=== PATIENT | female | born 1960 ===

== ENCOUNTER 2020-05-18 08:48 | Day surgery (SDC) | payer MEDICAID, SELFPAY ==
--- NOTE | 2020-05-17 09:14 | P.CONAN_ITS ---
Documented by User: Ailyn Penny 05/17/20 09:17 HPI - Anesthesia Eval Consult details Narrative: 60yo F for Upper Endoscopy and Colonoscopy FOR[facility]LY [facility] Past Medical History Medical History GERD (gastroesophageal reflux disease) HTN (hypertension) Surgical History Surgical History H/O colonoscopy History of esophagogastroduodenoscopy (EGD) Hx of reduction mammoplasty Hx of tubal ligation Social History Social History Advance Directives: No Advance Directives Information Provided: No Meds Allergies Allergy/AdvReac Type Severity Reaction Status Date / Time lisinopril [LISINOPRIL] AdvReac Mild COUGH, dry Verified 05/11/20 13:52 cough Home Medications Medication Instructions Recorded Confirmed Type allopurinol 100 mg PO DAILY 05/11/20 05/11/20 History atenolol 25 mg PO DAILY 05/11/20 05/11/20 History cholecalciferol (vitamin D3) 25 mcg PO DAILY 05/11/20 05/11/20 History [Vitamin D3] furosemide 20 mg PO DAILY 05/11/20 05/11/20 History melatonin [Melatin] 3 mg PO BEDTIME 05/11/20 05/11/20 History omeprazole 20 mg PO BID 05/11/20 05/11/20 History ranitidine HCl 150 mg PO BID 05/11/20 05/11/20 History simethicone 180 mg PO TID 05/11/20 05/11/20 History zolpidem 5 mg PO BEDTIME 05/11/20 05/11/20 History Exam Exam Date and Time: May 17, 2020 0914 Assessment and Plan Assessment Anesthesia Assessment: Chart Reviewed Documented by User: Ofelia Villalpando 05/18/20 09:15 [facility] Past Medical History Medical History GERD (gastroesophageal reflux disease) HTN (hypertension) Surgical History Surgical History H/O colonoscopy History of esophagogastroduodenoscopy (EGD) Hx of reduction mammoplasty Hx of tubal ligation Social History Social History Advance Directives: No Advance Directives Information Provided: No Meds Allergies Allergy/AdvReac Type Severity Reaction Status Date / Time lisinopril [LISINOPRIL] AdvReac Mild COUGH, dry Verified 05/11/20 13:52 cough Home Medications Medication Instructions Recorded Confirmed Type allopurinol 100 mg PO DAILY 05/11/20 05/11/20 History atenolol 25 mg PO DAILY 05/11/20 05/11/20 History cholecalciferol (vitamin D3) 25 mcg PO DAILY 05/11/20 05/11/20 History [Vitamin D3] furosemide 20 mg PO DAILY 05/11/20 05/11/20 History melatonin [Melatin] 3 mg PO BEDTIME 05/11/20 05/11/20 History omeprazole 20 mg PO BID 05/11/20 05/11/20 History ranitidine HCl 150 mg PO BID 05/11/20 05/11/20 History simethicone 180 mg PO TID 05/11/20 05/11/20 History zolpidem 5 mg PO BEDTIME 05/11/20 05/11/20 History Exam Airway Mallampati Class: I TM Dist: >3cm Neck ROM: Full Heart: RRR Lungs: CTA
--- NOTE | 2020-05-18 09:16 | HO.ANESPROP2 ---
[facility] Past Medical History Medical History GERD (gastroesophageal reflux disease) HTN (hypertension) Surgical History Surgical History H/O colonoscopy History of esophagogastroduodenoscopy (EGD) Hx of reduction mammoplasty Hx of tubal ligation Social History Social History Advance Directives: No Advance Directives Information Provided: No Meds Allergies Allergy/AdvReac Type Severity Reaction Status Date / Time lisinopril [LISINOPRIL] AdvReac Mild COUGH, dry Verified 05/11/20 13:52 cough Home Medications Medication Instructions Recorded Confirmed Type allopurinol 100 mg PO DAILY 05/11/20 05/11/20 History atenolol 25 mg PO DAILY 05/11/20 05/11/20 History cholecalciferol (vitamin D3) 25 mcg PO DAILY 05/11/20 05/11/20 History [Vitamin D3] furosemide 20 mg PO DAILY 05/11/20 05/11/20 History melatonin [Melatin] 3 mg PO BEDTIME 05/11/20 05/11/20 History omeprazole 20 mg PO BID 05/11/20 05/11/20 History ranitidine HCl 150 mg PO BID 05/11/20 05/11/20 History simethicone 180 mg PO TID 05/11/20 05/11/20 History zolpidem 5 mg PO BEDTIME 05/11/20 05/11/20 History Exam Exam Date and Time: May 18, 2020 0916 Assessment and Plan Assessment Anesthesia Assessment: Anesthesia Plan Discussed and Chart Reviewed Final Anesthetic Review NPO: Yes ASA Class: II Final Preanesthetic Review: No Changes in Pt Med Stat, Meds/Allgs Chart Reviewed, Consent Obtained/Reviewed and Anes Risks/Benef Reviewed Patient Risk: Low Procedure Risk: Low Anesthetic Plan Anesthetic Plan: MAC: Disposition: Standard PACU
[2020-05-18 09:24] VITALS: BMI 36.0
[2020-05-18 09:29] VITALS: BP 131/70; PULSE 57; RESP 16; TEMP 36.1; O2SAT 97
--- NOTE | 2020-05-18 09:32 | MHC.SHP ---
Pre-Procedural Eval Section B Chief Complaint: EPIGASTRIC PAIN Details of Present Illness: colon screen as well Relevant Family History (Specify if Yes): No Relevant Social History: None Present Medications: see Short Stay Collaborative assessment Medical History: Significant History (htn,acid reflux) History of Previous Operations: Relevant previous surgery/procedure and date(s) (tubal ligation, b reast reduction) Allergies: Allergies Allergy/AdvReac Type Severity Reaction Status Date / Time lisinopril [LISINOPRIL] AdvReac Mild COUGH, dry Verified 05/11/20 13:52 cough Review of Systems Sugical H&P ROS: Negative: Constitution, Cardiovascular, Respiratory, Neurological, Psychiatric, Hem-Onc, Allergic/Immunologic, Gastrointestinal, Genitourinary, Musculoskeletal, Integumentary, Endocrine and Eyes/Ears/Nose/Throat Exam Surgical H&P Exam: Normal: HEENT, Normal: Heart, Normal: Lungs, Normal: Extremities, Normal: Abdomen, Normal: Skin and Normal: Neurological Plan Diagnosis/Plan: Unchanged Patient has been examined and remains a candidate for the planned procedure--EGD and colonoscopy for colon screen
[2020-05-18] MEDS: Lactated Ringers 1,000 ML 100 ML IVCONT (09:38)
--- NOTE | 2020-05-18 09:41 | PC.NURSE ---
lungs clear throughotu
--- NOTE | 2020-05-18 11:31 | P.OP_ITS ---
Operative Note Operative Note Date of Service: 05/18/20 Narrative: Operative Information Procedure Description: EGD, Colonoscopy FLEXIBLE TRANSORAL UPPER GASTROINTESTINAL ENDOSCOPY AND COLONOSCOPY PROCEDURE NOTE UPPER ENDOSCOPY Consent: Indications for the procedure and potential complications of bleeding, perforation, reaction to medications and missed diagnosis were discussed with the patient and informed consent was obtained. Instrument: Olympus GIF H 190 J mid size upper endoscope Monitoring: Vital signs and clinical assessment, continuous EKG monitoring, Pulse oximetry, Carbon Dioxide monitoring and blood pressure monitoring were done throughout the procedure. Procedure: The patient was placed in the left lateral decubitis position and pre-procedure medications were administered and a bite block was placed. The endoscope was inserted into the mouth and advanced under direct vision to the third part of duodenum. A careful inspection was made as the upper endoscope was withdrawn including a retroflexed examination of the proximal stomach; Findings and interventions are described below. Findings: Larynx:normal Esophagus: GE junction at 37 cm, diaphragm hiatus at 37 cm, LA grade A moderate esophagitis noted at GEJ, bx taken from here as well as random esophagus. Empirical balloon dilation done at GEJ and UES 20 Fr at GEJ and 18 Fr at UES, no tears seen Stomach:Patchy erythema. Biopsies were obtained. Grade 2 flap valve on retroflexed examination of the cardia. Duodenum: Normal bulb and descending duodenum, Intervention: Biopsies as noted above, balloon dilation COLONOSCOPY Instrument: Olympus variable stiffness pediatric scope 190L Colonoscopy Monitoring: Vital signs and clinical assessment, continuous EKG monitoring, Pulse oximetry, Carbon Dioxide monitoring and blood pressure monitoring were done throughout the procedure. Colon withdrawal time was 10 minutes. Procedure: The patient was placed in the left lateral decubitis position and pre-procedure medications were administered. After a digital rectal examination of the ano-rectum, the video colonoscope was inserted into the rectum and advanced through the colon to the cecum/TI. The colonoscope was slowly withdrawn in a retrograde panoramic fashion and the colon mucosa was carefully examined including a retroflexed view of the rectum. Findings and interventions are described below. Procedure Difficulty:hard Findings: Redundant colon, numerous wide mouthed tics thru out the colon, worse on right side Terminal Ileum-normal Cecum:normal Ascending Colon: normal, 4-5 mm sessile polyp biopsy excised, also mucosa on right colon looked granular with mosaic pattern, bx taken Transverse Colon -normal Descending Colon:normal, 4-5 mm sessile polyp removed with biopsy forceps Sigmoid Colon: normal Rectum: Retroflexion with small internal hemorrhoids, grade I Anorectum - normal Colon preparation: [place] Bowel Preparation Scale Right colon; 2 Transverse colon: 2 Left colon; 1 (0 = Unprepared colon segment with mucosa not seen due to solid stool that cannot be cleared. 1 = Portion of mucosa of the colon segment seen, but other areas of the colon segment not well seen due to staining, residual stool and/or opaque liquid. 2 = Minor amount of residual staining, small fragments of stool and/or opaque liquid, but mucosa of colon segment seen well. 3 = Entire mucosa of colon segment seen well with no residual staining, small fragments of stool or opaque liquid) Impression and Post Procedure Diagnosis: Endoscopy Findings: gastritis esophagitis Colonoscopy Findings: diverticulosis internal hemorrhoids polyps Plan: Await Pathology results Repeat Colonoscopy in 5 years due to left sided prep or earlier if clinically indicated High fiber diet leaflet avoid straining at stool, epsom salts and sitz bath, anusol supps or cream May need to increase or change omeprazole, will discuss with patient Above findings were reviewed with the patient and relevant handouts were provided if indicated.
--- NOTE | 2020-05-18 11:31 | PM.OP ---
Brief Operative Note Date of Service: 05/18/20 Pre-op diagnosis: choking, epigastric discomfort, colon screen Post-op diagnosis: same Procedure: see op note Surgeon: Angie Castro MD Anesthesia: MAC Estimated blood loss (mL): 0 Condition: stable Disposition: PACU
[2020-05-18 11:35] VITALS: BP 102/57; PULSE 68; RESP 16; TEMP 36.7; O2SAT 96
[2020-05-18 11:50] VITALS: BP 128/60; PULSE 56; RESP 19; TEMP 36.7; O2SAT 98
== END 2020-05-18 12:23 | disposition home or self-care (01) ==
PROVIDERS: PCP Family Medicine; Visit Provider Internal Medicine Gastroenterology
PROC: (CPT 45380; principal; 2020-05-18 10:30)
DX: Z12.11 Encounter for screening for malignant neoplasm of colon (principal); D12.4 Benign neoplasm of descending colon; K63.5 Polyp of colon; K57.30 Diverticulosis of large intestine without perforation or abscess without bleeding; K64.0 First degree hemorrhoids; R13.10 Dysphagia, unspecified; K29.70 Gastritis, unspecified, without bleeding; K21.00 Gastro-esophageal reflux disease with esophagitis, without bleeding; Z79.899 Other long term (current) drug therapy; Q43.8 Other specified congenital malformations of intestine
CPT/HCPCS: 45380; 43239; 43249; 88305; 88342; C1726

== ENCOUNTER → 2020-05-25 14:04 | Outpatient (BNVA) | payer MEDICAID, SELFPAY | PROVIDERS: PCP Family Medicine; Referring Provider Family Medicine; Visit Provider Nurse Practitioner | DX: Z76.89 Persons encountering health services in other specified circumstances (principal) ==

== ENCOUNTER → 2020-10-13 14:16 | Outpatient (BNVA) | payer MEDICAID, SELFPAY | PROVIDERS: PCP Family Medicine; Visit Provider Nurse Practitioner ==

== ENCOUNTER 2020-12-08 11:12 | Outpatient (REF) | payer MEDICAID, SELFPAY ==
--- NOTE | ~2020-12-08 | XR_ITS ---
EXAMINATION: XR CHEST CLINICAL INFORMATION: Cough. On suspected foreign body in larynx. COMPARISON: None TECHNIQUE: 2 views of the chest were obtained. FINDINGS: No significant abnormality is noted involving the heart, lungs, mediastinum, bony thorax or soft tissues. XR/XR chest 2V IMPRESSION: Unremarkable chest examination.
== END 2020-12-08 11:13 | disposition home or self-care (01) ==
LOC: HO.XRAY 11:12
PROVIDERS: PCP Family Medicine; Visit Provider Family Medicine
DX: R05 Cough (principal); T17.308A Unspecified foreign body in larynx causing other injury, initial encounter
CPT/HCPCS: 71046

== ENCOUNTER 2021-02-26 08:29 | Outpatient (REF) | payer MEDICAID, SELFPAY ==
--- NOTE | ~2021-02-26 | MM_ITS ---
EXAMINATION: MM SCREENING DIGITAL BREAST TOMOSYNTHESIS, BILATERAL CLINICAL INFORMATION: Screening. Asymptomatic. Bilateral reduction mammoplasty, 2007. The lifetime risk of breast cancer based on the Tyrer-Cuzick Model is 6%. COMPARISON: Mammography: 02/07/2020, 02/06/2018, 01/29/2017 TECHNIQUE: Digital breast tomosynthesis is performed in both the craniocaudal and mediolateral oblique views along with computer-aided detection (CAD). Synthesized 2D images are generated from the tomosynthesis. FINDINGS: There are scattered areas of fibroglandular density (ACR BI-RADS breast composition Category b). Parenchymal pattern is similar to prior studies. No interval mass or developing density. No abnormal calcifications. There is minor scarring consistent with the history prior reduction mammoplasty. Small oil cyst again noted periareolar upper outer left breast. The axilla are unremarkable. No significant changes. MM/MM tomosynthesis screening BI IMPRESSION: No mammographic evidence of malignancy. ASSESSMENT: BI-RADS 2: Benign RECOMMENDATION: Routine annual mammography screening. This patient's information was entered into a reminder system with a target due date for their next mammogram.
== END 2021-02-26 08:30 | disposition home or self-care (01) ==
LOC: HO.MAMMO 08:29
PROVIDERS: Visit Provider Family Medicine
DX: Z12.31 Encounter for screening mammogram for malignant neoplasm of breast (principal)
CPT/HCPCS: 77063; 77067

== ENCOUNTER → 2021-04-14 16:22 | Outpatient (BNVA) | payer MEDICAID, SELFPAY | PROVIDERS: PCP Family Medicine; Visit Provider Nurse Practitioner ==

== ENCOUNTER 2021-04-20 12:00 | Outpatient (REF) | payer MEDICAID, SELFPAY ==
[2021-04-20 12:17] LABS: MANUAL DIFF FLAG NO
[2021-04-20 12:33] LABS: Basophils Percent Auto 0.4 % (0-2); Eosinophils Absolute Auto 0.1 X10*3/uL (0.0-0.4); Eosinophils Percent Auto 1.7 % (0-4); Hematocrit 41.2 % (37.0-47.0); Hemoglobin 13.5 g/dl (12.0-16.0); Imm Gran Abs Auto 0.02 X10*3/uL (0.00-0.03); Imm Gran Pct Auto 0.2 % (0.0-0.4); Lymphocytes Percent Auto 23.9 % (20-40); Mean Corpuscular HGB Conc 32.8 g/dl (31.0-35.0); Mean Corpuscular Volume 85.3 fL (80.0-98.0); Mean Platelet Volume 10.1 fL (9.4-12.3); Monocytes Absolute Auto 0.6 X10*3/uL (0.1-1.2); Monocytes Percent Auto 7.1 % (2-11); Neutrophils Absolute Auto 5.53 x10*3/uL (2.0-8.3); Neutrophils Percent Auto 66.7 % (45-73); Platelet Count 293 X10*3/uL (160-400); Red Blood Count 4.83 X10*6/uL (4.20-5.50); Red Cell Distribution Width 12.4 % (11.0-16.0); White Blood Count 8.3 X10*3/uL (4.8-10.8)
[2021-04-20 12:43] LABS: Estimated Average Glucose 114 mg/dL; Hemoglobin A1c % 5.6 %
[2021-04-20 12:56] LABS: Alanine Aminotransferase 14 U/L (0-31); Albumin Level 4.2 g/dL (3.5-5.0); Alkaline Phosphatase 67 U/L (39-117); Amylase 76 U/L (28-100); Anion Gap 11 (12-20); Aspartate Amino Transferase 13 U/L (5-31); Bilirubin Total 0.8 mg/dL (0.0-1.0); Blood Urea Nitrogen 23 mg/dL (9-16); Calcium 9.1 mg/dL (8.4-10.2); Carbon Dioxide 28 mmol/L (22-29); Chloride 108 mmol/L (96-108); Estimated Glomerular Filt Rate > 60; Glucose Random 100 mg/dL (60-115); Lipase 49 U/L (8-78); Potassium 4.5 mmol/L (3.3-5.1); Sodium 142 mmol/L (135-145); Total Protein 6.8 g/dL (6.5-8.0)
[2021-04-20 13:22] LABS: TSH reflex Free T4 1.58 uIU/mL (0.32-4.0)
== END 2021-04-20 12:01 | disposition home or self-care (01) ==
LOC: HO.LAB 12:00
PROVIDERS: PCP Family Medicine; Visit Provider Nurse Practitioner
DX: K21.9 Gastro-esophageal reflux disease without esophagitis (principal); R14.0 Abdominal distension (gaseous); R10.13 Epigastric pain; D12.6 Benign neoplasm of colon, unspecified; R63.4 Abnormal weight loss; R10.9 Unspecified abdominal pain
CPT/HCPCS: 36415; 80053; 82150; 83036; 83690; 84443; 85025

== ENCOUNTER 2021-05-05 08:12 | Outpatient (REF) | payer MEDICAID, SELFPAY ==
--- NOTE | ~2021-05-05 | CT_ITS ---
EXAMINATION: CT ABDOMEN AND PELVIS WITH CONTRAST CLINICAL INFORMATION: Abnormal weight loss COMPARISON: None TECHNIQUE: Multidetector volumetric images were obtained from the superior aspect of the liver through the pubic symphysis following administration 85 mL of Omnipaque 350 intravenous contrast. Sagittal and coronal reformatted images were obtained on the technologist's workstation. Oral contrast: Yes This CT examination was performed using dose optimization techniques as appropriate, variously including the following: *Automated exposure control *Adjustment of mA and/or kV according to patient size (this includes techniques or standardized protocols for targeted exams where dose is matched to indication/reason for exam; i.e. extremities or head) *Use of iterative reconstruction technique DLP: 676 mGy-cm FINDINGS: LUNG BASES: The visualized lung bases are unremarkable. LIVER, GALLBLADDER, AND BILIARY TREE: The liver is normal in size, shape, and attenuation. No focal hepatic lesion or biliary ductal dilatation is present. The gallbladder is unremarkable with no evidence of radiopaque gallstones, gallbladder wall thickening, or obvious pericholecystic inflammatory changes. PANCREAS: Unremarkable. SPLEEN: Unremarkable. ADRENAL GLANDS: Unremarkable. KIDNEYS AND URETERS: The kidneys are normal in size, shape, and attenuation. No hydronephrosis, hydroureter, or calculi seen. There is a small 5 mm low-attenuation lesion in the right kidney. This is difficult to characterize due to small size but probably represents a cyst. No imaging follow-up needed. BLADDER: Unremarkable. GASTROINTESTINAL TRACT: There is diverticulosis of the colon. The small and large bowel are otherwise unremarkable. The appendix is unremarkable. May be a small esophageal hernia. The stomach is otherwise unremarkable. ABDOMINAL WALL: No significant hernia is appreciated. LYMPH NODES: Normal. VASCULAR: Unremarkable. PELVIC VISCERA: Unremarkable. OSSEOUS STRUCTURES: There are degenerative changes of the spine. There is mild 5 mm anterior subluxation of L4 with respect L5 probably related to arthritis. CT/CT abdomen pelvis w con IMPRESSION: Diverticulosis of the colon. Question small esophageal hernia. Small probable right renal cyst.
[2021-05-05] MEDS: iohexoL 350 MG/ML 100 ML INFUS..BTL IV (11:49)
[2021-05-05] MEDS: Barium Sulfate Oral (Mocha) 450 ML ORAL.SUSP 900 ML PO (11:50)
== END 2021-05-05 08:13 | disposition home or self-care (01) ==
LOC: HO.CT 08:12
PROVIDERS: PCP Family Medicine; Visit Provider Nurse Practitioner
DX: R10.9 Unspecified abdominal pain (principal); R63.4 Abnormal weight loss
CPT/HCPCS: 74177; Q9967

== ENCOUNTER 2021-05-13 10:38 | Emergency (ER) | payer MEDICAID, SELFPAY ==
--- NOTE | ~2021-05-13 | XR_ITS ---
EXAMINATION: XR RIBS, RIGHT CLINICAL INFORMATION: Right-sided chest wall pain. COMPARISON: None TECHNIQUE: 3 views of the right ribs were obtained. Chest one view FINDINGS: Lungs are clear. No consolidation, pneumothorax, or pleural effusion. The cardiomediastinal silhouette and pulmonary vasculature are normal. There is moderate dorsal spine spondylosis.. Ribs are intact. No fractures are identified. XR/XR ribs RT min 3V w CXR1V IMPRESSION: Unremarkable chest and right rib examination.
--- NOTE | ~2021-05-13 | US_ITS ---
EXAMINATION: US VENOUS ULTRASOUND WITH DOPPLER LOWER EXTREMITY, RIGHT CLINICAL INFORMATION: Right leg swelling and pain. Assess for occult DVT. COMPARISON: Bilateral leg venous ultrasound with Doppler 01/07/2019 TECHNIQUE: Ultrasound of the deep veins is performed from the hip to the calf with compression sonography and color and pulse Doppler assessment. Spectral analysis with color-flow imaging is performed. FINDINGS: There is normal venous compression and respiratory variation and augmented flow. The visualized common femoral vein, superficial femoral vein, profunda femoral vein, popliteal vein, and the trifurcation region shows no evidence of deep venous thrombosis. No popliteal fossa cyst. US/US venous duplex LE RT IMPRESSION: No DVT demonstrated in the right lower extremity.
--- NOTE | ~2021-05-13 | CT_ITS ---
EXAMINATION: CT ANGIOGRAM OF THE CHEST WITH AND WITHOUT CONTRAST (CT PULMONARY ANGIOGRAM FOR PE) CLINICAL INFORMATION: Reason for Exam right sided chest wall pain, +d-dimer COMPARISON: Chest radiograph with right ribs 05/13/2021 TECHNIQUE: Prior to contrast administration, noncontrast localization images were obtained. Subsequently, multidetector volumetric imaging was performed from the thoracic inlet to below the diaphragms following the administration of 65 mL Omnipaque 350 intravenous contrast. Sagittal, coronal, and MIP oblique sagittal reformatted images were obtained on the CT workstation, uploaded to PACS, and reviewed. This CT examination was performed using dose optimization techniques as appropriate, variously including the following: *Automated exposure control *Adjustment of mA and/or kV according to patient size (this includes techniques or standardized protocols for targeted exams where dose is matched to indication/reason for exam; i.e. extremities or head) *Use of iterative reconstruction technique Total exam dose-length product 336 mGy-cm FINDINGS: QUALITY OF STUDY/CONTRAST BOLUS: Satisfactory. PULMONARY ARTERIES: No central or segmental pulmonary emboli. THORACIC AORTA: No aneurysm or dissection. LUNG: No airspace consolidation or groundglass opacity. No mass or significant nodule. There is a incidental calcified right along most subpleural posterior lateral left upper lobe, series 8/173 under 4 mm. No additional follow-up required as per Fleischner guidelines. PLEURA: No pleural effusion or pneumothorax. MEDIASTINUM: Normal heart size. No pericardial effusion. No hilar or mediastinal lymphadenopathy. No evidence of septal bowing or right heart strain. CHEST WALL/AXILLA: No axillary or internal mammary lymphadenopathy. OSSEOUS STRUCTURES: No acute or suspicious osseous abnormality. UPPER ABDOMEN: Unremarkable. No reflux of contrast into the hepatic veins to suggest elevated right heart pressures. CT/CT angio chest PE protocol IMPRESSION: 1. No pulmonary embolism. No thoracic aortic dissection. 2. No pneumothorax, infiltrate, or pleural reaction. VTE: negative
[2021-05-13 10:56] VITALS: BP 115/73; PULSE 64; RESP 18; TEMP 36.9; O2SAT 97; BMI 32.9
--- NOTE | 2021-05-13 11:52 | ECG_ITS ---
Test Reason : CHEST PAIN Blood Pressure : / mmHG Vent. Rate : 054 BPM Atrial Rate : 054 BPM P-R Int : 156 ms QRS Dur : 090 ms QT Int : 428 ms P-R-T Axes : 037 -10 023 degrees QTc Int : 405 ms Sinus bradycardia Minimal voltage criteria for LVH, may be normal variant ( R in aVL ) Borderline ECG When compared with ECG of 13-OCT-2019 14:21, No significant change was found Referred By: Court Reddy Electronically Signed By:ALONDRA DICKENS MD
--- NOTE | 2021-05-13 11:53 | ED.GENADULT ---
HPI - General Adult General Chief complaint: General Medical Stated complaint: upper rt abd pain Time Seen by Provider: 05/13/21 11:44 Source: patient Mode of arrival: ambulatory Limitations: no limitations History of Present Illness HPI narrative: 61-year-old female with history of hypertension GERD here with complaints of right-sided chest wall pain for the last 4 days which is worsened with deep breathing, coughing, movement. She denies any associated cough, shortness of breath, leg swelling, fevers, vomiting, urinary symptoms. she does report some pain and discomfort with some lumps to her right thigh which she has had for several weeks. She is pending an outpatient ultrasound to rule out blood clot. no recent travel or sick contacts Related Data Home Medications Medication Instructions Recorded Confirmed allopurinol 100 mg tablet 100 mg PO DAILY 05/11/20 05/11/20 atenolol 25 mg tablet 25 mg PO DAILY 05/11/20 05/11/20 cholecalciferol (vitamin D3) 25 25 mcg PO DAILY 05/11/20 05/11/20 mcg (1,000 unit) capsule (Vitamin D3) furosemide 20 mg tablet 20 mg PO DAILY 05/11/20 05/11/20 melatonin 3 mg tablet (Melatin) 3 mg PO BEDTIME 05/11/20 05/11/20 simethicone 180 mg capsule 180 mg PO TID 05/11/20 05/11/20 zolpidem 5 mg tablet 5 mg PO BEDTIME 05/11/20 05/11/20 ibuprofen 800 mg tablet 800 mg PO DAILY 04/14/21 meclizine 25 mg tablet 25 mg PO DAILY PRN 04/14/21 Previous Rx's Medication Instructions Recorded omeprazole 40 mg capsule,delayed 40 mg PO QAM #30 cap 03/29/21 release cyclobenzaprine 10 mg tablet 10 mg PO TID PRN #10 tab 05/13/21 naproxen 500 mg tablet 500 mg PO BID PRN #15 tab 05/13/21 Allergies Allergy/AdvReac Type Severity Reaction Status Date / Time lisinopril [LISINOPRIL] AdvReac Mild COUGH, dry Verified 05/13/21 10:56 cough Review of Systems Review of Systems: Yes all other systems are reviewed and are negative Constitutional: Constitutional: Reports no additional constitutional complaints, Denies body ache(s), Denies chills, Denies fever(s), Denies headache(s) and Denies weakness Eyes: Eyes: Reports no additional eye complaints and Denies change in vision ENT: Reports system reviewed and no additional complaints, except as documented, Denies dizziness, Denies headache(s), Denies nasal congestion, Denies nasal discharge and Denies neck pain Cardiovascular: Cardiovascular: Reports no additional cardiovascular complaints, Reports chest pain, Reports leg edema and Denies dyspnea Respiratory: Respiratory: Reports no additional respiratory complaints, Denies cough and Denies dyspnea Gastrointestinal: Gastrointestinal: Reports no additional gastrointestinal complaints, Denies abdominal pain, Denies diarrhea, Denies nausea and Denies vomiting Genitourinary: Genitourinary: Reports no additional female genitourinary complaints and Denies urinary incontinence Musculoskeletal: Musculoskeletal: Reports no additional musculoskeletal complaints, Denies back pain, Denies arthralgias, Denies joint swelling, Denies neck pain, Denies numbness and Denies tingling Integumentary/Breasts: Skin/Breast: Reports system reviewed and no additional complaints, except as docu and Denies rash Neurologic: Reports system reviewed and no additional complaints, except as documented, Denies Abnormal speech present, Denies dizziness, Denies headache(s), Denies numbness, Denies tingling and Denies weakness PMFSH Past Medical History Attestation statement: The following information was validated with the patient. Source: old records reviewed Medical History GERD (gastroesophageal reflux disease) HTN (hypertension) Surgical History H/O colonoscopy History of esophagogastroduodenoscopy (EGD) Hx of reduction mammoplasty Hx of tubal ligation Family History Family History Father Heart failure Diabetes Mother Heart failure Diabetes AD (Alzheimer's disease) Brother Pancreatic cancer Social History Social History Alcohol intake: current Alcohol intake frequency: does not drink Advance Directives: No Patient : No Physical Exam Vital Signs: Vital Signs: Last Vital Signs Temp 98.4 F 05/13/21 10:56 Pulse 64 05/13/21 10:56 Resp 18 05/13/21 10:56 BP 115/73 05/13/21 10:56 Pulse Ox 97 05/13/21 10:56 Body Mass Index 32.9 Const: General: cooperative, healthy appearing, comfortable and no acute distress Orientation/consciousness: patient oriented x3 Limitations: no limitations HENMT: Head: Yes normal to inspection Ears: hearing grossly normal bilaterally General nose exam: Normal external nose present Face and sinus: Yes normal facial exam Mouth: Normal oral and palatal mucosa present Throat: Yes posterior oropharynx normal Eyes: General: appearance normal, both eyes and all related structures Pupils: Equal, round and reactive pupils present Neck: Neck: Yes normal visual inspection Chest: Other: to the right lateral ribs there is some tenderness with no obvious crepitus or deformity or ecchymosis. Chest palpation & inspection: normal inspection of the chest Resp: Effort & Inspection: normal respiratory effort Auscultation: clear to auscultation bilaterally Cardio: Rate: regular rate Rhythm: regular rhythm Peripheral pulses: Peripheral pulses 2+ throughout GI: Inspection: Yes normal to inspection Palpation (GI): Soft to palpation and nontender Auscultation: normal bowel sounds Back/Spine/Pelvis: Thoracic/Lumbar Spine: thoracic and lumbar spine normal to inspection Skin: General skin exam: no rashes or lesions noted Neuro: General: patient oriented x3, no focal motor deficits and normal sensation to monofilament Cranial nerves: Yes Equal, round and reactive pupils present Cognition (Neuro): normal cognition Speech: No Abnormal speech present Gait exam (Neuro): Normal gait present Motor exam (neuro): 5/5 motor strength present throughout Extrem: Other: To the right inner thigh there is to palpable firm, tender lumps No appreciable swelling, redness or warmth. General: Yes normal to inspection, Yes no pedal edema and Yes no calf tenderness Course Course Course Narrative: pleuritic right-sided chest wall pain for several days with lumps to RLE x several weeks. Will check labs, EKG, CXR, venous US RLE 1520- X-ray was negative. Ultrasound showed no DVT. Labs and EKG are normal. The patient did have a mildly elevated D-dimer and so CTA of the chest was done to rule out PE. This was negative. Likely chest wall strain. Reviewed findings with the patient. Recommended follow-up with primary care doctor for continued symptoms. Reviewed worrisome signs and symptoms of when to return to the emergency department. Comfortable discharge home. Medical Decision Making MDM Narrative Medical decision making narrative: PE, DVT, chest wall strain, ACS Less likely ACS with atypical chest pain with a negative troponin and EKG Medical Records Medical records reviewed: Yes I reviewed the patient's medical records. Lab Data Lab results reviewed: Yes I reviewed the patient's lab results. Result diagrams: 05/13/21 12:39 05/13/21 12:39 Labs: Lab Results 05/13/21 05/13/21 05/13/21 Range/Units 12:39 12:39 12:39 WBC 8.6 (4.8-10.8) X10*3/uL RBC 4.99 (4.20-5.50) X10*6/uL Hgb 13.7 (12.0-16.0) g/dl Hct 42.8 (37.0-47.0) % MCV 85.8 (80.0-98.0) fL MCH 27.5 (27.0-33.0) pg MCHC 32.0 (31.0-35.0) g/dl RDW 12.4 (11.0-16.0) % Plt Count 341 (160-400) X10*3/uL MPV 10.0 (9.4-12.3) fL Immature Gran % (Auto) 0.6 H (0.0-0.4) % Neut % (Auto) 62.6 (45-73) % Lymph % (Auto) 26.9 (20-40) % [place] % (Auto) 6.8 (2-11) % Eos % (Auto) 2.7 (0-4) % Baso % (Auto) 0.4 (0-2) % Lymph # (Auto) 2.3 (1.2-4.9) X10*3/uL [place] # (Auto) 0.6 (0.1-1.2) X10*3/uL Eos # (Auto) 0.2 (0.0-0.4) X10*3/uL Baso # (Auto) 0.0 (0.0-0.2) X10*3/uL Abs Immat Gran (auto) 0.05 H (0.00-0.03) X10*3/uL Absolute Neuts (auto) 5.4 (2.0-8.3) x10*3/uL Absolute Nucleated RBC 0.000 (0.0-0.012) X10*3/uL Nucleated RBC % (auto) 0.0 (0.0-0.2) /100WBC PT 10.8 (9.9-13.0) SEC INR 1.0 (0.9-1.1) D-Dimer High Sensitivty NG/ML Sodium 141 (135-145) mmol/L Potassium 4.6 (3.3-5.1) mmol/L Chloride 108 (96-108) mmol/L Carbon Dioxide 26 (22-29) mmol/L Anion Gap 12 (12-20) BUN 24 H (9-16) mg/dL Creatinine 0.80 (0.5-1.4) mg/dL Estim Creat Clear Calc 74.9 Estimated GFR > 60 Random Glucose 95 (60-115) mg/dL Calcium 9.3 (8.4-10.2) mg/dL Total Bilirubin 0.5 (0.0-1.0) mg/dL Direct Bilirubin 0.2 (0.0-0.5) mg/dL AST 12 (5-31) U/L ALT 15 (0-31) U/L Alkaline Phosphatase 76 (39-117) U/L Troponin I High Sens (<3.5-17.0) ng/L Total Protein 7.0 (6.5-8.0) g/dL Albumin 4.3 (3.5-5.0) g/dL 05/13/21 05/13/21 Range/Units 12:39 12:40 WBC (4.8-10.8) X10*3/uL RBC (4.20-5.50) X10*6/uL Hgb (12.0-16.0) g/dl Hct (37.0-47.0) % MCV (80.0-98.0) fL MCH (27.0-33.0) pg MCHC (31.0-35.0) g/dl RDW (11.0-16.0) % Plt Count (160-400) X10*3/uL MPV (9.4-12.3) fL Immature Gran % (Auto) (0.0-0.4) % Neut % (Auto) (45-73) % Lymph % (Auto) (20-40) % [place] % (Auto) (2-11) % Eos % (Auto) (0-4) % Baso % (Auto) (0-2) % Lymph # (Auto) (1.2-4.9) X10*3/uL [place] # (Auto) (0.1-1.2) X10*3/uL Eos # (Auto) (0.0-0.4) X10*3/uL Baso # (Auto) (0.0-0.2) X10*3/uL Abs Immat Gran (auto) (0.00-0.03) X10*3/uL Absolute Neuts (auto) (2.0-8.3) x10*3/uL Absolute Nucleated RBC (0.0-0.012) X10*3/uL Nucleated RBC % (auto) (0.0-0.2) /100WBC PT (9.9-13.0) SEC INR (0.9-1.1) D-Dimer High Sensitivty 369 NG/ML Sodium (135-145) mmol/L Potassium (3.3-5.1) mmol/L Chloride (96-108) mmol/L Carbon Dioxide (22-29) mmol/L Anion Gap (12-20) BUN (9-16) mg/dL Creatinine (0.5-1.4) mg/dL Estim Creat Clear Calc Estimated GFR Random Glucose (60-115) mg/dL Calcium (8.4-10.2) mg/dL Total Bilirubin (0.0-1.0) mg/dL Direct Bilirubin (0.0-0.5) mg/dL AST (5-31) U/L ALT (0-31) U/L Alkaline Phosphatase (39-117) U/L Troponin I High Sens < 3.5 (<3.5-17.0) ng/L Total Protein (6.5-8.0) g/dL Albumin (3.5-5.0) g/dL Imaging Data Venous US: Attestation: I personally reviewed and interpreted this imaging study as follows: Radiologist's impression: EXAMINATION:? US VENOUS ULTRASOUND WITH DOPPLER LOWER EXTREMITY, RIGHT CLINICAL INFORMATION:? Right leg swelling and pain. Assess for occult DVT. COMPARISON:? Bilateral leg venous ultrasound with Doppler 01/07/2019 TECHNIQUE: Ultrasound of the deep veins is performed from the hip to the calf with compression sonography and color and pulse Doppler assessment. Spectral analysis with color-flow imaging is performed. FINDINGS: There is normal venous compression and respiratory variation and augmented flow. The visualized common femoral vein, superficial femoral vein, profunda femoral vein, popliteal vein, and the trifurcation region shows no evidence of deep venous thrombosis. ? No popliteal fossa cyst. US/US venous duplex LE RT IMPRESSION: No DVT demonstrated in the right lower extremity. ribs right/chest x-ray: Attestation: I personally reviewed and interpreted this imaging study as follows: Radiologist's impression: EXAMINATION: XR RIBS, RIGHT CLINICAL INFORMATION: Right-sided chest wall pain. COMPARISON: None TECHNIQUE: 3 views of the right ribs were obtained. Chest one view FINDINGS: Lungs are clear. No consolidation, pneumothorax, or pleural effusion. The cardiomediastinal silhouette and pulmonary vasculature are normal. There is moderate dorsal spine spondylosis.. Ribs are intact. No fractures are identified. XR/XR ribs RT min 3V w CXR1V IMPRESSION: Unremarkable chest and right rib examination. ? CT scan - chest: Attestation: I personally reviewed and interpreted this imaging study as follows: Radiologist's impression: FINDINGS: QUALITY OF STUDY/CONTRAST BOLUS: Satisfactory. PULMONARY ARTERIES: No central or segmental pulmonary emboli.? THORACIC AORTA: No aneurysm or dissection. LUNG: No airspace consolidation or groundglass opacity. No mass or significant nodule. There is a incidental calcified right along most subpleural posterior lateral left upper lobe, series 8/173 under 4 mm. No additional follow-up required as per Fleischner guidelines. PLEURA: No pleural effusion or pneumothorax. MEDIASTINUM: Normal heart size.? No pericardial effusion.? No hilar or mediastinal lymphadenopathy.? No evidence of septal bowing or right heart strain. CHEST WALL/AXILLA: No axillary or internal mammary lymphadenopathy. OSSEOUS STRUCTURES: No acute or suspicious osseous abnormality.? UPPER ABDOMEN: Unremarkable.? No reflux of contrast into the hepatic veins to suggest elevated right heart pressures. CT/CT angio chest PE protocol IMPRESSION: ? 1. No pulmonary embolism. No thoracic aortic dissection. 2. No pneumothorax, infiltrate, or pleural reaction. ? VTE: negative ECG Data Attestation: I personally reviewed and interpreted this ECG as follows: Interpretation: sinus bradycardia with a rate of 54, normal MD, normal QRS, normal QT Discharge Plan Discharge Clinical Impression: Chest wall muscle strain Patient Disposition: Home, Self-Care Instructions: Chest Wall Pain (ED) Additional Instructions: heat or ice gentle stretching Prescriptions: New naproxen 500 mg tablet 500 mg PO BID PRN (Reason: pain) Qty: 15 RF: 0 cyclobenzaprine 10 mg tablet 10 mg PO TID PRN (Reason: muscle spasm) Qty: 10 RF: 0 No Action omeprazole 40 mg capsule,delayed release(DR/EC) 40 mg PO QAM Qty: 30 RF: 1 simethicone 180 mg Capsule 180 mg PO TID RF: 0 atenolol 25 mg Tablet 25 mg PO DAILY RF: 0 melatonin [Melatin] 3 mg Tablet 3 mg PO BEDTIME RF: 0 allopurinol 100 mg Tablet 100 mg PO DAILY RF: 0 zolpidem 5 mg Tablet 5 mg PO BEDTIME RF: 0 furosemide 20 mg Tablet 20 mg PO DAILY RF: 0 cholecalciferol (vitamin D3) [Vitamin D3] 25 mcg (1,000 unit) Capsule 25 mcg PO DAILY RF: 0 meclizine 25 mg tablet 25 mg PO DAILY PRN (Reason: vertigo) RF: 0 ibuprofen 800 mg tablet 800 mg PO DAILY RF: 0 Referrals: Ebony Blanchard MD [Primary Care Provider] - 2 days Interventions: ED Discharge Assessment Last Done: 05/13/21 15:20 Discharge Date/Time: 05/13/21 15:20
[2021-05-13 12:47] LABS: MANUAL DIFF FLAG NO
[2021-05-13 12:52] LABS: Basophils Percent Auto 0.4 % (0-2); Eosinophils Absolute Auto 0.2 X10*3/uL (0.0-0.4); Eosinophils Percent Auto 2.7 % (0-4); Hematocrit 42.8 % (37.0-47.0); Hemoglobin 13.7 g/dl (12.0-16.0); Imm Gran Abs Auto 0.05 X10*3/uL (0.00-0.03); Imm Gran Pct Auto 0.6 % (0.0-0.4); Lymphocytes Absolute Auto 2.3 X10*3/uL (1.2-4.9); Lymphocytes Percent Auto 26.9 % (20-40); Mean Corpuscular Hemoglobin 27.5 pg (27.0-33.0); Mean Corpuscular Volume 85.8 fL (80.0-98.0); Monocytes Absolute Auto 0.6 X10*3/uL (0.1-1.2); Monocytes Percent Auto 6.8 % (2-11); Neutrophils Absolute Auto 5.4 x10*3/uL (2.0-8.3); Neutrophils Percent Auto 62.6 % (45-73); Platelet Count 341 X10*3/uL (160-400); Red Blood Count 4.99 X10*6/uL (4.20-5.50); Red Cell Distribution Width 12.4 % (11.0-16.0); White Blood Count 8.6 X10*3/uL (4.8-10.8)
[2021-05-13 12:57] LABS: Prothrombin Time 10.8 SEC (9.9-13.0)
[2021-05-13 13:00] LABS: D Dimer High Sensitivity 369 NG/ML
[2021-05-13 13:05] LABS: Alanine Aminotransferase 15 U/L (0-31); Albumin Level 4.3 g/dL (3.5-5.0); Alkaline Phosphatase 76 U/L (39-117); Anion Gap 12 (12-20); Aspartate Amino Transferase 12 U/L (5-31); Bilirubin Direct 0.2 mg/dL (0.0-0.5); Bilirubin Total 0.5 mg/dL (0.0-1.0); Blood Urea Nitrogen 24 mg/dL (9-16); Calcium 9.3 mg/dL (8.4-10.2); Carbon Dioxide 26 mmol/L (22-29); Chloride 108 mmol/L (96-108); Creatinine Clr Calc Pharmacy 74.9; Estimated Glomerular Filt Rate > 60; Glucose Random 95 mg/dL (60-115); Potassium 4.6 mmol/L (3.3-5.1); Sodium 141 mmol/L (135-145)
[2021-05-13 13:09] LABS: Troponin-I High Sensitivity < 3.5 ng/L (<3.5-17.0)
[2021-05-13] MEDS: iohexoL 350 MG/ML 100 ML INFUS..BTL IV (14:33)
== END 2021-05-13 15:20 | disposition home or self-care (01) ==
PROVIDERS: Nurse Practitioner Family; Emergency Provider Emergency Medicine; PCP Family Medicine
DX: S29.011A Strain of muscle and tendon of front wall of thorax, initial encounter (principal); X58.XXXA Exposure to other specified factors, initial encounter; R10.11 Right upper quadrant pain; R60.0 Localized edema; M79.651 Pain in right thigh; I10 Essential (primary) hypertension; Y93.9 Activity, unspecified; Y92.9 Unspecified place or not applicable; Y99.9 Unspecified external cause status
CPT/HCPCS: 36415; 71101; 71275; 80048; 80076; 84484; 85025; 85379; 85610; 93005; 93971; 99284; Q9967

== ENCOUNTER 2021-06-03 08:26 | Outpatient (REF) | payer MEDICAID, SELFPAY ==
--- NOTE | ~2021-06-03 | FL_ITS ---
EXAMINATION: FL BARIUM SWALLOW CLINICAL INFORMATION: Gastroesophageal reflux disease without esophagitis. COMPARISON: None TECHNIQUE: Barium swallow examination is performed using fluoroscopic evaluation in addition to multiple fluoroscopic spot views. The patient is imaged both upright and prone and using both thick and thin sulfate along with effervescent granules. Fluoroscopy time: 1.8 minutes DAP: 15.446 Gy-cm2 Images: 48 FINDINGS: Following oral administration of thick barium and barium-coated turkey in upright view, there is normal propagation of bolus from the oral cavity through the pharynx, esophagus into stomach without any evidence of obstruction, narrowing or stricture. There is no extrinsic compression. On oral administration of barium tablet, there is spontaneous passage of the tablet from the oral cavity, esophagus into stomach. On placing patient prone lying and oral administration of thin barium, there is good distention of the esophagus without intraluminal filling defect or narrowing. No laryngeal penetration or aspiration seen in upright or lying positions. There is a small sliding hiatal hernia with mild gastroesophageal reflux. Incidental finding of mild narrowing of right C4-C5 neural foramina FL/FL barium swallow IMPRESSION: Widely patent esophagus without any obstruction, narrowing or stricture. No evidence of laryngeal penetration or aspiration. Small sliding hiatal hernia with mild gastroesophageal reflux. FLUOROSCOPY TIME: 1.8 minutes. DOSE AREA PRODUCT: 15.46 Gy-cm2 IMAGES: 48
== END 2021-06-03 08:27 | disposition home or self-care (01) ==
LOC: HO.XRAY 08:26
PROVIDERS: PCP Family Medicine; Visit Provider Nurse Practitioner
DX: R10.13 Epigastric pain (principal); K21.9 Gastro-esophageal reflux disease without esophagitis; D12.6 Benign neoplasm of colon, unspecified; R14.0 Abdominal distension (gaseous); R63.4 Abnormal weight loss
CPT/HCPCS: 74220

== ENCOUNTER 2021-06-06 10:12 | Outpatient (REF) | payer MEDICAID, SELFPAY ==
--- NOTE | ~2021-06-06 | US_ITS ---
EXAMINATION: US LOWER EXTREMITY VENOUS (REFLUX EXAM), BILATERAL CLINICAL INDICATION: There is a 61-year-old female with venous insufficiency and varicose veins. COMPARISON: Comparison is made to previous study dated 01/07/2019 which demonstrated focal segmental reflux in the right gastrocnemius vein below the knee. Varicose veins off the great saphenous veins in both legs were present. TECHNIQUE: Color flow triplex imaging and compression Doppler was performed to evaluate both the deep and the superficial systems bilaterally. To evaluate the superficial system, the examination was performed in the upright position. Color-flow Doppler ultrasound and compression ultrasound were utilized. In addition, maneuvers were utilized to demonstrate reflux. FINDINGS: 1. DEEP VENOUS ULTRASOUND OF THE RIGHT LOWER EXTREMITY: Common Femoral Vein: Compressible, normal respiratory variation and augmented flow. Femoral vein: Compressible, normal color flow and augmentation. Popliteal Vein: Compressible, normal augmentation. Deep Reflux: There is no evidence of reflux in the deep system in either the common femoral vein or the popliteal vein. There is no evidence of a Rosario's cyst. 2. SUPERFICIAL ULTRASOUND WITH DOPPLER OF RIGHT LOWER EXTREMITY: GREAT SAPHENOUS VEIN: Saphenofemoral Junction: 0.7 cm Mid Thigh: 0.4 cm Above Knee: 0.5 cm Below Knee: 0.3 cm. There is isolated reflux of 2300 ms at this level. Mid Calf: 0.3 cm Ankle: 0.4 cm GSV REFLUX: There is no evidence of reflux at the junction. There is isolated reflux below the knee. DUPLICATED GREAT SAPHENOUS VEIN: There is a lateral duplicated 0.3 cm great saphenous vein without reflux. SMALL SAPHENOUS VEIN: Proximal: 0.4 cm Distal: 0.3 cm SSV REFLUX: No evidence of reflux. VEIN OF GIACOMINI: None Imaged. PERFORATORS: There are 0.3 cm mid thigh perforators without reflux. VARICOSITIES: None Imaged 3. DEEP VENOUS ULTRASOUND OF THE LEFT LOWER EXTREMITY: Common Femoral Vein: Compressible, normal respiratory variation and augmented flow. Femoral Vein: Compressible, normal color flow and augmentation. Popliteal Vein: Compressible, normal augmentation. Deep Reflux: There is no evidence of reflux in the deep system in either the common femoral vein or the popliteal vein. There is no evidence of a Rosario's cyst. 4. SUPERFICIAL ULTRASOUND WITH DOPPLER OF LEFT LOWER EXTREMITY: GREAT SAPHENOUS VEIN: Saphenofemoral Junction: 0.5 cm Mid Thigh: 0.6 cm Above Knee: 0.4 cm Below Knee: 0.3 cm Mid Calf: 0.3 cm Ankle: 0.3 cm GSV REFLUX: No evidence of reflux. DUPLICATED GREAT SAPHENOUS VEIN: There is a 0.3 cm duplicated lateral great saphenous vein without reflux. SMALL SAPHENOUS VEIN: Proximal: 0.2 cm Distal: 0.3 cm SSV REFLUX: No evidence of reflux. VEIN OF GIACOMINI: None Imaged. PERFORATORS: There is a 0.2 cm printing gray cloth tender off the small saphenous vein without reflux VARICOSITIES: There are 0.2 cm mid thigh and mid calf, respect way, varicose veins with reflux greater than 500 ms. US/US venous duplex LE BI IMPRESSION: 1. There are bilateral patent great saphenous veins and small saphenous veins without evidence of junctional reflux. 2. Varicose veins are seen in the mid thigh and mid calf which measures 0.2 cm or less.
== END 2021-06-06 10:13 | disposition home or self-care (01) ==
LOC: HO.US 10:12
PROVIDERS: PCP Family Medicine; Visit Provider Family Medicine
DX: I83.813 Varicose veins of bilateral lower extremities with pain (principal); M79.651 Pain in right thigh; M79.652 Pain in left thigh
CPT/HCPCS: 93970

== ENCOUNTER → 2021-06-09 08:46 | Outpatient (BNVA) | payer MEDICAID, SELFPAY | PROVIDERS: PCP Family Medicine; Referring Provider Family Medicine; Visit Provider Nurse Practitioner | DX: K21.9 Gastro-esophageal reflux disease without esophagitis (principal); R14.0 Abdominal distension (gaseous); R10.13 Epigastric pain; R11.0 Nausea | CPT/HCPCS: 99212 ==

== ENCOUNTER 2021-06-19 10:23 | Emergency (ER) | payer MEDICAID, SELFPAY | END 2021-06-19 16:38 | disposition left against medical advice (07) | PROVIDERS: Emergency Provider Emergency Medicine; PCP Family Medicine | DX: R07.89 Other chest pain (principal); R05.9 Cough, unspecified ==

== ENCOUNTER → 2021-08-19 13:50 | Outpatient (BNVA) | payer MEDICAID, SELFPAY | PROVIDERS: PCP Family Medicine; Referring Provider Family Medicine; Visit Provider Nurse Practitioner | DX: K21.9 Gastro-esophageal reflux disease without esophagitis (principal); K57.30 Diverticulosis of large intestine without perforation or abscess without bleeding; R11.0 Nausea; R14.0 Abdominal distension (gaseous); R10.13 Epigastric pain; Z88.8 Allergy status to other drugs, medicaments and biological substances | CPT/HCPCS: 99212 ==

== ENCOUNTER 2022-02-02 07:50 | Day surgery (SDC) | payer MEDICAID, SELFPAY ==
--- NOTE | 2022-02-01 13:39 | HO.ANESPROP2 ---
Documented by User: Ailyn Penny NP 02/01/22 13:40 HPI - Anesthesia Eval Consult details Narrative: 61yo F for Upper Endoscopy PMFSH Active Problems Active Problems: All Active Problems (Updated 08/19/21 @ 14:28 by SOTO Gonsales) Constipation (Acute) Nausea (Acute) Abdominal pain (Acute) Abnormal weight loss (Acute) GERD (gastroesophageal reflux disease) (Acute) Abdominal bloating (Acute) Epigastric pain (Acute) Tubular adenoma of colon (Acute) Past Medical History Medical History GERD (gastroesophageal reflux disease) HTN (hypertension) Family History Family History Father Heart failure Diabetes Mother Heart failure Diabetes AD (Alzheimer's disease) Brother Pancreatic cancer Surgical History Surgical History H/O colonoscopy History of esophagogastroduodenoscopy (EGD) Hx of reduction mammoplasty Hx of tubal ligation Social History Social History Alcohol intake: current Alcohol intake frequency: does not drink Advance Directives: No Advance Directives Information Provided: Yes Meds Allergies Allergy/AdvReac Type Severity Reaction Status Date / Time lisinopril [LISINOPRIL] AdvReac Mild COUGH, dry Verified 08/19/21 14:04 cough Home Medications Medication Instructions Recorded Confirmed Last Taken Type atenolol 25 mg tablet 25 mg PO DAILY 05/11/20 05/11/20 02/02/22 06:00 History cholecalciferol (vitamin D3) 25 25 mcg PO DAILY 05/11/20 05/11/20 Unknown History mcg (1,000 unit) capsule (Vitamin D3) furosemide 20 mg tablet 20 mg PO DAILY 05/11/20 05/11/20 Unknown History melatonin 3 mg tablet (Melatin) 3 mg PO BEDTIME 05/11/20 05/11/20 Unknown History simethicone 180 mg capsule 180 mg PO TID 05/11/20 05/11/20 Unknown History zolpidem 5 mg tablet 5 mg PO BEDTIME 05/11/20 05/11/20 Unknown History ibuprofen 800 mg tablet 800 mg PO DAILY 04/14/21 Unknown History meclizine 25 mg tablet 25 mg PO DAILY PRN vertigo 04/14/21 Unknown History Exam Exam Date and Time: February 01, 2022 1339 Assessment and Plan Assessment Anesthesia Assessment: Chart Reviewed Documented by User: Ofelia Huddleston MD 02/02/22 09:03 PMF Past Medical History Medical History GERD (gastroesophageal reflux disease) HTN (hypertension) Functional capacity: independent ambulation Patient : No Family History Family History Father Heart failure Diabetes Mother Heart failure Diabetes AD (Alzheimer's disease) Brother Pancreatic cancer Family history of problems with anesthesia: No Surgical History Surgical History H/O colonoscopy History of esophagogastroduodenoscopy (EGD) Hx of reduction mammoplasty Hx of tubal ligation History of Problems with Anesthesia: No Social History Social History Alcohol intake: current Alcohol intake frequency: does not drink Advance Directives: No Advance Directives Information Provided: Yes Meds Allergies Allergy/AdvReac Type Severity Reaction Status Date / Time lisinopril [LISINOPRIL] AdvReac Mild COUGH, dry Verified 08/19/21 14:04 cough Home Medications Medication Instructions Recorded Confirmed Last Taken Type atenolol 25 mg tablet 25 mg PO DAILY 05/11/20 05/11/20 02/02/22 06:00 History cholecalciferol (vitamin D3) 25 25 mcg PO DAILY 05/11/20 05/11/20 Unknown History mcg (1,000 unit) capsule (Vitamin D3) furosemide 20 mg tablet 20 mg PO DAILY 05/11/20 05/11/20 Unknown History melatonin 3 mg tablet (Melatin) 3 mg PO BEDTIME 05/11/20 05/11/20 Unknown History simethicone 180 mg capsule 180 mg PO TID 05/11/20 05/11/20 Unknown History zolpidem 5 mg tablet 5 mg PO BEDTIME 05/11/20 05/11/20 Unknown History ibuprofen 800 mg tablet 800 mg PO DAILY 04/14/21 Unknown History meclizine 25 mg tablet 25 mg PO DAILY PRN vertigo 04/14/21 Unknown History Exam Airway Mallampati Class: II TM Dist: >3cm Neck ROM: Full Heart: RRR Lungs: CTA Assessment and Plan Final Anesthetic Review Family History of Problems with Anesthesia: No History of Problems with Anesthesia: No ASA Class: II Final Preanesthetic Review: No Changes in Pt Med Stat, Meds/Allgs Chart Reviewed, Consent Obtained/Reviewed and Anes Risks/Benef Reviewed Patient Risk: Low Procedure Risk: Low Anesthetic Plan Anesthetic Plan: MAC: Disposition: Standard PACU
[2022-02-02] MEDS: Lactated Ringers 1,000 ML 100 ML IVCONT (08:29)
[2022-02-02 08:30] VITALS: BP 142/70; PULSE 56; RESP 18; TEMP 36.1; O2SAT 98
--- NOTE | 2022-02-02 09:24 | MHC.SHP ---
Pre-Procedural Eval Section A Date of Service: 02/02/22 Section B Chief Complaint: epi pain Details of Present Illness: nausea Relevant Family History (Specify if Yes): No Relevant Social History: None Present Medications: see Short Stay Collaborative assessment Medical History: Significant History (GERD (gastroesophageal reflux disease) HTN (hypertension)) History of Previous Operations: Relevant previous surgery/procedure and date(s) (H/O colonoscopy History of esophagogastroduodenoscopy (EGD) Hx of reduction mammoplasty Hx of tubal ligation) Allergies: Allergies Allergy/AdvReac Type Severity Reaction Status Date / Time lisinopril [LISINOPRIL] AdvReac Mild COUGH, dry Verified 08/19/21 14:04 cough Review of Systems Sugical H&P ROS: Negative: Constitution, Cardiovascular, Respiratory, Neurological, Psychiatric, Hem-Onc, Allergic/Immunologic, Gastrointestinal, Genitourinary, Musculoskeletal, Integumentary, Endocrine and Eyes/Ears/Nose/Throat Exam Surgical H&P Exam: Normal: HEENT, Normal: Heart, Normal: Lungs, Normal: Extremities, Normal: Abdomen, Normal: Skin and Normal: Neurological Plan Diagnosis/Plan: Unchanged I have reviewed the history and physical and performed a pertinent physical examination on my patient. No changes have occurred unless specified.
--- NOTE | 2022-02-02 09:27 | W.PM.OPN ---
Operative Note Operative Note Date of Service: 02/02/22 Narrative: Procedure Description: EGD Indication: nausea Anesthesia: MAC FLEXIBLE TRANSORAL UPPER GASTROINTESTINAL ENDOSCOPY UPPER ENDOSCOPY Consent: Indications for the procedure and potential complications of bleeding, perforation, reaction to medications and missed diagnosis were discussed with the patient and informed consent was obtained. Instrument: Olympus GIF H 190 J mid size upper endoscope Monitoring: Vital signs and clinical assessment, continuous EKG monitoring, Pulse oximetry, Carbon Dioxide monitoring and blood pressure monitoring were done throughout the procedure. Procedure: The patient was placed in the left lateral decubitis position and pre-procedure medications were administered and a bite block was placed. The endoscope was inserted into the mouth and advanced under direct vision to the third part of duodenum. A careful inspection was made as the upper endoscope was withdrawn including a retroflexed examination of the proximal stomach; Findings and interventions are described below. Findings: Larynx:normal Esophagus: GE junction at 34 cm, diaphragm hiatus at 36 cm, consistent with 2 cm sliding hiatal hernia. Mild esophagitis with bogginess and erythema at GEJ and cardia, bx taken. Non obstructive schatzki ring noted. Stomach: Normal mucosa with gastric movement noted. Biopsies were obtained. Grade 2 flap valve on retroflexed examination of the cardia.The pyloric outlet was stretched with balloon to 18 mm with resistance felt, no tears seen. Duodenum: Normal bulb and descending duodenum, bx taken Intervention: Biopsies as noted above, balloon dilation of pylorus Impression/Findings: schatzki ring esophagitis hiatal hernia PLAN: can consider increasing PPi to BId and see if helps sx GERd precautions consider GES if ongoing symptoms.
[2022-02-02 09:57] VITALS: BP 86/48; PULSE 70; RESP 16; TEMP 36.4; O2SAT 95
[2022-02-02 10:12] VITALS: BP 112/71; PULSE 56; RESP 16; TEMP 36.1; O2SAT 96
[2022-02-02 10:27] VITALS: BP 114/66; PULSE 54; RESP 16; TEMP 36.1; O2SAT 96
--- NOTE | 2022-02-02 13:22 | HO.POSTANES ---
Post Anesthesia Evaluation Post Anesthesia Evaluation Vital Signs: Vital Signs Temp Pulse Resp BP Pulse Ox O2 Del Method 02/02/22 10:27 97 F 54 16 114/66 96 Room Air 02/02/22 10:12 97 F 56 16 112/71 96 Room Air 02/02/22 09:57 97.5 F 70 16 86/48 L 95 Room Air 02/02/22 08:30 97.0 F 56 18 142/70 H 98 Room Air Anesthesia: Monitored Mental Status: Awake Pain Control: Satisfactory Nausea/Vomiting: None Hydration: Adequate Anesthesia-Related Issues: No Anes. Related Issues
== END 2022-02-02 11:05 ==
LOC: HO.SSS 07:51
PROVIDERS: PCP Family Medicine; Visit Provider Internal Medicine Gastroenterology
PROC: 0DJ08ZZ Inspection of Upper Intestinal Tract, Via Natural or Artificial Opening Endoscopic (ICD-10-PCS; CPT 43235; principal; 2022-02-02 09:20)
DX: K21.9 Gastro-esophageal reflux disease without esophagitis (principal); K22.2 Esophageal obstruction; K20.80 Other esophagitis without bleeding; K44.9 Diaphragmatic hernia without obstruction or gangrene; I10 Essential (primary) hypertension; Z79.899 Other long term (current) drug therapy
CPT/HCPCS: 43245; 43239; 88305; 88342; C1726

== ENCOUNTER → 2022-02-16 08:54 | Outpatient (BNVA) | payer MEDICAID, SELFPAY | PROVIDERS: PCP Family Medicine; Visit Provider Nurse Practitioner | DX: R11.0 Nausea (principal); K30 Functional dyspepsia; R10.13 Epigastric pain; K21.9 Gastro-esophageal reflux disease without esophagitis; K59.00 Constipation, unspecified | CPT/HCPCS: 99212 ==

== ENCOUNTER 2022-03-07 11:53 | Outpatient (REF) | payer MEDICAID, SELFPAY ==
--- NOTE | ~2022-03-07 | MM_ITS ---
EXAMINATION: MM SCREENING DIGITAL BREAST TOMOSYNTHESIS, BILATERAL CLINICAL INFORMATION: Screening. Asymptomatic. Bilateral reduction mammoplasty, 2006. Due for yearly. The lifetime risk of breast cancer based on the Tyrer-Cuzick Model is 6%. COMPARISON: Mammography: 02/26/2021, 02/07/2020, 02/06/2018 TECHNIQUE: Digital breast tomosynthesis is performed in both the craniocaudal and mediolateral oblique views along with computer-aided detection (CAD). Synthesized 2D images are generated from the tomosynthesis. FINDINGS: There are scattered areas of fibroglandular density (ACR BI-RADS breast composition Category b). There is minor scarring consistent with the prior reduction mammoplasty. Parenchymal pattern is similar to prior studies. There is no interval mass or architectural abnormality or abnormal calcifications. Intramammary node posterior upper outer left breast and minor nodular asymmetry anterior outer right breast are stable. The axilla and skin contours are unremarkable. No significant changes from prior studies. MM/MM tomosynthesis screening BI IMPRESSION: No mammographic evidence of malignancy. ASSESSMENT: BI-RADS 2: Benign RECOMMENDATION: Routine annual mammography screening. This patient's information was entered into a reminder system with a target due date for their next mammogram.
== END 2022-03-07 11:54 | disposition home or self-care (01) ==
LOC: HO.MAMMO 11:53
PROVIDERS: Visit Provider Family Medicine
DX: Z12.31 Encounter for screening mammogram for malignant neoplasm of breast (principal)
CPT/HCPCS: 77063; 77067

== ENCOUNTER → 2022-05-18 09:55 | Outpatient (BNVA) | payer MEDICAID, SELFPAY | PROVIDERS: PCP Family Medicine; Referring Provider Family Medicine; Visit Provider Nurse Practitioner | DX: R10.13 Epigastric pain (principal); K29.71 Gastritis, unspecified, with bleeding; K21.9 Gastro-esophageal reflux disease without esophagitis; K30 Functional dyspepsia; R14.0 Abdominal distension (gaseous); D12.6 Benign neoplasm of colon, unspecified | CPT/HCPCS: 99212 ==

== ENCOUNTER → 2022-06-08 11:38 | Outpatient (BNVA) | payer MEDICAID, SELFPAY | PROVIDERS: PCP Family Medicine; Visit Provider Nurse Practitioner | DX: K21.9 Gastro-esophageal reflux disease without esophagitis (principal); K29.71 Gastritis, unspecified, with bleeding; K30 Functional dyspepsia; R14.0 Abdominal distension (gaseous); R11.0 Nausea; D12.6 Benign neoplasm of colon, unspecified; I10 Essential (primary) hypertension | CPT/HCPCS: 99212 ==

== ENCOUNTER 2022-07-07 12:24 | Emergency (ER) | payer MEDICARE, MEDICAID, SELFPAY ==
--- NOTE | ~2022-07-07 | XR_ITS ---
EXAMINATION: XR KNEE, RIGHT CLINICAL INFORMATION: Pain, swelling COMPARISON: None TECHNIQUE: Four views of the right knee. FINDINGS: No fracture or dislocation. No joint effusion. Normal mineralization and alignment. XR/XR knee RT 4V IMPRESSION: No acute osseous abnormality of the right knee.
--- NOTE | ~2022-07-07 | US_ITS ---
EXAMINATION: US VENOUS ULTRASOUND WITH DOPPLER LOWER EXTREMITY, RIGHT CLINICAL INFORMATION: Swelling to be COMPARISON: None TECHNIQUE: Ultrasound of the deep veins is performed from the hip to the calf with compression sonography and color and pulse Doppler assessment. Spectral analysis with color-flow imaging is performed. FINDINGS: There is normal venous compression and respiratory variation and augmented flow. The visualized common femoral vein, superficial femoral vein, profunda femoral vein, popliteal vein, and the trifurcation region shows no evidence of deep venous thrombosis. There is fluid in the popliteal fossa which could represent a small popliteal fossa cyst or joint effusion. If the patient's symptoms persist, followup ultrasound in 5 days 7 days might be of value to exclude proximal propagation from a non-visualized calf vein. US/US venous duplex LE RT IMPRESSION: No DVT demonstrated in the right lower extremity.
[2022-07-07 13:09] VITALS: BP 138/74; PULSE 57; RESP 18; TEMP 36.6; O2SAT 98; BMI 34.2
--- NOTE | 2022-07-07 13:09 | ED.LOWEXIN ---
HPI - Extremity Injury (Lower) General Chief Complaint: Extremity Injury, Lower <Soraya Melgar CNP - Last Filed: 07/07/22 13:10> Stated Complaint: r knee pain <Soraya Melgar CNP - Last Filed: 07/07/22 13:10> Time Seen by Provider: 07/07/22 13:25 <Soraya Melgar CNP - Last Filed: 07/07/22 13:10> Source: patient and building services engineer <Court Ko NP - Last Filed: 07/07/22 15:33> Mode of arrival: ambulatory <Court Ko NP - Last Filed: 07/07/22 15:33> Limitations: language barrier <Court Ko NP - Last Filed: 07/07/22 15:33> History of Present Illness HPI Narrative: 62-year-old female with history of GERD who presents with complaints of right knee pain and swelling for the last 7 days. Patient denies any injury or trauma. No redness, warmth, fevers, chills. No numbness, tingling of the extremity. <Court Ko NP - Last Filed: 07/07/22 15:33> Related Data Home Medications: Home Medications Medication Instructions Recorded Confirmed atenolol 25 mg tablet 25 mg PO DAILY 05/11/20 05/11/20 cholecalciferol (vitamin D3) 25 25 mcg PO DAILY 05/11/20 05/11/20 mcg (1,000 unit) capsule (Vitamin D3) furosemide 20 mg tablet 20 mg PO DAILY 05/11/20 05/11/20 melatonin 3 mg tablet (Melatin) 3 mg PO BEDTIME 05/11/20 05/11/20 simethicone 180 mg capsule 180 mg PO TID 05/11/20 05/11/20 zolpidem 5 mg tablet 5 mg PO BEDTIME 05/11/20 05/11/20 ibuprofen 800 mg tablet 800 mg PO DAILY 04/14/21 meclizine 25 mg tablet 25 mg PO DAILY PRN vertigo 04/14/21 cyclobenzaprine 10 mg tablet 10 mg PO TID PRN muscle spasm 02/16/22 fluticasone propionate 50 2 spray intranasal DAILY 02/16/22 mcg/actuation nasal spray,suspension lidocaine 5 % topical patch 1 patch topical DAILY 02/16/22 (Lidoderm) Previous Rx's Medication Instructions Recorded psyllium husk 0.4 gram capsule 0.4 g PO BEDTIME #30 caps 08/19/21 (Fiber (psyllium husk)) famotidine 40 mg tablet 40 mg PO BEDTIME #30 tabs 03/13/22 pantoprazole 40 mg tablet,delayed 40 mg PO BID 30 days #60 tabs 06/15/22 release (Protonix) <Soraya Melgar CNP - Last Filed: 07/07/22 13:10> Allergies/Adverse Reactions: Allergies Allergy/AdvReac Type Severity Reaction Status Date / Time metoclopramide AdvReac Severe Hypertensio Verified 07/07/22 13:12 n lisinopril [LISINOPRIL] AdvReac Mild COUGH, dry Verified 07/07/22 13:12 cough <Soraya Melgar CNP - Last Filed: 07/07/22 13:10> Review of Systems Review of Systems: Yes all other systems are reviewed and are negative <Court Ko NP - Last Filed: 07/07/22 15:33> Constitutional: Constitutional: Reports no additional constitutional complaints, Denies body ache(s), Denies chills, Denies fever(s), Denies headache(s) and Denies weakness <Court Ko NP - Last Filed: 07/07/22 15:33> Eyes: Eyes: Reports no additional eye complaints and Denies change in vision <Court Ko NP - Last Filed: 07/07/22 15:33> ENT: Reports system reviewed and no additional complaints, except as documented, Denies dizziness, Denies headache(s), Denies nasal congestion, Denies nasal discharge and Denies neck pain <Court Ko NP - Last Filed: 07/07/22 15:33> Cardiovascular: Cardiovascular: Reports no additional cardiovascular complaints, Denies chest pain, Denies leg edema and Denies dyspnea <Court Ko NP - Last Filed: 07/07/22 15:33> Respiratory: Respiratory: Reports no additional respiratory complaints, Denies cough and Denies dyspnea <Court Ko NP - Last Filed: 07/07/22 15:33> Gastrointestinal: Gastrointestinal: Reports no additional gastrointestinal complaints, Denies abdominal pain, Denies diarrhea, Denies nausea and Denies vomiting <Court Ko NP - Last Filed: 07/07/22 15:33> Genitourinary: Genitourinary: Reports no additional female genitourinary complaints and Denies urinary incontinence <Court Ko NP - Last Filed: 07/07/22 15:33> Musculoskeletal: Musculoskeletal: Reports no additional musculoskeletal complaints, Denies back pain, Reports arthralgias, Reports joint swelling, Denies neck pain, Denies numbness and Denies tingling <Court Ko NP - Last Filed: 07/07/22 15:33> Integumentary/Breasts: Skin/Breast: Reports system reviewed and no additional complaints, except as docu and Denies rash <Court Ko NP - Last Filed: 07/07/22 15:33> Neurologic: Reports system reviewed and no additional complaints, except as documented, Denies Abnormal speech present, Denies dizziness, Denies headache(s), Denies numbness, Denies tingling and Denies weakness <Court Ko NP - Last Filed: 07/07/22 15:33> [facility] Past Medical History Attestation statement: The following information was validated with the patient. <Court Ko NP - Last Filed: 07/07/22 15:33> Source: old records reviewed and nursing notes reviewed <Court Ko NP - Last Filed: 07/07/22 15:33> Medical History: Medical History GERD (gastroesophageal reflux disease) HTN (hypertension) <Soraya Melgar CNP - Last Filed: 07/07/22 13:10> Surgical History: Surgical History H/O colonoscopy History of esophagogastroduodenoscopy (EGD) Hx of reduction mammoplasty Hx of tubal ligation <Soraya Melgar CNP - Last Filed: 07/07/22 13:10> Family History Family History: Family History Father Heart failure Diabetes Mother Heart failure Diabetes AD (Alzheimer's disease) Brother Pancreatic cancer <Soraya Melgar CNP - Last Filed: 07/07/22 13:10> Social History Social History: Social History Alcohol intake: current Alcohol intake frequency: does not drink Advance Directives: No <Soraya Melgar CNP - Last Filed: 07/07/22 13:10> Physical Exam Vital Signs: Vital Signs: Last Vital Signs Temp 98.3 F 07/07/22 14:03 Pulse 56 07/07/22 14:03 Resp 16 07/07/22 14:03 BP 130/66 07/07/22 14:03 Pulse Ox 97 07/07/22 14:03 O2 Del Method 07/07/22 14:03 BMI result Body Mass Index 34.2 <Soraya Melgar CNP - Last Filed: 07/07/22 13:10> Vital Signs: Last Vital Signs Temp 98.3 F 07/07/22 14:03 Pulse 56 07/07/22 14:03 Resp 16 07/07/22 14:03 BP 130/66 07/07/22 14:03 Pulse Ox 97 07/07/22 14:03 O2 Del Method 07/07/22 14:03 BMI result Body Mass Index 34.2 <Court Ko NP - Last Filed: 07/07/22 15:33> Vital Signs: Last Vital Signs Temp 98.3 F 07/07/22 14:03 Pulse 56 07/07/22 14:03 Resp 16 07/07/22 14:03 BP 130/66 07/07/22 14:03 Pulse Ox 97 07/07/22 14:03 O2 Del Method 07/07/22 14:03 BMI result Body Mass Index 34.2 <Donny Sears MD - Last Filed: 07/07/22 16:25> Const: General: cooperative, healthy appearing, comfortable and no acute distress <Court Ko SALES CORRESPONDENCE CLERK - Last Filed: 07/07/22 15:33> Orientation/consciousness: patient oriented x3 <Court Ko SALES CORRESPONDENCE CLERK - Last Filed: 07/07/22 15:33> Limitations: no limitations <Court Ko SALES CORRESPONDENCE CLERK - Last Filed: 07/07/22 15:33> HEENT: Head: Yes normal to inspection <Court Ko SALES CORRESPONDENCE CLERK - Last Filed: 07/07/22 15:33> Ears: hearing grossly normal bilaterally <Court Ko SALES CORRESPONDENCE CLERK - Last Filed: 07/07/22 15:33> General nose exam: Normal external nose present <Court Ko SALES CORRESPONDENCE CLERK - Last Filed: 07/07/22 15:33> Face and sinus: Yes normal facial exam <Court Ko SALES CORRESPONDENCE CLERK - Last Filed: 07/07/22 15:33> Mouth: Normal oral and palatal mucosa present <Court Ko SALES CORRESPONDENCE CLERK - Last Filed: 07/07/22 15:33> Throat: Yes posterior oropharynx normal <Court Ko SALES CORRESPONDENCE CLERK - Last Filed: 07/07/22 15:33> Eyes: General: appearance normal, both eyes and all related structures <Court Ko SALES CORRESPONDENCE CLERK - Last Filed: 07/07/22 15:33> Pupils: Equal, round and reactive pupils present <Court Ko SALES CORRESPONDENCE CLERK - Last Filed: 07/07/22 15:33> Neck: Neck: Yes normal visual inspection <Court Ko SALES CORRESPONDENCE CLERK - Last Filed: 07/07/22 15:33> Chest: Chest palpation & inspection: normal inspection of the chest <Court Ko SALES CORRESPONDENCE CLERK - Last Filed: 07/07/22 15:33> Resp: Effort & Inspection: normal respiratory effort <Court Ko SALES CORRESPONDENCE CLERK - Last Filed: 07/07/22 15:33> Auscultation: clear to auscultation bilaterally <Court Ko SALES CORRESPONDENCE CLERK - Last Filed: 07/07/22 15:33> Cardio: Rate: regular rate <Court Ko SALES CORRESPONDENCE CLERK - Last Filed: 07/07/22 15:33> Rhythm: regular rhythm <Court Ko SALES CORRESPONDENCE CLERK - Last Filed: 07/07/22 15:33> Peripheral pulses: Peripheral pulses 2+ throughout <Court Ko SALES CORRESPONDENCE CLERK - Last Filed: 07/07/22 15:33> GI: Inspection: Yes normal to inspection <Court Ko SALES CORRESPONDENCE CLERK - Last Filed: 07/07/22 15:33> Palpation (GI): Soft to palpation and nontender <Court Ko, SALES CORRESPONDENCE CLERK - Last Filed: 07/07/22 15:33> Auscultation: normal bowel sounds <oCurt Ko SALES CORRESPONDENCE CLERK - Last Filed: 07/07/22 15:33> Back/Spine/Pelvis: Thoracic/Lumbar Spine: thoracic and lumbar spine normal to inspection <Court Ko SALES CORRESPONDENCE CLERK - Last Filed: 07/07/22 15:33> Skin: General skin exam: no rashes or lesions noted <Court Ko SALES CORRESPONDENCE CLERK - Last Filed: 07/07/22 15:33> Neuro: General: patient oriented x3, no focal motor deficits and normal sensation to monofilament <Court Ko SALES CORRESPONDENCE CLERK - Last Filed: 07/07/22 15:33> Cranial nerves: Yes Equal, round and reactive pupils present <Court Ko SALES CORRESPONDENCE CLERK - Last Filed: 07/07/22 15:33> Cognition (Neuro): normal cognition <Court Parisicatarinamelany SALES CORRESPONDENCE CLERK - Last Filed: 07/07/22 15:33> Speech: No Abnormal speech present <Court Ko SALES CORRESPONDENCE CLERK - Last Filed: 07/07/22 15:33> Gait exam (Neuro): Normal gait present <Court Lebronmelany SALES CORRESPONDENCE CLERK - Last Filed: 07/07/22 15:33> Motor exam (neuro): 5/5 motor strength present throughout <Court Ko, SALES CORRESPONDENCE CLERK - Last Filed: 07/07/22 15:33> Extrem: Other: Patient was swelling, tenderness to the anterior and posterior knee. No warmth or redness. Patient is able to flex and extend the knee with no difficulty. No ligamental laxity. Palpable DP and PT pulses distally. Sensation normal. <Court Ko NP - Last Filed: 07/07/22 15:33> Course Course Course Narrative: This is an RME: Additional HPI, ROS, PE not included below will be deferred to primary provider. Patient is a 62-year-old female who presents emergency department for evaluation of right knee pain. Onset of symptoms 1 week ago, atraumatic. Sometimes has pain to this knee however, now she has swelling which is not typical. Pain made worse with movement and weight-bearing. Denies any numbness or tingling to the extremity. Denies calf pain, swelling, redness. Plan: XR right knee <Soraya Melgar CNP - Last Filed: 07/07/22 13:10> Reevaluation(s) Reevaluation #1: 1530-x-ray shows no bony abnormality. Ultrasound negative for DVT. There is a small amount of fluid seen within the joint. Likely underlying arthritis. Recommend rice, NSAID or Tylenol for pain as tolerated. Patient can follow-up outpatient with orthopedics for any persistent symptoms. Reviewed worrisome signs symptoms of when to return to the emergency room. Comfortable plan for discharge home. <Court Ko NP - Last Filed: 07/07/22 15:33> Medical Decision Making Medical Decision Making MDM Narrative: 62-year-old female here with atraumatic right knee pain and swelling for the last 7 days Patient with swelling, tenderness over the anterior posterior right knee with no redness, warmth. There is swelling. Patient reports she initially had some tightness in her right calf area but this has now resolved. Will check x-rays, venous ultrasound <Court Ko NP - Last Filed: 07/07/22 15:33> Differential Diagnosis Differential Diagnoses: The differential diagnosis associated with the presentation includes <Court Ko NP - Last Filed: 07/07/22 15:33> DVT, straight drain, sprain, arthritis <Court Ko NP - Last Filed: 07/07/22 15:33> Independent Interpretation I performed an independent interpretation of an: Plain X-Ray (I independently reviewed the x-rays right knee which shows no acute fracture) and Ultrasound <Court Ko NP - Last Filed: 07/07/22 15:33> Interpretation: Independently reviewed the ultrasound which shows no DVT <Court Ko NP - Last Filed: 07/07/22 15:33> Radiology Impression Discussion of test interpretation with radiology: I have reviewed the radiologist's reading. <Court Ko NP - Last Filed: 07/07/22 15:33> Radiologist Impression: [address] [address] XRay Report Signed Patient: Olivia Yu MR#: [id number] : 1960 Acct:[id number] Age/Sex: 62 / F ADM Date: 07/07/22 Loc: HO.ED Attending Dr: Ordering Physician: Soraya Melgar CNP Date of Service: 07/07/22 Procedure(s): XR knee RT 4V Accession Number(s): [id number] cc: Soraya Melgar LOAN FUNDER~ EXAMINATION: XR KNEE, RIGHT? CLINICAL INFORMATION: Pain, swelling? COMPARISON: None? TECHNIQUE: Four views of the right knee. FINDINGS: No fracture or dislocation. No joint effusion. Normal mineralization and alignment.? XR/XR knee RT 4V IMPRESSION: No acute osseous abnormality of the right knee. [address] [address] Ultrasound Report Signed Patient: Olivia Yu MR#: [id number] : 1960 Acct:[id number] Age/Sex: 62 / F ADM Date: 07/07/22 Loc: HO.ED Attending Dr: Ordering Physician: Court Reddy NP Date of Service: 07/07/22 Procedure(s): US venous duplex LE RT Accession Number(s): [id number] cc: Court Reddy NP~ EXAMINATION:? US VENOUS ULTRASOUND WITH DOPPLER LOWER EXTREMITY, RIGHT CLINICAL INFORMATION:? Swelling to be COMPARISON:? None TECHNIQUE: Ultrasound of the deep veins is performed from the hip to the calf with compression sonography and color and pulse Doppler assessment. Spectral analysis with color-flow imaging is performed. FINDINGS: There is normal venous compression and respiratory variation and augmented flow. The visualized common femoral vein, superficial femoral vein, profunda femoral vein, popliteal vein, and the trifurcation region shows no evidence of deep venous thrombosis. ? There is fluid in the popliteal fossa which could represent a small popliteal fossa cyst or joint effusion. If the patient's symptoms persist, followup ultrasound in 5 days 7 days might be of value to exclude proximal propagation from a non-visualized calf vein. US/US venous duplex LE RT IMPRESSION: No DVT demonstrated in the right lower extremity. ? <Court Ko NP - Last Filed: 07/07/22 15:33> Attestation Attending Attestation: I personally reviewed PA/resident/nurse practitioner note. I reviewed a all results and treatment plan. I agree with the assessment and plan. I agree with disposition <Donny Sears MD - Last Filed: 07/07/22 16:25> Discharge Plan Discharge Clinical Impression: Arthritis of knee <Soraya Melgar CNP - Last Filed: 07/07/22 13:10> Patient Disposition: Home, Self-Care <Soraya Melgar CNP - Last Filed: 07/07/22 13:10> Instructions: Osteoarthritis (ED) <Soraya Melgar CNP - Last Filed: 07/07/22 13:10> Additional Instructions: X-ray shows no fracture. Ultrasound shows small amount of fluid within the joint. You likely have some arthritis in the knee Use the Cali wrap for comfort Apply ice, gentle stretching, rest Take [id number] ibuprofen or Tylenol as needed if able for pain Follow-up with orthopedics for persistent symptoms <Soraya Melgar CNP - Last Filed: 07/07/22 13:10> Prescriptions: No Action famotidine 40 mg tablet 40 mg PO BEDTIME Qty: 30 0RF pantoprazole [Protonix] 40 mg tablet,delayed release (DR/EC) 40 mg PO BID 30 Days Qty: 60 6RF simethicone 180 mg Capsule 180 mg PO TID atenolol 25 mg Tablet 25 mg PO DAILY melatonin [Melatin] 3 mg Tablet 3 mg PO BEDTIME zolpidem 5 mg Tablet 5 mg PO BEDTIME furosemide 20 mg Tablet 20 mg PO DAILY cholecalciferol (vitamin D3) [Vitamin D3] 25 mcg (1,000 unit) Capsule 25 mcg PO DAILY meclizine 25 mg tablet 25 mg PO DAILY PRN (Reason: vertigo) ibuprofen 800 mg tablet 800 mg PO DAILY psyllium husk [Fiber (psyllium husk)] 0.4 gram capsule 0.4 g PO BEDTIME Qty: 30 3RF cyclobenzaprine 10 mg tablet 10 mg PO TID PRN (Reason: muscle spasm) lidocaine [Lidoderm] 5 % adhesive patch,medicated 1 patch topical DAILY fluticasone propionate 50 mcg/actuation spray,suspension 2 spray intranasal DAILY <Soraya Melgar CNP - Last Filed: 07/07/22 13:10> Referrals: [facility] [Provider Group] - 1 week Ebony Blanchard MD [Primary Care Provider] - <Soraya Melgar CNP - Last Filed: 07/07/22 13:10> Interventions: ED Discharge Assessment Last Done: 07/07/22 15:23 <Soraya Melgar CNP - Last Filed: 07/07/22 13:10> Discharge Date/Time: 07/07/22 15:28 <Soraya Melgar CNP - Last Filed: 07/07/22 13:10>
[2022-07-07 14:03] VITALS: BP 130/66; PULSE 56; RESP 16; TEMP 36.8; O2SAT 97
== END 2022-07-07 15:28 | disposition home or self-care (01) ==
PROVIDERS: Emergency Provider Emergency Medicine; PCP Family Medicine
DX: M17.11 Unilateral primary osteoarthritis, right knee (principal); M79.89 Other specified soft tissue disorders; K21.9 Gastro-esophageal reflux disease without esophagitis; I10 Essential (primary) hypertension
CPT/HCPCS: 73564; 93971; 99283; 99284

== ENCOUNTER → 2022-07-31 09:07 | Outpatient (BNVA) | payer OTHER, SELFPAY | PROVIDERS: PCP Family Medicine; Visit Provider Orthopaedic Surgery | DX: M17.11 Unilateral primary osteoarthritis, right knee (principal); M25.461 Effusion, right knee | CPT/HCPCS: 20610; 99202; J1100 ==

== ENCOUNTER 2022-11-30 10:00 | Outpatient (RCR) | payer OTHER, SELFPAY ==
--- NOTE | 2022-11-06 14:17 | MHC.PT.EP ---
[facility] [place] Office [place] Office [place] Office [address] [phone] F: [phone] F: [phone] F: [phone] F: [phone] Physical Therapy Plan of Care Date of Evaluation: Date of Surgery: NA Diagnosis: Effusion, right knee Assessment: Pt is a pleasant 62yo F who presents to PT with R knee pain since ~June. Pt presents to PT with current impairments in pain, decreased R knee ROM, decreased LE strength, decreased muscle length and impaired gait. She is limited functionally by bending, prolonged standing, prolonged walking, and stair navigation. She is an excellent candidate for skilled PT in order to address current impairments to facilitate return to PLOF. She is recommended to be seen 2x/week for 4 weeks and will be reassessed at that time. Frequency and Duration: The patient will be seen 2x/week for 4 weeks Short Term Goals: Pt will be I with HEP to promote self management of symptoms Pt will improve R knee flexion by at least 10 degrees Social Media Project Manager Goals: Pt will tolerate standing and walking > 20 min with minimal to no discomfort Pt will navigate 1 flight of stairs with reciprocal gait pattern with pain < 2/10 Pt will demonstrate improvements in function as evidenced by statistically significant improvement in LEFI outcome measure Treatment Plan: Modalities to reduce pain, spasms and effusion. Manual therapy to restore motion and function. Therapeutic exercise to improve strength and flexibility. Neuromuscular re-education for posture and balance. Therapeutic activities to return to functional activities of daily living. Electronically signed by: Ann Marie Casper, PT, DPT Please sign and return to therapist. Thank you for your referral.
--- NOTE | 2023-01-09 14:14 | MHC.PT.DC ---
[facility] [place] Office [place] Office [place] Office [address] [place] Teresa [place] [phone] F: [phone] F: [phone] F: [phone] F: [phone] Physical Therapy Discharge Report Diagnosis: Effusion, right knee Date of Surgery: NA Date of Evaluation: 11/06/22 Date of Discharge: 01/09/23 Treatments to Date: 4 Cancellations to Date: 2 No Shows to Date: 1 Discharge Status: Discharge Summary: Pt was seen for PT from 11/06/22-11/30/22. Her last attended appointment was 11/30/22. She had a no-show appointment for her last scheduled appointment. Pt is being D/C from skilled PT as she has not attended or called to reschedule in > 30 days. Pt current level of function unknown at this time. Electronically signed by: Ann Marie Casper, PT, DPT Please sign and return to therapist. Thank you for your referral.
== END 2023-01-09 14:13 | disposition home or self-care (01) ==
LOC: HO.PT 10:00
PROVIDERS: PCP Family Medicine; Visit Provider Orthopaedic Surgery
DX: M25.461 Effusion, right knee (principal)
CPT/HCPCS: 97110; 97161

== ENCOUNTER → 2022-12-07 10:00 | Outpatient (BNVA) | payer OTHER, SELFPAY | PROVIDERS: PCP Family Medicine; Visit Provider Nurse Practitioner | DX: K21.9 Gastro-esophageal reflux disease without esophagitis (principal); R10.13 Epigastric pain; R14.0 Abdominal distension (gaseous) | CPT/HCPCS: 99212 ==

== ENCOUNTER 2023-02-22 09:19 | Outpatient (REF) | payer OTHER, SELFPAY ==
[2023-02-22 11:39] LABS: Cholesterol 169 mg/dL (<200); HDL Cholesterol 50 mg/dL (>40); LDL Cholesterol Calculated 89 mg/dL (<100); Triglycerides 153 mg/dL (<150)
[2023-02-22 11:53] LABS: Alanine Aminotransferase 18 U/L (0-31); Albumin Level 4.2 g/dL (3.5-5.0); Alkaline Phosphatase 63 U/L (39-117); Anion Gap 11 (12-20); Aspartate Amino Transferase 17 U/L (5-31); Bilirubin Total 0.5 mg/dL (0.0-1.0); Blood Urea Nitrogen 15 mg/dL (9-16); Calcium 9.5 mg/dL (8.4-10.2); Carbon Dioxide 28 mmol/L (22-29); Chloride 110 mmol/L (96-108); Estimated Glomerular Filt Rate > 60; Glucose Random 110 mg/dL (60-115); Potassium 4.8 mmol/L (3.3-5.1); Sodium 144 mmol/L (135-145)
[2023-02-22 11:57] LABS: Reflex LDLD? No
[2023-02-22 12:00] LABS: Estimated Average Glucose 111 mg/dL; Hemoglobin A1c % 5.5 % (<6.0)
[2023-02-22 12:01] LABS: Vitamin D 25-OH Total 49.8 ng/mL (>30)
== END 2023-02-22 09:20 | disposition home or self-care (01) ==
LOC: HO.HHCL 09:19
PROVIDERS: Visit Provider Family Medicine
DX: I10 Essential (primary) hypertension (principal); E55.9 Vitamin D deficiency, unspecified; Z13.1 Encounter for screening for diabetes mellitus
CPT/HCPCS: 36415; 80053; 80061; 82306; 83036

== ENCOUNTER 2023-03-13 11:47 | Outpatient (REF) | payer OTHER, SELFPAY | END 2023-03-13 11:48 | disposition home or self-care (01) | LOC: HO.MAMMO 11:47 | PROVIDERS: PCP Family Medicine; Visit Provider Family Medicine | DX: Z13.89 Encounter for screening for other disorder (principal) ==

== ENCOUNTER 2023-03-16 12:44 | Outpatient (REF) | payer OTHER, SELFPAY ==
--- NOTE | ~2023-03-16 | US_ITS ---
EXAMINATION: US PELVIS CLINICAL INFORMATION: Left pelvic pain. History of hysterectomy. COMPARISON: CT pelvis 05/05/2021. Pelvic ultrasound 09/04/2018. TECHNIQUE: Ultrasound of the pelvis is performed using both transabdominal and transvaginal transducers along with Doppler. Transvaginal imaging is performed due to inadequate visualization transabdominally. FINDINGS: Hysterectomy. No pelvic mass. Nonvisualization of the ovaries. There is no pelvic free fluid. US/US pelvic and transvaginal IMPRESSION: Hysterectomy. Nonvisualization of the ovaries. No visible pelvic mass.
== END 2023-03-16 12:45 | disposition home or self-care (01) ==
LOC: HO.US 12:44
PROVIDERS: PCP Family Medicine; Visit Provider Family Medicine
DX: R10.32 Left lower quadrant pain (principal)
CPT/HCPCS: 76830; 76856

== ENCOUNTER 2023-04-02 13:59 | Outpatient (REF) | payer OTHER, SELFPAY | END 2023-04-02 14:00 | disposition home or self-care (01) | LOC: HO.MAMMO 13:59 | PROVIDERS: PCP Family Medicine; Visit Provider Family Medicine | DX: Z13.89 Encounter for screening for other disorder (principal) ==

== ENCOUNTER 2023-04-04 13:43 | Outpatient (REF) | payer OTHER, SELFPAY ==
--- NOTE | ~2023-04-04 | MM_ITS ---
EXAMINATION: MM DIAGNOSTIC DIGITAL BREAST TOMOSYNTHESIS, BILATERAL US BREAST LIMITED, LEFT MAMMOGRAPHY: CLINICAL INFORMATION: 63-year-old female complaining of left breast pain lower outer quadrant, lower inner quadrant. COMPARISON: Mammography: 03/07/2022, 02/26/2021, 02/06/2018. TECHNIQUE: Digital breast tomosynthesis is performed in both the craniocaudal and mediolateral oblique views along with computer-aided detection (CAD). Synthesized 2D images are generated from the tomosynthesis. FINDINGS: There are scattered areas of fibroglandular density (ACR BI-RADS breast composition Category b). There are no suspicious masses, suspicious grouped calcifications, or areas of architectural distortion in either breast. The parenchymal pattern is stable from prior exams. There are no skin changes. No axillary abnormalities. ULTRASOUND: CLINICAL INFORMATION: Left breast pain lower outer and lower inner quadrants. COMPARISON: None TECHNIQUE: Targeted sonographic evaluation was performed using a high frequency linear transducer. Left breast was evaluated from the 3:00 to the 10:00 axis. Selected archived documentation. FINDINGS: LEFT BREAST: There is a mixture of fatty and fibroglandular tissue. No suspicious mass is seen. There is no pathologic acoustic shadowing. No ultrasonographic abnormality in the regions of breast pain left breast. MM/MM tomosynthesis diagnostic BI IMPRESSION: There are no findings suspicious for malignancy in either breast. No ultrasonographic or mammographic abnormality is seen in the lower inner and lower outer left breast. Recommend clinical management. OVERALL ASSESSMENT: Mammography: BI-RADS 1 - Negative Ultrasound: BI-RADS 1 - Negative RECOMMENDATION: 1. Patient should be managed based on the clinical impression. 2. Otherwise, routine annual screening mammography. Results were provided to the patient at time of visit by the technologist. This patient's information was entered into a reminder system with a target due date for their next mammogram.
== END 2023-04-04 13:44 | disposition home or self-care (01) ==
LOC: HO.MAMMO 13:43
PROVIDERS: PCP Family Medicine; Visit Provider Family Medicine
DX: N64.4 Mastodynia (principal)
CPT/HCPCS: 76642; 77062; 77066

== ENCOUNTER → 2023-04-04 14:00 | Outpatient (BNV) | payer OTHER, SELFPAY | PROVIDERS: PCP Family Medicine; Visit Provider Radiology Diagnostic Radiology | DX: R92.323 Mammographic fibroglandular density, bilateral breasts (principal); R92.312 Mammographic fatty tissue density, left breast | CPT/HCPCS: 76642; 77062; 77066 ==

== ENCOUNTER 2023-08-16 09:01 | Outpatient (AMB) | payer OTHER, SELFPAY ==
--- NOTE | 2023-08-16 09:14 | A.OFFVIS_ITS ---
Intake Vital Signs 08/16/23 09:18 Height 5 ft 2 in Weight 193 lb 1.999 oz BMI 35.3 BP 135/62 Blood Pressure Location Lt brachial Position Sitting Pulse 58 Intake Visit Reasons: 6 mnth follow up Intake Note: Patient presents to in office visit in 6 months follow up of GERD. CC: Patient reports she has been doing well. She states she using baking soda for when she has GERD. She also states that she has experienced cramps on her abdomen sometimes and would like to follow up on that. She states she will have a sx for rectocele at [facility] on 08/29/23 and would like something for constipation. Denies other GI symptoms. Associate Director Financial Aid Required: No Accompanied by: Self / Same As Patient Allergies metoclopramide Adverse Reaction (Severe, Verified 08/16/23 09:30) Hypertension lisinopril [LISINOPRIL] Adverse Reaction (Mild, Verified 08/16/23 09:30) COUGH, dry cough HPI 6 mnth follow up HPI Details Assessment & Plan (1) GERD (gastroesophageal reflux diseas e): Code(s): K21.9 - Gastro-esophageal reflux disease without esophagitis Plan: She found that the pantoprazole gave her joint pain so she stopped it. she is now managing her GERD with baking soda in water and OTC [place] gummies. She feels this is working well. She uses only 1/2 tsp in water 1-2 times a day. Her nausea is very occasional now once in a blue huber. She is having bloating and she has CIC as her baseline, but she manages it with OTC teas and diet. I suggest OTC Gas X to see if this helps. Her joint pain resolved after stopping the pantoprazole. ROV 6 mos. (2) Epigastric pain: Comment: Resolved after switching her to pantoprazole 40 mg twice a day Code(s): R10.13 - Epigastric pain (3) Abdominal bloating: Code(s): R14.0 - Abdominal distension (gaseous) Medications: New simethicone aft er meals 180 mg PO QID 30 days 120 caps 3RF TODAY'S VISIT She will be having surgery for rectocele repair soon! She continues to struggle with CIC and uses Miralax, but this will likely help. She is using baking soda for her GERD and 1/2 tsp in 2 oz of water helps her enough and she is using it about twice a week. She also has cut out all spicy foods, which she really loved in he past. She has had some sharp cramping mostly on the LLQ but also bilaterally, and a hx of TICS, but nothing sustained. I explain that if the sx are ongoing or severe she should call the office and I will treat with abx. She DOES use the simethicone prn with good results. Again, she had multiple adverse effects from acid reducing medications. ROV 6 mos and if she needs additional help s/p her surgery for CIC. Shew will be due for colonoscopy next year, and we should likely do an EGD to evaluate her hx of hemorrhagic gastritis. [facility] Medical History GERD (gastroesophageal reflux disease) HTN (hypertension) Surgical History Hx of reduction mammoplasty Hx of tubal ligation History of esophagogastroduodenoscopy (EGD) H/O colonoscopy Family History Father Heart failure Diabetes Mother Heart failure Diabetes AD (Alzheimer's disease) Brother Pancreatic cancer Social History Alcohol intake: current Alcohol intake frequency: does not drink Review of Systems Const Denies fatigue, Denies fever(s), Denies night sweats, Denies poor appetite and Denies weight loss ENT Reports Normal hearing present, Denies dental pain, Denies dysphagia, Denies hearing loss, Denies mouth pain, Denies odynophagia, Denies throat swelling, Denies tongue swelling and Reports other (Dentition adequate) Card Reports no additional complaints Resp Reports no additional complaints GI Details: Denies abdominal pain, Denies melena, Denies bloating, Denies hematochezia, Reports constipation, Denies GI cramping, Denies dysphagia, Denies excessive flatus, Denies early satiety, Reports heartburn, Denies diarrhea, Denies nausea, Denies odynophagia, Denies vomiting and Denies hematemesis Skin/Breast Denies pruritus, Denies lesions, Denies rash and Denies jaundice Neuro Reports Normal hearing present and Denies Abnormal speech present Endo Denies fatigue Aller/Immun Denies throat swelling and Denies tongue swelling Physical Exam Vital Signs: Last Vital Signs Pulse 58 08/16/23 09:18 BP 135/62 08/16/23 09:18 BMI result Body Mass Index 35.3 Const General: cooperative, no acute distress, well developed and well groomed Nutritional Appearance: well nourished and obese Orientation/consciousness: oriented to person, oriented to place and oriented to time Limitations: No language barrier HEENT Head: Yes normocephalic and Yes atraumatic Eyes General: appearance normal, both eyes and all related structures Pupils: Equal, round and reactive pupils present Neck Neck: Yes normal visual inspection and Yes no lymphadenopathy Thyroid: Thyroid normal Resp Effort & Inspection: normal respiratory effort and able to speak in complete sentences Auscultation: clear to auscultation bilaterally Cardio Rate: regular rate Rhythm: regular rhythm Heart sounds: Normal, physiologic split S2 sound present Peripheral pulses: radial pulses present and posterior tibial pulses present GI Inspection: No distended, No Abdominal panniculus present and Yes obesity Palpation (GI): Soft to palpation, nontender, no guarding, not rigid and No hepatosplenomegaly present Percussion: Yes normal to percussion Auscultation: normal bowel sounds Rectal Exam - Female: deferred Skin General skin exam: no rashes or lesions noted, turgor normal, skin not dry, no jaundice, No spider nevi and no striae Rashes: no rashes Nails: normal Neuro General: oriented to person, oriented to place and oriented to time Cranial nerves: Yes Equal, round and reactive pupils present and Yes Normal hearing present Speech: No Abnormal speech present Extrem General: Yes normal to inspection, No clubbing, No cyanosis and No edema Psych Appearance: grossly normal and well kempt Mental Status: mental status grossly normal Speech and movement: Normal speech and movement present Affect: normal affect Attitude: cooperative Thought process: Normal thought process present and not confabulating Thought content: Normal thought content present Insight: Fair insight present (Psych) Judgement: Fair judgement present (Psych) Assessment & Plan Assessment & Plan (1) GERD (gastroesophageal reflux disease): Code(s): K21.9 - Gastro-esophageal reflux disease without esophagitis (2) Epigastric pain: Comment: Resolved after switching her to pantoprazole 40 mg twice a day Code(s): R10.13 - Epigastric pain (3) Delayed gastric emptying: Code(s): K30 - Functional dyspepsia (4) Hemorrhagic gastritis: Code(s): K29.71 - Gastritis, unspecified, with bleeding Plan She will be having surgery for rectocele repair soon! She continues to struggle with CIC and uses Miralax, but this will likely help. She is using baking soda for her GERD and 1/2 tsp in 2 oz of water helps her enough and she is using it about twice a week. She also has cut out all spicy foods, which she really loved in he past. She has had some sharp cramping mostly on the LLQ but also bilaterally, and a hx of TICS, but nothing sustained. I explain that if the sx are ongoing or severe she should call the office and I will treat with abx. She DOES use the simethicone prn with good results. Again, she had multiple adverse effects from acid reducing medications. ROV 6 mos and if she needs additional help s/p her surgery for CIC. Shew will be due for colonoscopy next year, and we should likely do an EGD to evaluate her hx of hemorrhagic gastritis Medications: Refilled simethicone after meals 180 mg PO QID 30 days 120 caps 6RF psyllium husk (Fiber (psyllium husk)) 0.4 grams PO BEDTIME 30 caps 6RF K59.00 - Constipation, unspecified Discontinued pantoprazole (Protonix) Discontinued Reason: Patient no longer taking 40 mg PO BID 30 days 60 tabs 6RF K21.9 - Gastro-esophageal reflux disease without esophagitis Coding Level of Care Code Est Pt Level 3 (64360) Diagnoses GERD (gastroesophageal reflux disease) K21.9 Epigastric pain R10.13 Delayed gastric emptying K30 Hemorrhagic gastritis K29.71
[2023-08-16 09:18] VITALS: BP 135/62; PULSE 58; BMI 35.3
== END 2023-08-16 09:48 | disposition home or self-care (01) ==
PROVIDERS: PCP Family Medicine; Visit Provider Nurse Practitioner
DX: K21.9 Gastro-esophageal reflux disease without esophagitis (principal); K30 Functional dyspepsia; K29.71 Gastritis, unspecified, with bleeding
CPT/HCPCS: 99213

== ENCOUNTER → 2023-08-16 09:01 | Outpatient (BNVA) | payer OTHER, MEDICAID, SELFPAY | PROVIDERS: PCP Family Medicine; Visit Provider Nurse Practitioner | DX: K21.9 Gastro-esophageal reflux disease without esophagitis (principal); K30 Functional dyspepsia; K29.71 Gastritis, unspecified, with bleeding; R10.13 Epigastric pain | CPT/HCPCS: 99212 ==

== ENCOUNTER 2023-10-09 15:24 | Outpatient (REF) | payer OTHER, SELFPAY ==
--- NOTE | ~2023-10-09 | MR_ITS ---
EXAMINATION: MR SHOULDER WITHOUT CONTRAST, LEFT CLINICAL INFORMATION: Left shoulder pain with impingement. History of a rotator cuff tendon tear. COMPARISON: Left shoulder radiographs dated 12/15/2014. TECHNIQUE: MRI of the shoulder without contrast was performed on a high-field scanner. FINDINGS: ROTATOR CUFF: Moderate supraspinatus and mild infraspinatus tendinosis. Bursal surface partial tearing of the posterior infraspinatus tendon extending into the junctional fibers and measuring approximately 2.3 x 1.8 cm (AP x ML). Small foci of low T1/T2 signal within the distal infraspinatus tendon measuring up to 0.4 cm and consistent with calcific tendinitis. Mild subscapularis tendinosis. No full-thickness rotator cuff tendon tear. No muscle atrophy or fatty infiltration. BICEPS: Intact. CORACOACROMIAL ARCH: The undersurface of the acromion is curved with moderate subacromial spurring. Moderate acromioclavicular osteoarthritis. Fluid within the subacromial subdeltoid bursa with mild adjacent edema, consistent with moderate subacromial subdeltoid bursitis. LABRUM/CAPSULE: No labral tear. Intact inferior joint capsule. GLENOHUMERAL JOINT/MARROW: Intact articular cartilage. No acute osseous injury. Mild degenerative cystic change at the greater tuberosity. MR/MR shoulder LT wo con IMPRESSION: 1. Moderate supraspinatus and mild infraspinatus tendinosis. Bursal surface partial tearing of the posterior infraspinatus tendon extending into the junctional fibers measuring 2.3 x 1.8 cm (AP x ML). Distal infraspinatus calcific tendinitis measuring up to 0.4 cm. Mild subscapularis tendinosis. 2. Moderate acromioclavicular osteoarthritis with moderate subacromial spurring. 3. Moderate subacromial subdeltoid bursitis.
== END 2023-10-09 15:25 | disposition home or self-care (01) ==
LOC: HO.MRI 15:24
PROVIDERS: PCP Family Medicine; Visit Provider Family Medicine
DX: M25.512 Pain in left shoulder (principal); G89.29 Other chronic pain
CPT/HCPCS: 73221

== ENCOUNTER 2023-11-14 08:37 | Outpatient (REF) | payer OTHER, SELFPAY ==
[2023-11-14 12:11] LABS: Anion Gap 12 (12-20); Blood Urea Nitrogen 20 mg/dL (9-16); Calcium 9.9 mg/dL (8.4-10.2); Carbon Dioxide 30 mmol/L (22-29); Chloride 107 mmol/L (96-108); Estimated Glomerular Filt Rate > 60; Glucose Random 110 mg/dL (60-115); Potassium 4.4 mmol/L (3.3-5.1); Sodium 145 mmol/L (135-145)
== END 2023-11-14 08:38 | disposition home or self-care (01) ==
LOC: HO.HHCL 08:37
PROVIDERS: Visit Provider Family Medicine
DX: M25.512 Pain in left shoulder (principal); G89.29 Other chronic pain
CPT/HCPCS: 36415; 80048

== ENCOUNTER 2024-02-14 08:49 | Outpatient (AMB) | payer OTHER, SELFPAY ==
[2024-02-14 09:01] VITALS: BP 126/69; PULSE 62; BMI 36.4
--- NOTE | 2024-02-14 09:01 | A.OFFVIS_ITS ---
Vital Signs 02/14/24 09:01 Height 5 ft 2 in Weight 198 lb 13.711 oz BMI 36.4 BP 126/69 Blood Pressure Location Lt brachial Position Sitting Pulse 62 Intake Visit Reasons: 6 mnth follow up Intake Note: Patient in office today in 6 months follow up of GERD. CC: Patient c/o epigastric pain and chest pain with radiation to RUQ abdomen for a few days. She states that she would like to get Omeprazole again. She also reports constipation and states that she drinks teas to help her have BMs. Solvent Station Attendant Required: No Accompanied by: Self / Same As Patient Allergies metoclopramide Adverse Reaction (Severe, Verified 02/14/24 09:10) Hypertension lisinopril [LISINOPRIL] Adverse Reaction (Mild, Verified 02/14/24 09:10) COUGH, dry cough HPI HPI 6 mnth follow up: Details: Assessment & Plan (1) GERD (gastroesophageal reflux disease): Code(s): K21.9 - Gastro-esophageal reflux disease without esophagitis (2) Epigastric pain: Comment: Resolved after switching her to pantoprazole 40 mg twice a day Code(s): R10.13 - Epigastric pain (3) Delayed gastric emptying: Code(s): K30 - Functional dyspepsia (4) Hemorrhagic gastritis: Code(s): K29.71 - Gastritis, unspecified, with bleeding Plan She will be having surgery for rectocele repair soon! She continues to struggle with CIC and uses Miralax, but this will likely help. She is using baking soda for her GERD and 1/2 tsp in 2 oz of water helps her enough and she is using it about twice a week. She also has cut out all spicy foods, which she really loved in he past. She has had some sharp cramping mostly on the LLQ but also bilaterally, and a hx of TICS, but nothing sustained. I explain that if the sx are ongoing or severe she should call the office and I will treat with abx. She DOES use the simethicone prn with good results. Again, she had multiple adverse effects from acid reducing medications. ROV 6 mos and if she needs additional help s/p her surgery for CIC. Shew will be due for colonoscopy next year, and we should likely do an EGD to evaluate her hx of hemorrhagic gastritis Medications: Refilled simethicone after meals 180 mg PO QID 30 days 120 caps 6RF psyllium husk (Fiber (psyllium husk)) 0.4 grams PO BEDTIME 30 caps 6RF K59.00 - Constipation, unspecified Discontinued pantoprazole (Protonix) Discontinued Reason: Patient no longer taking 40 mg PO BID 30 days 60 tabs 6RF K21.9 - Gastro-esophageal reflux disease without esophagitis TODAY'S VISIT She had successful rectocele surgery. she manages her CIC with fiber and prunes and her natural tea. She uses baking powder before her meals for her GERD and this is successful during the day but she does have overnight issues with GERD. She would like to go back on a low dose of omeprazole 20 mg and this is fine. We do discuss Pepcid or famotidine as another option but she has had a lot of reactions to various medications so she would like to read up on it 1st. Either choice is fine with me. She asks about eating nuts and seeds because someone told her that people who have diverticulosis should avoid them. This prompts Education about the difference between diverticulosis and diverticulitis and that she does not need to avoid nuts and seeds unless she develops an active infection. I had considered a repeat EGD and I am uncertain why we decided against this so we will discuss it again at her next visit. It is likely I was putting this off until she is due for repeat colonoscopy next year. ROV 6 mos. PFSH Medical History GERD (gastroesophageal reflux disease) HTN (hypertension) Surgical History Hx of reduction mammoplasty Hx of tubal ligation History of esophagogastroduodenoscopy (EGD) H/O colonoscopy Family History Father Heart failure Diabetes Mother Heart failure Diabetes AD (Alzheimer's disease) Brother Pancreatic cancer Social History Alcohol intake: current Alcohol intake frequency: does not drink Patient Tobacco Use Status: Never used Tobacco Review of Systems Const Denies fatigue, Denies fever(s), Denies night sweats, Denies poor appetite and Denies weight loss ENT Reports Normal hearing present, Denies dental pain, Denies dysphagia, Denies hearing loss, Denies mouth pain, Denies odynophagia, Denies throat swelling, Denies tongue swelling and Reports other (Dentition adequate) Card Reports no additional complaints Resp Reports no additional complaints GI Details: Denies abdominal pain, Denies melena, Denies bloating, Denies hematochezia, Reports constipation, Denies GI cramping, Denies dysphagia, Denies excessive flatus, Denies early satiety, Reports heartburn, Denies diarrhea, Denies nausea, Denies odynophagia, Denies vomiting and Denies hematemesis Skin/Breast Denies pruritus, Denies lesions, Denies rash and Denies jaundice Neuro Reports Normal hearing present and Denies Abnormal speech present Endo Denies fatigue Aller/Immun Denies throat swelling and Denies tongue swelling Physical Exam Vital Signs: Last Vital Signs Pulse 62 02/14/24 09:01 BP 126/69 02/14/24 09:01 BMI result Body Mass Index 36.4 Const General: cooperative, no acute distress, well developed and well groomed Nutritional Appearance: well nourished and obese Orientation/consciousness: oriented to person, oriented to place and oriented to time Limitations: No language barrier HEENT Head: Yes normocephalic and Yes atraumatic Eyes General: appearance normal, both eyes and all related structures Pupils: Equal, round and reactive pupils present Neck Neck: Yes normal visual inspection and Yes no lymphadenopathy Thyroid: Thyroid normal Resp Effort & Inspection: normal respiratory effort and able to speak in complete sentences Auscultation: clear to auscultation bilaterally Cardio Rate: regular rate Rhythm: regular rhythm Heart sounds: Normal, physiologic split S2 sound present Peripheral pulses: radial pulses present and posterior tibial pulses present GI Inspection: No distended, No Abdominal panniculus present and Yes obesity Palpation (GI): Soft to palpation, nontender, no guarding, not rigid and No hepatosplenomegaly present Percussion: Yes normal to percussion Auscultation: normal bowel sounds Rectal Exam - Female: deferred Skin General skin exam: no rashes or lesions noted, turgor normal, skin not dry, no jaundice, No spider nevi and no striae Rashes: no rashes Nails: normal Neuro General: oriented to person, oriented to place and oriented to time Cranial nerves: Yes Equal, round and reactive pupils present and Yes Normal hearing present Speech: No Abnormal speech present Extrem General: Yes normal to inspection, No clubbing, No cyanosis and No edema Psych Appearance: grossly normal and well kempt Mental Status: mental status grossly normal Speech and movement: Normal speech and movement present Affect: normal affect Attitude: cooperative Thought process: Normal thought process present and not confabulating Thought content: Normal thought content present Insight: Fair insight present (Psych) Judgement: Fair judgement present (Psych) Assessment & Plan Assessment & Plan (1) GERD (gastroesophageal reflux disease): Code(s): K21.9 - Gastro-esophageal reflux disease without esophagitis Category: Medical (2) Constipation: Code(s): K59.00 - Constipation, unspecified Category: Medical Plan She had successful rectocele surgery. she manages her CIC with fiber and prunes and her natural tea. She uses baking powder before her meals for her GERD and this is successful during the day but she does have overnight issues with GERD. She would like to go back on a low dose of omeprazole 20 mg and this is fine. We do discuss Pepcid or famotidine as another option but she has had a lot of reactions to various medications so she would like to read up on it 1st. Either choice is fine with me. She asks about eating nuts and seeds because someone told her that people who have diverticulosis should avoid them. This prompts Education about the difference between diverticulosis and diverticulitis and that she does not need to avoid nuts and seeds unless she develops an active infection. I had considered a repeat EGD and I am uncertain why we decided against this so we will discuss it again at her next visit. It is likely I was putting this off until she is due for repeat colonoscopy next year. ROV 6 mos. Medications: New omeprazole 20 mg PO DAILY 30 caps 6RF 30 days K21.9 - Gastro-esophageal reflux disease without esophagitis Changed From psyllium husk 0.4 grams PO BEDTIME 30 caps 6RF K59.00 - Constipation, unsp ecified To psyllium husk (Fiber (psyllium husk)) 0.4 grams PO BEDTIME 30 caps 6RF K59.00 - Constipation, unspecified Refilled simethicone after meals 180 mg PO QID 120 caps 6RF 30 days Coding Level of Care Code Est Pt Level 3 (78660) Diagnoses GERD (gastroesophageal reflux disease) K21.9 Constipation K59.00
== END 2024-02-14 09:37 | disposition home or self-care (01) ==
PROVIDERS: PCP Family Medicine; Visit Provider Nurse Practitioner
DX: K21.9 Gastro-esophageal reflux disease without esophagitis (principal); K59.00 Constipation, unspecified
CPT/HCPCS: 99213

== ENCOUNTER → 2024-02-14 08:49 | Outpatient (BNVA) | payer OTHER, SELFPAY | PROVIDERS: PCP Family Medicine; Visit Provider Nurse Practitioner | DX: K21.9 Gastro-esophageal reflux disease without esophagitis (principal); K30 Functional dyspepsia; K29.71 Gastritis, unspecified, with bleeding; K59.00 Constipation, unspecified | CPT/HCPCS: 99212 ==

== ENCOUNTER 2024-03-14 10:04 | Outpatient (REF) | payer OTHER, SELFPAY ==
--- NOTE | ~2024-03-14 | MM_ITS ---
EXAMINATION: MM SCREENING DIGITAL BREAST TOMOSYNTHESIS, BILATERAL CLINICAL INFORMATION: Screening. Asymptomatic. COMPARISON: Mammography: Comparison is made with available priors TECHNIQUE: Digital breast mammography with tomosynthesis is performed in both the craniocaudal and mediolateral oblique views along with computer-aided detection (CAD). FINDINGS: There are scattered areas of fibroglandular density (ACR BI-RADS breast composition Category b). There are no significant masses, abnormal calcifications, or other abnormalities. MM/MM tomosynthesis screening BI IMPRESSION: No mammographic evidence of malignancy. ASSESSMENT: BI-RADS BI-RADS 1 - Negative RECOMMENDATION: Routine annual mammography screening. 1 year F/U This examination should not preclude the clinical evaluation of a suspicious palpable abnormality. This patient's information was entered into a reminder system with a target due date for their next mammogram. Electronically signed by: Lori Snider DO 03/26/2024 09:24 AM EDT
== END 2024-03-14 10:05 | disposition home or self-care (01) ==
LOC: HO.MAMMO 10:04
PROVIDERS: PCP Family Medicine; Visit Provider Family Medicine
DX: Z12.31 Encounter for screening mammogram for malignant neoplasm of breast (principal)
CPT/HCPCS: 77063; 77067

== ENCOUNTER → 2024-03-14 10:30 | Outpatient (BNV) | payer OTHER, SELFPAY | PROVIDERS: PCP Family Medicine; Visit Provider Internal Medicine | DX: Z12.31 Encounter for screening mammogram for malignant neoplasm of breast (principal) | CPT/HCPCS: 77063; 77067 ==

== ENCOUNTER 2024-07-28 08:19 | Outpatient (REF) | payer OTHER, SELFPAY ==
--- OUTSIDE RECORDS SUMMARY | 2024-07-28 08:32 | XMS_ITS | Encounter Summary ---
Author Organization [employer] Address [address] [place] [address] Care Team Providers Care Quantometer Operator Name Role Phone Ebony Blanchard MD Primary Care Provider [phone] El Gilman PharmD Unavailable [phone] Reason for Visit * Reason Onset Date Comments reschedule moravian 04/16/2023 Encounter Details Date Type Department Care Team (Late st Contact Info) Description 04/16/2023 Telephone [facility] ADULT DENTAL [address], [place] [phone] Clint Pérez, BARRY [address], [place] [phone] reschedule moravian Social History Tobacco Use Types Packs/Day Years Used Date Smoking Tobacco: Former Cigarettes Q uit: 10/24/1989 Passive Smoke Exposure: Never Smokeless Tobacco: Never Alcohol Use Standard Drinks/Week Comments Never 0 (1 standard drink = 0.6 oz pur e alcohol) Depression Answer Date Recorded Patient Health Questionnaire-9 Score 0 07/31/2022 Housing Stability Answer Date Recorded What is your housing situation today? I have evangelist caba 04/02/[address] you li ve. Do you have problems with any of the following? None of the above 04/02/2023 Food Insecurity Answer Date Recorded Within the past 12 months, y ou worried that your food would run out before you got money to buy more: Never True 04/02/2023 Within the past 12 months,th e food you bought just didn't last and you didn't have enough money to get more: Never True Transportation Answer Date Recorded In the past 12 months, has l ack of transportation kept you from medical appts, meetings, work or from getting things needed for daily living? No 04/02/2023 Utilities Answer Date Recorded In the past 12 months, has t he electric, gas, oil or water company threatened to shut off services in your home? No 04/02/2023 Depression Answer Date Recorded Patient Health Questionnaire-2 Score 0 07/31/2022 Comments Unknown Sex and Gender Information Value Date Recorded Sex Assigned at Female 04/17/2022 10:20 AM EDT Legal Sex Female 10:20 AM EDT Gender Identity Female 04/17/2022 10:20 AM EDT Sexual Orientation Straight 07/23/2024 8: 51 AM EST documented as of this encounter Miscellaneous Notes * Telephone Encounter - Mary Zimmer - 04/16/2023 11:36 AM EDT Patient would like to reschedule moravian appt with Dr Pérez for a mid to late morning preferrablya 10am. DR documented in this encounter Plan of Treatment Upcoming Encounters Date Type Department Care Team (Late st Contact Info) Description 07/30/2024 10:15 AM EST Office Visit [facility] MEDICINE [address] [place] [address] Ebony Blanchard MD [address] [place] [address] 09/12/2024 10:00 AM EDT Office Visit [facility] ADULT DENTAL [address] [place] [address] Chapis Rooney [address] [place] [address] documented as of this encounter Goals Goal Patient Goal Type Associated Problems Recent Progress Patient-Stated? Author Blood Pressure < 150/90 Blood Pressure 134/70(2023 9:45 AM EST) No El Gilman, PharmD Note: Per JNC-8 Age 62 with no history of DM or CKD documented as of this encounter Visit Diagnoses Not on filedocumented in this encounter Additional Health Concerns Assessment Noted Time PHQ-9 Depression Total Score: 0 07/31/19 23 10:25 AM EST documented as of this encounter Care Teams Quantometer Operator Relationship Specialty Start Date End Date Ebony Blanchard MD [address] [place] [address] PCP - General Family Medicine 06/18/18 El Gilman, [place] [address] [place] [address] Pharmacist Internal Medicine 08/21/22 04/27/24 documented as of this encounter
--- OUTSIDE RECORDS SUMMARY | 2024-07-28 08:32 | XMS_ITS | Clinical Summary ---
Author Organization [facility] ity Address [address] [place] [address] Care Team Providers Care Perianesthesia Nurse Name Role Phone Unavailable Primary Care Provider Unavailabl e Social History Tobacco Use Types Packs/Day Years Used Date Smoking Tobacco: Never Assessed Comments Unknown Sex and Gender Information Value Date Recorded Sex Assigned at Not on file Legal Sex Female 10:26 AM EST Gender Identity Not on file Sexual Orientation Not on file Plan of Treatment Health Maintenance Due Date Last Done Comments Breast Cancer Screening 1962 DTaP,Tdap,and Td Vaccines (1 - Tdap) 1969 Cervical Cancer Screening: P ap Smear 1983 Pneumococcal Vaccine: 50+ Ye ars (1 of 1 - PCV) 2012 Zoster Vaccines (1 of 2) 2012 COVID-19 Vaccine (1 - 2023-2 5 season) 2024 Influenza Vaccine (#1) 2024 RSV Immunization Patients 60 + Years Old (1 - 1-dose 75+ series) 2037 HIB Vaccines Aged Out No longer eligi ble based on patient's age to complete this topic HPV Vaccines Aged Out No longer eligi ble based on patient's age to complete this topic Hepatitis A Vaccines Aged Out No long er eligible based on patient's age to complete this topic Hepatitis B Vaccines Aged Out No long er eligible based on patient's age to complete this topic IPV Vaccines Aged Out No longer eligi ble based on patient's age to complete this topic MMR Vaccines Aged Out No longer eligi ble based on patient's age to complete this topic Meningococcal ACWY Vaccine Aged Out N o longer eligible based on patient's age to complete this topic Meningococcal B Vacine Aged Out No lo nger eligible based on patient's age to complete this topic Pneumococcal Vaccine: Pediat rics (0 to 5 Years) and At-Risk Patients (6 to 64 Years) Aged Out No longer eligible b ased on patient's age to complete this topic RSV Immunization Patients Un robe 20 months Aged Out No longer eligible b ased on patient's age to complete this topic Varicella Vaccines Aged Out No longer eligible based on patient's age to complete this topic
--- OUTSIDE RECORDS SUMMARY | 2024-07-28 08:32 | XMS_ITS | Encounter Summary ---
Author Organization [employer] Address [address] [place] [address] Care Team Providers Care Elevator Builder Name Role Phone Ebony Blanchard MD Primary Care Provider [phone] El Gilman PharmD Unavailable [phone] Encounter Details Date Type Department Care Team (Late st Contact Info) Description 07/16/2023 Abstract [facility] ADULT DENTAL [address] [place], [place] [phone] Clint Pérez, DMD [address] [place], [place] [phone] Social History Tobacco Use Types Packs/Day Years [...] AM EST documented as of this encounter Plan of Treatment Upcoming Encounters Date Type Department Care Team (Late st Contact Info) Description 07/30/2024 10:15 AM EST Office Visit [facility] MEDICINE [address] [place] [address] Ebony Blanchard MD [address] [place] [address] 09/12/2024 10:00 AM EDT Office Visit [facility] ADULT DENTAL [address] [place] [address] Chapis Rooney [address] [place] [address] documented as of this encounter Goals Goal Patient Goal Type Associated Problems Recent Progress Patient-Stated? Author Blood Pressure < 150/90 Blood Pressure 134/70(2023 9:45 AM EST) No El Gilman, PharmKathy Note: Per JNC-8 Age 62 with no history of DM or CKD documented as of this encounter Visit Diagnoses Not on filedocumented in this encounter Additional Health Concerns Assessment Noted Time PHQ-9 Depression Total Score: 0 07/31/19 23 10:25 AM EST documented as of this encounter Care Teams Elevator Builder Relationship Specialty Start Date End Date Ebony Blanchard MD [address] [place] [address] [phone] PCP - General Family Medicine 06/18/18 El Gilman, PharmD [address] [place] [address] Pharmacist Internal Medicine 08/21/22 04/27/24 documented as of this encounter
--- OUTSIDE RECORDS SUMMARY | 2024-07-28 08:32 | XMS_ITS | Encounter Summary ---
Author Organization [employer] Address [address] 7t [place] [address] Care Team Providers Care Telescope Maintenance Name Role Phone Ebony Blanchard MD Primary Care Provider [phone] El Gilman PharmD Unavailable [phone] Reason for Visit * Reason Comments Med Refill Encounter Details Date Type Department Care Team (Late st Contact Info) Description 03/25/2023 Refill [facility] MEDICINE [address] [place], [place] [phone] Ebony Blanchard MD [address] [place], [place] [phone] Social History Tobacco Use Types Packs/Day Years [...] housing situation today? I have evangelist caba 03/25/[address] you li ve. Do you have problems with any of the following? None of the above 03/25/2023 Food Insecurity Answer Date Recorded Within the past 12 months, y ou worried that your food would run out before you got money to buy more: Never True 03/25/2023 Within the past 12 months,th e food you bought just didn't last and you didn't have enough money to get more: Never True 01/2023 Transportation Answer Date Recorded In the past 12 months, has l ack of transportation kept you from medical appts, meetings, work or from getting things needed for daily living? No 03/25/2023 Utilities Answer Date Recorded In the past 12 months, has t he electric, gas, oil or water company threatened to shut off services in your home? No 03/25/2023 Depression Answer Date Recorded Patient Health Questionnaire-2 [...] Description 07/30/2024 10:15 AM EST Office Visit [facility] MEDICINE [address] [place] [address] Ebony Blanchard MD [address] [place] [address] 09/12/2024 10:00 AM EDT Office Visit [facility] ADULT DENTAL [address] [place] [address] NevinHugoChapis [address] [place] [address] documented as of this encounter Goals Goal Patient Goal Type Associated Problems Recent Progress Patient-Stated? Author Blood Pressure < 150/90 Blood Pressure 134/70(2023 9:45 AM EST) El Murcia, PharmD Note: Per JNC-8 Age 62 with no history of DM or CKD documented as of this encounter Visit Diagnoses Not on filedocumented in this encounter Additional Health Concerns Assessment Noted Time PHQ-9 Depression Total Score: 0 07/31/19 23 10:25 AM EST documented as of this encounter Care Teams Telescope Maintenance Relationship Specialty Start Date End Date Ebony Blanchard MD [address] [place] [address] PCP - General Family Medicine 06/18/18 El Gilman, PharmD [address] [place] [address] Pharmacist Internal Medicine 08/21/22 04/27/24 documented as of this encounter
--- OUTSIDE RECORDS SUMMARY | 2024-07-28 08:32 | XMS_ITS | Encounter Summary ---
Author Organization [employer] Address [address] [place] [address] Care Team Providers Care Wood Carving Machine Operator Name Role Phone Ebony Blanchard MD Primary Care Provider [phone] El Gilman PharmD Unavailable [phone] Encounter Details Date Type Department Care Team (Late st Contact Info) Description 03/30/2023 Abstract [facility] ADULT DENTAL [address] [place], [place] [phone] Julian Bazan DDS [address] [place], [place] [phone] Social History Tobacco Use Types Packs/Day Years [...] Description 07/30/2024 10:15 AM EST Office Visit [facility] MEDICINE [address] [place] [address] Ebony Blanchard MD [address] [place] [address] 09/12/2024 10:00 AM EDT Office Visit [facility] ADULT DENTAL [address] [place] [address] Chapis Rooney [address] [place] [address] documented as of this encounter Goals Goal [...] documented as of this encounter Care Teams Wood Carving Machine Operator Relationship Specialty Start Date End Date Ebony Blanchard MD [address] [place] [address] PCP - General Family Medicine 06/18/18 El Gilman, PharmD [address] [place] [address] Pharmacist Internal Medicine 08/21/22 04/27/24 documented as of this encounter
--- OUTSIDE RECORDS SUMMARY | 2024-07-28 08:32 | XMS_ITS | Encounter Summary ---
Author Organization [employer] Address [address]t [place] [address] Care Team Providers Care Resaw Machine Operator Name Role Phone Ebony Blanchard MD Primary Care Provider [phone] El Gilman PharmD Unavailable [phone] Reason for Visit * Reason Comments Med Refill Encounter Details Date Type Department Care Team (Late st Contact Info) Description 03/25/2023 Refill [facility] MEDICINE [address] [place], [place] [phone] Ebony Blanchard MD [address] [place], [place] [phone] Social History Tobacco Use Types Packs/Day Years [...] Description 07/30/2024 10:15 AM EST Office Visit [facility] MEDICINE [address] [place] [address] Ebony Blanchard MD [address] [place] [address] 09/12/2024 10:00 AM EDT Office Visit [facility] ADULT DENTAL [address] [place] [address] NevinHugoChapis [address] [place] [address] documented as of this encounter Goals Goal [...] documented as of this encounter Care Teams Resaw Machine Operator Relationship Specialty Start Date End Date Ebony Blanchard MD [address] [place] [address] PCP - General Family Medicine 06/18/18 El Gilman, PharmD [address] [place] [address] Pharmacist Internal Medicine 08/21/22 04/27/24 documented as of this encounter
--- OUTSIDE RECORDS SUMMARY | 2024-07-28 08:32 | XMS_ITS | Encounter Summary ---
Author Organization [employer] Address [address] [place] [address] Care Team Providers Care Police Justice Name Role Phone Ebony Blanchard MD Primary Care Provider [phone] El Gilman PharmD Unavailable [phone] Encounter Details Date Type Department Care Team (Latest Contact Info) Description 01/06/2022 Abstract [facility] CONVERSIONS Dental, Provider, DDS Social History Tobacco Use Types Packs/Day Years [...] Upcoming Encounters Date Type Department Care Team ( st Contact Info) Description 07/30/2024 10:15 AM EST Office Visit [facility] MEDICINE [address] [place] [address] Ebony Blanchard MD [address] [place] [address] 09/12/2024 10:00 AM EDT Office Visit [facility] ADULT DENTAL [address] [place] [address] Chapis Rooney [address] [place] [address] documented as of this encounter Visit Diagnoses Not on filedocumented in this encounter Care Teams Police Justice Relationship Specialty Start Date End Date Ebony Blanchard MD [address] [place] [address] PCP - General Family Medicine 06/18/18 El Gilman, RajeshD [address] [place] [address] Pharmacist Internal Medicine 08/21/22 04/27/24 documented as of this encounter
--- OUTSIDE RECORDS SUMMARY | 2024-07-28 08:32 | XMS_ITS | Encounter Summary ---
Author Organization [employer] Address [address] 7t [place] [address] Care Team Providers Care Receivables Specialist Name Role Phone Ebony Blanchard MD Primary Care Provider [phone] El Gilman PharmD Unavailable [phone] Encounter Details Date Type Department Care Team ([facility] st Contact Info) Description 06/07/2023 Abstract [facility] ADULT DENTAL [address] [place], [place] [phone] KandruJesusl, DMD [address] [place], [place] [phone] Social History Tobacco Use Types Packs/Day Years [...] Description 07/30/2024 10:15 AM EST Office Visit [facility] MEDICINE [address] [place] [address] Ebony Blanchard MD [address] [place] [address] 09/12/2024 10:00 AM EDT Office Visit [facility] ADULT DENTAL [address] [place] [address] Chapis Rooney [address] [place] [address] documented as of this encounter Goals Goal [...] documented as of this encounter Care Teams Receivables Specialist Relationship Specialty Start Date End Date Ebony Blanchard MD [address] [place] [address] PCP - General Family Medicine 06/18/18 El Gilman, PharmD [address] [place] [address] Pharmacist Internal Medicine 08/21/22 04/27/24 documented as of this encounter
--- OUTSIDE RECORDS SUMMARY | 2024-07-28 08:32 | XMS_ITS | Encounter Summary ---
Author Organization [employer] Address [address] 7[address] [place] [address] Care Team Providers Care Polystyrene Molding Machine Tender Name Role Phone Ebony Blanchard MD Primary Care Provider [phone] El Gilman PharmD Unavailable [phone] Encounter Details Date Type Department Care Team ([facility] st Contact Info) Description 06/07/2023 Abstract [facility] ADULT DENTAL [address] [place], [place] [phone] Clint Pérez, DMD [address] [place], [place] [phone] Social History Tobacco Use Types Packs/Day Years [...] 10:15 AM EST Office Visit [facility] MEDICINE [address] [place] [address] Ebony Blanchard MD [address] [place] [address] 09/12/2024 10:00 AM EDT Office Visit [facility] ADULT DENTAL [address] [place] [address] Chapis Rooney [address] [place] [address] documented as of this encounter Goals Goal [...] documented as of this encounter Care Teams Polystyrene Molding Machine Tender Relationship Specialty Start Date End Date Ebony Blanchard MD [address] [place] [address] [phone] PCP - General Family Medicine 06/18/18 El Gilman, PharmD [address] [place] [address] Pharmacist Internal Medicine 08/21/22 04/27/24 documented as of this encounter
--- OUTSIDE RECORDS SUMMARY | 2024-07-28 08:32 | XMS_ITS | Encounter Summary ---
Author Organization [employer] Address [address] 7t [place] [address] Care Team Providers Care General Merchandise Salesperson Name Role Phone Ebony Blanchard MD Primary Care Provider [phone] El Gilman PharmD Unavailable [phone] Reason for Visit * Reason Onset Date Comments Prior Authorization 03/30/2023 Encounter Details Date Type Department Care Team ([facility] st Contact Info) Description 03/30/2023 Telephone [facility] ADULT DENTAL [address] [place], [place] [phone] Harvey Curry, DMD [address] [place], [place] [phone] Prior Authorization Social History Tobacco Use Types Packs/Day Years [...] * Telephone Encounter - Mary Zimmer - 03/30/2023 1:46 PM EDT Patient called in stating that she received referral for RCT with Dr. Curry. I did explain that wehave not received it on our end, or at least its not scanned yet and we need our copy not hers. I also explained provider has a waiting list as he only comes in 1 time per week I did let cheo know that I would relay information to you to make you aware. documented in this encounter Plan of Treatment Upcoming Encounters Date Type Department Care Team (Late st Contact Info) Description 07/30/2024 10:15 AM EST Office Visit [facility] MEDICINE [address] [place] [address] Ebony Blanchard MD [address] [place] [address] 09/12/2024 10:00 AM EDT Office Visit [facility] ADULT DENTAL [address] [place], [place] [phone] Chapis Rooney [address] [place] [address] documented as of this encounter Goals Goal Patient Goal Type Associated Problems Recent Progress Patient-Stated? Author Blood Pressure < 150/90 Blood Pressure 134/70(2023 9:45 AM EST) No El Gilman, Roscoe Note: Per JNC-8 Age 62 with no history of DM or CKD documented as of this encounter Visit Diagnoses Not on filedocumented in this encounter Additional Health Concerns Assessment Noted Time PHQ-9 Depression Total Score: 0 07/31/19 23 10:25 AM EST documented as of this encounter Care Teams General Merchandise Salesperson Relationship Specialty Start Date End Date Ebony Blanchard MD [address] [place] [address] PCP - General Family Medicine 06/18/18 El Gilman, PharmD [address] [place] [address] Pharmacist Internal Medicine 08/21/22 04/27/24 documented as of this encounter
--- OUTSIDE RECORDS SUMMARY | 2024-07-28 08:33 | XMS_ITS | Encounter Summary ---
Author Organization [employer] Address [address] 7[address] [place] [address] Care Team Providers Care Shell Molding Roller Blast Operator Name Role Phone Ebony Blanchard MD Primary Care Provider [phone] Reason for Visit * Reason Onset Date Comments chart prep 07/24/2024 Encounter Details Date Type Department Care Team ([facility] st Contact Info) Description 07/24/2024 Telephone [facility] MEDICINE [address] [place], [place] [phone] Reyna Wagner MA chart prep Social History Tobacco Use Types Packs/Day Years Used Date Smoking Tobacco: Former Cigarettes Q uit: 10/24/1989 Passive Smoke Exposure: Never Smokeless Tobacco: Never Alcohol Use Standard Drinks/Week Comments Never 0 (1 standard drink = 0.6 oz pur e alcohol) Alcohol Answer Date Recorded Frequency of Alcohol Consumption Not on file 04/08/2024 Average Number of Drinks Not on file 024 Frequency of Binge Drinking Not on file 03/19 Score 0 04/08/2024 Depression Answer Date Recorded Patient Health Questionnaire-9 Score 0 08/23/2023 Patient Health Questionnaire-9 Score 0 08/23/2023 Last PHQ-9: Questionnaire Data Not on file 0 08/23/2023 Housing Stability Answer Date Recorded What is your housing situation today? I have evangelist caba 11/19/[address] you li ve. Do you have problems with any of the following? None of the above 11/19/2023 Food Insecurity Answer Date Recorded Within the past 12 months, y ou worried that your food would run out before you got money to buy more: Never True 11/19/2023 Within the past 12 months,th e food you bought just didn't last and you didn't have enough money to get more: Never True 08/2023 Transportation Answer Date Recorded In the past 12 months, has l ack of transportation kept you from medical appts, meetings, work or from getting things needed for daily living? No 11/19/2023 Utilities Answer Date Recorded In the past 12 months, has t he electric, gas, oil or water company threatened to shut off services in your home? No 11/19/2023 Depression Answer Date Recorded Patient Health Questionnaire-2 Score 0 08/23/2023 Comments Unknown Sex and Gender Information Value Date Recorded Sex Assigned at Female 04/17/2022 10:20 AM EDT Legal Sex Female 10:20 AM EDT Gender Identity Female 04/17/2022 10:20 AM EDT Sexual Orientation Straight 07/23/2024 8: 51 AM EST documented as of this encounter Miscellaneous Notes * Telephone Encounter - Reyna Wagner MA - 07/24/2024 2:59 PM EST .Chart Prep Labs: not done 04/08/24 Images: not applicable Vaccines due: Covid Due Referrals: Completed Gastro appointment 08/14/24 Elie appointment 03/17/25 Screenings: Not Applicable Overdue care gaps: Oral Health and radu-7 documented in this encounter Plan of Treatment Upcoming Encounters Date Type Department Care Team (Late st Contact Info) Description 07/30/2024 10:15 AM EST Office Visit [facility] MEDICINE [address] [place] [address] Ebony Blanchard MD [address] [place] [address] 09/12/2024 10:00 AM EDT Office Visit [facility] ADULT DENTAL [address] [place] [address] Chapis Rooney [address] [place] [address] documented as of this encounter Goals Goal Patient Goal Type Associated Problems Recent Progress Patient-Stated? Author Blood Pressure < 150/90 Blood Pressure 134/70(2023 9:45 AM EST) No El Gilman, RajeshD Note: Per JNC-8 Age 62 with no history of DM or CKD documented as of this encounter Visit Diagnoses Not on filedocumented in this encounter Additional Health Concerns Assessment Noted Time PHQ-9 Depression Total Score: 0 08/23/19 24 10:50 AM EST documented as of this encounter Care Teams Shell Molding Roller Blast Operator Relationship Specialty Start Date End Date Ebony Blanchard MD [address] [place] [address] PCP - General Family Medicine 06/18/18 documented as of this encounter
--- OUTSIDE RECORDS SUMMARY | 2024-07-28 08:33 | XMS_ITS | Encounter Summary ---
Author Organization [employer] Address [address] [place] [address] Care Team Providers Care Fish Tender Name Role Phone Ebony Blanchard MD Primary Care Provider [phone] El Gilman PharmD Unavailable [phone] Reason for Visit * Reason Comments Med Refill Encounter Details Date Type Department Care Team (Late st Contact Info) Description 12/20/2023 [facility]ill [facility] [address] [place], [place] [phone] Ebony Blanchard MD [address] [place], [place] [phone] Essential hypertension Social History Tobacco Use Types Packs/Day Years [...] 07/30/2024 10:15 AM EST [facility] [address] [place] [address] Ebony Blanchard MD [address] [place] [address] 09/12/2024 10:00 AM EDT [facility] [address] [place] [address] NevinChapis vela [address] [place] [address] documented as of this encounter Goals Goal Patient Goal Type Associated Problems Recent Progress Patient-Stated? Author Blood Pressure < 150/90 Blood Pressure 134/70(2023 9:45 AM EST) El Murcia, PharmD Note: Per JNC-8 Age 62 with no history of DM or CKD documented as of this encounter Visit Diagnoses Diagnosis Essential hypertension Unspecified essential hypertension documented in this encounter Additional Health Concerns Assessment Noted Time PHQ-9 Depression Total Score: 0 08/23/19 24 10:50 AM EST documented as of this encounter Care Teams Fish Tender Relationship Specialty Start Date End Date Ebony Blanchard MD [address] [place] [address] PCP - General Family Medicine 06/18/18 El Gilman, RajsehD [address] [place] [address] Pharmacist Internal Medicine 08/21/22 04/27/24 documented as of this encounter
--- OUTSIDE RECORDS SUMMARY | 2024-07-28 08:33 | XMS_ITS | Encounter Summary ---
Author Organization [employer] Address [address] [facility] 7t [place] [address] Care Team Providers Care Dermatologist And Dermatopathologist Name Role Phone Ebony Blanchard MD Primary Care Provider [phone] El Gilman PharmD Unavailable [phone] Reason for Visit * Reason Onset Date Comments Med Refill 02/11/2024 Encounter Details Date Type Department Care Team (Late st Contact Info) Description 02/11/2024 Refill [facility] MEDICINE [address] [place], [place] [phone] Olivia Babccok MD [address] [place], [place] [phone] Essential hypertension Social History Tobacco Use Types [...] Description 07/30/2024 10:15 AM EST Office Visit [facility] MEDICINE [address] [place] [address] Ebony Blanchard MD [address] [place] [address] 09/12/2024 10:00 AM EDT Office Visit [facility] ADULT DENTAL [address] [place], [place] [phone] Chapis Rooney [address] [place] [address] documented as of this encounter Goals Goal [...] documented as of this encounter Care Teams Dermatologist And Dermatopathologist Relationship Specialty Start Date End Date Ebony Blanchard MD [address] [place] [address] PCP - General Family Medicine 06/18/18 El Gilman, RajeshD [address] [place] [address] Pharmacist Internal Medicine 08/21/22 04/27/24 documented as of this encounter
--- OUTSIDE RECORDS SUMMARY | 2024-07-28 08:33 | XMS_ITS | Encounter Summary ---
Author Organization [employer] Address [address] [facility] 7t [place] [address] Care Team Providers Care Substation Operator Helper Name Role Phone Ebony Blanchard MD Primary Care Provider [phone] El Gilman PharmD Unavailable [phone] Reason for Referral * Imaging (Routine) - Closed Specialty Diagnoses / Procedures Referred By Contac t Referred To Contact Radiology Diagnoses Status post bilateral breast reduction Breast pain, left Procedures BI US Breast Complete Bilateral Ebony Blanchard MD [address] [place] [address] Phone: tel: fax: [address] Phone: tel: fax: Referral ID Status Reason Start Date Expiration Date Visits Re quested Visits Authorized [id number] Closed 03/14/2023 03/13/2024 1 1 Encounter Details Date Type Department Care Team (Late st Contact Info) Description 03/14/2023 Orders Only [facility] [address] [place], [place] [phone] Ebony Blanchard MD [address] [place], [place] [phone] Status post bilateral breast reduction (Primary Dx); Breast pain, left Social History Tobacco Use Types Packs/Day Years Used Date Smoking Tobacco: Former Cigarettes Q uit: 10/24/1989 Passive Smoke Exposure: Never Smokeless Tobacco: Never Alcohol Use Standard Drinks/Week Comments Never 0 (1 standard drink = 0.6 oz pur e alcohol) Depression Answer Date Recorded Patient Health Questionnaire-9 Score 0 07/31/2022 Depression Answer Date Recorded Patient Health Questionnaire-2 [...] Description 07/30/2024 10:15 AM EST Office Visit [facility] [address] [place] [address] Ebony Blanchard MD [address] [place] [address] 09/12/2024 10:00 AM EDT Office Visit [facility] ADULT DENTAL [address] [place] [address] Nevin, Chapis [address] [place] [address] Scheduled Orders Name Type Priority Associated Diagnoses Orde r Schedule BI US Breast Complete Bilateral Imaging Routine Status post bilateral breast reduction Breast pain, left Expected: 03/14/2023, Expires: 05/14/2024 documented as of this encounter Goals Goal Patient Goal Type Associated Problems Recent Progress Patient-Stated? Author Blood Pressure < 150/90 Blood Pressure 134/70(2023 9:45 AM EST) No El Gilman, Roscoe Note: Per JNC-8 Age 62 with no history of DM or CKD documented as of this encounter Procedures Procedure Name Priority Date/Time Associated Diagnosis Comments BI US BREAST LIMITED LEFT Routine 04/04/2023 2:30 PM EDT documented in this encounter Results * BI US Breast Limited Left (04/04/2023 2:30 PM EDT) Anatomical Region Laterality Modality Breast Left Ultrasound 04/04/2023 2:30 PM EDT Narrative 04/04/2023 3:04 PM EDT ? [facility] ? [address] ?[place] [address] ? Ultrasound Report ? Signed ? Patient: Olivia Yu ?MR#: [id number] ?? [id number] ? : 1960 ?Acct:[id number] ? Age/Sex: 63 / F ?ADM Date: 04/04/23 ? Loc: HO.MAMMO ? Attending Dr: Ebony Blanchard MD ? Ordering Physician: Ebony Blanchard MD ?? Date of Service: 04/04/23 ?? Procedure(s): US breast LT limited mamm only ?? Accession Number(s): [id number] ? cc: Ebony Blanchard MD ? EXAMINATION: ?? MM DIAGNOSTIC DIGITAL BREAST TOMOSYNTHESIS, BILATERAL ?? US BREAST LIMITED, LEFT ? MAMMOGRAPHY: ?? CLINICAL INFORMATION: ? 63-year-old female complaining of left breast pain lower outer ?? quadrant, lower inner quadrant. ? COMPARISON: ?? Mammography: 03/07/2022, 02/26/2021, 02/06/2018. ? TECHNIQUE: ?? Digital breast tomosynthesis is performed in both the craniocaudal and ?? mediolateral oblique views along with computer-aided detection (CAD). ?? Synthesized 2D images are generated from the tomosynthesis. ? FINDINGS: ?? There are scattered areas of fibroglandular density (ACR BI-RADS breast ?? composition Category b). ? There are no suspicious masses, suspicious grouped calcifications, or ?? areas of architectural distortion in either breast. The parenchymal ?? pattern is stable from prior exams. There are no skin changes. No ?? axillary abnormalities. ? ULTRASOUND: ?? CLINICAL INFORMATION: ?? Left breast pain lower outer and lower inner quadrants. ? COMPARISON: ?? None ? TECHNIQUE: ?? Targeted sonographic evaluation was performed using a high frequency ?? linear transducer. Left breast was evaluated from the 3:00 to the 10:00 ?? axis. Selected archived documentation. ? FINDINGS: ? LEFT BREAST: There is a mixture of fatty and fibroglandular tissue. ??No ?? suspicious mass is seen. ??There is no pathologic acoustic shadowing. No ?? ultrasonographic abnormality in the regions of breast pain left breast. ? US/US breast LT limited mamm only ?? IMPRESSION: ?? There are no findings suspicious for malignancy in either breast. ? No ultrasonographic or mammographic abnormality is seen in the lower ?? inner and lower outer left breast. Recommend clinical management. ? OVERALL ASSESSMENT: ?? Mammography: BI-RADS 1 - Negative ?? Ultrasound: BI-RADS 1 - Negative ? RECOMMENDATION: ?? 1. Patient should be managed based on the clinical impression. ? 2. Otherwise, routine annual screening mammography. ? Results were provided to the patient at time of visit by the ?? technologist. ? This patient's information was entered into a reminder system with a ?? target due date for their next mammogram. ? Dictated By: ?Burke Link MD ? Signed By: ?<Electronically signed by Burke Link MD in OV> ?04/04/23 1500 ? DD/ 1430 ? TD/TT: ? Coremaking Machine Operator: ? Procedure Note Luis Enrique, Image - 04/04/2023 [facility] [address] [place] [address] Ultrasound Report Signed Patient: Olivia Yu [facility]#: [id number] : 1960cct:[id number] Age/Sex: 63 / FADM Date: 04/04/23 Loc: J[facility] Attending Dr: Ebony Blanchard MD Ordering Physician: Ebony Blanchard MD Date of Service: 04/04/23 Procedure(s): US breast LT limited mamm only Accession Number(s): [id number] cc: Ebony Blanchard MD EXAMINATION: MM DIAGNOSTIC DIGITAL BREAST TOMOSYNTHESIS, BILATERAL US BREAST LIMITED, LEFT MAMMOGRAPHY: CLINICAL INFORMATION: 63-year-old female complaining of left breast pain lower outer quadrant, lower inner quadrant. COMPARISON: Mammography: 03/07/2022, 02/26/2021, 02/06/2018. TECHNIQUE: Digital breast tomosynthesis is performed in both the craniocaudal and mediolateral oblique views along with computer-aided detection (CAD). Synthesized 2D images are generated from the tomosynthesis. FINDINGS: There are scattered areas of fibroglandular density (ACR BI-RADS breast composition Category b). There are no suspicious masses, suspicious grouped calcifications, or areas of architectural distortion in either breast. The parenchymal pattern is stable from prior exams. There are no skin changes. No axillary abnormalities. ULTRASOUND: CLINICAL INFORMATION: Left breast pain lower outer and lower inner quadrants. COMPARISON: None TECHNIQUE: Targeted sonographic evaluation was performed using a high frequency linear transducer. Left breast was evaluated from the 3:00 to the 10:00 axis. Selected archived documentation. FINDINGS: LEFT BREAST: There is a mixture of fatty and fibroglandular tissue. No suspicious mass is seen. There is no pathologic acoustic shadowing. No ultrasonographic abnormality in the regions of breast pain left breast. US/US breast LT limited mamm only IMPRESSION: There are no findings suspicious for malignancy in either breast. No ultrasonographic or mammographic abnormality is seen in the lower inner and lower outer left breast. Recommend clinical management. OVERALL ASSESSMENT: Mammography: BI-RADS 1 - Negative Ultrasound: BI-RADS 1 - Negative RECOMMENDATION: 1. Patient should be managed based on the clinical impression. 2. Otherwise, routine annual screening mammography. Results were provided to the patient at time of visit by the technologist. This patient's information was entered into a reminder system with a target due date for their next mammogram. Dictated By: Burke Link MD Signed By: <Electronically signed by Burke Link MD in OV> 04/04/23 1500 DD/ 1430 TD/TT: Coremaking Machine Operator: us Ebony Blanchard MD IMG US PROCEDURES Final Result documented in this encounter Visit Diagnoses Diagnosis Status post bilateral breast reduction- Primary Other postprocedural status Breast pain, left documented in this encounter Additional Health Concerns Assessment Noted Time PHQ-9 Depression Total Score: 0 07/31/19 23 10:25 AM EST documented as of this encounter Care Teams Substation Operator Helper Relationship Specialty Start Date End Date Ebony Blanchard MD [address] [place] [address] PCP - General Family Medicine 06/18/18 El Gilman, RajeshD [address] [place] [address] Pharmacist Internal Medicine 08/21/22 04/27/24 documented as of this encounter
--- OUTSIDE RECORDS SUMMARY | 2024-07-28 08:33 | XMS_ITS | Encounter Summary ---
Author Organization [employer] Address [address] [facility] 7t [place] [address] Care Team Providers Care Coating And Embossing Unit Operator Name Role Phone Ebony Blanchard MD Primary Care Provider [phone] El Gilman PharmD Unavailable [phone] Reason for Visit * Reason Comments Med Refill Encounter Details Date Type Department Care Team (Late st Contact Info) Description 09/21/2023 Refill [facility] [address] [place], [place] [phone] Olivia Babcock MD [address] [place], [place] [phone] Essential hypertension Social History Tobacco Use Types [...] Description 07/30/2024 10:15 AM EST Office Visit [facility]INE [address] [place] [address] Ebony Blanchard MD [address] [place] [address] 09/12/2024 10:00 AM EDT Office Visit [facility] ADULT DENTAL [address] [place] [address] Chapis Rooney [address] [place] [address] documented as of this encounter Goals Goal [...] documented as of this encounter Care Teams Coating And Embossing Unit Operator Relationship Specialty Start Date End Date Ebony Blanchard MD [address] [place] [address] PCP - General Family Medicine 06/18/18 El Gilman, RajeshD [address] [place] [address] Pharmacist Internal Medicine 08/21/22 04/27/24 documented as of this encounter
--- OUTSIDE RECORDS SUMMARY | 2024-07-28 08:33 | XMS_ITS | Encounter Summary ---
Author Organization [employer] Address [address] [facility] 7t [place] [address] Care Team Providers Care Neonatal Intensive Care Unit Nurse Name Role Phone Ebony Blanchard MD Primary Care Provider El Gilman PharmD Unavailable [phone] Reason for Visit * Reason Comments Med Refill Encounter Details Date Type Department Care Team ([facility] st Contact Info) Description 03/19/[address] [facility] [address] [place], [place] [phone] Olivia Babcock MD [address] [place], [place] [phone] Essential hypertension Social History Tobacco Use Types [...] Description 07/30/2024 10:15 AM EST Office Visit [facility] [address] [place] [address] Ebony Blanchard MD [address] [place] [address] 09/12/2024 10:00 AM EDT Office Visit [facility] ADULT DENTAL [address] [place] [address] Chapis Rooney [address] [place] [address] documented as of this encounter Goals Goal [...] documented as of this encounter Care Teams Neonatal Intensive Care Unit Nurse Relationship Specialty Start Date End Date Ebony Blanchard MD [address] [place] [address] PCP - General Family Medicine 06/18/18 El Gilman, RajeshD [address] [place] [address] Pharmacist Internal Medicine 08/21/22 04/27/24 documented as of this encounter
--- OUTSIDE RECORDS SUMMARY | 2024-07-28 08:33 | XMS_ITS | Encounter Summary ---
Author Organization [employer] Address [address] [facility] [address] 7t [place] [address] Care Team Providers Care Dopeman Name Role Phone Ebony Blanchard MD Primary Care Provider [phone] Reason for Visit * Reason Comments Med Refill Encounter Details Date Type Department Care Team ([facility] st Contact Info) Description 04/30/2024 Refill [facility] [address] [place], [place] [phone] Ebony Blanchard MD [address] [place], [place] [phone] Psychophysiological insomnia Social History Tobacco Use Types Packs/Day Years [...] the past 12 months, has t he [employer] gas, oil or water company threatened to [...] 10:15 AM EST Office Visit [facility] [address] [place] [address] Ebony Blanchard MD [address] [place] [address] 09/12/2024 10:00 AM EDT Office Visit [facility] ADULT DENTAL [address] [place] [address] Chapis Rooney [address] [place] [address] documented as of this encounter Goals Goal Patient Goal Type Associated Problems Recent Progress Patient-Stated? Author Blood Pressure < 150/90 Blood Pressure 134/70(2023 9:45 AM EST) El Murcia, PharmD Note: Per JNC-8 Age 62 with no history of DM or CKD documented as of this encounter Visit Diagnoses Diagnosis Psychophysiological insomnia Persistent disorder of initiating or maintaining sleep documented in this encounter Additional Health Concerns Assessment Noted Time PHQ-9 Depression Total Score: 0 08/23/19 24 10:50 AM EST documented as of this encounter Care Teams Dopeman Relationship Specialty Start Date End Date Ebony Blanchard MD [address] [place] [address] PCP - General Family Medicine 06/18/18 documented as of this encounter
--- OUTSIDE RECORDS SUMMARY | 2024-07-28 08:33 | XMS_ITS | Encounter Summary ---
Author Organization [employer] Address [address] [facility] [address] 7t [place] [address] Care Team Providers Care [employer] Name Role Phone Ebony Blanchard MD Primary Care Provider [phone] Encounter Details Date Type Department Care Team (Latest Contact Info) Description 07/23/2024 Travel Social History Tobacco Use Types Packs/Day Years [...] 10:15 AM EST Office Visit [facility] [address] [place] [address] Ebony Blanchard MD [address] [place] [address] 09/12/2024 10:00 AM EDT Office Visit [facility] ADULT DENTAL [address] [place] [address] Hugo Rooneyaris [address] [place] [address] documented as of this encounter Goals Goal Patient Goal Type Associated Problems Recent Progress Patient-Stated? Author Blood Pressure < 150/90 Blood Pressure 134/70(2023 9:45 AM EST) El Murcia, RajeshD Note: Per JNC-8 Age 62 with no history of DM or CKD documented as of this encounter Visit Diagnoses Not on filedocumented in this encounter Additional Health Concerns Assessment Noted Time PHQ-9 Depression Total Score: 0 08/23/19 24 10:50 AM EST documented as of this encounter Care Teams [employer] Relationship Specialty Start Date End Date Ebony Blanchard MD [address] [place] [address] PCP - General Family Medicine 06/18/18 documented as of this encounter
--- OUTSIDE RECORDS SUMMARY | 2024-07-28 08:33 | XMS_ITS | Encounter Summary ---
Author Organization [employer] Address [address] [facility] [address] 7t [place] [address] Care Team Providers Care Robotic Technician Name Role Phone Ebony Blanchard MD Primary Care Provider [phone] El Gilman PharmD Unavailable [phone] Encounter Details Date Type Department Care Team (Latest Contact Info) Description 09/08/2020 Abstract [facility] CONVERSIONS Dental, Provider, DDS Social History Tobacco [...] Description 07/30/2024 10:15 AM EST Office Visit [facility] MEDICINE [address] [place] [address] Ebony Blanchard MD [address] [place] [address] 09/12/2024 10:00 AM EDT Office Visit [facility] ADULT DENTAL 230 [place] [address] Chapis Rooney [address] [place] [address] documented as of this encounter Visit Diagnoses Not on filedocumented in this encounter Care Teams Robotic Technician Relationship Specialty Start Date End Date Ebony Blanchard MD [address] [place] [address] PCP - General Family Medicine 06/18/18 El Gilman, RajeshD [address] [place] [address] Pharmacist Internal Medicine 08/21/22 04/27/24 documented as of this encounter
--- OUTSIDE RECORDS SUMMARY | 2024-07-28 08:33 | XMS_ITS | Encounter Summary ---
Author Organization [employer] Address [address] [facility] 7t [place] [address] Care Team Providers Care Delivery Crew Worker Name Role Phone Ebony Blanchard MD Primary Care Provider [phone] Reason for Referral * Consultation (Routine) - Authorized Specialty Diagnoses / Procedures Referred By Contac t Referred To Contact Pharmacy Diagnoses Hypertension, unspecified type Ebony Blanchard MD [address] [place] [address] Phone: tel: fax: Referral ID Status Reason Start Date Expiration Date Visits Requested Visits Authorized [id number] Authorized Consult and Treat 04/29/2024 04/29/2025 6 6 Encounter Details Date Type Department Care Team ([facility] st Contact Info) Description 04/29/2024 Orders Only [facility] MEDICINE [address] [place] [phone] Ebony Blanchard MD [address] [place], [place] [phone] Hypertension, unspecified type (Primary Dx) Social History Tobacco Use Types Packs/Day Years [...] 07/30/2024 10:15 AM EST Office Visit [facility] MED[facility]INE [address] [place] [address] Ebony Blanchard MD [address] [place] [address] 09/12/2024 10:00 AM EDT Office Visit [facility] ADULT DENTAL [address] [place] [address] Chapis Rooney [address] [place] [address] Scheduled Referrals Name Type Priority Associated Diagnoses Orde r Schedule Referral to Pharmacy CDTM Outpatient Referral Routine Hypertension, unspecified type Ordered: 04/29/2024 documented as of this encounter Goals Goal Patient Goal Type Associated Problems Recent Progress Patient-Stated? Author Blood Pressure < 150/90 Blood Pressure 134/70(2023 9:45 AM EST) El Murcia, RajeshD Note: Per JNC-8 Age 62 with no history of DM or CKD documented as of this encounter Visit Diagnoses Diagnosis Hypertension, unspecified type- Primary documented in this encounter Additional Health Concerns Assessment Noted Time PHQ-9 Depression Total Score: 0 08/23/19 24 10:50 AM EST documented as of this encounter Care Teams Delivery Crew Worker Relationship Specialty Start Date End Date Ebony Blanchard MD [address] [place] [address] PCP - General Family Medicine 06/18/18 documented as of this encounter
--- OUTSIDE RECORDS SUMMARY | 2024-07-28 08:33 | XMS_ITS | Encounter Summary ---
Author Organization [employer] Address 75 [facility] 7t [place] [address] Care Team Providers Care Clinical Account Liaison Name Role Phone Ebony Blanchard MD Primary Care Provider [phone] El Gilman PharmD Unavailable [phone] Reason for Referral * Consultation (Routine) - Closed Specialty Diagnoses / Procedures Referred By Contac t Referred To Contact Orthopaedic Surgery Diagnoses Chronic left shoulder pain Incomplete tear of left rotator cuff, unspecified whether traumatic Shoulder arthritis Ebony Blanchard MD [address] [place] [address] Phone: tel: fax: [facility] [address] [place] [address] [place] [address] Phone: tel: fax: Referral ID Status Reason Start Date Expiration Date V isits Requested Visits Authorized [id number] Closed Specialty Services Required 10/12/2023 10/11/2024 1 1 Encounter Details Date Type Department Care Team (Late st Contact Info) Description 10/12/2023 Orders Only [facility] MED[facility]INE [address] [place], [place] [phone] Ebony Blanchard MD [address] [place], [place] [phone] Chronic left shoulder pain (Primary Dx); Incomplete tear of left rotator cuff, unspecified whether traumatic; Shoulder arthritis Social History Tobacco Use Types Packs/Day Years [...] 10:15 AM EST Office Visit [facility] MED[facility] [address] [place] [address] Ebony Blanchard MD [address] [place] [address] 09/12/2024 10:00 AM EDT Office Visit [facility] ADULT DENTAL [address] [place] [address] Chapis Rooney [address] [place] [address] Scheduled Referrals Name Type Priority Associated Diagnoses Orde r Schedule Referral to Orthopaedic Surgery Outpatient Referral Routine Chronic left shoulder pain Incomplete tear of left rotator cuff, unspecified whether traumatic Shoulder arthritis Expected: 10/12/2023 (Approximate), Expires: 10/11/2024 documented as of this encounter Goals Goal Patient Goal Type Associated Problems Recent Progress Patient-Stated? Author Blood Pressure < 150/90 Blood Pressure 134/70(2023 9:45 AM EST) No El Gilman PharmD Note: Per JNC-8 Age 62 with no history of DM or CKD documented as of this encounter Visit Diagnoses Diagnosis Chronic left shoulder pain- Primary Pain in joint, shoulder region Incomplete tear of left rotator cuff, unspecified whether traumatic Shoulder arthritis Unspecified arthropathy, shoulder region documented in this encounter Additional Health Concerns Assessment Noted Time PHQ-9 Depression Total Score: 0 08/23/19 24 10:50 AM EST documented as of this encounter Care Teams Clinical Account Liaison Relationship Specialty Start Date End Date Ebony Blanchard MD [address] [place] [address] PCP - General Family Medicine 06/18/18 El Gilman, Roscoe [address] [place] [address] Pharmacist Internal Medicine 08/21/22 04/27/24 documented as of this encounter
--- OUTSIDE RECORDS SUMMARY | 2024-07-28 08:33 | XMS_ITS | Clinical Summary ---
Author Organization [employer] Address [address] [place] [address] Care Team Providers Care Auto Air Conditioning Apprentice Name Role Phone Ebony Blanchard MD Primary Care Provider [phone] Allergies Active Allergy Reactions Criticality Noted Date Comments Lisinopril Cough 07/12/2010 Losartan Cough 12/23/2019 Medications Artificial Tears 0.2-0.2-1 % solution USE 1 DROP BOTH EYES TWICE DAILY 08/18/19 23 Active acetaminophen (Acetaminophen Extra Strength) 500 MG tablet TAKE 2 TABLETS BY MOUTH EVERY 8 HOURS NEEDED 90 tablet 1 12/09/19 23 Active furosemide (Lasix) 40 MG tablet TAKE 1 TABLET BY MOUTH EVERY DAY 01/04/20 23 Active triamcinolone (Kenalog) 0.1 % cream Apply topically if needed in the morning and at bedtime (pain and swelling). 30 g 2 09/18/19 24 Active meclizine (Antivert) 25 MG tabletIndication s:Vertigo TAKE 1 TABLET BY MOUTH EVERY DAY NEEDED FOR VERTIGO 30 tablet 1 10/15/19 24 Active Diclofenac Sodium 1 % gel APPLY TOPICALLY TO THE AFFECTED AREA EVERY DAY NEEDED FOR PAIN 100 g 11 11/19/19 24 Active cetirizine (ZyrTEC) 10 MG tablet Take 1 tablet (10 mg) by mouth Once per day. 90 tablet 3 11/19/19 24 025 Active Tyrvaya 0.03 MG/ACT solution INSTILL 1 SPRAY IN EACH NOSTRIL TWICE A DAY , APPROXIMATELY 12 HOURS APART. 11/07/19 24 Active cholecalciferol (Vitamin D3) 25 MCG (1000 UT) tablet TAKE 1 TABLET BY MOUTH IN THE MORNING 90 tablet 3 03/03/20 24 Active omeprazole (PriLOSEC) [address] capsule Take 20 mg by mouth Once per day. 02/14/20 24 Active triamcinolone (Nasacort) 55 MCG/ACT nasal inhaler Administer 2 sprays into each nostril Once per day. 16.5 g 11 04/08/20 24 025 Active Simethicone Ultra Strength 180 MG capsule Take 180 mg by mouth 4 times daily. 03/06/20 24 Active atenolol (Tenormin) 25 MG tabletIndication s:Essential hypertension TAKE 1 TABLET BY MOUTH IN THE MORNING 90 tablet 1 04/30/20 24 Active ibuprofen 800 MG tabletIndication s:Pain TAKE 1 TABLET(800 MG) BY MOUTH WITH BREAKFAST 30 tablet 1 05/26/20 24 Active zolpidem (Ambien) 5 MG tabletIndication s:Psychophysiolo gical insomnia TAKE 1 TABLET BY MOUTH EVERY NIGHT AT BEDTIME NEEDED FOR SLEEP 30 tablet 06/27/19 25 Active Active Problems Problem Noted Date Diagnosed Date Upper respiratory infection, viral 12/12/2023 Assessment & Plan (12/12/2023 5:58 PM EDT): Pt here w viral respiratory symptoms . Pt has benign physical ENT/lung exam Here Flu ,COVID 19 and strep test are neg -cepacol - Tylenol ,NSAIDS has at home -hydration -alarm signs and symptoms discussed w pt Functional dyspepsia 11/19/2023 Assessment & Plan (11/19/2023 11:31 AM EDT): - following with [facility], last seen in Jul 2023 Delayed gastric emptying 11/19/2023 Allergic rhinitis 11/19/2023 Assessment & Plan (04/08/2024 11:55 AM EDT): -Patient is wondering of Penicillin allergy but it is less likely. -Continue Cetrizine -Switch flonase to nasacort -Patient was referred to sales specialist in November 2023. Will check referral status. Assessment & Plan (11/19/2023 11:37 AM EDT): Patient is wondering of Penicillin allergy but it is less likely. We will refer for specialist employee labor relations for allergy testing and further treatment. Will start Cetrizine Rectocele 08/25/2023 Assessment & Plan (08/25/2023 6:59 AM EST): - upcoming surgery next week Constipation 08/25/2023 Assessment & Plan (11/19/2023 11:30 AM EDT): - following with [facility], last seen in Jul 2023 - continue adequate fiber intake Assessment & Plan (08/25/2023 7:08 AM EST): - following with [facility], last seen in Jul 2023 - continue adequate fiber intake Chronic left shoulder pain 08/24/2023 Assessment & Plan (08/24/2023 4:12 PM EST): Recurrent - pt had a great response to steroid injection in the past. However, she refuses to get injection at this time. -Will order labs to check kidney function and will subsequently order an MRI to be done after she recovers from surgery Missing teeth, acquired 08/07/2023 Migraine 04/16/2023 04/16/2023 History of repair of right rotator cuff 03/17/20 23 Assessment & Plan (08/25/2023 7:09 AM EST): - 2019 Assessment & Plan (03/17/2023 5:53 AM EDT): - 2019 Status post hysterectomy 03/17/2023 Assessment & Plan (03/17/2023 5:53 AM EDT): - 2021 H/O bilateral breast reduction surgery Assessment & Plan (02/27/2023 10:47 AM EDT): - in 2006 Dental calculus 11/01/2022 Idiopathic resorption of root of tooth Localized gingival recession 11/01/2022 Dental abscess 11/01/2022 Venous insufficiency 10/24/2022 Assessment & Plan (03/13/2023 9:22 PM EDT): - Following with [facility] cardiology, last seen on 02/02/23. - 10/05/22 Venous study, results showed: right GSV and SSV incompetent, left GSV incompetent, left SSV competent - Elevated legs, DASH diet - Follow-up with Vascular Specialist Assessment & Plan (10/27/2022 10:32 AM EDT): - Following with [facility] on 09/28/22. - 10/05/22 Venous study, results showed: right GSV and SSV incompetent, left GSV incompetent, left SSV competent - Elevated legs, DASH diet - Follow-up with Vascular Specialist Vitamin D deficiency 10/24/2022 Assessment & Plan (04/08/2024 1:29 PM EDT): -Last Vitamin D level was normal - Rx Vitamin D Supplementation Assessment & Plan (02/27/2023 11:01 AM EDT): -Last Vitamin D level was normal - Rx Vitamin D Supplementation Assessment & Plan (10/24/2022 9:36 AM EDT): - Will check vitamin D levels with lab - Rx Vitamin D Supplementation Bradycardia 10/24/2022 Assessment & Plan (11/19/2023 11:29 AM EDT): Mild Minimally-Symptomatic - Advised to check pulse with BP regularly - Agreed to continue Atenolol at prescribed dose for now; if patients HR becomes < 50 or <55 with symptom,, consider lowering Atenolol dose or discontinuing Atenolol. - will closely monitor Assessment & Plan (02/27/2023 10:57 AM EDT): Mild Minimally-Symptomatic - Advised to check pulse with BP regularly - Agreed to continue Atenolol at prescribed dose for now; if patients HR becomes < 50 or <55 with symptom,, consider lowering Atenolol dose or discontinuing Atenolol. - will closely monitor Assessment & Plan (10/27/2022 10:32 AM EDT): Mild Minimally-Symptomatic - Advised to check pulse with BP regularly - Agreed to continue Atenolol at prescribed dose for now; if patients HR becomes < 50 or <55 with symptom,, consider lowering Atenolol dose or discontinuing Atenolol. - will closely monitor Right knee pain 07/31/2022 Assessment & Plan (10/24/2022 9:31 AM EDT): Seen by [facility] for R knee pain on 07/31/22 - Dx: PF OA vs. Chondromalacia. - Received steroid injection on 08/01/22. - Referred to PT. - Compress, elevation and heat - will Rx topical NSAID cream and Knee brace, per patient request Anxiety and depression 07/31/2022 Assessment & Plan (07/31/2022 12:36 PM EST): -Previously tried sertraline and hydroxyzine, but she self-discontinued -Seen by [facility] clinician in Apr 2019, Dx adjustment d/o -restarted sertraline 25 mg in April 2021 but pt discontinued due to feeling better -continue counseling -pt still taking zofredem for insomnia but she does not take everyday, discussed effect on her memory and pt understands its side effects -Pt has Hx BZD use from another provider; pt was discouraged its use Stenosing tenosynovitis 10/03/2017 Primary osteoarthritis involving multiple joints 09/05/2016 Assessment & Plan (02/27/2023 11:00 AM EDT): Continue judicious use of Tylenol and Ibuprofen, as needed Gout 07/04/2016 Hyperuricemia 07/04/2016 Bunion of left foot 01/04/2016 Benign paroxysmal positional vertigo, bilateral 07/15/2015 Spondylolisthesis 05/29/2013 Impaired fasting glucose 03/20/2012 Assessment & Plan (08/25/2023 7:09 AM EST): -09/16/18 A1C 6.0% FBG 108 -04/20/21 A1C 5.6% -04/07/22 A1c 5.6% -02/22/23 A1c 5.5% -Cont working on lifestyle modifications -Continue annual screening due to risk factor Assessment & Plan (02/27/2023 10:59 AM EDT): -09/16/18 A1C 6.0% FBG 108 -04/20/21 A1C 5.6% -04/07/22 A1c 5.6% -02/22/23 A1c 5.5% -Cont working on lifestyle modifications -Continue annual screening due to risk factor Assessment & Plan (07/31/2022 11:14 AM EST): -09/16/18 A1C 6.0% FBG 108 -04/20/21 A1C 5.6% -04/07/22 A1c 5.6% -Cont working on lifestyle modifications -Continue annual screening due to risk factor GERD (gastroesophageal reflux disease) 2 Assessment & Plan (04/08/2024 11:53 AM EDT): -followed by [facility], last seen on 08/16/23 - s/p EGD 02/02/22, nml - previously prescribed pantoprazole, pt is no longer taking. Instead, pt is using baking soda - Pt was Rx Reglan but discontinued d/t side-effects Assessment & Plan (11/19/2023 11:32 AM EDT): -followed by [facility], last seen on 08/16/23 - s/p EGD 02/02/22, nml - previously prescribed pantoprazole, pt is no longer taking. Instead, pt is using baking soda - Pt was Rx Reglan but discontinued d/t side-effects Assessment & Plan (08/25/2023 7:07 AM EST): -followed by [facility], last seen on 08/16/23 - s/p EGD 02/02/22, nml - previously prescribed pantoprazole, pt is no longer taking. Instead, pt is using baking soda - Pt was Rx Reglan but discontinued d/t side-effects Assessment & Plan (02/27/2023 10:59 AM EDT): -followed by [facility], last seen in May 2022 -s/p EGD 02/02/22, nml - previously prescribed pantoprazole, pt is no longer taking. Instead, pt is using baking soda -Pt was Rx Reglan but discontinued d/t side-effects Assessment & Plan (10/27/2022 10:33 AM EDT): -followed by [facility], last seen in May 2022 -s/p EGD 02/02/22, nml - continue pantoprazole as prescribed -Pt was Rx Reglan but discontinued d/t side-effects Assessment & Plan (08/05/2022 6:36 PM EST): -followed by [facility], last seen in May 2022 -s/p EGD 02/02/22, nml -Pt was Rx Reglan but discontinued d/t side-effects Insomnia 01/04/2012 Mixed stress and urge urinary incontinence 01/03 Assessment & Plan (11/19/2023 11:37 AM EDT): Followed by UroGYN for mixed urinary incontinence. Last seen on 10/12/23, patient was safely discharged. -s/p; 11/03/21 Vaginal hysterectomy, b/l salpingectomy, robotic sacral colpopexy, midurethral sling, cystoscopy by Dr. Mackenzie for ureterovaginal prolapse, cystocele, rectocele. -12/14/21 Stress urinary incontinence after surgery. -s/p Midurethral Sling 01/03/22 -pt was recommend to try Kegel exercises -prescribing incontinence supplies - s/p 08/29/23 Colporrhaphy , pt notes symptoms have improved. Assessment & Plan (08/25/2023 7:09 AM EST): Followed by UroGYN for mixed urinary incontinence. Last seen in August 2023 -s/p; 11/03/21 Vaginal hysterectomy, b/l salpingectomy, robotic sacral colpopexy, midurethral sling, cystoscopy by Dr. Mackenzie for ureterovaginal prolapse, cystocele, rectocele. -12/14/21 Stress urinary incontinence after surgery. -s/p Midurethral Sling 01/03/22 -UroGYN seen on 01/11/22 -pt was recommend to try Kegel exercises -prescribing incontinence supplies Assessment & Plan (02/27/2023 11:00 AM EDT): Followed by UroGYN for mixed urinary incontinence. -Pt is still not satisfied of the outcome; Recommended to follow-up with Urogynecology -s/p; 11/03/21 Vaginal hysterectomy, b/l salpingectomy, robotic sacral colpopexy, midurethral sling, cystoscopy by Dr. Mackenzie for ureterovaginal prolapse, cystocele, rectocele. -12/14/21 Stress urinary incontinence after surgery. -s/p Midurethral Sling 01/03/22 -UroGYN seen on 01/11/22 -pt was recommend to try Kegel exercises -Rx pads for urinary incontinence -Rx wipes for urinary incontinence Assessment & Plan (10/27/2022 10:33 AM EDT): Followed by [facility] for mixed urinary incontinence. -s/p; 11/03/21 Vaginal hysterectomy, b/l salpingectomy, robotic sacral colpopexy, midurethral sling, cystoscopy by Dr. Mackenzie for ureterovaginal prolapse, cystocele, rectocele. -12/14/21 Stress urinary incontinence after surgery. -s/p Midurethral Sling 01/03/22 -UroGYN seen on 01/11/22 -pt was recommend to try Kegel exercises -Rx pads for urinary incontinence -Rx wipes for urinary incontinence Assessment & Plan (08/05/2022 6:43 PM EST): Followed by [facility] for mixed urinary incontinence. -s/p; 11/03/21 Vaginal hysterectomy, b/l salpingectomy, robotic sacral colpopexy, midurethral sling, cystoscopy by Dr. Mackenzie for ureterovaginal prolapse, cystocele, rectocele. -12/14/21 Stress urinary incontinence after surgery. -s/p Midurethral Sling 01/03/22 -UroGYN seen on 01/11/22 -pt was recommend to try Kegel exercises -Rx pads for urinary incontinence -Rx wipes for urinary incontinence Severe obesity (BMI 35.0-39.9) with comorbidity 01/03/2010 Hypertension 10/29/2006 Assessment & Plan (04/08/2024 10:25 AM EDT): Goal BP < 150/90 per JNC-8, and < 130/80 per ACC/AHA guideline. -BP elevated today. -Comanaged with local company refrigerated truck driver and PharmD. -Encouraged to work on life style modifications. -Continue current medications -Current medications: furosemide 40 mg daily; atenolol 25 mg daily Treatment Hx: HCTZ was discontinued due to hyperuricemia / gout. Losartan was self-discontinued due to cough -Advised to check BP at home everyday. If persistently elevated, advised to call us back. Follow-up in 4mo or sooner if any problem arises Assessment & Plan (12/12/2023 5:59 PM EDT): Reports home BP is normal at home <140/90 -advised pt to be compliant w BP meds and check home BP and to bring readings to PCP at next apt Assessment & Plan (11/19/2023 11:30 AM EDT): Goal BP < 150/90 per JNC-8, and < 130/80 per ACC/AHA guideline. -Elevated today. Patient attributes it to anxiety. -Comanaged with local company refrigerated truck driver and PharmD. -Encouraged to work on life style modifications. -Continue current medications -Current medications: furosemide 40 mg daily; atenolol 25 mg daily Treatment Hx: HCTZ was discontinued due to hyperuricemia / gout. Losartan was self-discontinued due to cough -Advised to check BP at home everyday. If persistently elevated, advised to call us back. Follow-up in 4mo or sooner if any problem arises Assessment & Plan (08/25/2023 7:11 AM EST): Goal BP < 150/90 per JNC-8, and < 130/80 per ACC/AHA guideline. -Elevated today. Patient attributes it to anxiety. -Comanaged with local company refrigerated truck driver and PharmD. -Encouraged to work on life style modifications. -Continue current medications -Current medications: furosemide 40 mg daily; atenolol 25 mg daily Treatment Hx: HCTZ was discontinued due to hyperuricemia / gout. Llosartan was self-discontinued due to cough -Advised to check BP at home everyday. If persistently elevated, advised to call us back. Follow-up in 4-6mo or sooner if any problem arises Assessment & Plan (03/14/2023 12:28 PM EDT): Goal BP < 150/90 per JNC-8, and < 130/80 per ACC/AHA guideline. Suboptimal range today; pt received steroid injection recently -Comanaged with local company refrigerated truck driver and PharmD. -Encouraged to work on life style modifications. -Continue current medications -Current medications: furosemide 40 mg daily; atenolol 25 mg daily Treatment Hx: HCTZ was discontinued due to hyperuricemia / gout. Llosartan was self-discontinued due to cough -Advised to check BP at home everyday. If persistently elevated, advised to call us back. Follow-up in 4-6mo or sooner if any problem arises Assessment & Plan (03/13/2023 9:23 PM EDT): Goal BP < 150/90 per JNC-8, and < 130/80 per ACC/AHA guideline. Suboptimal range today; pt received steroid injection recently -Comanaged with local company refrigerated truck driver and PharmD. -Encouraged to work on life style modifications. -Continue current medications -Current medications: furosemide 40 mg daily; atenolol 25 mg daily Treatment Hx: HCTZ was discontinued due to hyperuricemia / gout. Llosartan was self-discontinued due to cough -Advised to check BP at home everyday. If persistently elevated, advised to call us back. Follow-up in 4-6mo or sooner if any problem arises Assessment & Plan (10/24/2022 8:56 AM EDT): Goal BP < 150/90 per JNC-8, and < 130/80 per ACC/AHA guideline. Suboptimal range today; pt received steroid injection recently -Encouraged to work on life style modifications. -Continue current medications -Current medications: furosemide 20 mg daily; atenolol 25 mg daily Treatment Hx: HCTZ was discontinued due to hyperuricemia / gout. Llosartan was self-discontinued due to cough -Advised to check BP at home everyday. If persistently elevated, advised to call us back. -Will refer to [facility] Program w/ Pharmacist Follow-up in 3-4mos Assessment & Plan (08/05/2022 6:35 PM EST): Goal BP < 150/90 per JNC-8, and < 130/80 per ACC/AHA guideline. Suboptimal range today; pt received steroid injection recently -Encouraged to work on life style modifications. -Continue current medications -Current medications: furosemide 20 mg daily; atenolol 25 mg daily Treatment Hx: HCTZ was discontinued due to hyperuricemia / gout. Llosartan was self-discontinued due to cough -Advised to check BP at home everyday. If persistently elevated, advised to call us back. -Will refer to [facility] Program w/ Pharmacist Follow-up in 3-4mos Resolved Problems Problem Noted Date Diagnosed Date Resolved Date Helicobacter pylori gastroin testinal tract infection 01/04/2016 10/27/2022 Encounters Date Type Department Care Team Description 07/24/2024 Telephone [facility] [address] [place] [address] [id number] Reyna Wagner MA chart prep 07/23/2024 Travel 06/27/2024 Refill [facility] [address] [place] [address] [id number] Ebony Blanchard MD Psychophysiological insomnia 06/20/2024 Telephone [facility] [address] [place] [address] [id number] Ebony Blanchard MD Durable Medical Equipment (Recertification) 05/25/2024 Refill [facility] [address] [place] [address] [id number] Ebony Blanchard MD Pain 05/08/2024 9:30 AM EST Office Visit [facility] [address] [place] [address] [phone] Clint Pérez DMD 05/08/2024 Telephone [facility] [address] [place] [address] [phone] Ebony Blanchard MD 04/30/2024 Refill [facility] [address] [facility] [address] Olivia Babcock MD Essential hypertension 04/30/2024 Refill [facility] [address] [place] [address] Ebony Blanchard MD Psychophysiological insomnia 04/29/2024 Orders Only [facility] [address] [place] [address] Ebony Blanchard MD Hypertension, unspecified type (Primary Dx) from Last 3 Months Immunizations Name Administration Dates Next Due Hep B, Unspecified 07/21/2008,02/28/2008, 008 Influenza Injectable Quadriv alant Preservative Free IIV4 MDCK 04/25/2023 Influenza injectable quadriv alent IIV4 with preservative 04/01/2015 Influenza injectable quadriv alent preservative free 03/10/2022,05/02/2021,03/31/2019,2017,05/25/2017,06/05/2016,03/18/2014 Influenza, Split (incl. lorraine fied surface antigen) 03/14/2013,03/20/2012 Influenza, seasonal, injecta ble, preservative free 04/08/2024,05/16/2017 Pfizer Covid-19 Vaccine 12+ khurram-sucrose (Garcia Cap) 07/18/2021 TD (adult), 2 Lf tetanus tox oid, preservative free, adsorbed 06/24/2009 Tdap 01/01/2017,01/27/2008 Zoster, Recombinant 09/12/2023,07/18/2023 Social History Tobacco Use Types Packs/Day Years Used Date Smoking Tobacco: Former Cigarettes Q uit: 10/24/1989 Passive Smoke Exposure: Never Smokeless Tobacco: Never Tobacco Cessation:Counseling Given: Not Answered Alcohol Use Standard Drinks/Week Comments Never 0 [...] Orientation Straight 07/23/2024 8: 51 AM EST Last Filed Vital Signs Vital Sign Reading Time Taken Comments Blood Pressure 134/70 05/08/2024 9:45 AM EST Pulse 56 04/17/2024 11:19 AM EDT Temperature 36 ??C (96.8 ??F) 04/08/2024 10:18 AM EDT Respiratory Rate 16 04/08/2024 10:18 AM EDT Oxygen Saturation 98% 12/12/2023 10:53 AM EDT Inhaled Oxygen Concentration - - Weight 91.7 kg (202 lb 3.2 oz) 04/08/2024 10:18 AM EDT Height 157.5 cm (5' 2 ) 11/19/2023 10:54 AM EDT Body Mass Index 36.98 11/19/2023 10:54 AM EDT Plan of Treatment Upcoming Encounters Date Type Department Care Team (Late st Contact Info) Description 07/30/2024 10:15 AM EST Office Visit [facility] [address] [place] [phone] Ebony Blanchard MD [address] [place] [address] 09/12/2024 10:00 AM EDT Office Visit [facility] [address] [place] [address] Nevin, Chapis [address] [place] [address] Health Maintenance Due Date Last Done Comments CT Colonography 1962 FIT DNA/Cologuard 1962 FIT 1962 FOBT 1962 Sigmoidoscopy 1962 Pneumococcal Vaccine: 50+ Years (1 of 1 - PCV) 2012 COVID-19 Vaccine ( season) 2024 07/18/2021, 11/12/2020, 10/22/2020 Pap Smear 05/02/2024 05/02/2021 Depression Screening 08/22/2024 08/23/2023, 08/23/19 24 Dental Prophylaxis 09/11/2024 03/13/2024, 0 08/07/2023, 11/01/2022, Additional history exists Dental Oral Exam 10/16/2024 04/17/2024, , 11/01/2022, Additional history exists SDOH Screening 11/18/2024 11/19/2023 Alcohol/Substance Use Screening 04/08/2025 04/08/2024 Dental X-Ray: Bitewings 04/18/2025 04/17/20 24, 08/07/2023, 11/01/2022, Additional history exists Tobacco Screening 05/08/2025 05/08/2024 Colonoscopy 06/06/2025 06/06/2020, 05/19/2020 Colorectal Cancer Screening 06/06/2025 Dental X-Ray: Full Mouth 11/02/2025 023, 01/15/2019, 05/23/2012 Mammogram 03/14/2026 03/14/2024, 03/18, 04/04/2023, Additional history exists Cervical Cancer Screening 05/02/2026 HPV/Cotest 05/02/2026 05/02/2021, 04/12/2016 DTaP/Tdap/Td Vaccines (4 - Td or Tdap) 01/01/2027 01/01/2017, 06/24/2009, 01/27/2008 Lipid Panel 02/23/2028 02/22/2023, 03/19, 07/13/2021, Additional history exists RSV Patients and Patients Aged 60 years or older (1 - 1-dose 75+ series) 2037 Hepatitis B Vaccines Completed 07/21/2008, 02/28/2008, 01/28/2008 Zoster Vaccines Completed 09/12/2023, 07/18/2023 Influenza Vaccine Completed 04/08/2024, , 03/10/2022, Additional history exists HIB Vaccines Aged Out No longer eligi ble based on patient's age to complete this topic HIV Screening Discontinued HPV Vaccines Aged Out No longer eligi ble based on patient's age to complete this topic Hepatitis A Vaccines Aged Out No long er eligible based on patient's age to complete this topic Hepatitis C Screening Discontinued IPV Vaccines Aged Out No longer eligi ble based on patient's age to complete this topic Meningococcal Vaccine Aged Out No eliona henrietta eligible based on patient's age to complete this topic RSV under 20 months Aged Out No longe r eligible based on patient's age to complete this topic Rotavirus Vaccines Aged Out No longer eligible based on patient's age to complete this topic Goals Goal Patient Goal Type Associated Problems Recent Progress Patient-Stated? Author Blood Pressure < 150/90 Blood Pressure 134/70(2023 9:45 AM EST) [place], PharmD Note: Per JNC-8 Age 62 with no history of DM or CKD Procedures Procedure Name Priority Date/Time Associated Diagnosis Comments DENTURE ADJUSTMENT Routine 05/08/2024 9: 30 AM EST ADJUNCTIVE GENERAL SERVICES - PROFESSIONAL VISITS - CASE PRESENTATION, SUBSEQUENT TO DETAILED AND EXTENSIVE TREATMENT PLANNING Routine 05/08/2024 9:30 AM EST 5 BB(V) RESTORATIVE - RESIN-BASED COMPOSITE RESTORATIONS - DIRECT - RESIN-BASED COMPOSITE - ONE SURFACE, POSTERIOR Routine 05/08/2024 9:30 AM EST BITEWINGS - 4 RADIOGRAPHIC IMAGES Routine 04/17/2024 9:00 AM EDT PERIODIC ORAL EVALUATION - ESTABLISHED PATIENT Routine 04/17/2024 9:00 AM EDT BI MAMMOGRAM SCREENING TOMOSYNTHESIS BILATERAL Routine 03/14/2024 10:10 AM EDT PROPHYLAXIS - ADULT Routine 03/13/2024 8 :00 AM EDT Dental calculus LIPID PANEL WITH REFLEX TO DIRECT LDL Routine 02/22/2023 9:24 AM EDT Essential hypertension DIAGNOSTIC - DIAGNOSTIC IMAGING - INTRAORAL - COMPREHENSIVE SERIES OF RADIOGRAPHIC IMAGES Routine 11/01/2022 9:00 AM EDT Idiopathic resorption of root of tooth Dental calculus Localized gingival recession Dental abscess THINPREP IMAGING PAP AND HPV MRNA E6/E7 WITH REFLEX TO HPV 16,18/45 Routine 05/02/2021 4:14 PM EST HM COLONOSCOPY Routine 06/06/2020 3:36 PM EST from Last 3 Months or Most Recently Relevant to Health Maintenance Results * BI Mammogram Screening Tomosynthesis Bilateral (03/14/2024 10:10 AM EDT) Anatomical Region Laterality Modality Breast Bilateral Mammography 03/14/2024 10:1 0 AM EDT Narrative 03/26/2024 9:27 AM EDT ? [facility] [place] ? [address] ?[place] [address] ? Mammography Report ? Signed ? Patient: Maral Gee,Herminia ?MR#: [id number] ?? [id number] ? : 1960 ?Acct:[id number] ? Age/Sex: 63 / F ?ADM Date: 09/27/24 ? Loc: HO.MAMMO ? Attending Dr: Ebony Blanchard MD ? Ordering Physician: Ebony Blanchard MD ?Results: 1Negative ? Date of Service: 03/14/24 ?Follow Up: 1 Year From Orig ?? inal Mammogram ? Procedure(s): MM tomosynthesis screening BI ?? Accession Number(s): [id number] ? cc: Ebony Blanchard MD ? EXAMINATION: ?? MM SCREENING DIGITAL BREAST TOMOSYNTHESIS, BILATERAL ? CLINICAL INFORMATION: ? Screening. Asymptomatic. ? COMPARISON: ?? Mammography: Comparison is made with available priors ? TECHNIQUE: ?? Digital breast mammography with tomosynthesis is performed in both the ?? craniocaudal and mediolateral oblique views along with computer-aided ?? detection (CAD). ? FINDINGS: ?? There are scattered areas of fibroglandular density (ACR BI-RADS breast ?? composition Category b). ? There are no significant masses, abnormal calcifications, or other ?? abnormalities. ? MM/MM tomosynthesis screening BI ?? IMPRESSION: ?? No mammographic evidence of malignancy. ? ASSESSMENT: ? BI-RADS BI-RADS 1 - Negative ? RECOMMENDATION: ?? Routine annual mammography screening. ? 1 year F/U ? This examination should not preclude the clinical evaluation of a ?? suspicious palpable abnormality. ? This patient's information was entered into a reminder system with a ?? target due date for their next mammogram. ? Electronically signed by: ??Lori Snider DO ??03/26/2024 09:24 AM EDT ?? RP ? Dictated By: ?Lori Snider DO ? Signed By: ?<Electronically signed by Lori Snider, DO in OV> ? 03/26/24923 ? DD/ 1010 ? TD/TT: 03/14/24 1030 ? Corridor Redevelopment Manager: ? Procedure Note Donotuseinterpreter, Image - 03/26/2024 [place] [facility] [address] [place] [address] Mammography Report Signed Patient: Olivia Yu MMR#: [id number] : 1960cct:[id number] Age/Sex: 63 / FADM Date: 03/14/24 Loc: JEREMY Attending Dr: Ebony Blanchard MD Ordering Physician: Ebony Blanchard MDResults: 1Negative Date of Service: 03/14/24Follow Up: 1 Year From Orig inal Mammogram Procedure(s): MM tomosynthesis screening BI Accession Number(s): [id number] cc: Ebony Blanchard MD EXAMINATION: MM SCREENING DIGITAL BREAST TOMOSYNTHESIS, BILATERAL CLINICAL INFORMATION: Screening. Asymptomatic. COMPARISON: Mammography: Comparison is made with available priors TECHNIQUE: Digital breast mammography with tomosynthesis is performed in both the craniocaudal and mediolateral oblique views along with computer-aided detection (CAD). FINDINGS: There are scattered areas of fibroglandular density (ACR BI-RADS breast composition Category b). There are no significant masses, abnormal calcifications, or other abnormalities. MM/MM tomosynthesis screening BI IMPRESSION: No mammographic evidence of malignancy. ASSESSMENT: BI-RADS BI-RADS 1 - Negative RECOMMENDATION: Routine annual mammography screening. 1 year F/U This examination should not preclude the clinical evaluation of a suspicious palpable abnormality. This patient's information was entered into a reminder system with a target due date for their next mammogram. Electronically signed by: Lori Snider DO 03/26/2024 09:24 AM EDT Dictated By: Lori Snider DO Signed By: <Electronically signed by Lori Snider DO in OV> 03/26/24 0924 DD/ 1010 TD/TT: 03/14/24 1030 Corridor Redevelopment Manager: Ebony Blanchard MD IMG BI PROCEDURES Final Result * (ABNORMAL) Lipid Panel with Reflex to Direct LDL (02/22/2023 9:24 AM EDT) Triglycerides 153(H) <150 mg/dL [facility] Comment:Desirable Triglyceri de: less than 150 mg/dLBorderline High Triglyceride 150-199 mg/dLHigh Triglyceride: 200-499 mg/dLVery High Triglyceride: greater than or equal to 5OO mg/dL Cholesterol 169 <200 mg/dL [facility] Comment:Desirable Cholestero l: less than 200 mg/dLBorderline High Cholesterol: 200-239 mg/dLHigh Cholesterol: greater than 239 mg/dL LDL Cholesterol Calculated 89 <100 mg/dL [facility] Comment:Desirable LDL: less than 100 mg/dLNear Optimal/Above Optimal LDL: 110- 129 mg/dLBorderline High LDL: 130-159 mg/dLHigh LDL: 160-189 mg/dLVery High LDL: greater than or equal to 190 mg/dL HDL Cholesterol 50 >40 mg/dL [facility] Comment:Desirable HDL: great er than 40 mg/dL Note: This HDL assay may give artificially low results in patients with liver disease. Blood 02/22/2023 9:24 AM EDT 02/22/2023 11:11 AM EDT Ebony Blanchard MD LAB BLOOD ORDERABLES Final Resul t [facility] [address] [place] [address] [phone] * THINPREP TIS PAP AND HPV mRNA E6/E7 REFLEX HPV 16,18/45 (05/02/2021 4:14 PM EST) Clinical Information: None given [facility] COMMENT SEE COMMENT [facility] Comment: EXPLANATORY NOTE: ? The Pap is a screening test for cervical cancer. It is ?? not a diagnostic test and is subject to false negative ?? and false positive results. It is most reliable when a ?? satisfactory sample, regularly obtained, is submitted ?? with relevant clinical findings and history, and when ?? the Pap result is evaluated along with historic and ?? current clinical information. ?? COMMENT: This Pap test has been evaluated with computer assisted technology. [email or web address] Calender Let Off Operator: SEE COMMENT [facility] Comment: BK,CT(ASCP) CT screening location: [address] HPV nRNA E6/E7 Not Detected Not Detected [email or web address] Comment: Methodology: Student Services Director-Mediated Amplification This assay detects E6/E7 viral messenger RNA (mRNA) from 14 high-risk HPV types (16,18,31,33,35,39,45,51,52,56,58,59,66,68). ? The analytical performance characteristics of this assay have been determined by [employer]. The modifications have not been cleared or approved by the FDA. This assay has been validated pursuant to the CLIA regulations and is used for clinical purposes. ?? For additional information, please refer to http://education.CohesiveFT/faq/SFF391r6 (This link if provided for information/ educational purposes only.) Interpretation/Res ult: SEE COMMENT [email or web address] Comment: Negative for intraepithelial lesion or malignancy. Atrophic pattern; predominantly parabasal cells LMP: NONE GIVEN [facility] Prev. BX: NONE GIVEN [facility] Prev. PAP: NONE GIVEN [facility] SOURCE: None given [facility] Statement Of Adequacy: SATISFACTORY FOR EVALUATION [email or web address] 05/02/2021 4:14 PM EST us Ebony Blanchard MD LAB PATHOLOGY ORDERABLES Final R esult [email or web address] [address] * Colonoscopy (06/06/2020 3:36 PM EST) Colonoscopy Normal Normal Comment:colonoscopy in 5 yrs due to left side prep us Historical Provider HEALTH MAINTENANCE Final Result from Last 3 Months or Most Recently Relevant to Health Maintenance Insurance [facility] Care Teams Auto Air Conditioning Apprentice Relationship Specialty Start Date End Date Ebony Blanchard MD [address] [place] [address] PCP - General Family Medicine 06/18/18
--- OUTSIDE RECORDS SUMMARY | 2024-07-28 08:33 | XMS_ITS | Encounter Summary ---
Author Organization [employer] Address [address] [place] [address] Care Team Providers Care Brake Operator Helper Name Role Phone Ebony Blanchard MD Primary Care Provider [phone] El Gilman PharmD Unavailable [phone] Encounter Details Date Type Department Care Team (Latest Contact Info) Description 10/09/2018 Abstract [facility] CONVERSIONS Dental, Provider, DDS Social History [...] 07/30/2024 10:15 AM EST Office Visit [facility] MEDICINE [address] [place] [address] Ebony Blanchard MD [address] [place] [address] 09/12/2024 10:00 AM EDT Office Visit [facility] ADULT DENTAL [address] [place] [address] Chapis Rooney [address] [place] [address] documented as of this encounter Visit Diagnoses Not on filedocumented in this encounter Care Teams Brake Operator Helper Relationship Specialty Start Date End Date Ebony Blanchard MD [address] [place] [address] PCP - General Family Medicine 06/18/18 El Gilman, RajeshD [address] [place] [address] Pharmacist Internal Medicine 08/21/22 04/27/24 documented as of this encounter
[2024-07-28 11:26] LABS: Anion Gap 9 (12-20)
[2024-07-28 11:27] LABS: Alanine Aminotransferase 17 U/L (0-31); Aspartate Amino Transferase 20 U/L (5-31); Bilirubin Total 0.5 mg/dL (0.0-1.0); Blood Urea Nitrogen 10 mg/dL (9-16); Calcium 8.8 mg/dL (8.4-10.2); Carbon Dioxide 28 mmol/L (22-29); Chloride 112 mmol/L (96-108); Cholesterol 160 mg/dL (<200); Estimated Average Glucose 117 mg/dL; Estimated Glomerular Filt Rate > 60; Glucose Random 112 mg/dL (60-115); HDL Cholesterol 53 mg/dL (>40); Hemoglobin A1C 136.0329 umol/L; Hemoglobin A1c % 5.7 % (<6.0); LDL Cholesterol Calculated 82 mg/dL (<100); Potassium 4.8 mmol/L (3.3-5.1); Sodium 144 mmol/L (135-145); Total Hemoglobin (HGBA1C) 3473.7864 umol/L; Total Protein 7.1 g/dL (6.5-8.0); Triglycerides 125 mg/dL (<150)
[2024-07-28 11:46] LABS: Reflex LDLD? No
[2024-07-28 11:51] LABS: Alkaline Phosphatase 72 U/L (39-117); TSH reflex Free T4 2.22 uIU/mL (0.32-4.0); Vitamin D 25-OH Total 51.1 ng/mL (>30)
== END 2024-07-28 08:20 | disposition home or self-care (01) ==
LOC: HO.HHCL 08:19
PROVIDERS: Visit Provider Family Medicine
DX: E79.0 Hyperuricemia without signs of inflammatory arthritis and tophaceous disease (principal); M10.9 Gout, unspecified; I10 Essential (primary) hypertension; Z13.1 Encounter for screening for diabetes mellitus; E55.9 Vitamin D deficiency, unspecified
CPT/HCPCS: 36415; 80053; 80061; 82306; 83036; 84443; 84550

== ENCOUNTER 2024-08-07 18:20 | Outpatient (REF) | payer OTHER, SELFPAY | END 2024-08-07 18:21 | disposition home or self-care (01) | LOC: HO.HHCLNP 18:20 | PROVIDERS: Visit Provider Internal Medicine | DX: R30.0 Dysuria (principal) | CPT/HCPCS: 87086 ==

== ENCOUNTER 2024-08-18 10:32 | Outpatient (AMB) | payer OTHER, SELFPAY ==
--- NOTE | 2024-08-18 10:37 | MHC.OFFVIS ---
Vital Signs 08/18/24 10:38 Height 5 ft 2 in Weight 194 lb 0.108 oz BMI 35.5 BP 138/74 Blood Pressure Location Lt brachial Position Sitting Pulse 52 Intake Visit Reasons: Nausea/diverticulosis Intake Note: Olivia presents in the office as a follow up for nausea and diverticulosis. CC: She states that she is having lots of pressure and has lots of belching. She has pressure in the esophagus. She always has constipation but she takes medication for it. Not every day but she notices cramping in her intestines. Assistant City Attorney Required: No Allergies metoclopramide Adverse Reaction (Severe, Verified 08/18/24 11:11) Hypertension lisinopril [LISINOPRIL] Adverse Reaction (Mild, Verified 08/18/24 11:11) COUGH, dry cough HPI HPI Nausea/diverticulosis : Details: 64 yr old f here for f/u She had issues with nausea EGD: 2021 Impression/Findings: schatzki ring esophagitis hiatal hernia she has been taking omeprazole 20 mg daily--stopped for a while but back on now she has lower abdomen cramps she has burping she has constipation, goes daily no trouble swallowing she has bloating she has tried yoghurt, not that helpful EXAM: GENERAL: The patient is well developed and nontoxic. VITAL SIGNS:see workflow HEENT: Nonicteric sclerae, PERRLA, EOMI. Oropharynx clear. Moist mucous membranes. Conjunctivae appear well perfused. No thyroid mass. CHEST: Chest wall is nontender. HEART: Regular rate and rhythm without murmurs. LUNGS: Clear to auscultation bilaterally. ABDOMEN: Soft, positive bowel sounds, nontender, no organomegaly.no flank tenderness SKIN: No rash, no excessive bruising, petechiae, or purpura. NEUROLOGIC: Cranial nerves II-XII intact without motor/sensory deficit. Psych: normal affect A/P: 1/ abn bowel habit, LLQ cramps, possibly from diverticulsois, 2/ hx of esophagitis PLAN: 1/ EGD and colo for further assessment marie prior hx of polyps 2/ advised on trail of probiotics 3/ miralax daily 4/ she wants to hold on PPI increase PFSH Medical History GERD (gastroesophageal reflux disease) HTN (hypertension) Surgical History Hx of reduction mammoplasty Hx of tubal ligation History of esophagogastroduodenoscopy (EGD) H/O colonoscopy Family History Father Heart failure Diabetes Mother Heart failure Diabetes AD (Alzheimer's disease) Brother Pancreatic cancer Social History Alcohol intake: current Alcohol intake frequency: does not drink Patient Tobacco Use Status: Never used Tobacco Physical Exam Vital Signs: Last Vital Signs Pulse 52 08/18/24 10:38 BP 138/74 08/18/24 10:38 BMI result Body Mass Index 35.5 Assessment & Plan Assessment & Plan (1) Abdominal pain: Code(s): R10.9 - Unspecified abdominal pain Category: Medical Plan: as above Medications: New polyethylene glycol 3350 (Miralax) 17 grams PO DAILY 850 grams 2RF Coding Level of Care Code Est Pt Level 4 (70943) Diagnoses Abdominal pain R10.9
[2024-08-18 10:38] VITALS: BP 138/74; PULSE 52; BMI 35.5
--- OUTSIDE RECORDS SUMMARY | 2024-08-18 12:17 | XMS_ITS | Encounter Summary ---
Author Organization [employer] Address [address] [place] [address] Care Team Providers Care Academic Physician Name Role Phone Ebony Blanchard MD Primary Care Provider [phone] El Gilman PharmD Unavailable [phone] Encounter Details Date Type Department Care Team ([facility] st Contact Info) Description 06/07/2023 Abstract [facility] [address] [place], [place] [phone] KandruJesusl, DMD [address] [place], [place] [phone] Social History Tobacco Use Types Packs/Day Years [...] Care Team (Late st Contact Info) Description 09/12/2024 10:00 AM EDT Office Visit [facility] ADULT D[facility] [address] [place], [place] [phone] Nevin Chapis [address] [place], [place] [phone] documented as of this encounter Goals Goal Patient Goal Type Associated Problems Recent Progress Patient-Stated? Author Blood Pressure < 150/90 Blood Pressure 152/82(2024 10:06 AM EST) No El Gilman, Roscoe Note: Per JNC-8 Age 62 with no history of DM or CKD documented as of this encounter Visit Diagnoses Not on filedocumented in this encounter Additional Health Concerns Assessment Noted Time PHQ-9 Depression Total Score: 0 07/31/19 23 10:25 AM EST documented as of this encounter Care Teams Academic Physician Relationship Specialty Start Date End Date Ebony Blanchard MD [address] [place] [address] PCP - General Family Medicine 06/18/18 El Gilman, PharmD [address] [place] [id number] Pharmacist Internal Medicine 08/21/22 04/27/24 documented as of this encounter
--- OUTSIDE RECORDS SUMMARY | 2024-08-18 12:17 | XMS_ITS | Encounter Summary ---
Author Organization [employer] Address [address] [facility] [address] [place] [address] Care Team Providers Care Mud Grinder Name Role Phone Ebony Blanchard MD Primary Care Provider [phone] El Gilman PharmD Unavailable [phone] Reason for Visit * Reason Onset Date Comments Med Refill 02/11/2024 Encounter Details Date Type Department Care Team (Late st Contact Info) Description 02/11/2024 Refill [facility] MEDICINE [address] [place], [place] [phone] Olivia Babcock MD [address] [place], [place] [phone] Essential hypertension Social History Tobacco Use Types [...] 09/12/2024 10:00 AM EDT Office Visit [facility] ADULT DENTAL [address] [place] [address] Nevin, Chapis [address] [place] [address] documented as of this encounter Goals Goal Patient Goal Type Associated Problems Recent Progress Patient-Stated? Author Blood Pressure < 150/90 Blood Pressure 152/82(2024 10:06 AM EST) No El Gilman PharmD Note: Per JNC-8 Age 62 with no history of DM or CKD documented as of this encounter Visit Diagnoses Diagnosis Essential hypertension Unspecified essential hypertension documented in this encounter Additional Health Concerns Assessment Noted Time PHQ-9 Depression Total Score: 0 08/23/19 24 10:50 AM EST documented as of this encounter Care Teams Mud Grinder Relationship Specialty Start Date End Date Ebony Blanchard MD [address] [place] [id number] PCP - General Family Medicine 06/18/18 El Gilman, Roscoe [address] [place] [phone] Pharmacist Internal Medicine 08/21/22 04/27/24 documented as of this encounter
--- OUTSIDE RECORDS SUMMARY | 2024-08-18 12:17 | XMS_ITS | Encounter Summary ---
Author Organization [employer] Address [address] [place] [address] Care Team Providers Care Director Of Patient Safety Name Role Phone Ebony Blanchard MD Primary Care Provider [phone] Reason for Visit * Reason Onset Date Comments chart prep 07/24/2024 Encounter Details Date Type Department Care Team ([facility] st Contact Info) Description 07/24/2024 Telephone [facility] MEDICINE [address] [place], [place] [phone] Reyna Wagner MA chart prep Social History [...] Description 09/12/2024 10:00 AM EDT Office Visit [facility] ADULT DENTAL [address] [place] [address] Nevin, Chapis [address] [place] [address] documented as of this encounter Goals Goal Patient Goal Type Associated Problems Recent Progress Patient-Stated? Author Blood Pressure < 150/90 Blood Pressure 152/82(2024 10:06 AM EST) [place], RajeshD Note: Per JNC-8 Age 62 with no history of DM or CKD documented as of this encounter Visit Diagnoses Not on filedocumented in this encounter Additional Health Concerns Assessment Noted Time PHQ-9 Depression Total Score: 0 08/23/19 24 10:50 AM EST documented as of this encounter Care Teams Director Of Patient Safety Relationship Specialty Start Date End Date Ebony Blanchard MD [address] [place] [address] PCP - General Family Medicine 06/18/18 documented as of this encounter
--- OUTSIDE RECORDS SUMMARY | 2024-08-18 12:17 | XMS_ITS | Encounter Summary ---
Author Organization [employer] Address [address] [place] [address] Care Team Providers Care [employer] Developer Name Role Phone Ebony Blanchard MD Primary Care Provider [phone] Encounter Details Date Type Department Care Team ([facility] st Contact Info) Description 07/30/2024 10:15 AM EST Office Visit [facility] [address], [place] [phone] Ebony Blanchard MD [address] [place], [place] [phone] Hypertension, unspecified type (Primary Dx); Bradycardia; Mixed stress and urge urinary incontinence; Impaired fasting glucose; Hyperuricemia; Gastroesophageal reflux disease, unspecified whether esophagitis present; Functional dyspepsia; Bilateral carpal tunnel syndrome; Dietary counseling; Exercise counseling; Class 2 severe obesity due to excess calories with serious comorbidity and body mass index (BMI) of 36.0 to 36.9 in adult ([facility]) Social History Tobacco Use Types Packs/Day Years [...] Date Recorded Patient Health Questionnaire-9 Score 0 07/30/2024 Patient Health Questionnaire-9 Score 0 07/30/2024 Last PHQ-9: Questionnaire Data Not on file 0 07/30/2024 Housing Stability Answer Date Recorded What is [...] Date Recorded Patient Health Questionnaire-2 Score 0 07/30/2024 Comments Unknown Sex and Gender Information Value Date Recorded Sex Assigned at Female 04/17/2022 10:20 AM EDT Legal Sex Female 10:20 AM EDT Gender Identity Female 04/17/2022 10:20 AM EDT Sexual Orientation Straight 07/23/2024 8: 51 AM EST documented as of this encounter Last Filed Vital Signs Vital Sign Reading Time Taken Comments Blood Pressure 162/90 07/30/2024 3:03 PM EST Pulse 59 07/30/2024 10:28 AM EST Temperature 36 ??C (96.8 ??F) 07/30/2024 10:28 AM EST Respiratory Rate 16 07/30/2024 10:28 AM EST Oxygen Saturation 98% 07/30/2024 10:28 AM EST Inhaled Oxygen Concentration - - Weight 89.6 kg (197 lb 9.6 oz) 07/30/2024 10:28 AM EST Height - - Body Mass Index 36.14 11/19/2023 10:54 AM EDT documented in this encounter Progress Notes * Ebony Blanchard MD - 07/30/2024 10:15 AM EST Subjective Olivia Gee is a 64 y.o. female who has hypertension, GERD, and pain in multiple joints, and patient presents for follow up of chronic conditions. Background: Our last encounter was 04/08/2024. BP was elevated, but home BP had been normal per patient. Interval history: Seeing [facility] dentist. Seen by orthopedist on 06/09/24 for bilateral carpal tunnel syndrome. Patient received steroid injection. Today: Pt received an injection in May for her carpal tunnel syndrome. She also notes she has been experiencing back pain for 2 months but doesn???t want any injections for it. Pt went to [place] skilled [place] where they confirmed she is allergic to cats, dogs, pollen, and grass weed, which means she can not open her window to let cold air in her home anymore. When she gets too hot, she gets a rash on her back from the heat, and even gets in the winter time. Pt needs air conditioningin her home and requested a referral for one. Pt notes she take omeprazole every other day and does eat red meat, sea food, and doesn???t drink Ethol. Pt had left abdomen and back pain and believed it was a kidney stone, but after having it checked they confirmed it was a benign cyst with no kidney stone. Pt's glucose is 112 because she ate a lot of sweets at a birthday libertarian. Review of Systems Constitutional: Negative for activity change, appetite change and fever. Respiratory: Negative for shortness of breath. Cardiovascular: Negative for chest pain. Objective Vitals: 07/30/24 1028 BP: (!) 151/74 Pulse: 59 Resp: 16 Temp: 96.8 ??F (36 ??C) TempSrc: Temporal SpO2: 98% Weight: 197 lb 9.6 oz (89.6 kg) Physical Exam Constitutional: General: She is not in acute distress. Appearance: Normal appearance. She is not ill-appearing. HENT: Head: Normocephalic and atraumatic. Mouth/Throat: Mouth: Mucous membranes are moist. Eyes: Extraocular Movements: Extraocular movements intact. Pupils: Pupils are equal, round, and reactive to light. Cardiovascular: Rate and Rhythm: Normal rate and regular rhythm. Heart sounds: No murmur heard. Pulmonary: Effort: Pulmonary effort is normal. No respiratory distress. Breath sounds: Normal breath sounds. No wheezing or rhonchi. Skin: General: Skin is warm. Neurological: Mental Status: She is alert. Mental status is at baseline. Psychiatric: Mood and Affect: Mood normal. Results: Lab Results Component Value Date NA 144 07/28/2024 K 4.8 07/28/2024 CL 112 (H) 07/28/2024 CO2 28 07/28/2024 BUN 10 07/28/2024 CREATININE 0.78 07/28/2024 CRCLCALCPH 74.9 05/13/2021 EGFR >60 07/28/2024 GLUCOSE 112 07/28/2024 TOTALBILIRUB 0.5 07/28/2024 AST 20 07/28/2024 ALT 17 07/28/2024 TOTPROTEIN 7.1 07/28/2024 ALB 4.0 07/28/2024 ALP 72 07/28/2024 Lab Results Component Value Date TRIG 125 07/28/2024 CHOL 160 07/28/2024 LDLCHOLCAL 82 07/28/2024 HDL 53 07/28/2024 Lab Results Component Value Date HGBA1C 5.7 07/28/2024 The 10-year ASCVD risk score (Maranda LORA, et al., 2019) is: 6.6% Values used to calculate the score: Age: 64 years Sex: Female Is Non- : No Diabetic: No Tobacco smoker: No Systolic Blood Pressure: 151 mmHg Is BP treated: Yes HDL Cholesterol: 53 mg/dL Total Cholesterol: 160 mg/dL Lab Results Component Value Date URICACID 6.0 (H) 07/28/2024 Screening and Health Care Maintenance: PHQ-2/9 Score: Patient Health Questionnaire-9 Score: 0 (07/30/2024 10:27 AM) Patient Health Questionnaire-2 Score: 0 (07/30/2024 10:27 AM) Thoughts that you would be better off or hurting yourself in some way: Not at all (07/30/2024 10:27 AM) JOLENE-7 Score: JOLENE-7 Total Score: 0 (07/30/2024 10:27 AM) Health Maintenance Due Topic Date Due Pneumococcal Vaccine: 50+ Years (1 of 1 - PCV) Never done COVID-19 Vaccine ( - 2023- season) 2024 Colorectal Cancer Screening 06/06/2025 Assessment/Plan Problem List Items Addressed This Visit Hypertension - Primary Goal BP < 150/90 per JNC-8, and < 130/80 per ACC/AHA guideline. -BP elevated today. -Comanaged with nurse ob and PharmD. -Encouraged to work on life style modifications. -Continue current medications -Current medications: furosemide 40 mg daily; atenolol 25 mg daily Treatment Hx: HCTZ was discontinued due to hyperuricemia / gout. Losartan was self-discontinued dueto cough -Advised to check BP at home everyday. If persistently elevated, advised to call us back. Follow-up in 4mo or sooner if any problem arises GERD (gastroesophageal reflux disease) -followed by [facility], last seen on 08/16/23 - s/p EGD 02/02/22, nml - previously prescribed pantoprazole, pt is no longer taking. Instead, pt is using baking soda - Pt was Rx Reglan but discontinued d/t side-effects Hyperuricemia - patient has not had gout attack - urate-lowering medication is not indicated at this time Impaired fasting glucose -09/16/18 A1C 6.0% FBG 108 -04/20/21 A1C 5.6% -04/07/22 A1c 5.6% -02/22/23 A1c 5.5% - 07/30/24 A1c 5.7% -Cont working on lifestyle modifications -Continue annual screening due to risk factor Mixed stress and urge urinary incontinence Followed by UroGYN for mixed urinary incontinence. Last seen on 10/12/23, patient was safely discharged. -s/p; 11/03/21 Vaginal hysterectomy, b/l salpingectomy, robotic sacral colpopexy, midurethral sling,cystoscopy by Dr. Mackenzie for ureterovaginal prolapse, cystocele, rectocele. -12/14/21 Stress urinary incontinence after surgery. -s/p Midurethral Sling 01/03/22 -pt was recommend to try Kegel exercises -prescribing incontinence supplies - s/p 08/29/23 Colporrhaphy , pt notes symptoms have improved. Bradycardia Mild Minimally-Symptomatic - Advised to check pulse with BP regularly - Agreed to continue Atenolol at prescribed dose for now; if patients HR becomes < 50 or <55 with symptom,, consider lowering Atenolol dose or discontinuing Atenolol. - will closely monitor Functional dyspepsia - following with [facility], last seen in Jul 2023 Carpal tunnel syndrome - following with [facility] provider - received steroid injection on 06/09/24 Allergies Allergen Reactions Lisinopril Cough Losartan Cough Current Outpatient Medications Medication Instructions acetaminophen (Acetaminophen Extra Strength) 500 MG tablet TAKE 2 TABLETS BY MOUTH EVERY 8 HOURS ASNEEDED Artificial Tears 0.2-0.2-1 % solution USE 1 DROP BOTH EYES TWICE DAILY atenolol (Tenormin) 25 MG tablet TAKE 1 TABLET BY MOUTH IN THE MORNING cetirizine (ZYRTEC) 10 mg, Oral, Daily cholecalciferol (Vitamin D3) 25 MCG (1000 UT) tablet Oral, Every morning Diclofenac Sodium 1 % gel APPLY TOPICALLY TO THE AFFECTED AREA EVERY DAY NEEDED FOR PAIN furosemide (Lasix) 40 MG tablet TAKE 1 TABLET BY MOUTH EVERY DAY ibuprofen 800 MG tablet TAKE 1 TABLET(800 MG) BY MOUTH WITH BREAKFAST meclizine (Antivert) 25 MG tablet TAKE 1 TABLET BY MOUTH EVERY DAY NEEDED FOR VERTIGO omeprazole (PRILOSEC) 20 mg, Daily Simethicone Ultra Strength 180 mg, 4 times daily triamcinolone (Kenalog) 0.1 % cream Topical, 2 times daily PRN triamcinolone (Nasacort) 55 MCG/ACT nasal inhaler 2 sprays, Each Nostril, Daily Tyrvaya 0.03 MG/ACT solution INSTILL 1 SPRAY IN EACH NOSTRIL TWICE A DAY , APPROXIMATELY 12 HOURS APART. zolpidem (Ambien) 5 MG tablet TAKE 1 TABLET BY MOUTH EVERY NIGHT AT BEDTIME NEEDED FOR SLEEP Follow-up: 4 months or sooner if any problem arises. Scribe Attestation: IAurea, am serving as a scribe to document services personally performed by Ebony Blanchard MD, based on the patient's response to questions by provider and provides statements to me. documented in this encounter Miscellaneous Notes * Assessment & Plan Note - Aurea Hinds MA - 07/30/2024 2:55 PM ESTAssociated Problem(s): Impaired fasting glucose -09/16/18 A1C 6.0% FBG 108 -04/20/21 A1C 5.6% -04/07/22 A1c 5.6% -02/22/23 A1c 5.5% - 07/30/24 A1c 5.7% -Cont working on lifestyle modifications -Continue annual screening due to risk factor * Assessment & Plan Note - Aurea Hinds MA - 07/30/2024 2:55 PM ESTAssociated Problem(s): Mixed stress and urge urinary incontinence Followed by UroGYN for mixed urinary incontinence. Last seen on 10/12/23, patient was safely discharged. -s/p; 11/03/21 Vaginal hysterectomy, b/l salpingectomy, robotic sacral colpopexy, midurethral sling,cystoscopy by Dr. Mackenzie for ureterovaginal prolapse, cystocele, rectocele. -12/14/21 Stress urinary incontinence after surgery. -s/p Midurethral Sling 01/03/22 -pt was recommend to try Kegel exercises -prescribing incontinence supplies - s/p 08/29/23 Colporrhaphy , pt notes symptoms have improved. * Assessment & Plan Note - Aurea Hinds MA - 07/30/2024 2:54 PM ESTAssociated Problem(s): Functional dyspepsia - following with [facility], last seen in Jul 2023 * Assessment & Plan Note - Aurea Hinds MA - 07/30/2024 2:54 PM ESTAssociated Problem(s): GERD (gastroesophageal reflux disease) -followed by [facility], last seen on 08/16/23 - s/p EGD 02/02/22, nml - previously prescribed pantoprazole, pt is no longer taking. Instead, pt is using baking soda - Pt was Rx Reglan but discontinued d/t side-effects * Assessment & Plan Note - Aurea Hinds MA - 07/30/2024 2:54 PM ESTAssociated Problem(s): Bradycardia Mild Minimally-Symptomatic - Advised to check pulse with BP regularly - Agreed to continue Atenolol at prescribed dose for now; if patients HR becomes < 50 or <55 with symptom,, consider lowering Atenolol dose or discontinuing Atenolol. - will closely monitor * Assessment & Plan Note - Aurea Hinds MA - 07/30/2024 2:54 PM ESTAssociated Problem(s): Hypertension Goal BP < 150/90 per JNC-8, and < 130/80 per ACC/AHA guideline. -BP elevated today. -Comanaged with nurse ob and PharmD. -Encouraged to work on life style modifications. -Continue current medications -Current medications: furosemide 40 mg daily; atenolol 25 mg daily Treatment Hx: HCTZ was discontinued due to hyperuricemia / gout. Losartan was self-discontinued dueto cough -Advised to check BP at home everyday. If persistently elevated, advised to call us back. Follow-up in 4mo or sooner if any problem arises * Assessment & Plan Note - Ebony Blanchard MD - 07/30/2024 1:35 PM ESTAssociated Problem(s): Hyperuricemia - patient has not had gout attack - urate-lowering medication is not indicated at this time * Assessment & Plan Note - bEony Blanchard MD - 07/30/2024 1:33 PM ESTAssociated Problem(s): Carpal tunnel syndrome - following with [facility] provider - received steroid injection on 06/09/24 documented in this encounter Plan of Treatment Upcoming Encounters Date Type Department Care Team (Late st Contact Info) Description 09/12/2024 10:00 AM EDT Office Visit [facility] D[facility] [address] [place] [address] Hugo Rooneyaris [address] [place] [address] documented as of this encounter Goals Goal Patient Goal Type Associated Problems Recent Progress Patient-Stated? Author Blood Pressure < 150/90 Blood Pressure 152/82(2024 10:06 AM EST) [place], PharmD Note: Per JNC-8 Age 62 with no history of DM or CKD documented as of this encounter Visit Diagnoses Diagnosis Hypertension, unspecified type- Primary Bradycardia Other specified cardiac dysrhythmias Mixed stress and urge urinary incontinence Mixed incontinence urge and stress (male)(female) Impaired fasting glucose Hyperuricemia Other abnormal blood chemistry Gastroesophageal reflux disease, unspecified whether esophagitis present Functional dyspepsia Dyspepsia and other specified disorders of function of stomach Bilateral carpal tunnel syndrome Carpal tunnel syndrome Dietary counseling Dietary surveillance and counseling Exercise counseling Class 2 severe obesity due to excess calories with serious comorbidity and body mass index (BMI) of 36.0 to 36.9 in adult ([facility]) documented in this encounter Additional Health Concerns Assessment Noted Time PHQ-9 Depression Total Score: 0 07/30/19 25 10:27 AM EST documented as of this encounter Care Teams [employer] Developer Relationship Specialty Start Date End Date Ebony Blanchard MD [address] [place] [address] PCP - General Family Medicine 06/18/18 documented as of this encounter
--- OUTSIDE RECORDS SUMMARY | 2024-08-18 12:17 | XMS_ITS | Encounter Summary ---
Author Organization [employer] Address [address] [place] [address] Care Team Providers Care Orthotic/Prosthetic Clinician Name Role Phone Ebony Blanchard MD Primary Care Provider [phone] Reason for Referral * Consultation (Routine) - Authorized Specialty Diagnoses / Procedures Referred By Contac t Referred To Contact Pharmacy Diagnoses Hypertension, unspecified type Ebony Blanchard MD [address] [place] [address] Phone: tel: fax: Referral ID Status Reason Start Date Expiration Date Visits Requested Visits Authorized [id number] Authorized Consult and Treat 04/29/2024 04/29/2025 6 6 Encounter Details Date Type Department Care Team ([facility] st Contact Info) Description 04/29/2024 Orders Only [facility] MED[facility]INE [address] [place] [phone] Ebony Blanchard MD [address] [place], [place] [phone] Hypertension, unspecified type (Primary Dx) Social History [...] Description 09/12/2024 10:00 AM EDT Office Visit [facility] ADULT DENTAL [address] [place] [address] Chapis Rooney [address] [place] [address] Scheduled Referrals Name Type Priority Associated Diagnoses [...] documented as of this encounter Care Teams Orthotic/Prosthetic Clinician Relationship Specialty Start Date End Date Ebony Blanchard MD [address] [place] [address] PCP - General Family Medicine 06/18/18 documented as of this encounter
--- OUTSIDE RECORDS SUMMARY | 2024-08-18 12:17 | XMS_ITS | Encounter Summary ---
Author Organization [employer] Address [address] [place] [address] Care Team Providers Care Net Mender Name Role Phone Ebony Blanchard MD Primary Care Provider [phone] El Gilman PharmD Unavailable [phone] Reason for Visit * Reason Comments Med Refill Encounter Details Date Type Department Care Team (Late st Contact Info) Description 03/25/2023 Refill [facility] [address] [place], [place] [phone] Ebony Blanchard MD [address] [place], [place] [phone] Social History Tobacco Use Types Packs/Day Years [...] Description 09/12/2024 10:00 AM EDT Office Visit [facility] ADULT D[facility] [address] [place], [place] [phone] Chapis Rooney [address] [place] [address] documented as of this encounter Goals Goal [...] documented as of this encounter Care Teams Net Mender Relationship Specialty Start Date End Date Ebony Blanchard MD [address] [place] [address] PCP - General Family Medicine 06/18/18 El Gilman, RajeshD [address] [place] [phone] Pharmacist Internal Medicine 08/21/22 04/27/24 documented as of this encounter
--- OUTSIDE RECORDS SUMMARY | 2024-08-18 12:17 | XMS_ITS | Encounter Summary ---
Author Organization [employer] Address [address] [place] [address] Care Team Providers Care Director Of Communications Name Role Phone Ebony Blanchard MD Primary Care Provider [phone] El Gilman PharmD Unavailable Reason for Visit * Reason Comments Med Refill Encounter Details Date Type Department Care Team (Late st Contact Info) Description 03/25/2023 Refill [facility] MED[facility]INE [address] [place], [place] [phone] Ebony Blanchard MD [address] [place], [place] [phone] Social History Tobacco Use Types Packs/Day Years [...] Description 09/12/2024 10:00 AM EDT Office Visit [facility] ADULT D[facility] [address] [place], [place] [phone] Chapis Rooney [address] [place] [address] documented as of this encounter Goals Goal [...] of this encounter Care Teams Director Of Communications Relationship Specialty Start Date End Date Ebony Blanchard MD [address] [place] [address] PCP - General Family Medicine 06/18/18 El Gilman, RajeshD [address] [place] [phone] Pharmacist Internal Medicine 08/21/22 04/27/24 documented as of this encounter
--- OUTSIDE RECORDS SUMMARY | 2024-08-18 12:17 | XMS_ITS | Encounter Summary ---
Author Organization [employer] Address [address] [place] [address] Care Team Providers Care [employer] Name Role Phone Ebony Blanchard MD Primary Care Provider [phone] Encounter Details Date Type Department Care Team ([facility] Contact Info) Description 08/07/2024 10:20 AM EST Office Visit [facility] [address] [place] [address] [phone] Breanna Craven MD [address] [place], [place] [phone] Acute cystitis without hematuria (Primary Dx); Hyperuricemia; Dysuria Social History Tobacco Use Types Packs/Day Years [...] Sign Reading Time Taken Comments Blood Pressure 152/82 08/07/2024 10:06 AM EST Pulse 84 08/07/2024 10:06 AM EST Temperature 36.8 ??C (98.3 ??F) 08/07/2024 10:[address] Respiratory Rate 18 08/07/2024 10:06 AM EST Oxygen Saturation - - Inhaled Oxygen Concentration - - Weight 89.2 kg (196 lb 9.6 oz) 08/07/2024 10:06 AM EST Height 157.5 cm (5' 2 ) 08/07/2024 10:06 AM EST Body Mass Index 35.96 08/07/2024 10:06 AM EST documented in this encounter Progress Notes * Breanna Craven MD - 08/07/2024 10:20 AM EST SUBJECTIVE: Olivia Gee is a 64 y.o. year old female who presents for Walk In Center/UTI sxs . Denies recent illness, injury, or hospitalization. Acute Concerns: Patient complaining of dysuria, suprapubic pain radiated to her back and increased urinary frequency x 3 days. She has had similar symptoms on and off for the past 2 or 3 years, she has urinary incontinence and reports occasional burning sensation on the vulvar area, she does not have any vaginal discharge, fever or any other symptoms. She is concerned about high uric acid levels and she keeps a low purine diet. She is concerned thatit may be related to Lasix as it was related to HCTZ previously. Social History Social History Narrative Not on file Patient Active Problem List Diagnosis Benign paroxysmal positional vertigo, bilateral Bunion of left foot Hypertension GERD (gastroesophageal reflux disease) Gout Hyperuricemia Impaired fasting glucose Insomnia Severe obesity (BMI 35.0-39.9) with comorbidity (CMS/FORMERLY [facility]) Primary osteoarthritis involving multiple joints Spondylolisthesis Stenosing tenosynovitis Mixed stress and urge urinary incontinence Right knee pain Anxiety and depression Venous insufficiency Vitamin D deficiency Bradycardia Dental calculus Idiopathic resorption of root of tooth Localized gingival recession Dental abscess H/O bilateral breast reduction surgery History of repair of right rotator cuff Status post hysterectomy Migraine Missing teeth, acquired Chronic left shoulder pain Rectocele Constipation Functional dyspepsia Delayed gastric emptying Allergic rhinitis Upper respiratory infection, viral Carpal tunnel syndrome Acute cystitis without hematuria No family history on file. Review of Systems Constitutional: Negative for chills, fatigue and fever. HENT: Negative for congestion, ear pain, nosebleeds, rhinorrhea, sinus pressure, sore throat and trouble swallowing. Eyes: Negative for pain and discharge. Respiratory: Negative for cough, chest tightness and shortness of breath. Cardiovascular: Negative for chest pain, palpitations and leg swelling. Gastrointestinal: Negative for abdominal pain, blood in stool, constipation, diarrhea and nausea. Endocrine: Negative for polydipsia and polyuria. Genitourinary: Positive for dysuria, frequency, pelvic pain and urgency. Negative for genital soresand vaginal discharge. Musculoskeletal: Negative for back pain and neck pain. Skin: Negative for rash. Allergic/Immunologic: Negative for environmental allergies. Neurological: Negative for dizziness, seizures, weakness, light-headedness and headaches. Hematological: Negative for adenopathy. Psychiatric/Behavioral: Negative for agitation, behavioral problems, self-injury and suicidal ideas. OBJECTIVE: Vitals: 08/07/24 1006 BP: (!) 152/82 Pulse: 84 Resp: 18 Temp: 98.3 ??F (36.8 ??C) Physical Exam HENT: Right Ear: Tympanic membrane and ear canal normal. Left Ear: Tympanic membrane and ear canal normal. Mouth/Throat: Mouth: Mucous membranes are moist. Pharynx: No oropharyngeal exudate or posterior oropharyngeal erythema. Eyes: Pupils: Pupils are equal, round, and reactive to light. Cardiovascular: Rate and Rhythm: Regular rhythm. Pulses: Normal pulses. Heart sounds: Normal heart sounds. No murmur heard. Pulmonary: Breath sounds: Normal breath sounds. Abdominal: General: Bowel sounds are normal. Palpations: Abdomen is soft. Tenderness: There is abdominal tenderness in the suprapubic area. There is no right CVA tenderness,left CVA tenderness, guarding or rebound. Musculoskeletal: General: Normal range of motion. Cervical back: Neck supple. Skin: General: Skin is warm. Neurological: General: No focal deficit present. Mental Status: She is alert and oriented to person, place, and time. Psychiatric: Mood and Affect: Mood normal. Behavior: Behavior normal. Office Visit on 08/07/2024 Component Date Value Ref Range Status Color, UA 08/07/2024 Light Yellow Final Clarity, UA 08/07/2024 Cloudy Final Glucose, UA 08/07/2024 Negative Final Bilirubin, UA 08/07/2024 Negative Final Ketones, UA 08/07/2024 Negative Final Spec Grav, UA 08/07/2024 1.005 Final Blood, UA 08/07/2024 Negative Negative, None Detected Final pH, UA 08/07/2024 6.0 Final Protein, UA 08/07/2024 Negative Final Urobilinogen, UA 08/07/2024 0.2 Final Leukocytes, UA 08/07/2024 Few 15 (A) Negative, Rare, Trace Final Small Nitrite, UA 08/07/2024 Negative Negative, None Detected Final Problem List Items Addressed This Visit Acute cystitis without hematuria - Primary Advised regarding increase water intake, cranberry juice and Tylenol as needed pain Bactrim DS x 5 days, follow-up urine culture Use zinc oxide ointment on vulvar area to protect from urine leaks, continue Kegel's exercises Follow-up with PCP Hyperuricemia She has not had gout exacerbations, she will discuss with PCP regarding changing diuretic to urate sparing diuretic Other Visit Diagnoses Dysuria Relevant Orders POCT Urinalysis (Completed) Culture, Urine, Routine Follow Up: Current Outpatient Medications on File Prior to Visit Medication Sig Dispense Refill acetaminophen (Acetaminophen Extra Strength) 500 MG tablet TAKE 2 TABLETS BY MOUTH EVERY 8 HOURS ASNEEDED 90 tablet 1 allopurinol (Zyloprim) 100 MG tablet Take 1 tablet (100 mg) by mouth Once per day. 90 tablet 3 Artificial Tears 0.2-0.2-1 % solution USE 1 DROP BOTH EYES TWICE DAILY atenolol (Tenormin) 25 MG tablet TAKE 1 TABLET BY MOUTH IN THE MORNING 90 tablet 1 cetirizine (ZyrTEC) 10 MG tablet Take 1 tablet (10 mg) by mouth Once per day. 90 tablet 3 cholecalciferol (Vitamin D3) 25 MCG (1000 UT) tablet TAKE 1 TABLET BY MOUTH IN THE MORNING 90 tablet 3 Diclofenac Sodium 1 % gel APPLY TOPICALLY TO THE AFFECTED AREA EVERY DAY NEEDED FOR PAIN 100 g 11 furosemide (Lasix) 40 MG tablet TAKE 1 TABLET BY MOUTH EVERY DAY ibuprofen 800 MG tablet TAKE 1 TABLET(800 MG) BY MOUTH WITH BREAKFAST 30 tablet 1 meclizine (Antivert) 25 MG tablet TAKE 1 TABLET BY MOUTH EVERY DAY NEEDED FOR VERTIGO 30 tablet 1 omeprazole (PriLOSEC) [address] capsule Take 20 mg by mouth Once per day. triamcinolone (Kenalog) 0.1 % cream Apply topically if needed in the morning and at bedtime (pain and swelling). 30 g 2 triamcinolone (Nasacort) 55 MCG/ACT nasal inhaler Administer 2 sprays into each nostril Once per day. 16.5 g 11 Tyrvaya 0.03 MG/ACT solution INSTILL 1 SPRAY IN EACH NOSTRIL TWICE A DAY , APPROXIMATELY 12 HOURS APART. zolpidem (Ambien) 5 MG tablet TAKE 1 TABLET BY MOUTH EVERY NIGHT AT BEDTIME NEEDED FOR SLEEP 30 tablet 0 [DISCONTINUED] ibuprofen 800 MG tablet TAKE 1 TABLET(800 MG) BY MOUTH WITH BREAKFAST 30 tablet 1 [DISCONTINUED] meclizine (Antivert) 25 MG tablet TAKE 1 TABLET BY MOUTH EVERY DAY NEEDED FOR VERTIGO 30 tablet 1 [DISCONTINUED] Simethicone Ultra Strength 180 MG capsule Take 180 mg by mouth 4 times daily. No current facility-administered medications on file prior to visit. documented in this encounter Miscellaneous Notes * Assessment & Plan Note - Breanna Craven MD - 08/07/2024 10:27 AM EST Associated Problem(s): Acute cystitis without hematuria Advised regarding increase water intake, cranberry juice and Tylenol as needed pain Bactrim DS x 5 days, follow-up urine culture Use zinc oxide ointment on vulvar area to protect from urine leaks, continue Kegel's exercises Follow-up with PCP * Assessment & Plan Note - Breanna Craven MD - 08/07/2024 10:27 AM EST Associated Problem(s): Hyperuricemia She has not had gout exacerbations, she will discuss with PCP regarding changing diuretic to urate sparing diuretic documented in this encounter Plan of Treatment Upcoming Encounters Date Type Department Care Team (Late st Contact Info) Description 09/12/2024 10:00 AM EDT Office Visit [facility] [address] [place], [place] [phone] Nevin, Chapis [address] [place] [address] documented as of this encounter Goals Goal Patient Goal Type Associated Problems Recent Progress Patient-Stated? Author Blood Pressure < 150/90 Blood Pressure 152/82(2024 10:06 AM EST) [place], [place] Note: Per JNC-8 Age 62 with no history of DM or CKD documented as of this encounter Procedures Procedure Name Priority Date/Time Associated Diagnosis Comments POCT URINALYSIS DIPSTICK Routine 08/07/2024 10:13 AM EST Dysuria CULTURE, URINE, ROUTINE Routine 08/07/2024 12:00 AM EST Dysuria documented in this encounter Results * (ABNORMAL) POCT Urinalysis (08/07/2024 10:13 AM EST) Color, UA Light Yellow Clarity, UA Cloudy Glucose, UA Negative Bilirubin, UA Negative Ketones, UA Negative Spec Grav, UA 1.005 Blood, UA Negative Negative, None Detected pH, UA 6.0 Protein, UA Negative Urobilinogen, UA 0.2 Leukocytes, UA Few 15(A) Negative, Rare, Trace Comment:Small Nitrite, UA Negative Negative, None Detected Urine 08/07/2024 10:1 3 AM EST us Breanna Craven MD POINT OF CARE TEST ENTER /EDIT ORDERABLES Final Result * Culture, Urine, Routine (08/07/2024 12:00 AM EST) Urine Urine specimen obtained by clean catch procedure / Unknown 08/07/2024 08/07/2024 Comment:UACC Narrative [facility] - 08/09/2024 12:50 PM EST Urine Culture Report Result Urine Culture 50,000 to 100,000 cfu/ml Urine Culture Mixed bacterial tomasz characteristic of Urine Culture urogenital contamination. Specimen Source: Urine clean catch us Breanna Craven MD LAB MICROBIOLOGY - GENER AL ORDERABLES Final Result [facility] [address] [place] [phone] documented in this encounter Visit Diagnoses Diagnosis Acute cystitis without hematuria- Primary Hyperuricemia Other abnormal blood chemistry Dysuria documented in this encounter Additional Health Concerns Assessment Noted Time PHQ-9 Depression Total Score: 0 07/30/19 25 10:27 AM EST documented as of this encounter Care Teams Director [employer] Relationship Specialty Start Date End Date Ebony Blanchard MD [address] [place] [phone] PCP - General Family Medicine 06/18/18 documented as of this encounter
--- OUTSIDE RECORDS SUMMARY | 2024-08-18 12:17 | XMS_ITS | Encounter Summary ---
Author Organization [employer] Address [address] [place] [address] Care Team Providers Care Handle And Vent Machine Operator Name Role Phone Ebony Blanchard MD Primary Care Provider [phone] Encounter Details Date Type Department Care Team (Latest Contact Info) Description 07/30/2024 Travel Social History Tobacco Use Types Packs/Day [...] Description 09/12/2024 10:00 AM EDT Office Visit [facility] [address] [place] [address] Nevin, Chapis [address] [place] [address] documented as of this encounter Goals Goal [...] documented as of this encounter Care Teams Handle And Vent Machine Operator Relationship Specialty Start Date End Date Ebony Blanchard MD [address] [place] [address] PCP - General Family Medicine 06/18/18 documented as of this encounter
--- OUTSIDE RECORDS SUMMARY | 2024-08-18 12:17 | XMS_ITS | Clinical Summary ---
Author Organization [employer] Address [address] [place] [address] Care Team Providers Care Manager Completions Name Role Phone Ebony Blanchard MD Primary Care Provider [phone] Allergies Active Allergy Reactions Criticality Noted Date Comments Lisinopril Cough 07/12/2010 Losartan Cough 12/23/2019 Medications Artificial Tears 0.2-0.2-1 % solution USE 1 DROP BOTH EYES TWICE DAILY 023 Active acetaminophen (Acetaminophen Extra Strength) 500 MG tablet TAKE 2 TABLETS BY MOUTH EVERY 8 HOURS NEEDED 90 tablet 1 023 Active furosemide (Lasix) 40 MG tablet TAKE 1 TABLET BY MOUTH EVERY DAY 023 Active triamcinolone (Kenalog) 0.1 % cream Apply topically if needed in the morning and at bedtime (pain and swelling). 30 g 2 024 Active Diclofenac Sodium 1 % gel APPLY TOPICALLY TO THE AFFECTED AREA EVERY DAY NEEDED FOR PAIN 100 g 11 024 Active cetirizine (ZyrTEC) 10 MG tablet Take 1 tablet (10 mg) by mouth Once per day. 90 tablet 3 024 2024 Active Tyrvaya 0.03 MG/ACT solution INSTILL 1 SPRAY IN EACH NOSTRIL TWICE A DAY , APPROXIMATELY 12 HOURS APART. 024 Active cholecalciferol (Vitamin D3) 25 MCG (1000 UT) tablet TAKE 1 TABLET BY MOUTH IN THE MORNING 90 tablet 3 024 Active omeprazole (PriLOSEC) [address] capsule Take 20 mg by mouth Once per day. Active triamcinolone (Nasacort) 55 MCG/ACT nasal inhaler Administer 2 sprays into each nostril Once per day. 16.5 g 11 024 2024 Active atenolol (Tenormin) 25 MG tabletIndicatio ns:Essential hypertension TAKE 1 TABLET BY MOUTH IN THE MORNING 90 tablet 1 Active zolpidem (Ambien) 5 MG tabletIndicatio ns:Psychophysio logical insomnia TAKE 1 TABLET BY MOUTH EVERY NIGHT AT BEDTIME NEEDED FOR SLEEP 30 tablet Active meclizine (Antivert) 25 MG tabletIndicatio ns:Vertigo TAKE 1 TABLET BY MOUTH EVERY DAY NEEDED FOR VERTIGO 30 tablet 1 Active ibuprofen 800 MG tabletIndicatio ns:Pain TAKE 1 TABLET(800 MG) BY MOUTH WITH BREAKFAST 30 tablet 1 Active allopurinol (Zyloprim) 100 MG tablet Take 1 tablet (100 mg) by mouth Once per day. 90 tablet 3 025 2025 Active liver oil-zinc oxide (Desitin) 40 % ointment Apply topically if needed for irritation. 56 g Active meclizine (Antivert) 25 MG tabletIndicatio ns:Vertigo TAKE 1 TABLET BY MOUTH EVERY DAY NEEDED FOR VERTIGO 30 tablet 1 024 2024 Discontinued Simethicone Ultra Strength 180 MG capsule Take 180 mg by mouth 4 times daily. 024 2024 Discontinued(M ed list cleanup (will not trigger notification to Pharmacy)) ibuprofen 800 MG tabletIndicatio ns:Pain TAKE 1 TABLET(800 MG) BY MOUTH WITH BREAKFAST 30 tablet 1 024 2024 Discontinued sulfamethoxazol e-trimethoprim (Bactrim DS) 800-160 MG tablet Take 1 tablet by mouth 2 times daily for 5 days. 10 tablet 025 2024 Active Problems Problem Noted Date Diagnosed Date Acute cystitis without hematuria 08/07/2024 Assessment & Plan (08/07/2024 10:27 AM EST): Advised regarding increase water intake, cranberry juice and Tylenol as needed pain Bactrim DS x 5 days, follow-up urine culture Use zinc oxide ointment on vulvar area to protect from urine leaks, continue Kegel's exercises Follow-up with PCP Carpal tunnel syndrome 07/30/2024 Assessment & Plan (07/30/2024 1:33 PM EST): - following with [facility] provider - received steroid injection on 06/09/24 Upper respiratory infection, viral 12/12/2023 Assessment & Plan (12/12/2023 5:58 PM EDT): Pt here w viral respiratory symptoms . Pt has benign physical ENT/lung exam Here Flu ,COVID 19 and strep test are neg -cepacol - Tylenol ,NSAIDS has at home -hydration -alarm signs and symptoms discussed w pt Functional dyspepsia 11/19/2023 Assessment & Plan (07/30/2024 2:54 PM EST): - following with [facility], last seen in Jul 2023 Assessment & Plan (11/19/2023 11:31 AM EDT): - following with [facility], last seen in Jul 2023 Delayed gastric emptying 11/19/2023 Allergic rhinitis 11/19/2023 Assessment & Plan (04/08/2024 11:55 AM EDT): -Patient is wondering of Penicillin allergy but it is less likely. -Continue Cetrizine -Switch flonase to nasacort -Patient was referred to prevention specialist in November 2023. Will check referral status. Assessment & Plan (11/19/2023 11:37 AM EDT): Patient is wondering of Penicillin allergy but it is less likely. We will refer for front end specialist for allergy testing and further treatment. Will start Cetrizine Rectocele 08/25/2023 Assessment & Plan (08/25/2023 6:59 AM EST): - upcoming surgery next week Constipation 08/25/2023 Assessment & Plan (11/19/2023 11:30 AM EDT): - following with [facility], last seen in Jul 2023 - continue adequate fiber intake Assessment & Plan (08/25/2023 7:08 AM EST): - following with [facility], last seen in Jul 2023 - [...] of repair of right rotator cuff 03/17/20 Assessment & Plan (08/25/2023 7:09 AM EST): [...] (03/13/2023 9:22 PM EDT): - [facility], last seen on 02/02/23. - 10/05/22 Venous study, results showed: right GSV and SSV incompetent, left GSV incompetent, left SSV competent - Elevated legs, DASH diet - Follow-up with Vascular Specialist Assessment & Plan (10/27/2022 10:32 AM EDT): - Following with [facility] cardiology on 09/28/22. - 10/05/22 Venous study, [...] D Supplementation Bradycardia 10/24/2022 Assessment & Plan (07/30/2024 2:54 PM EST): Mild Minimally-Symptomatic - Advised to check pulse with BP regularly - Agreed to continue Atenolol at prescribed dose for now; if patients HR becomes < 50 or <55 with symptom,, consider lowering Atenolol dose or discontinuing Atenolol. 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 - Received steroid injection on 08/01/22. - Referred to PT. - Compress, elevation and heat - will Rx topical NSAID cream and Knee brace, per patient request Anxiety and depression 07/31/2022 Assessment & Plan (07/31/2022 12:36 PM EST): -Previously tried sertraline and hydroxyzine, but she self-discontinued -Seen by [facility] clinician in Apr 2019, Dx adjustment d/o [...] Ibuprofen, as needed Gout 07/04/2016 Hyperuricemia 07/04/2016 Assessment & Plan (08/07/2024 10:27 AM EST): She has not had gout exacerbations, she will discuss with PCP regarding changing diuretic to urate sparing diuretic Assessment & Plan (07/30/2024 1:35 PM EST): - patient has not had gout attack - urate-lowering medication is not indicated at this time Bunion of left foot 01/04/2016 Benign paroxysmal positional vertigo, bilateral 07/15/2015 Spondylolisthesis 05/29/2013 Impaired fasting glucose 03/20/2012 Assessment & Plan (07/30/2024 2:55 PM EST): -09/16/18 A1C 6.0% FBG 108 -04/20/21 A1C 5.6% -04/07/22 A1c 5.6% -02/22/23 A1c 5.5% - 07/30/24 A1c 5.7% -Cont working on lifestyle modifications -Continue annual screening due to risk factor Assessment & Plan (08/25/2023 7:09 AM EST): [...] (gastroesophageal reflux disease) 2 Assessment & Plan (07/30/2024 2:54 PM EST): -followed by [facility], last seen on 08/16/23 - s/p EGD 02/02/22, nml - previously prescribed pantoprazole, pt is no longer taking. Instead, pt is using baking soda - Pt was Rx Reglan but discontinued d/t side-effects Assessment & Plan (04/08/2024 11:53 AM EDT): -followed by [facility], last seen on 08/16/23 - s/p EGD 02/02/22, nml - previously prescribed pantoprazole, pt is no longer taking. Instead, pt is using baking soda - Pt was Rx Reglan but discontinued d/t side-effects Assessment & Plan (11/19/2023 11:32 AM EDT): -followed by [facility], last seen on 08/16/23 - s/p EGD 02/02/22, nml - previously prescribed pantoprazole, pt is no longer taking. Instead, pt is using baking soda - Pt was Rx Reglan but discontinued d/t side-effects Assessment & Plan (08/25/2023 7:07 AM EST): -followed by [facility], last seen on 08/16/23 - s/p EGD 02/02/22, nml - previously prescribed pantoprazole, pt is no longer taking. Instead, pt is using baking soda - Pt was Rx Reglan but discontinued d/t side-effects Assessment & Plan (02/27/2023 10:59 AM EDT): -followed by [facility], last seen in May 2022 -s/p EGD 02/02/22, nml - previously prescribed pantoprazole, pt is no longer taking. Instead, pt is using baking soda -Pt was Rx Reglan but discontinued d/t side-effects Assessment & Plan (10/27/2022 10:33 AM EDT): -followed by [facility], last seen in May 2022 -s/p EGD 02/02/22, nml - continue pantoprazole as prescribed -Pt was Rx Reglan but discontinued d/t side-effects Assessment & Plan (08/05/2022 6:36 PM EST): -followed by [facility], last seen in May 2022 -s/p EGD 02/02/22, nml -Pt was Rx Reglan but discontinued d/t side-effects Insomnia 01/04/2012 Mixed stress and urge urinary incontinence 01/03 Assessment & Plan (07/30/2024 2:55 PM EST): Followed by [facility] for mixed urinary [...] notes symptoms have improved. Assessment & Plan (11/19/2023 11:37 AM EDT): [...] Plan (08/05/2022 6:43 PM EST): Followed by [facility] for mixed urinary incontinence. -s/p; 11/03/21 Vaginal [...] comorbidity 01/03/2010 Hypertension 10/29/2006 Assessment & Plan (07/30/2024 2:54 PM EST): Goal BP < 150/90 per JNC-8, and < 130/80 per ACC/AHA guideline. -BP elevated today. -Comanaged with tile molder hand and PharmD. -Encouraged to work on life [...] if any problem arises Assessment & Plan (04/08/2024 10:25 AM EDT): Goal BP < 150/90 per JNC-8, and < 130/80 per ACC/AHA guideline. -BP elevated today. -Comanaged with tile molder hand and PharmD. -Encouraged to work on life [...] Patient attributes it to anxiety. -Comanaged with tile molder hand and PharmD. -Encouraged to work on life [...] Patient attributes it to anxiety. -Comanaged with tile molder hand and PharmD. -Encouraged to work on life [...] pt received steroid injection recently -Comanaged with tile molder hand and PharmD. -Encouraged to work on life [...] pt received steroid injection recently -Comanaged with tile molder hand and PharmD. -Encouraged to work on life [...] Encounters Date Type Department Care Team Description 08/07/2024 10:20 AM EST Office Visit [facility] [address] [place] [phone] Breanna Craven MD Acute cystitis without hematuria (Primary Dx); Hyperuricemia; Dysuria 08/06/2024 Telephone [facility] [address] [place] [address] Ebony Blanchard MD 08/06/2024 Telephone [facility] [place] [address] Ebony Blanchard MD Nurse Triage 08/06/2024 Refill [facility] [place] [address] Ebony Blanchard MD Vertigo; Pain 07/30/2024 10:15 AM EST Office Visit [facility] [address] Ebony Blanchard MD Hypertension, unspecified type (Primary Dx); Bradycardia; Mixed stress and urge urinary incontinence; Impaired fasting glucose; Hyperuricemia; Gastroesophageal reflux disease, unspecified whether esophagitis present; Functional dyspepsia; Bilateral carpal tunnel syndrome; Dietary counseling; Exercise counseling; Class 2 severe obesity due to excess calories with serious comorbidity and body mass index (BMI) of 36.0 to 36.9 in adult ([facility]) 07/30/2024 Travel 07/24/[address] [address] Reyna Wagner MA chart prep 07/23/2024 Travel 06/27/2024 Refill [facility] [address] [place] [phone] Ebony Blanchard MD Psychophysiological insomnia 06/20/[address] [address] Ebony Blanchard MD Durable Medical Equipment (Recertification) 05/25/2024 Refill [facility] [address] [place] [address] [phone] Ebony Blanchard MD Pain from Last 3 Months Immunizations Name Administration [...] 18 08/07/2024 10:06 AM EST Oxygen Saturation 98% 07/30/2024 10:28 AM EST Inhaled Oxygen Concentration - - Weight 89.2 kg (196 lb 9.6 oz) 08/07/2024 10:06 AM EST Height 157.5 cm (5' 2 ) 08/07/2024 10:06 AM EST Body Mass Index 35.96 08/07/2024 10:06 AM EST Plan of Treatment Upcoming Encounters Date Type Department Care Team (Late st Contact Info) Description 09/12/2024 10:00 AM EDT Office Visit [facility] [address] [place] [address] Nevin, [place] [address] [place] [address] Health Maintenance Due Date Last Done Comments CT Colonography 1960 FIT DNA/Cologuard 1960 FIT 1960 FOBT 1960 Sigmoidoscopy 1960 Pneumococcal Vaccine: 50+ Years (1 of 1 - PCV) 2012 COVID-19 Vaccine ( season) 2024 07/18/2021, 11/12/2020, 10/22/2020 Pap Smear 05/02/2024 05/02/2021 Dental Prophylaxis 09/11/2024 03/13/2024, 0 08/07/2023, 11/01/2022, Additional history exists Dental Oral Exam 10/16/2024 04/17/2024, , 11/01/2022, Additional history exists SDOH Screening 11/18/2024 11/19/2023 Alcohol/Substance Use Screening 04/08/2025 04/08/2024 Dental X-Ray: Bitewings 04/18/2025 04/17/20 24, 08/07/2023, 11/01/2022, Additional history exists Colonoscopy 06/06/2025 06/06/2020, 05/19/2020 Colorectal Cancer Screening 06/06/2025 Diabetes: Hemoglobin A1C 07/28/2025 025, 02/22/2023, 04/07/2022, Additional history exists Depression Screening 07/30/2025 07/30/2024, 07/30/19 Tobacco Screening 08/03/2025 08/03/2024 Dental X-Ray: Full Mouth 11/02/2025 023, 01/15/2019, 05/23/2012 Mammogram 03/14/2026 03/14/2024, 03/18, 04/04/2023, Additional history exists Cervical Cancer Screening 05/02/2026 HPV/Cotest 05/02/2026 05/02/2021, 04/12/2016 DTaP/Tdap/Td Vaccines (4 - Td or Tdap) 01/01/2027 01/01/2017, 06/24/2009, 01/27/2008 Lipid Panel 07/28/2029 07/28/2024, 09/0 12/2022, 04/07/2022, Additional history exists RSV Patients and Patients [...] this topic Meningococcal Vaccine Aged Out No eloina henrietta eligible based on patient's age to [...] ROUTINE Routine 08/07/2024 12:00 AM EST Dysuria URIC ACID Routine 07/28/2024 8:21 AM EST Hyperuricemia Gout, unspecified cause, unspecified chronicity, unspecified site VITAMIN D,25-OH,TOTAL,IA Routine 07/28/2024 8:21 AM EST Vitamin D deficiency LIPID PANEL WITH REFLEX TO DIRECT LDL Routine 07/28/2024 8:21 AM EST Hypertension, unspecified type COMPREHENSIVE METABOLIC PANEL Routine 07/28/2024 8:21 AM EST Hypertension, unspecified type HEMOGLOBIN A1C Routine 07/28/2024 8:21 AM EST Screening for diabetes mellitus TSH W/REFLEX TO FT4 Routine 07/28/2024 8 :21 AM EST Hypertension, unspecified type BITEWINGS - 4 RADIOGRAPHIC IMAGES Routine 04/17/2024 9:00 AM EDT PERIODIC ORAL EVALUATION - ESTABLISHED PATIENT Routine 04/17/2024 9:00 AM EDT BI MAMMOGRAM SCREENING TOMOSYNTHESIS BILATERAL Routine 03/14/2024 10:10 AM EDT PROPHYLAXIS - ADULT Routine 03/13/2024 8 :00 AM EDT Dental calculus INTRAORAL - COMPLETE SERIES OF RADIOGRAPHIC IMAGES Routine 11/01/2022 9:00 AM EDT Idiopathic resorption of root of tooth Dental calculus Localized gingival recession Dental abscess THINPREP IMAGING PAP AND HPV MRNA E6/E7 WITH REFLEX TO HPV 16,18/45 Routine 05/02/2021 4:14 PM EST HM COLONOSCOPY Routine 06/06/2020 3:36 PM EST from Last 3 Months or Most Recently Relevant to Health Maintenance Results * (ABNORMAL) POCT Urinalysis (08/07/2024 10:13 [...] Detected Urine 08/07/2024 10:1 3 AM EST Breanna Craven MD POINT OF CARE TEST ENTER /EDIT ORDERABLES Final Result * Culture, Urine, Routine (08/07/2024 12:00 AM EST) Urine Urine specimen obtained by clean catch procedure / Unknown 08/07/2024 08/07/2024 Comment:UACC Narrative [facility] - 08/09/2024 12:50 PM EST Urine Culture Report Result Urine Culture 50,000 to 100,000 cfu/ml Urine Culture Mixed bacterial tomasz characteristic of Urine Culture urogenital contamination. Specimen Source: Urine clean catch Breanna Craven MD LAB MICROBIOLOGY - GENER AL ORDERABLES Final Result [facility] [address] [place] [phone] * Vitamin D, 25-Hydroxy, Total, Immunoassay (07/28/2024 8:21 AM EST) Vitamin D 25-OH Total 51.1 >30 ng/mL [facility] Comment:Health Based Referen ce Values*< 20 ng/mL Gopxestug31-02 ng/mL Insufficient> 30 ng/mL Sufficient*Samuel NGUYEN. N Engl J Med. 2007;357:266-280Care must be taken in interpreting Vitamin D results fromdifferent laboratories and methodologies. Published datademonstrated that results from patients undergoinghemodialysis may show a negative bias when tested withvarious automated 25-OH vitamin D assays when compared toLC-MS/MS.When testing samples from patients whose predominant form ofVitamin D is Vitamin D2, such as patients receiving VitaminD2 supplementation, results that are subtherapeutic shouldbe confirmed with another method such as LC-MS/MS. Blood Venous blood specimen / Unknown 07/28/2024 8:21 AM EST 07/28/2024 11:01 AM EST us Ebony Blanchard MD LAB BLOOD ORDERABLES Final Resul t Performing Organization Address City/[facility]/ZIP Co de Phone Number [facility] [address] [place] [phone] * TSH with Reflex to Free T4 (07/28/2024 8:21 AM EST) TSH reflex Free T4 2.22 0.32 - 4.0 uIU/mL [facility] Blood 07/28/2024 8:21 AM EST 07/28/2024 11:01 AM EST us Ebony Blanchard MD LAB BLOOD ORDERABLES Final Resul t Performing Organization Address City/[facility]/ZIP Co de Phone Number [facility] [address] [place] [phone] * Lipid Panel with Reflex to Direct LDL (07/28/2024 8:21 AM EST) Triglycerides 125 <150 mg/dL [facility] Comment:Desirable Triglyceri de: less than 150 mg/dLBorderline High Triglyceride 150-199 mg/dLHigh Triglyceride: 200-499 mg/dLVery High Triglyceride: greater than or equal to 5OO mg/dL Cholesterol 160 <200 mg/dL [facility] Comment:Desirable Cholestero l: less than 200 mg/dLBorderline High Cholesterol: 200-239 mg/dLHigh Cholesterol: greater than 239 mg/dL LDL Cholesterol Calculated 82 <100 mg/dL [facility] Comment:Desirable LDL: less than 100 mg/dLNear Optimal/Above Optimal LDL: 110- 129 mg/dLBorderline High LDL: 130-159 mg/dLHigh LDL: 160-189 mg/dLVery High LDL: greater than or equal to 190 mg/dL HDL Cholesterol 53 >40 mg/dL [facility] Comment:Desirable HDL: great er than 40 mg/dL Note: This HDL assay may give artificially low results in patients with liver disease. Blood 07/28/2024 8:21 AM EST 07/28/2024 11:01 AM EST us Ebony Blanchard MD LAB BLOOD ORDERABLES Final Resul t Performing Organization Address City/[facility]/ZIP Co de Phone Number [facility] [address] [place] [phone] * (ABNORMAL) Uric acid (07/28/2024 8:21 AM EST) Uric Acid 6.0(H) 2.4 - 5.7 mg/dL [facility] Blood Venous blood specimen / Unknown 07/28/2024 8:21 AM EST 07/28/2024 11:01 AM EST Ebony Blanchard MD LAB BLOOD ORDERABLES Final Resul t [facility] [address] [place] [phone] * Hemoglobin A1c (07/28/2024 8:21 AM EST) Hemoglobin A1c 5.7 <6.0 % [facility] Comment:Hemoglobin A1C Refer ence Range Adults: 4.8 - 6.0 % Non diabetic: < 6.0 % Goal: < 7.0 %Additional Action Suggested: > 8.0 %Note: Hemoglobin A1c results are invalid for patients with abnormal amounts of HbF. Blood transfusions may impact the HbA1c concentration in the patient sample. Estimated Average Glucose 117 mg/dL [facility] Comment:eAG = Estimated ave rage glucose which is %A1C expressed asaverage glucose, using the formula of the I4X-UipeaolGbxlkic Glucose study (ADAG), Diabetes Care, Vol.31,#8,Jan. 2007 Blood Venous blood specimen / Unknown 07/28/2024 8:21 AM EST 07/28/2024 11:01 AM EST us Ebony Blanchard MD LAB BLOOD ORDERABLES Final Resul t [facility] [address] [place] [phone] * (ABNORMAL) Comprehensive Metabolic Panel (07/28/2024 8:21 AM EST) Sodium 144 135 - 145 mmol/L [facility] Potassium 4.8 3.3 - 5.1 mmol/L [facility] Chloride 112(H) 96 - 108 mmol/L [facility] Carbon Dioxide 28 22 - 29 mmol/L [facility] Anion Gap 9(L) 12 - 20 [facility] Urea Nitrogen (BUN) 10 9 - 16 mg/dL [facility] Creatinine, Serum 0.78 0.5 - 1.4 mg/dL [facility] Estimated Glomerular Filt Rate >60 [facility] Comment:Chronic Kidney Disea se: Estimated GFR < 60 mL/min/[id number] Kidney Disease: Estimated GFR < 15 mL/min/1.73m2 Glucose 112 60 - 115 mg/dL [facility] Calcium 8.8 8.4 - 10.2 mg/dL [facility] Bilirubin, Total 0.5 0.0 - 1.0 mg/dL [facility] Aspartate Amino Transferase 20 5 - 31 U/L [facility] Alanine Aminotransferase 17 0 - 31 U/L [facility] Total Protein 7.1 6.5 - 8.0 g/dL [facility] Albumin Level 4.0 3.5 - 5.0 g/dL [facility] Alkaline Phosphatase 72 39 - 117 U/L [facility] Blood Venous blood specimen / Unknown 07/28/2024 8:21 AM EST 07/28/2024 11:01 AM EST us Ebony Blanchard MD LAB BLOOD ORDERABLES Final Resul t [facility] [address] [facility] [place] [phone] [phone] * BI Mammogram Screening Tomosynthesis Bilateral (03/14/2024 10:10 AM EDT) Anatomical Region Laterality Modality Breast Bilateral Mammography 03/14/2024 10:1 0 AM EDT Narrative 03/26/2024 9:27 AM EDT ? [facility] ? [address] ?[place] [address] ? Mammography Report ? Signed ? Patient: Maral Gee,Hermiina ?MR#: [id number] ?? [id number] ? : 1960 ?Acct:[id number] ? Age/Sex: 63 / F ?ADM Date: 09/27/24 ? Loc: HO.MAMMO ? Attending Dr: Ebony Blnachard MD ? Ordering Physician: Ebony Blanchard MD ?Results: 1Negative ? Date of Service: 03/14/24 ?Follow Up: 1 Year From Orig ?? inal Mammogram ? Procedure(s): MM tomosynthesis screening BI ?? Accession Number(s): [id number] ? cc: Ebony Blanchard MD ? EXAMINATION: [...] by Lori Snider, DO in OV> ? 03/26/24 0924 ? DD/ 1010 ? TD/TT: 03/14/24 1030 ? Stonemason: ? Procedure Note Luis Enrique, [place] - 03/26/2024 [facility] [facility] [address] [place], [place] [address] Mammography Report Signed Patient: Olivia Yu MMR#: [id number] : 2Acct:[id number] Age/Sex: 63 / FADM Date: 03/14/24 Loc: HO.MAMMO Attending Dr: Ebony Blanchard MD Ordering Physician: Ebony Blanchard MDResults: 1Negative Date of Service: 03/14/24Follow Up: 1 Year From Orig ina Mammogram Procedure(s): MM tomosynthesis screening BI Accession Number(s): [id number] cc: Ebony Blanchard MD EXAMINATION: MM SCREENING [...] signed by Lori Snider DO in OV> 03/26/24923 DD/ 1010 TD/TT: 03/14/24 1030 Stonemason: us Ebony Blanchard MD IMG BI PROCEDURES Final Result * THINPREP TIS PAP AND HPV mRNA [...] has been evaluated with computer assisted technology. [facility] Security And Privacy Consultant: SEE COMMENT [facility] Comment: BK,CT(ASCP) CT screening location: [address] HPV nRNA E6/E7 Not Detected Not Detected [facility] Comment: Methodology: Dog Behaviorist-Mediated Amplification This assay detects E6/E7 viral messenger RNA (mRNA) from 14 high-risk HPV types (16,18,31,33,35,39,45,51,52,56,58,59,66,68). ? The analytical performance characteristics of this assay have been determined by [employer]. The modifications have not been cleared or approved by the FDA. This assay has been validated pursuant to the CLIA regulations and is used for clinical purposes. ?? For additional information, please refer to http://education.[employer]/faq/FVF784d8 (This link if provided for information/ educational purposes only.) Interpretation/Res ult: SEE COMMENT [facility] Comment: Negative for intraepithelial lesion or malignancy. Atrophic pattern; predominantly parabasal cells LMP: NONE [facility]IVEN [facility] Prev. BX: NONE [facility]IVEN [facility] Prev. PAP: NONE [facility]IVEN [facility] SOURCE: None given [facility] Statement Of Adequacy: SATISFACTORY FOR EVALUATION [facility] 05/02/2021 4:14 PM EST us Ebony Blanchard MD LAB PATHOLOGY ORDERABLES Final R esult [facility] [address] [place] [address], * Hm Colonoscopy (06/06/2020 3:36 PM EST) Colonoscopy Normal Normal Comment:colonoscopy in 5 yrs due to left side prep Historical Provider MD HEALTH MAINTENANCE Final Result from Last 3 Months or Most Recently Relevant to Health Maintenance Insurance [facility] - [facility] [place] [id number] Care Teams Manager Completions Relationship Specialty Start Date End Date Ebony Blanchard MD [address] [place] [address] PCP - General Family Medicine 06/18/18
--- OUTSIDE RECORDS SUMMARY | 2024-08-18 12:17 | XMS_ITS | Encounter Summary ---
Author Organization [employer] Address [address] [facility] [address] 7t [place] [address] Care Team Providers Care Stretcher Leveler Operator Helper Name Role Phone Ebony Blanchard MD Primary Care Provider [phone] Reason for Visit * Reason Comments Med Refill Encounter Details Date Type Department Care Team ([facility] st Contact Info) Description 04/30/[address] [facility] [address] [place], [place] [phone] Ebony Blanchard MD [address] [place], [place] [phone] Psychophysiological insomnia Social History Tobacco Use Types [...] Description 09/12/2024 10:00 AM EDT Office Visit [facility] ADULT DENTAL [address] [place] [address] Nevin Chapis [address] [place] [address] documented as of this encounter Goals Goal [...] documented as of this encounter Care Teams Stretcher Leveler Operator Helper Relationship Specialty Start Date End Date Ebony Blanchard MD [address] [place] [address] PCP - General Family Medicine 06/18/18 documented as of this encounter
--- OUTSIDE RECORDS SUMMARY | 2024-08-18 12:17 | XMS_ITS | Encounter Summary ---
Author Organization [employer] Address 75 [facility] 7t [place] [address] Care Team Providers Care Meat Stocker Name Role Phone Ebony Blanchard MD Primary Care Provider [phone] El Gilman PharmD Unavailable [phone] Encounter Details Date Type Department Care Team (Latest Contact Info) Description 10/09/[address] [facility] CONVERSIONS Dental, Provider, DDS Social History Tobacco [...] Care Team ( st Contact Info) Description 09/12/2024 10:00 AM EDT Office Visit [facility] ADULT DENTAL [address] [place] [address] Nevin, Chapis [address] [place] [address] documented as of this encounter Visit Diagnoses Not on filedocumented in this encounter Care Teams Meat Stocker Relationship Specialty Start Date End Date Ebony Blanchard MD [address] [place] [address] PCP - General Family Medicine 06/18/18 El Gilman, PharmD [address] [place] [address] Pharmacist Internal Medicine 08/21/22 04/27/24 documented as of this encounter
--- OUTSIDE RECORDS SUMMARY | 2024-08-18 12:17 | XMS_ITS | Encounter Summary ---
Author Organization [employer] Address [address] [facility] [address] 7t [place] [address] Care Team Providers Care Director Of Knowledge Management Name Role Phone Ebony Blanchard MD Primary Care Provider [phone] El Gilman PharmD Unavailable [phone] Encounter Details Date Type Department Care Team (Late st Contact Info) Description 07/16/2023 Abstract [facility] ADULT DENTAL [address] [place], [place] [phone] Clint Pérez, DMD [address] [place], [place] [phone] Social History Tobacco Use Types Packs/Day Years [...] Description 09/12/2024 10:00 AM EDT Office Visit [facility] ADULT DENTAL [address] [place], [place] [phone] NevinHugoChapis [address] [place], [place] [phone] documented as of this encounter Goals Goal [...] of this encounter Care Teams Director Of Knowledge Management Relationship Specialty Start Date End Date Ebony Blanchard MD [address] [place] [address] PCP - General Family Medicine 06/18/18 El Gilman, RajeshD [address] [place] [address] Pharmacist Internal Medicine 08/21/22 04/27/24 documented as of this encounter
--- OUTSIDE RECORDS SUMMARY | 2024-08-18 12:17 | XMS_ITS | Encounter Summary ---
Author Organization [employer] Address [address] [facility] [address] 7t [place] [address] Care Team Providers Care Universal Grinder Operator Name Role Phone Ebony Blanchard MD Primary Care Provider [phone] Reason for Visit * Reason Comments Med Refill Encounter Details Date Type Department Care Team ([facility] st Contact Info) Description 08/06/2024 Refill [facility] MEDICINE [address] [place], [place] [phone] Ebony Blanchard MD [address] [place], [place] [phone] Vertigo; Pain Social History Tobacco Use Types Packs/Day Years [...] Visit [facility] ADULT DENTAL [address] [place] [address] Nevin, Chapis [address] [place] [address] documented as of this encounter Goals Goal Patient Goal Type Associated Problems Recent Progress Patient-Stated? Author Blood Pressure < 150/90 Blood Pressure 152/82(2024 10:06 AM EST) El [place], RajeshD Note: Per JNC-8 Age 62 with no history of DM or CKD documented as of this encounter Visit Diagnoses Diagnosis Vertigo Dizziness and giddiness Pain Generalized pain documented in this encounter Additional Health Concerns Assessment Noted Time PHQ-9 Depression Total Score: 0 07/30/19 25 10:27 AM EST documented as of this encounter Care Teams Universal Grinder Operator Relationship Specialty Start Date End Date Ebony Blanchard MD [address] [place] [address] PCP - General Family Medicine 06/18/18 documented as of this encounter
--- OUTSIDE RECORDS SUMMARY | 2024-08-18 12:17 | XMS_ITS | Encounter Summary ---
Author Organization [employer] Address [address] 7t [place] [address] Care Team Providers Care Application Architect Manager Name Role Phone Ebony Blanchard MD Primary Care Provider [phone] Reason for Visit * Reason Onset Date Comments Nurse Triage 08/06/2024 Encounter Details Date Type Department Care Team ([facility] st Contact Info) Description 08/06/2024 Telephone [facility] MEDICINE [address] [place], [place] [phone] Ebony Blanchard MD [address] [place], [place] [phone] Nurse Triage Social History Tobacco Use Types Packs/Day Years [...] the past 12 months, has t he [employer], gas, oil or water [employer] threatened to shut off services in your [...] encounter Miscellaneous Notes * Telephone Encounter - Soraya Bolden RN - 08/06/2024 3:19 PM EST Spoke with PCP in office. PCP to call pt directly to discuss. * Telephone Encounter - Marybeth Dunn RN - 08/06/2024 11:15 AM EST Triage call Pt was seen in OV 07/30/24. Pt reports has hx of gout and is having similar symptoms to gout which occurred several years ago. Pt reports pain with urination, lower back pain bilateral flank area and right great toe pain. Pt reports drinking adequate liquds. Pt lab done 07/28/24 is showing high uric acid. Pt is requesting medication for gout at this time. Pt is advised will forward thisinformation to pcp and nursing team for prn follow up. If no contact come to [facility] in the morning 08/07/24 to be seen by provider. Pt agrees with disposition. Insurance is verified as active. Protocol Used: Toe Pain (Adult) Protocol-Based Disposition: Home Care Positive Triage Question: * Toe pain * All higher-acuity triage questions were negative Care Advice Discussed: * Reasons To Call Back - Swelling, redness, or fever occur - Severe pain not relieved by pain medicine - Pain lasts over 7 days - You become worse * Telephone Encounter - Yaya Dominguez - 08/06/2024 10:21 AM EST Symptoms: Abdominal Pain - Female - Not , Back Pain - Not From Injury Outcome: Schedule an appointment to be seen within 24 hours Reason: Caller denied all higher acuity questions Please contact pt at [phone]. (Denied Propeller Mechanic) documented in this encounter Plan of Treatment Upcoming Encounters Date Type Department Care Team (Late st Contact Info) Description 09/12/2024 10:00 AM EDT Office Visit [facility] ADULT DENTAL [address] [place] [address] Nevin, Chapis [address] [place] [address] documented as of this encounter Goals Goal [...] documented as of this encounter Care Teams Application Architect Manager Relationship Specialty Start Date End Date Ebony Blanchard MD [address] [place] [address] PCP - General Family Medicine 06/18/18 documented as of this encounter
--- OUTSIDE RECORDS SUMMARY | 2024-08-18 12:17 | XMS_ITS | Encounter Summary ---
Author Organization [employer] Address 75 [facility] 7t [place] [address] Care Team Providers Care Mat Making Machine Tender Name Role Phone Ebony Blanchard MD Primary Care Provider [phone] El Gilman PharmD Unavailable [phone] Reason for Visit * Reason Comments Med Refill Encounter Details Date Type Department Care Team ([facility] st Contact Info) Description 03/19/2024 Refill [facility] MEDICINE [address] [place], [place] [phone] Olivia Babcock MD [address] [place], [place] [phone] Essential hypertension Social History Tobacco Use Types [...] Description 09/12/2024 10:00 AM EDT Office Visit [facility] ADULT DENTAL [address] [place] [address] Nevin, Chapis [address] [place] [address] documented as of this encounter Goals Goal [...] documented as of this encounter Care Teams Mat Making Machine Tender Relationship Specialty Start Date End Date Ebony Blanchard MD [address] [place] [address] PCP - General Family Medicine 06/18/18 El Gilman, Roscoe [address] [place] [address] Pharmacist Internal Medicine 08/21/22 04/27/24 documented as of this encounter
--- OUTSIDE RECORDS SUMMARY | 2024-08-18 12:17 | XMS_ITS | Encounter Summary ---
Author Organization [employer] Address 75 [facility] 7t [place] [address] Care Team Providers Care High Lead Yarder Name Role Phone Ebony Blanchard MD Primary Care Provider [phone] El Gilman PharmD Unavailable [phone] Reason for Referral * Imaging (Routine) - Closed Specialty Diagnoses / Procedures Referred By Contac t Referred To Contact Radiology Diagnoses Status post bilateral breast reduction Breast pain, left Procedures BI US Breast Complete Bilateral Ebony Blanchard MD [address] [place] [address] Phone: tel: fax: [address] Phone: tel: fax: Referral ID Status Reason Start Date Expiration Date Visits Re quested Visits Authorized [id number] Closed 03/14/2023 03/13/2024 1 1 Encounter Details Date Type Department Care Team (Late st Contact Info) Description 03/14/2023 Orders Only [facility] MEDICINE [address] [place], [place] [phone] Ebony Blanchard MD [address] [place], [place] [phone] Status post bilateral breast reduction (Primary Dx); [...] Description 09/12/2024 10:00 AM EDT Office Visit [facility] ADULT DENTAL [address] [place] [address] Nevin, Chapis [address] [place] [address] Scheduled Orders Name Type Priority Associated Diagnoses [...] EDT Narrative 04/04/2023 3:04 PM EDT ? [facility] ? [address] ?[place] [address] ? Ultrasound Report ? Signed ? Patient: Alicia Gerard,Herminia ?MR#: [id number] ?? [id number] ? : 1960 ?Acct:[id number] ? Age/Sex: 63 / F ?ADM Date: 04/04/23 ? Loc: HO.MAMMO ? Attending Dr: Ebony Blanchard MD ? Ordering Physician: Ebony Blanchard MD ?? Date of Service: 04/04/23 ?? Procedure(s): US breast LT limited mamm only ?? Accession Number(s): [id number] ? cc: Ebony Blanchard MD ? EXAMINATION: [...] 1500 ? DD/ 1430 ? TD/TT: ? Ceramic Coater: ? Procedure Note Donbryantter, Image - 04/04/2023 [facility] [address] [place] [address] Ultrasound Report Signed Patient: Olivia Yu [facility]#: [id number] : 2Acct:[id number] Age/Sex: 63 / FADM Date: 04/04/23 Loc: .MAMMO Attending Dr: Ebony Blanchard MD Ordering Physician: Ebony Blanchard MD Date of Service: 04/04/23 Procedure(s): US breast LT limited mamm only Accession Number(s): [id number] cc: Ebony Blanchard MD EXAMINATION: MM DIAGNOSTIC [...] in OV> 04/04/23 1500 DD/ 1430 TD/TT: Ceramic Coater: us Ebony Blanchard MD IMG US PROCEDURES Final Result documented in this encounter Visit Diagnoses Diagnosis Status post bilateral breast reduction- Primary Other postprocedural status Breast pain, left documented in this encounter Additional Health Concerns Assessment Noted Time PHQ-9 Depression Total Score: 0 07/31/19 23 10:25 AM EST documented as of this encounter Care Teams High Lead Yarder Relationship Specialty Start Date End Date Ebony Blanchard MD [address] [place] [address] PCP - General Family Medicine 06/18/18 El Gilman, PharmD [address] [place] [address] Pharmacist Internal Medicine 08/21/22 04/27/24 documented as of this encounter
--- OUTSIDE RECORDS SUMMARY | 2024-08-18 12:17 | XMS_ITS | Encounter Summary ---
Author Organization [employer] Address [address] [facility] [address] 7t [place] [address] Care Team Providers Care Firestopper Installer Name Role Phone Ebony Blanchard MD Primary Care Provider [phone] Encounter Details Date Type Department Care Team ([facility] Contact Info) Description 08/06/2024 Telephone [facility] MEDICINE [address] [place], [place] [phone] Ebony Blanchard MD [address] [place], [place] [phone] Social History Tobacco Use Types Packs/Day Years [...] encounter Miscellaneous Notes * Telephone Encounter - Ebony Blanchard MD - 08/06/2024 4:11 PM EST Received a message from our nurse that patient is requesting treatment for gout and dysuria. Calledpatient, who stated that she wants to start allopurinol because her uric acid level is high (mild).In regards to dysuria, she states she wanted to know if she can go to do UA / urine culture at the lab. PCP recommended to go to the walk-in clinic if she wants to get Dx and Tx sooner since UA / urine culture via lab might take longer. PCP informed that allopurinol will be prescribed to lower uricacid as requested. documented in this encounter Plan of Treatment Upcoming Encounters Date Type Department Care Team (Late st Contact Info) Description 09/12/2024 10:00 AM EDT Office Visit [facility] ADULT DENTAL [address] [place] [address] Nevin, Chapis [address] [place] [address] documented as of this encounter Goals Goal Patient Goal Type Associated Problems Recent Progress Patient-Stated? Author Blood Pressure < 150/90 Blood Pressure 152/82(2024 10:06 AM EST) No El Gilman, PharmD Note: Per JNC-8 Age 62 with no history of DM or CKD documented as of this encounter Visit Diagnoses Not on filedocumented in this encounter Additional Health Concerns Assessment Noted Time PHQ-9 Depression Total Score: 0 07/30/19 25 10:27 AM EST documented as of this encounter Care Teams Firestopper Installer Relationship Specialty Start Date End Date Ebony Blanchard MD [address] [place] [address] PCP - General Family Medicine 06/18/18 documented as of this encounter
--- OUTSIDE RECORDS SUMMARY | 2024-08-18 12:17 | XMS_ITS | Encounter Summary ---
Author Organization [employer] Address [address] [facility] [address]t [place] [address] Care Team Providers Care Volcanologist Name Role Phone Ebony Blanchard MD Primary Care Provider [phone] Encounter Details Date Type Department Care Team [...] [facility] ADULT DENTAL [address] [place] [address] Nevin, Chapis [address] [place] [address] documented as of this encounter Goals Goal [...] documented as of this encounter Care Teams Volcanologist Relationship Specialty Start Date End Date Ebony Blanchard MD 230 [place] [address] PCP - General Family Medicine 06/18/18 documented as of this encounter
--- OUTSIDE RECORDS SUMMARY | 2024-08-18 12:17 | XMS_ITS | Encounter Summary ---
Author Organization [employer] Address 75 [facility] 7t [place] [address] Care Team Providers Care Product Manager Financial Services Name Role Phone Ebony Blanchard MD Primary Care Provider [phone] El Gilman PharmD Unavailable Encounter Details Date Type Department Care Team (Latest Contact Info) Description 09/08/2020 Abstract [facility] CONVERSIONS Dental, Provider, DDS Social History Tobacco [...] Description 09/12/2024 10:00 AM EDT Office Visit [facility] ADULT DENTAL [address] [place] [address] Nevin, Chapis [address] [place] [address] documented as of this encounter Visit Diagnoses Not on filedocumented in this encounter Care Teams Product Manager Financial Services Relationship Specialty Start Date End Date Ebony Blanchard MD [address] [place] [address] PCP - General Family Medicine 06/18/18 El Gilman, PharmD [address] [place] [address] Pharmacist Internal Medicine 08/21/22 04/27/24 documented as of this encounter
--- OUTSIDE RECORDS SUMMARY | 2024-08-18 12:17 | XMS_ITS | Encounter Summary ---
Author Organization [employer] Address [address] [facility] [address] 7t [place] [address] Care Team Providers Care Qa Specialist Name Role Phone Ebony Blanchard MD Primary Care Provider [phone] El Gilman PharmD Unavailable [phone] Reason for Visit * Reason Onset Date Comments Prior Authorization 03/30/2023 Encounter Details Date Type Department Care Team ([facility] st Contact Info) Description 03/30/2023 Telephone [facility] ADULT DENTAL [address] [place], [place] [phone] Harvey Curry, DMD [address] [place], [place] [phone] Prior Authorization Social History Tobacco Use Types [...] Description 09/12/2024 10:00 AM EDT Office Visit [facility] ADULT DENTAL [address] [place] [address] Nevin, Chapis [address] [place] [address] documented as of this encounter Goals Goal [...] documented as of this encounter Care Teams Qa Specialist Relationship Specialty Start Date End Date Ebony Blanchard MD [address] [place] [address] PCP - General Family Medicine 06/18/18 El Gilman, Roscoe [address] [place] [address] Pharmacist Internal Medicine 08/21/22 04/27/24 documented as of this encounter
--- OUTSIDE RECORDS SUMMARY | 2024-08-18 12:17 | XMS_ITS | Encounter Summary ---
Author Organization [employer] Address [address] [facility] [address] 7t [place] [address] Care Team Providers Care Orchid Worker Name Role Phone Ebony Blanchard MD Primary Care Provider [phone] El Gilman PharmD Unavailable [phone] Reason for Visit * Reason Onset Date Comments reschedule adventist 04/16/2023 Encounter Details Date Type Department Care Team (Late st Contact Info) Description 04/16/2023 Telephone [facility] ADULT DENTAL [address] [place], [place] [phone] Clint Pérez, BARRY [address] [place], [place] [phone] reschedule adventist Social History Tobacco Use Types Packs/Day Years [...] AM EDT Patient would like to reschedule adventist appt with Dr Pérez for a mid to late morning preferrablya 10am. DR documented in this encounter Plan of Treatment Upcoming Encounters Date Type Department Care Team (Late st Contact Info) Description 09/12/2024 10:00 AM EDT Office Visit [facility] ADULT DENTAL [address] [place] [address] Nevin, Chapis [address] [place] [address] documented as of this encounter Goals Goal Patient Goal Type Associated Problems Recent Progress Patient-Stated? Author Blood Pressure < 150/90 Blood Pressure 152/82(2024 10:06 AM EST) No El Gilman, RajeshD Note: Per JNC-8 Age 62 with no history of DM or CKD documented as of this encounter Visit Diagnoses Not on filedocumented in this encounter Additional Health Concerns Assessment Noted Time PHQ-9 Depression Total Score: 0 07/31/19 23 10:25 AM EST documented as of this encounter Care Teams Orchid Worker Relationship Specialty Start Date End Date Ebony Blanchard MD [address] [place] [address] PCP - General Family Medicine 06/18/18 El Gilman, RajeshD [address] [place] [address] Pharmacist Internal Medicine 08/21/22 04/27/24 documented as of this encounter
--- OUTSIDE RECORDS SUMMARY | 2024-08-18 12:17 | XMS_ITS | Encounter Summary ---
Author Organization [employer] Address [address] [facility] [address] 7[address] [place] [address] Care Team Providers Care Wood Pole Treater Name Role Phone Ebony Blanchard MD Primary Care Provider El Gilman PharmD Unavailable [phone] Encounter Details Date Type Department Care Team ([facility] st Contact Info) Description 06/07/2023 Abstract [facility] ADULT DENTAL [address] [place], [place] [phone] Clint Pérez, DMD [address] [place], [place] [phone] Social History Tobacco Use Types Packs/Day Years [...] 09/12/2024 10:00 AM EDT Office Visit [facility] ADULT DENTAL [address] [place], [place] [phone] NevinHugoChapis [address] [place], [place] [phone] documented as of this encounter Goals Goal [...] as of this encounter Care Teams Wood Pole Treater Relationship Specialty Start Date End Date Ebony Blanchard MD [address] [place] [address] PCP - General Family Medicine 06/18/18 El Gilman, RajeshD [address] [place] [address] Pharmacist Internal Medicine 08/21/22 04/27/24 documented as of this encounter
--- OUTSIDE RECORDS SUMMARY | 2024-08-18 12:17 | XMS_ITS | Encounter Summary ---
Author Organization [employer] Address 75 [facility] 7t [place] [address] Care Team Providers Care Ups Driver Name Role Phone Ebony Blanchard MD Primary Care Provider [phone] El Gilman PharmD Unavailable Encounter Details Date Type Department Care Team (Latest Contact Info) Description 01/06/2022 Abstract [facility] CONVERSIONS Dental, Provider, DDS Social History [...] Description 09/12/2024 10:00 AM EDT Office Visit [facility] ADULT DENTAL [address] [place] [address] Nevin, Chapis [address] [place] [address] documented as of this encounter Visit Diagnoses Not on filedocumented in this encounter Care Teams Ups Driver Relationship Specialty Start Date End Date Ebony Blanchard MD 230 [place] [address] PCP - General Family Medicine 06/18/18 El Gilman, PharmD [address] [place] [address] Pharmacist Internal Medicine 08/21/22 04/27/24 documented as of this encounter
--- OUTSIDE RECORDS SUMMARY | 2024-08-18 12:17 | XMS_ITS | Encounter Summary ---
Author Organization [employer] Address [address] [facility] [address]t [place] [address] Care Team Providers Care Linux Architect Name Role Phone Ebony Blanchard MD Primary Care Provider [phone] El Gilman PharmD Unavailable [phone] Encounter Details Date Type Department Care Team (Late st Contact Info) Description 03/30/2023 Abstract [facility] ADULT DENTAL [address] [place], [place] [phone] Julian Bazan DDS [address] [place], [place] [phone] Social History Tobacco Use Types Packs/Day Years [...] Description 09/12/2024 10:00 AM EDT Office Visit [facility] ADULT DENTAL [address] [place], [place] [phone] NevinHugoChapis [address] [place], [place] [phone] documented as of this encounter Goals Goal [...] documented as of this encounter Care Teams Linux Architect Relationship Specialty Start Date End Date Ebony Blanchard MD [address] [place] [address] PCP - General Family Medicine 06/18/18 El Gilman, PharmD [address] [place] [address] Pharmacist Internal Medicine 08/21/22 04/27/24 documented as of this encounter
--- OUTSIDE RECORDS SUMMARY | 2024-08-18 12:17 | XMS_ITS | Encounter Summary ---
Author Organization [employer] Address [address] [place] [address] Care Team Providers Care Job Analyst Name Role Phone Ebony Blanchard MD Primary Care Provider [phone] El Gilman PharmD Unavailable [phone] Reason for Visit * Reason Comments Med Refill Encounter Details Date Type Department Care Team (Late st Contact Info) Description 12/20/2023 Refill [facility] MEDICINE [address] [place], [place] [phone] Ebony Blanchard MD [address] [place], [place] [phone] Essential hypertension Social History Tobacco Use Types [...] Description 09/12/2024 10:00 AM EDT Office Visit [facility] ADULT DENTAL [address] [place] [address] Nevin, Chapis [address] [place] [address] documented as of this encounter Goals Goal [...] documented as of this encounter Care Teams Job Analyst Relationship Specialty Start Date End Date Ebony Blanchard MD [address] [place] [id number] PCP - General Family Medicine 06/18/18 El Gilman, Roscoe [address] [place] [phone] Pharmacist Internal Medicine 08/21/22 04/27/24 documented as of this encounter
--- OUTSIDE RECORDS SUMMARY | 2024-08-18 12:17 | XMS_ITS | Clinical Summary ---
Author Organization [employer] [facility] Address [address] [place] [address] Care Team Providers Care High Pressure Cleaner Name Role Phone Unavailable Primary Care Provider [...] 1962 DTaP,Tdap,and Td Vaccines (1 - Tdap) 1981 Cervical Cancer Screening: P ap Smear 1983 [...]
--- OUTSIDE RECORDS SUMMARY | 2024-08-18 12:18 | XMS_ITS | Encounter Summary ---
Author Organization [employer] Address [address] [facility] 7t [place] [address] Care Team Providers Care Solution Lead Name Role Phone Ebony Blanchard MD Primary Care Provider [phone] El Gilman PharmD Unavailable [phone] Reason for Referral * Consultation (Routine) - Closed Specialty Diagnoses / Procedures Referred By Contac t Referred To Contact Orthopaedic Surgery Diagnoses Chronic left shoulder pain Incomplete tear of left rotator cuff, unspecified whether traumatic Shoulder arthritis Ebony Blanchard MD [address] [place] [address] Phone: tel: fax: [facility] [address] [place] [address] [place] [address] Phone: tel: fax: Referral ID Status Reason Start Date Expiration Date V isits Requested Visits Authorized [id number] Closed Specialty Services Required 10/12/2023 10/11/2024 1 1 Encounter Details Date Type Department Care Team (Late st Contact Info) Description 10/12/2023 Orders Only [facility] MEDICINE [address] [place], [place] [phone] Ebony Blanchard MD [address] [place], [place] [phone] Chronic left shoulder pain (Primary Dx); Incomplete [...] Description 09/12/2024 10:00 AM EDT Office Visit [facility] ADULT DENTAL [address] [place] [address] Chapis Rooney [address] [place] [address] Scheduled Referrals Name Type Priority Associated Diagnoses [...] Time PHQ-9 Depression Total Score: 0 08/23/19 10:50 AM EST documented as of this encounter Care Teams Solution Lead Relationship Specialty Start Date End Date Ebony Blanchard MD [address] [place] [address] PCP - General Family Medicine 06/18/18 El Gilman, Roscoe [address] [place] [address] Pharmacist Internal Medicine 08/21/22 04/27/24 documented as of this encounter
--- OUTSIDE RECORDS SUMMARY | 2024-08-18 12:18 | XMS_ITS | Encounter Summary ---
Author Organization [employer] Address [address] [facility] 7t [place] [address] Care Team Providers Care Gold Beater Name Role Phone Ebony Blanchard MD Primary Care Provider [phone] El Gilman PharmD Unavailable [phone] Reason for Visit * Reason Comments Med Refill Encounter Details Date Type Department Care Team (Late st Contact Info) Description 09/21/2023 Refill [facility] MEDICINE [address] [place], [place] [phone] Olivia Babcock MD [address] [place], [place] [phone] Essential hypertension Social History Tobacco Use Types [...] Description 09/12/2024 10:00 AM EDT Office Visit [facility] ADULT DENTAL [address] [place] [address] Nevin, Chapis [address] [place] [address] documented as of this encounter Goals Goal [...] documented as of this encounter Care Teams Gold Beater Relationship Specialty Start Date End Date Ebony Blanchard MD [address] [place] [phone] PCP - General Family Medicine 06/18/18 El Gilman, Roscoe [address] [place] [phone] Pharmacist Internal Medicine 08/21/22 04/27/24 documented as of this encounter
== END 2024-08-18 12:06 | disposition home or self-care (01) ==
PROVIDERS: PCP Family Medicine; Visit Provider Internal Medicine Gastroenterology
DX: R10.9 Unspecified abdominal pain (principal)
CPT/HCPCS: 99214

== ENCOUNTER → 2024-08-18 10:32 | Outpatient (BNVA) | payer OTHER, SELFPAY | PROVIDERS: PCP Family Medicine; Visit Provider Internal Medicine Gastroenterology | DX: R10.9 Unspecified abdominal pain (principal) | CPT/HCPCS: 99212 ==

== ENCOUNTER 2024-10-16 06:49 | Day surgery (SDC) | payer OTHER, SELFPAY ==
--- OUTSIDE RECORDS SUMMARY | 2024-09-23 18:07 | XMS_ITS | Encounter Summary ---
Author Organization [employer] Address [address] [facility] [address] [place] [address] Care Team Providers Care Forest Botany Instructor Name Role Phone Ebony Blanchard MD Primary Care Provider [phone] El Gilman PharmD Unavailable [phone] Reason for Visit * Reason Onset Date Comments Prior Authorization 03/30/2023 Encounter Details Date Type Department Care Team ([facility] st Contact Info) Description 03/30/2023 Telephone [facility] ADULT DENTAL [address] [place], [place] [phone] Harvey Curry, DMD [address] [place], [place] [phone] Prior Authorization Social History Tobacco Use Types [...] Care Team (Late st Contact Info) Description 10/13/2024 8:00 AM EDT Office Visit [facility] ADULT DENTAL [address] [place] [address] Clint Pérez, BARRY [address] [place] [address] 03/19/2025 1:00 PM EDT Office Visit [facility] ADULT DENTAL [address] [place] [address] Chapis Rooney [address] [place] [address] documented as of this encounter Goals Goal Patient Goal Type Associated Problems Recent Progress Patient-Stated? Author Blood Pressure < 150/90 Blood Pressure 144/78(2024 9:47 AM EDT) No El Gilman, Roscoe Note: Per JNC-8 Age 62 with no history of DM or CKD documented as of this encounter Visit Diagnoses Not on filedocumented in this encounter Additional Health Concerns Assessment Noted Time PHQ-9 Depression Total Score: 0 07/31/19 23 10:25 AM EST documented as of this encounter Care Teams Forest Botany Instructor Relationship Specialty Start Date End Date Ebony Blanchard MD [address] [place] [address] PCP - General Family Medicine 06/18/18 El Gilman, PharmD [address] [place] [address] Pharmacist Internal Medicine 08/21/22 04/27/24 documented as of this encounter
--- OUTSIDE RECORDS SUMMARY | 2024-09-23 18:07 | XMS_ITS | Encounter Summary ---
Author Organization [employer] Address [address] [place] [address] Care Team Providers Care Nurse Manager Name Role Phone Ebony Blanchard MD Primary Care Provider [phone] Reason for Visit * Reason Comments Med Refill Encounter Details Date Type Department Care Team ([facility] st Contact Info) Description 09/05/2024 Refill [facility] MEDICINE [address] [place], [place] [phone] Chery Baird MD [address] [place] [address] Essential hypertension Social History Tobacco Use Types [...] Description 10/13/2024 8:00 AM EDT Office Visit [facility] ADULT DENTAL [address] [place] [address] Clint Pérez DMD [address] [place] [address] 03/19/2025 1:00 PM EDT Office Visit [facility] ADULT DENTAL [address] [place] [address] Nevin, Chapis [address] [place] [address] documented as of this encounter Goals Goal Patient Goal Type Associated Problems Recent Progress Patient-Stated? Author Blood Pressure < 150/90 Blood Pressure 144/78(2024 9:47 AM EDT) El Mucria, PharmD Note: Per JNC-8 Age 62 with no history of DM or CKD documented as of this encounter Visit Diagnoses Diagnosis Essential hypertension Unspecified essential hypertension documented in this encounter Additional Health Concerns Assessment Noted Time PHQ-9 Depression Total Score: 0 02/12/20 25 10:27 AM EST documented as of this encounter Care Teams Nurse Manager Relationship Specialty Start Date End Date Ebony Blanchard MD [address] [place] [address] PCP - General Family Medicine 06/18/18 documented as of this encounter
--- OUTSIDE RECORDS SUMMARY | 2024-09-23 18:07 | XMS_ITS | Clinical Summary ---
Author Organization [employer] Address [address] [place] [address] Care Team Providers Care Wool Spotter Name Role Phone Ebony Blanchard MD Primary Care Provider [phone] Allergies Active Allergy Reactions Criticality Noted Date [...] swelling). 30 g 2 09/18/19 24 Active Additional Information Patient not taking.Reported on 09/12/2024 Diclofenac Sodium 1 % gel APPLY TOPICALLY [...] 16.5 g 11 04/08/20 24 025 Active atenolol (Tenormin) 25 MG tabletIndication s:Essential hypertension TAKE 1 TABLET BY MOUTH IN THE MORNING 90 tablet 1 04/30/20 24 Active zolpidem (Ambien) 5 MG tabletIndication s:Psychophysiolo gical insomnia TAKE 1 TABLET BY MOUTH EVERY NIGHT AT BEDTIME NEEDED FOR SLEEP 30 tablet 06/27/19 25 Active meclizine (Antivert) 25 MG tabletIndication s:Vertigo TAKE 1 TABLET BY MOUTH EVERY DAY NEEDED FOR VERTIGO 30 tablet 1 08/06/19 25 Active ibuprofen 800 MG tabletIndication s:Pain TAKE 1 TABLET(800 MG) BY MOUTH WITH BREAKFAST 30 tablet 1 08/06/19 25 Active allopurinol (Zyloprim) 100 MG tablet Take 1 tablet (100 mg) by mouth Once per day. 90 tablet 3 08/06/19 25 026 Active liver oil-zinc oxide (Desitin) 40 % ointment Apply topically if needed for irritation. 56 g 08/07/19 25 Active Active Problems Problem Noted Date Diagnosed Date Generalized gingival recession, moderate 025 Acute cystitis without hematuria 08/07/2024 Assessment & [...] (07/30/2024 2:54 PM EST): - following with [facility], last seen in Jul 2023 Assessment & Plan (11/19/2023 11:31 AM EDT): - following with [facility], last seen in Jul 2023 Delayed gastric emptying 11/19/2023 Allergic rhinitis 11/19/2023 Assessment & Plan (04/08/2024 11:55 AM EDT): -Patient is wondering of Penicillin allergy but it is less likely. -Continue Cetrizine -Switch flonase to nasacort -Patient was referred to family protection specialist in November 2023. Will check referral status. Assessment & Plan (11/19/2023 11:37 AM EDT): Patient is wondering of Penicillin allergy but it is less likely. We will refer for brake specialist for allergy testing and further treatment. Will start Cetrizine Rectocele 08/25/2023 Assessment & Plan (08/25/2023 6:59 AM EST): - upcoming surgery next week Constipation 08/25/2023 Assessment & Plan (11/19/2023 11:30 AM EDT): - following with [facility], last seen in Jul 2023 - continue adequate fiber intake Assessment & Plan (08/25/2023 7:08 AM EST): - following with [facility], last seen in Jul 2023 - [...] - 2021 H/O bilateral breast reduction surgery 3 Assessment & Plan (02/27/2023 10:47 AM EDT): - in 2006 Dental calculus 11/01/2022 Idiopathic resorption of root of tooth Localized gingival recession 11/01/2022 Dental abscess 11/01/2022 Venous insufficiency 10/24/2022 Assessment & Plan (03/13/2023 9:22 PM EDT): - Following with [facility] cardiology, last seen on 02/02/23. - 10/05/22 Venous study, results showed: right GSV and SSV incompetent, left GSV incompetent, left SSV competent - Elevated legs, DASH diet - Follow-up with Vascular Specialist Assessment & Plan (10/27/2022 10:32 AM EDT): - Following with [facility] cardiology on 09/28/22. 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 - Received steroid injection on 08/01/22. - Referred to PT. - Compress, elevation and heat - will Rx topical NSAID cream and Knee brace, per patient request Anxiety and depression 07/31/2022 Assessment & Plan (07/31/2022 12:36 PM EST): -Previously tried sertraline and hydroxyzine, but she self-discontinued -Seen by [facility] clinician in Apr 2019, Dx adjustment d/o [...] Plan (07/30/2024 2:54 PM EST): -followed by [facility] GI, last seen on 08/16/23 - s/p EGD 02/02/22, nml - previously prescribed pantoprazole, pt is no longer taking. Instead, pt is using baking soda - Pt was Rx Reglan but discontinued d/t side-effects Assessment & Plan (04/08/2024 11:53 AM EDT): -followed by [facility] GI, last seen on 08/16/23 - s/p EGD 02/02/22, nml - previously prescribed pantoprazole, pt is no longer taking. Instead, pt is using baking soda - Pt was Rx Reglan but discontinued d/t side-effects Assessment & Plan (11/19/2023 11:32 AM EDT): -followed by [facility] GI, last seen on 08/16/23 - s/p EGD 02/02/22, nml - previously prescribed pantoprazole, pt is no longer taking. Instead, pt is using baking soda - Pt was Rx Reglan but discontinued d/t side-effects Assessment & Plan (08/25/2023 7:07 AM EST): -followed by [facility] GI, last seen on 08/16/23 - s/p EGD 02/02/22, nml - previously prescribed pantoprazole, pt is no longer taking. Instead, pt is using baking soda - Pt was Rx Reglan but discontinued d/t side-effects Assessment & Plan (02/27/2023 10:59 AM EDT): -followed by [facility], last seen in May 2022 -s/p EGD 02/02/22, nml - previously prescribed pantoprazole, pt is no longer taking. Instead, pt is using baking soda -Pt was Rx Reglan but discontinued d/t side-effects Assessment & Plan (10/27/2022 10:33 AM EDT): -followed by [facility], last seen in May 2022 -s/p EGD 02/02/22, nml - continue pantoprazole as prescribed -Pt was Rx Reglan but discontinued d/t side-effects Assessment & Plan (08/05/2022 6:36 PM EST): -followed by [facility], last seen in May 2022 -s/p EGD [...] sacral colpopexy, midurethral sling, cystoscopy by Dr. Mcakenzie for ureterovaginal prolapse, cystocele, rectocele. -12/14/21 Stress [...] Plan (10/27/2022 10:33 AM EDT): Followed by UroGYN for mixed urinary incontinence. -s/p; 11/03/21 Vaginal [...] Plan (08/05/2022 6:43 PM EST): Followed by UroGYN for mixed urinary incontinence. -s/p; 11/03/21 Vaginal [...] ACC/AHA guideline. -BP elevated today. -Comanaged with polysom tech and PharmD. -Encouraged to work on life [...] ACC/AHA guideline. -BP elevated today. -Comanaged with polysom tech and PharmD. -Encouraged to work on life [...] Patient attributes it to anxiety. -Comanaged with polysom tech and PharmD. -Encouraged to work on life [...] Patient attributes it to anxiety. -Comanaged with polysom tech and PharmD. -Encouraged to work on life [...] pt received steroid injection recently -Comanaged with polysom tech and PharmD. -Encouraged to work on life [...] pt received steroid injection recently -Comanaged with polysom tech and PharmD. -Encouraged to work on life [...] Encounters Date Type Department Care Team Description 09/12/2024 10:00 AM EDT Office Visit [facility] [address] [place] [phone] Chapis Rooney Dental calculus; Generalized gingival recession, moderate; Missing teeth, acquired 09/05/2024 Refill [facility] [address] [place] [phone] Chery Baird MD Essential hypertension 08/07/2024 10:20 AM EST Office Visit [facility] [address] [place] [phone] Breanna Craven MD Acute cystitis without hematuria (Primary Dx); Hyperuricemia; Dysuria 08/06/2024 Telephone [facility] [address] [place] [address] [phone] Ebony Blanchard MD 08/06/2024 Telephone [facility] [address] [place] [phone] Ebony Blanchard MD Nurse Triage 08/06/2024 Refill [facility] [address] [place] [address] [phone] Ebony Blanchard MD Vertigo; Pain 07/30/2024 10:15 AM EST Office Visit [facility] [address] [place] [address] Ebony Blanchard MD Hypertension, unspecified type (Primary Dx); Bradycardia; Mixed stress and urge urinary incontinence; Impaired fasting glucose; Hyperuricemia; Gastroesophageal reflux disease, unspecified whether esophagitis present; Functional dyspepsia; Bilateral carpal tunnel syndrome; Dietary counseling; Exercise counseling; Class 2 severe obesity due to excess calories with serious comorbidity and body mass index (BMI) of 36.0 to 36.9 in adult ([facility] [facility]/[facility]) 07/30/2024 Travel 07/24/2024 Telephone [facility] [address] [place], [place] [phone] Reyna Wagner MA chart prep 07/23/2024 Travel 06/27/2024 Refill [facility] [address] [place] [address] Ebony Blanchard MD Psychophysiological insomnia from Last 3 Months Immunizations Name Administration [...] Sign Reading Time Taken Comments Blood Pressure 144/78 09/12/2024 9:47 AM EDT Pulse 84 08/07/2024 10:06 AM EST Temperature [...] Description 10/13/2024 8:00 AM EDT Office Visit [facility] [address] [place] [address] Clint Pérez, BARRY [address] [place] [address] 03/19/2025 1:00 PM EDT Office Visit [facility] [address] [place] [phone] Chapis Rooney [address] [place] [address] Health Maintenance Due Date Last Done Comments CT Colonography 1960 FIT DNA/Cologuard 1960 FIT 1960 FOBT 1960 Sigmoidoscopy 1960 Pneumococcal Vaccine: 50+ Years (1 of 1 - PCV) 2012 COVID-19 Vaccine ( season) 2024 07/18/2021, 11/12/2020, 10/22/2020 Pap Smear 05/02/2024 05/02/2021 SDOH Screening 11/18/2024 11/19/2023 Dental Oral Exam 03/16/2025 09/12/2024, , 08/09/2023, Additional history exists Dental Prophylaxis 03/16/2025 09/12/2024, 0 03/13/2024, 08/07/2023, Additional history exists Alcohol/Substance Use Screening 04/08/2025 04/08/2024 Colonoscopy 06/06/2025 06/06/2020, 05/19/2020 Colorectal Cancer Screening 06/06/2025 Diabetes: Hemoglobin A1C 07/28/2025 025, 02/22/2023, 04/07/2022, Additional history exists Depression Screening 07/30/2025 07/30/2024, 07/30/19 Tobacco Screening 09/12/2025 09/12/2024 Dental X-Ray: Bitewings 09/13/2025 09/13/19 25, 04/17/2024, 08/07/2023, Additional history exists Dental X-Ray: Full Mouth 11/02/2025 023, 01/15/2019, [...] Blood Pressure 144/78(2024 9:47 AM EDT) [place], PharmD Note: Per JNC-8 Age 62 with no history of DM or CKD Procedures Procedure Name Priority Date/Time Associated Diagnosis Comments PERIODIC ORAL EVALUATION - ESTABLISHED PATIENT Routine 09/12/2024 10:00 AM EDT 24,25 INTRAORAL - PERIAPICAL EACH ADDITIONAL RADIOGRAPHIC IMAGE Routine 09/12/2024 10:00 AM EDT Dental calculus Generalized gingival recession, moderate Missing teeth, acquired CASE PRESENTATION, DETAILED AND EXTENSIVE TREATMENT PLANNING Routine 09/12/2024 10:00 AM EDT Dental calculus Generalized gingival recession, moderate Missing teeth, acquired ORAL HYGIENE INSTRUCTIONS Routine 09/12/2024 10:00 AM EDT Dental calculus Generalized gingival recession, moderate Missing teeth, acquired TOPICAL APPLICATION OF FLUORIDE VARNISH Routine 09/12/2024 10:00 AM EDT Dental calculus Generalized gingival recession, moderate Missing teeth, acquired PROPHYLAXIS - ADULT Routine 09/12/2024 1 0:00 AM EDT Dental calculus Generalized gingival recession, moderate Missing teeth, acquired 9,10 INTRAORAL - PERIAPICAL EACH ADDITIONAL RADIOGRAPHIC IMAGE Routine 09/12/2024 10:00 AM EDT Dental calculus Generalized gingival recession, moderate Missing teeth, acquired 7,8 INTRAORAL - PERIAPICAL FIRST RADIOGRAPHIC IMAGE Routine 09/12/2024 10:00 AM EDT Dental calculus Generalized gingival recession, moderate Missing teeth, acquired BITEWINGS - 4 RADIOGRAPHIC IMAGES Routine 09/12/2024 10:00 AM EDT Dental calculus POCT URINALYSIS DIPSTICK Routine 08/07/2024 10:13 AM [...] 8 :21 AM EST Hypertension, unspecified type BI MAMMOGRAM SCREENING TOMOSYNTHESIS BILATERAL Routine 03/14/2024 10:10 AM EDT INTRAORAL - COMPLETE SERIES OF RADIOGRAPHIC IMAGES [...] procedure / Unknown 08/07/2024 08/07/2024 Comment:UACC Narrative [facility] - 08/09/2024 12:50 PM EST Urine Culture Report Result Urine Culture 50,000 to 100,000 cfu/ml Urine Culture Mixed bacterial tomasz characteristic of Urine Culture urogenital contamination. Specimen Source: Urine clean catch us Breanna Craven MD LAB MICROBIOLOGY - GENER AL ORDERABLES Final Result Performing Organization Address City/[facility] Co de Phone Number [facility] [address] [place] [phone] * Vitamin D, 25-Hydroxy, Total, Immunoassay (07/28/2024 8:21 AM EST) Vitamin D 25-OH Total 51.1 >30 ng/mL [facility] Comment:Health Based Referen ce Values*< 20 ng/mL [id number] ng/mL Insufficient> 30 ng/mL Sufficient*Samuel NGUYEN. N [...] ORDERABLES Final Resul t Performing Organization Address [facility] Co de Phone Number [facility] [address] [place] [phone] * TSH with Reflex to Free T4 (07/28/2024 8:21 AM EST) TSH reflex Free T4 2.22 0.32 - 4.0 uIU/mL [facility] Blood 07/28/2024 8:21 AM EST 07/28/2024 11:01 AM EST Ebony Blanchard MD LAB BLOOD ORDERABLES Final Resul t Performing Organization Address [facility] Co de Phone Number [facility] [address] [place] [address] [phone] * Lipid Panel with Reflex to Direct LDL (07/28/2024 8:21 AM EST) Triglycerides 125 <150 mg/dL [facility] Comment:Desirable Triglyceri de: less than 150 mg/dLBorderline High Triglyceride 150-199 mg/dLHigh Triglyceride: 200-499 mg/dLVery High Triglyceride: greater than or equal to 5OO mg/dL Cholesterol 160 <200 mg/dL [facility] Comment:Desirable Cholestero l: less than 200 mg/dLBorderline High Cholesterol: 200-239 mg/dLHigh Cholesterol: greater than 239 mg/dL LDL Cholesterol Calculated 82 <100 mg/dL [facility] Comment:Desirable LDL: less than 100 mg/dLNear Optimal/Above Optimal LDL: 110- 129 mg/dLBorderline High LDL: 130-159 mg/dLHigh LDL: 160-189 mg/dLVery High LDL: greater than or equal to 190 mg/dL HDL Cholesterol 53 >40 mg/dL [facility] Comment:Desirable HDL: great er than 40 mg/dL Note: This HDL assay may give artificially low results in patients with liver disease. Blood 07/28/2024 8:21 AM EST 07/28/2024 11:01 AM EST Ebony Blanchard MD LAB BLOOD ORDERABLES Final Resul t Performing Organization Address City/[facility]/ZIP Co de Phone Number [facility] [address] [place] [address] [phone] * (ABNORMAL) Uric acid (07/28/2024 8:21 AM EST) Uric Acid 6.0(H) 2.4 - 5.7 mg/dL [facility] Blood Venous blood specimen / Unknown 07/28/2024 8:21 AM EST 07/28/2024 11:01 AM EST Ebony Blanchard MD LAB BLOOD ORDERABLES Final Resul t Performing Organization Address [facility] Co de Phone Number [facility] [address] [place] [address] [phone] * Hemoglobin A1c (07/28/2024 8:21 AM EST) Hemoglobin A1c 5.7 <6.0 % [facility] Comment:Hemoglobin A1C Refer ence Range Adults: 4.8 - 6.0 % Non diabetic: < 6.0 % Goal: < 7.0 %Additional Action Suggested: > 8.0 %Note: Hemoglobin A1c results are invalid for patients with abnormal amounts of HbF. Blood transfusions may impact the HbA1c concentration in the patient sample. Estimated Average Glucose 117 mg/dL [facility] Comment:eAG = Estimated ave rage glucose which is %A1C expressed asaverage glucose, using the formula of the D4O-KfvswcjFkjwzcv Glucose study (ADAG), Diabetes Care, Vol.31,#8,Jan. 2007 Blood Venous blood specimen / Unknown 07/28/2024 8:21 AM EST 07/28/2024 11:01 AM EST Ebony Blanchard MD LAB BLOOD ORDERABLES Final Resul t Performing Organization Address [facility]/ZIP Co de Phone Number [facility] [address] [place] [address] [phone] * (ABNORMAL) Comprehensive Metabolic Panel (07/28/2024 8:21 AM EST) Sodium 144 135 - 145 mmol/L [facility] Potassium 4.8 3.3 - 5.1 mmol/L [facility] Chloride 112(H) 96 - 108 mmol/L [facility] Carbon Dioxide 28 22 - 29 mmol/L [facility] Anion Gap 9(L) 12 - 20 [facility] Urea Nitrogen (BUN) 10 9 - 16 mg/dL [facility] Creatinine, Serum 0.78 0.5 - 1.4 mg/dL [facility] Estimated Glomerular Filt Rate >60 [facility] Comment:Chronic Kidney Disea se: Estimated GFR < 60 mL/min/1.89v8Wexsfg Kidney Disease: Estimated GFR < 15 mL/min/1.73m2 Glucose 112 60 - 115 mg/dL [facility] Calcium 8.8 8.4 - 10.2 mg/dL [facility] Bilirubin, Total 0.5 0.0 - 1.0 mg/dL [facility] Aspartate Amino Transferase 20 5 - 31 U/L [facility] Alanine Aminotransferase 17 0 - 31 U/L [facility] Total Protein 7.1 6.5 - 8.0 g/dL [facility] Albumin Level 4.0 3.5 - 5.0 g/dL [facility] Alkaline Phosphatase 72 39 - 117 U/L [facility] Blood Venous blood specimen / Unknown 07/28/2024 8:21 AM EST 07/28/2024 11:01 AM EST us Ebony Blanchard MD LAB BLOOD ORDERABLES Final Resul t [facility] [address] [place], [place] [phone] * BI Mammogram Screening Tomosynthesis Bilateral (03/14/2024 10:10 AM EDT) Anatomical Region Laterality Modality Breast Bilateral Mammography 03/14/2024 10:1 0 AM EDT Narrative 03/26/2024 9:27 AM EDT ? [facility] ? [address] ?[place] [address] ? Mammography Report ? Signed ? Patient: Alicia Gerard,Herminia ?MR#: [id number] ?? [id number] ? : 1960 ?Acct:[id number] ? Age/Sex: 63 / F ?ADM Date: 09/27/24 ? Loc: HO.MAMMO ? Attending Dr: Ebony Blanchard MD ? Ordering Physician: Ebony Blanchard MD ?Results: 1Negative ? Date of Service: 03/14/24 ?Follow Up: 1 Year From Orig ?? inal Mammogram ? Procedure(s): MM tomosynthesis screening BI ?? Accession Number(s): [id number] ? cc: Ebony Blanchard MD ? EXAMINATION: [...] their next mammogram. ? Electronically signed by: ??Lroi Snider DO ??03/26/2024 09:24 AM EDT ?? RP ? Dictated By: ?Lori Snider DO ? Signed By: ?<Electronically signed by Lori Snider, DO in OV> ? 03/26/24 0924 ? DD/ 1010 ? TD/TT: 03/14/24 1030 ? Certified Caregiver: ? Procedure Note Donotuseinterpreter, Image - [facility] [address] [place] [address] Mammography Report Signed Patient: Olivia Yu MMR#: [id number] : 2Acct:[id number] Age/Sex: 63 / FADM Date: 03/14/24 Loc: ROSA.MAMMO Attending Dr: Ebony Blanchard MD Ordering Physician: Ebony Blanchard MDResults: 1Negative Date of Service: 03/14/24Follow Up: 1 Year From Orig inal Mammogram Procedure(s): MM tomosynthesis screening BI Accession Number(s): [id number] cc: Ebony Blanchard MD EXAMINATION: MM SCREENING [...] 03/26/24 0924 DD/ 1010 TD/TT: 03/14/24 1030 Certified Caregiver: Ebony Blanchard MD IM BI PROCEDURES Final Result * THINPREP TIS PAP AND HPV mRNA E6/E7 REFLEX HPV 16,18/45 (05/02/2021 4:14 PM EST) Clinical Information: None given [facility] COMMENT SEE COMMENT [facility] [...] has been evaluated with computer assisted technology. [facility] Campus Executive Director: SEE COMMENT [facility] Comment: BK,CT(ASCP) CT screening location: [address] HPV nRNA E6/E7 Not Detected Not Detected [facility] Comment: Methodology: Cardiac Cath Technologist-Mediated Amplification This assay detects E6/E7 viral messenger RNA (mRNA) from 14 high-risk HPV types (16,18,31,33,35,39,45,51,52,56,58,59,66,68). ? The analytical performance characteristics of this assay have been determined by [employer] The modifications have not been cleared or approved by the FDA. This assay has been validated pursuant to the CLIA regulations and is used for clinical purposes. ?? For additional information, please refer to http://education.AlterPoint/faq/PBT592r0 (This link if provided for information/ educational purposes only.) Interpretation/Res ult: SEE COMMENT [facility] Comment: Negative for intraepithelial lesion or malignancy. Atrophic pattern; predominantly parabasal cells LMP: NONE GIVEN [facility] Prev. BX: NONE [facility]IV[facility] Prev. PAP: NONE [facility]IVEN [facility] SOURCE: None given [facility] Statement Of Adequacy: SATISFACTORY FOR EVALUATION [facility] 05/02/2021 4:14 PM EST Ebony Blanchard MD LAB PATHOLOGY ORDERABLES Final R esult [facility] [address] [place] [address], * Colonoscopy (06/06/2020 3:36 PM EST) Colonoscopy Normal Normal Comment:colonoscopy in 5 yrs due to left side prep Historical Provider HEALTH MAINTENANCE Final Result from Last 3 Months or Most Recently Relevant to Health Maintenance Insurance [facility] - [facility] - [facility] Care Teams Wool Spotter Relationship Specialty Start Date End Date Ebony Blanchard MD [address] [place] [phone] PCP - General Family Medicine 06/18/18
--- OUTSIDE RECORDS SUMMARY | 2024-09-23 18:07 | XMS_ITS | Encounter Summary ---
Author Organization [employer] Address [address] [place] [address] Care Team Providers Care Tenter Feeder Name Role Phone Ebony Blanchard MD Primary Care Provider [phone] Reason for Visit * Reason Comments Med Refill Encounter Details Date Type Department Care Team ([facility] st Contact Info) Description 04/30/2024 Refill [facility] [address] [place], [place] [phone] Ebony Blanchard MD [address] [place], [place] [phone] Psychophysiological insomnia Social History Tobacco Use Types [...] the past 12 months, has t he [employer], gas, oil or water company threatened to [...] Description 10/13/2024 8:00 AM EDT Office Visit [facility] [address] [place] [address] Clint Pérez DMD [address] [place] [address] 03/19/2025 1:00 PM EDT Office Visit [facility] [address] [place] [address] Nvein Chapis [address] [place] [address] documented as of this encounter Goals Goal [...] documented as of this encounter Care Teams Tenter Feeder Relationship Specialty Start Date End Date Ebony Blanchard MD [address] [place] [address] PCP - General Family Medicine 06/18/18 documented as of this encounter
--- OUTSIDE RECORDS SUMMARY | 2024-09-23 18:07 | XMS_ITS | Encounter Summary ---
Author Organization [employer] Address [address] [facility] 7t [place] [address] Care Team Providers Care Lithographic Press Operator Apprentice Name Role Phone Ebony Blanchard MD Primary Care Provider [phone] El Gilman PharmD Unavailable [phone] Reason for Visit * Reason Onset Date Comments Med Refill 02/11/2024 Encounter Details Date Type Department Care Team (Late st Contact Info) Description 02/11/2024 Refill [facility] MEDICINE [address] [place], [place] [phone] Olivia Babcock MD 230 [place], [place] [phone] Essential hypertension Social History Tobacco Use Types [...] Description 10/13/2024 8:00 AM EDT Office Visit [facility] ADULT DENTAL [address] [place] [address] Clint Pérez, DMD [address] [place] [address] 03/19/2025 1:00 PM EDT Office Visit [facility] ADULT DENTAL [address] [place] [address] Nevin, Chapis [address] [place] [address] documented as of this encounter Goals Goal Patient Goal Type Associated Problems Recent Progress Patient-Stated? Author Blood Pressure < 150/90 Blood Pressure 144/78(2024 9:47 AM EDT) No El Gilman, RajeshD Note: Per JNC-8 Age 62 with no history of DM or CKD documented as of this encounter Visit Diagnoses Diagnosis Essential hypertension Unspecified essential hypertension documented in this encounter Additional Health Concerns Assessment Noted Time PHQ-9 Depression Total Score: 0 08/23/19 24 10:50 AM EST documented as of this encounter Care Teams Lithographic Press Operator Apprentice Relationship Specialty Start Date End Date Ebony Blanchard MD [address] [place] [address] PCP - General Family Medicine 06/18/18 El Gilman, RajeshD [address] [place] [address] Pharmacist Internal Medicine 08/21/22 04/27/24 documented as of this encounter
--- OUTSIDE RECORDS SUMMARY | 2024-09-23 18:07 | XMS_ITS | Encounter Summary ---
Author Organization [employer] Address [address] [facility] [address] 7t [place] [address] Care Team Providers Care Supervising Editor News Reel Name Role Phone Ebony Blanchard MD Primary Care Provider El Gilman PharmD Unavailable [phone] Reason for Visit * Reason Comments Med Refill Encounter Details Date Type Department Care Team (Late st Contact Info) Description 03/25/2023 Refill [facility] MEDICINE [address] [place], [place] [phone] Ebony Blanchard MD 230 [place], [place] [phone] Social History Tobacco Use Types Packs/Day Years [...] Description 10/13/2024 8:00 AM EDT Office Visit [facility] ADULT DENTAL [address] [place] [address] Clint Pérez DMD 230 [place] [address] 03/19/2025 1:00 PM EDT Office Visit [facility] ADULT DENTAL [address] [place] [address] Nevin, Chapis 230 [place] [address] documented as of this encounter Goals Goal [...] documented as of this encounter Care Teams Supervising Editor News Reel Relationship Specialty Start Date End Date Ebony Blanchard MD [address] [place] [address] PCP - General Family Medicine 06/18/18 El Gilman, PharmD [address] [place] [address] Pharmacist Internal Medicine 08/21/22 04/27/24 documented as of this encounter
--- OUTSIDE RECORDS SUMMARY | 2024-09-23 18:07 | XMS_ITS | Encounter Summary ---
Author Organization [employer] Address [address] [facility] 7t [place] [address] Care Team Providers Care Soft Work Cigar Machine Operator Name Role Phone Ebony Blanchard MD Primary Care Provider [phone] El Gilman PharmD Unavailable [phone] Reason for Visit * Reason Comments Med Refill Encounter Details Date Type Department Care Team (Late st Contact Info) Description 12/20/2023 Refill [facility] MEDICINE [address] [place], [place] [phone] Ebony Blanchard MD 230 [place], [place] [phone] Essential hypertension Social History Tobacco Use Types [...] Description 10/13/2024 8:00 AM EDT Office Visit [facility] ADULT DENTAL [address] [place] [address] Clint Pérez, DMD [address] [place] [address] 03/19/2025 1:00 PM EDT Office Visit [facility] ADULT DENTAL [address] [place] [address] Hugo Rooneyaris [address] [place] [address] documented as of this encounter Goals Goal Patient Goal Type Associated Problems Recent Progress Patient-Stated? Author Blood Pressure < 150/90 Blood Pressure 144/78(2024 9:47 AM EDT) El [place], RajeshD Note: Per JNC-8 Age 62 with no history of DM or CKD documented as of this encounter Visit Diagnoses Diagnosis Essential hypertension Unspecified essential hypertension documented in this encounter Additional Health Concerns Assessment Noted Time PHQ-9 Depression Total Score: 0 08/23/19 24 10:50 AM EST documented as of this encounter Care Teams Soft Work Cigar Machine Operator Relationship Specialty Start Date End Date Ebony Blanchard MD 230 [place] [address] PCP - General Family Medicine 06/18/18 El Gilman, RajeshD [address] [place] [address] Pharmacist Internal Medicine 08/21/22 04/27/24 documented as of this encounter
--- OUTSIDE RECORDS SUMMARY | 2024-09-23 18:07 | XMS_ITS | Encounter Summary ---
Author Organization [employer] Address [address] [facility] [address] 7[address] [place] [address] Care Team Providers Care Production Planner Name Role Phone Ebony Blanchard MD Primary Care Provider [phone] El Gilman PharmD Unavailable [phone] Encounter Details Date Type Department Care Team (Latest Contact Info) Description 01/06/2022 Abstract [facility] CONVERSIONS Dental, Provider, DDS Social History [...] Care Team ( st Contact Info) Description 10/13/2024 8:00 AM EDT Office Visit [facility] ADULT DENTAL 230 [place] [address] Clint Pérez, BARRY [address] [place] [address] 03/19/2025 1:00 PM EDT Office Visit [facility] ADULT DENTAL [address] [place] [address] Chapis Rooney [address] [place] [address] documented as of this encounter Visit Diagnoses Not on filedocumented in this encounter Care Teams Production Planner Relationship Specialty Start Date End Date Ebony Blanchard MD 230 [place] [address] PCP - General Family Medicine 06/18/18 El Gilman, RajeshD 230 [place] [address] Pharmacist Internal Medicine 08/21/22 04/27/24 documented as of this encounter
--- OUTSIDE RECORDS SUMMARY | 2024-09-23 18:07 | XMS_ITS | Encounter Summary ---
Author Organization [employer] Address [address] 7t [place] [address] Care Team Providers Care Leasing Agent Name Role Phone Ebony Blanchard MD Primary Care Provider [phone] El Gilman PharmD Unavailable [phone] Encounter Details Date Type Department Care Team (Latest Contact Info) Description 09/08/2020 Abstract [facility] CONVERSIONS Dental, Provider, DDS Social History [...] Description 10/13/2024 8:00 AM EDT Office Visit [facility] ADULT DENTAL 230 [place] [address] Clint Pérez, BARRY 230 [place] [address] 03/19/2025 1:00 PM EDT Office Visit [facility] ADULT DENTAL [address] [place] [address] Chapis Rooney 230 [place] [address] documented as of this encounter Visit Diagnoses Not on filedocumented in this encounter Care Teams Leasing Agent Relationship Specialty Start Date End Date Ebony Blanchard MD 230 [place] [address] PCP - General Family Medicine 06/18/18 El Gilman, RajeshD 230 [place] [address] Pharmacist Internal Medicine 08/21/22 04/27/24 documented as of this encounter
--- OUTSIDE RECORDS SUMMARY | 2024-09-23 18:07 | XMS_ITS | Encounter Summary ---
Author Organization [employer] Address [address] [facility] [facility] [facility] [address] 7t [place] [address] Care Team Providers Care Road Freight Brake Coupler Name Role Phone Ebony Blanchard MD Primary Care Provider [phone] El Gilman PharmD Unavailable [phone] Encounter Details Date Type Department Care Team (Latest Contact Info) Description 10/09/2018 Abstract [facility] CONVERSIONS Dental, Provider, DDS Social History [...] Description 10/13/2024 8:00 AM EDT Office Visit [facility] ADULT DENTAL [address] [place] [address] Clint Pérez, BARRY 230 [place] [address] 03/19/2025 1:00 PM EDT Office Visit [facility] ADULT DENTAL 230 [place] [address] Chapis Rooney 230 [place] [address] documented as of this encounter Visit Diagnoses Not on filedocumented in this encounter Care Teams Road Freight Brake Coupler Relationship Specialty Start Date End Date Ebony Blanchard MD 230 [place], [place] [phone] PCP - General Family Medicine 06/18/18 El Gilman, RajeshD 230 [place] [address] Pharmacist Internal Medicine 08/21/22 04/27/24 documented as of this encounter
--- OUTSIDE RECORDS SUMMARY | 2024-09-23 18:07 | XMS_ITS | Encounter Summary ---
Author Organization [employer] Address [address] [facility] 7t [place] [address] Care Team Providers Care County Attorney Name Role Phone Ebony Blanchard MD Primary Care Provider [phone] El Gilman PharmD Unavailable [phone] Reason for Visit * Reason Comments Med Refill Encounter Details Date Type Department Care Team (Late st Contact Info) Description 09/21/2023 Refill [facility] MEDICINE 230 [place], [place] [phone] Olivia Babcock MD 230 [place], [place] [phone] Essential hypertension Social History Tobacco Use Types [...] Description 10/13/2024 8:00 AM EDT Office Visit [facility] ADULT DENTAL [address] [place] [address] Clint Pérez, DMD [address] [place] [address] 03/19/2025 1:00 PM EDT Office Visit [facility] ADULT DENTAL [address] [place] [address] Nevin, Chapis [address] [place] [address] documented as of this encounter Goals Goal [...] documented as of this encounter Care Teams County Attorney Relationship Specialty Start Date End Date Ebony Blanchard MD 230 [place] [address] PCP - General Family Medicine 06/18/18 El Gilman, RajeshD 230 [place] [address] Pharmacist Internal Medicine 08/21/22 04/27/24 documented as of this encounter
--- OUTSIDE RECORDS SUMMARY | 2024-09-23 18:07 | XMS_ITS | Clinical Summary ---
Author Organization [employer] [facility] ity Address [address] [place] [address] Care Team Providers Care Cold Water Machine Operator Name Role Phone Unavailable Primary Care Provider [...] 2024 Influenza Vaccine (#1) 2024 RSV Immunization Adult Patie nts (1 - 1-dose 75+ series) 2037 HIB [...] age to complete this topic Meningococcal B Vaccine Aged Out No l onger eligible based on patient's age to complete [...]
--- OUTSIDE RECORDS SUMMARY | 2024-09-23 18:07 | XMS_ITS | Encounter Summary ---
Author Organization [employer] Address [address] [facility] [address] 7t [place] [address] Care Team Providers Care Senior Technical Support Analyst Name Role Phone Ebony Blanchard MD Primary Care Provider [phone] El Gilman PharmD Unavailable [phone] Reason for Visit * Reason Comments Med Refill Encounter Details Date Type Department Care Team (Late st Contact Info) Description 03/25/2023 Refill [facility] MEDICINE 230 [place], [place] [phone] Ebony Blanchard MD 230 [place], [place] [phone] Social History Tobacco Use Types Packs/Day Years [...] Description 10/13/2024 8:00 AM EDT Office Visit [facility] ADULT DENTAL 230 [place] [address] Clint Pérez DMD [address] [place] [address] 03/19/2025 1:00 PM EDT Office Visit [facility] ADULT DENTAL [address] [place] [address] Nevin, Chapis [address] [place] [address] documented as of this encounter Goals Goal [...] documented as of this encounter Care Teams Senior Technical Support Analyst Relationship Specialty Start Date End Date Ebony Blanchard MD 230 [place] [address] PCP - General Family Medicine 06/18/18 El Gilman, PharmD 230 [place] [address] Pharmacist Internal Medicine 08/21/22 04/27/24 documented as of this encounter
--- OUTSIDE RECORDS SUMMARY | 2024-09-23 18:07 | XMS_ITS | Encounter Summary ---
Author Organization [employer] Address [address] [facility] [address] [address] 7t [place] [address] Care Team Providers Care Dog Trainer Name Role Phone Ebony Blanchard MD Primary Care Provider [phone] El Gilman PharmD Unavailable [phone] Encounter Details Date Type Department Care Team ([facility] st Contact Info) Description 06/07/2023 Abstract [facility] ADULT DENTAL [address] [place], [place] [phone] KandruJesusl, DMD [address] [place], [place] [phone] Social History Tobacco Use Types Packs/Day Years [...] Description 10/13/2024 8:00 AM EDT Office Visit [facility] ADULT DENTAL 230 [place] [address] Clint Pérez DMD 230 [place] [address] 03/19/2025 1:00 PM EDT Office Visit [facility] ADULT DENTAL [address] [place] [address] Chapis Rooney 230 [place] [address] documented as of this encounter Goals Goal Patient Goal Type Associated Problems Recent Progress Patient-Stated? Author Blood Pressure < 150/90 Blood Pressure 144/78(2024 9:47 AM EDT) No El Gilman, PharmD Note: Per JNC-8 Age 62 with no history of DM or CKD documented as of this encounter Visit Diagnoses Not on filedocumented in this encounter Additional Health Concerns Assessment Noted Time PHQ-9 Depression Total Score: 0 07/31/19 23 10:25 AM EST documented as of this encounter Care Teams Dog Trainer Relationship Specialty Start Date End Date Ebony Blanchard MD 230 [place] [address] PCP - General Family Medicine 06/18/18 El Gilman, PharmD [address] [place] [address] Pharmacist Internal Medicine 08/21/22 04/27/24 documented as of this encounter
--- OUTSIDE RECORDS SUMMARY | 2024-09-23 18:07 | XMS_ITS | Encounter Summary ---
Author Organization [employer] Address [address] [facility] 7t [place] [address] Care Team Providers Care Globe Tester Name Role Phone Ebony Blanchard MD Primary Care Provider [phone] El Gilman PharmD Unavailable [phone] Reason for Referral * Consultation (Routine) - Closed Specialty Diagnoses / Procedures Referred By Contac t Referred To Contact Orthopaedic Surgery Diagnoses Chronic left shoulder pain Incomplete tear of left rotator cuff, unspecified whether traumatic Shoulder arthritis Ebony Blanchard MD [address] [place] [address] Phone: tel: fax: [facility] [address] [place] [address] [place] [address] Phone: tel: fax: Referral ID Status Reason Start Date Expiration Date V isits Requested Visits Authorized [id number] Closed Specialty Services Required 10/12/2023 10/11/2024 1 1 Encounter Details Date Type Department Care Team (Late st Contact Info) Description 10/12/2023 Orders Only [facility] MEDICINE [address] [place], [place] [phone] Ebony Blanchard MD [address] [place], [place] [phone] Chronic left shoulder pain (Primary Dx); Incomplete [...] your housing situation today? I have evangelist gertrudis 04/02/[address] you li [...] 8:00 AM EDT Office Visit [facility] ADULT DENTAL [address] [place] [address] Clint Pérez, BARRY [address] [place] [address] 03/19/2025 1:00 PM EDT Office Visit [facility] ADULT DENTAL [address] [place] [address] Chapis Rooney 230 [place] [address] Scheduled Referrals Name Type Priority Associated Diagnoses [...] Pressure 144/78(2024 9:47 AM EDT) No El Gilman PharmD Note: Per JNC-8 [...] documented as of this encounter Care Teams Globe Tester Relationship Specialty Start Date End Date Ebony Blanchard MD 230 [place] [address] PCP - General Family Medicine 06/18/18 El Gilman, Roscoe [address] [place] [address] Pharmacist Internal Medicine 08/21/22 04/27/24 documented as of this encounter
--- OUTSIDE RECORDS SUMMARY | 2024-09-23 18:07 | XMS_ITS | Encounter Summary ---
Author Organization [employer] Address [address] [facility] [address] 7[address] [place] [address] Care Team Providers Care Transit Police Officer Name Role Phone Ebony Blanchard MD Primary Care Provider [phone] Reason for Referral * Consultation (Routine) - Authorized Specialty Diagnoses / Procedures Referred By Contac t Referred To Contact Pharmacy Diagnoses Hypertension, unspecified type Ebony Blanchard MD [address] [place] [address] Phone: tel: fax: Referral ID Status Reason Start Date Expiration Date Visits Requested Visits Authorized [id number] Authorized Consult and Treat 04/29/2024 04/29/2025 6 6 Encounter Details Date Type Department Care Team ([facility] st Contact Info) Description 04/29/2024 Orders Only [facility] MEDICINE [address] [place] [phone] Ebony Blanchard MD [address] [place], [place] [phone] Hypertension, unspecified type (Primary Dx) Social History [...] Description 10/13/2024 8:00 AM EDT Office Visit [facility] ADULT DENTAL [address] [place] [address] Clint Pérez DMD [address] [place] [address] 03/19/2025 1:00 PM EDT Office Visit [facility] ADULT DENTAL [address] [place] [address] Chapis Rooney [address] [place] [address] Scheduled Referrals Name Type Priority Associated Diagnoses [...] documented as of this encounter Care Teams Transit Police Officer Relationship Specialty Start Date End Date Ebony Blanchard MD 230 [place] [address] PCP - General Family Medicine 06/18/18 documented as of this encounter
--- OUTSIDE RECORDS SUMMARY | 2024-09-23 18:07 | XMS_ITS | Encounter Summary ---
Author Organization [employer] Address [address] [facility] [facility] [address] 7t [place] [address] Care Team Providers Care Vat Tender Name Role Phone Ebony Blanchard MD Primary Care Provider [phone] El Gilman PharmD Unavailable [phone] Encounter Details Date Type Department Care Team (Late st Contact Info) Description 07/16/2023 Abstract [facility] ADULT DENTAL 230 [place], [place] [phone] Clint Pérez, DMD 230 [place], [place] [phone] Social History Tobacco Use Types Packs/Day Years [...] Description 10/13/2024 8:00 AM EDT Office Visit [facility] ADULT DENTAL [address] [place] [address] Clint Pérez DMD [address] [place] [address] 03/19/2025 1:00 PM EDT Office Visit [facility] ADULT DENTAL [address] [place] [address] Hugo Rooneyaris [address] [place] [address] documented as of this encounter Goals Goal [...] documented as of this encounter Care Teams Vat Tender Relationship Specialty Start Date End Date Ebony Blanchard MD 230 [place] [address] PCP - General Family Medicine 06/18/18 El Gilman, PharmD 230 [place] [address] Pharmacist Internal Medicine 08/21/22 04/27/24 documented as of this encounter
--- OUTSIDE RECORDS SUMMARY | 2024-09-23 18:07 | XMS_ITS | Encounter Summary ---
Author Organization [employer] Address [address] 7t [place] [address] Care Team Providers Care Frontend Engineer Name Role Phone Ebony Blanchard MD Primary Care Provider [phone] El Gilman PharmD Unavailable [phone] Reason for Visit * Reason Onset Date Comments reschedule voodoo 04/16/2023 Encounter Details Date Type Department Care Team (Late st Contact Info) Description 04/16/2023 Telephone [facility] ADULT DENTAL 230 [place], [place] [phone] Clint Pérez, BARRY [address] [place], [place] [phone] reschedule voodoo Social History Tobacco Use Types Packs/Day Years [...] AM EDT Patient would like to reschedule voodoo appt with Dr Pérez for a mid to late morning preferrablya 10am. documented in this encounter Plan of Treatment Upcoming Encounters Date Type Department Care Team (Late st Contact Info) Description 10/13/2024 8:00 AM EDT Office Visit [facility] ADULT DENTAL [address] [place] [address] Clint Pérez, BARRY 230 [place] [address] 03/19/2025 1:00 PM EDT Office Visit [facility] ADULT DENTAL [address] [place] [address] Chapis Rooney [address] [place] [address] documented as of this encounter Goals Goal [...] documented as of this encounter Care Teams Frontend Engineer Relationship Specialty Start Date End Date Ebony Blanchard MD 230 [place] [address] PCP - General Family Medicine 06/18/18 El Gilman, Roscoe [address] [place] [address] Pharmacist Internal Medicine 08/21/22 04/27/24 documented as of this encounter
--- OUTSIDE RECORDS SUMMARY | 2024-09-23 18:07 | XMS_ITS | Encounter Summary ---
Author Organization [employer] Address [address] [facility] 7t [place] [address] Care Team Providers Care Ppa Teacher Name Role Phone Ebony Blanchard MD Primary Care Provider [phone] El Gilman PharmD Unavailable [phone] Reason for Referral * Imaging (Routine) - Closed Specialty Diagnoses / Procedures Referred By Contac t Referred To Contact Radiology Diagnoses Status post bilateral breast reduction Breast pain, left Procedures BI US Breast Complete Bilateral Ebony Blanchard MD [address] [place] [address] Phone: tel: fax: [address] Phone: tel: fax: Referral ID Status Reason Start Date Expiration Date Visits Re quested Visits Authorized [id number] Closed 03/14/2023 03/13/2024 1 1 Encounter Details Date Type Department Care Team (Late st Contact Info) Description 03/14/2023 Orders Only [facility] MEDICINE 230 [place], [place] [phone] Ebony Blanchard MD 230 [place], [place] [phone] Status post bilateral breast reduction (Primary Dx); [...] Description 10/13/2024 8:00 AM EDT Office Visit [facility] ADULT DENTAL [address] [place] [address] Clint Pérez DMD [address] [place] [address] 03/19/2025 1:00 PM EDT Office Visit [facility] ADULT DENTAL [address] [place] [address] Chapis Rooney [address] [place] [address] Scheduled Orders Name Type Priority Associated Diagnoses [...] EDT Narrative 04/04/2023 3:04 PM EDT ? [facility] ? [address] ?[place] [address] ? Ultrasound Report ? Signed ? Patient: Olivia Yu ?MR#: [id number] ?? [id number] ? : 1960 ?Acct:[id number] ? Age/Sex: 63 / F ?ADM Date: 04/04/23 ? Loc: HO.MAMMO ? Attending Dr: Ebony Blanchard MD ? Ordering Physician: Ebony Blanchard MD ?? Date of Service: 04/04/23 ?? Procedure(s): US breast LT limited mamm only ?? Accession Number(s): [id number] ? cc: Ebony Blanchard MD ? EXAMINATION: [...] 1500 ? DD/ 1430 ? TD/TT: ? Motorcycle Technician: ? Procedure Note Luis Enrique, Image - 04/04/2023 [facility] [address] [place] [address] Ultrasound Report Signed Patient: Olivia Yu [facility]#: [id number] : 1960cct:[id number] Age/Sex: 63 / FADM Date: 04/04/23 Loc: JEREMY Attending Dr: Ebony Blanchard MD Ordering Physician: Ebony Blanchard MD Date of Service: 04/04/23 Procedure(s): US breast LT limited mamm only Accession Number(s): [id number] cc: Ebony Blanchard MD EXAMINATION: MM DIAGNOSTIC [...] in OV> 04/04/23 1500 DD/ 1430 TD/TT: Motorcycle Technician: us Ebony Blanchard MD IMG US PROCEDURES Final Result documented in this encounter Visit Diagnoses Diagnosis Status post bilateral breast reduction- Primary Other postprocedural status Breast pain, left documented in this encounter Additional Health Concerns Assessment Noted Time PHQ-9 Depression Total Score: 0 07/31/19 23 10:25 AM EST documented as of this encounter Care Teams Ppa Teacher Relationship Specialty Start Date End Date Ebony Blanchard MD [address] [place] [address] PCP - General Family Medicine 06/18/18 El Gilman, RajeshD [address] [place] [address] Pharmacist Internal Medicine 08/21/22 04/27/24 documented as of this encounter
--- OUTSIDE RECORDS SUMMARY | 2024-09-23 18:07 | XMS_ITS | Encounter Summary ---
Author Organization [employer] Address [address] [facility] 7t [place] [address] Care Team Providers Care Counter Top Maker Name Role Phone Ebony Blanchard MD Primary Care Provider [phone] El Gilman PharmD Unavailable [phone] Reason for Visit * Reason Comments Med Refill Encounter Details Date Type Department Care Team ([facility] st Contact Info) Description 03/19/2024 Refill [facility] [address] [place], [place] [phone] Olivia Babcock MD [address] [place], [place] [phone] Essential hypertension Social History Tobacco Use Types [...] Description 10/13/2024 8:00 AM EDT Office Visit [facility] [address] [place] [address] Clint Pérez, DMD [address] [place] [address] 03/19/2025 1:00 PM EDT Office Visit [facility] [address] [place] [address] Nevin, Chapis [address] [place] [address] documented as of this encounter Goals Goal [...] documented as of this encounter Care Teams Counter Top Maker Relationship Specialty Start Date End Date Ebony Blanchard MD [address] [place] [address] PCP - General Family Medicine 06/18/18 El Gilman, RajeshD [address] [place] [address] Pharmacist Internal Medicine 08/21/22 04/27/24 documented as of this encounter
--- OUTSIDE RECORDS SUMMARY | 2024-09-23 18:07 | XMS_ITS | Encounter Summary ---
Author Organization [employer] Address [address] [facility] [address] 7[address] [place] [address] Care Team Providers Care Instructor Modeling Name Role Phone Ebony Blanchard MD Primary Care Provider [phone] El Gilman PharmD Unavailable [phone] Encounter Details Date Type Department Care Team (Late st Contact Info) Description 03/30/2023 Abstract [facility] ADULT DENT[facility] [address] [place], [place] [phone] Julian Bazan DDS [address] [place], [place] [phone] Social History Tobacco Use Types Packs/Day Years [...] Description 10/13/2024 8:00 AM EDT Office Visit [facility] [address] [place] [address] Clint Pérez DMD [address] [place] [address] 03/19/2025 1:00 PM EDT Office Visit [facility] [address] [place] [address] Chapis Rooney [address] [place] [address] documented as of this encounter Goals Goal [...] documented as of this encounter Care Teams Instructor Modeling Relationship Specialty Start Date End Date Ebony Blanchard MD [address] [place] [address] PCP - General Family Medicine 06/18/18 El Gilman, PharmD [address] [place] [address] Pharmacist Internal Medicine 08/21/22 04/27/24 documented as of this encounter
--- OUTSIDE RECORDS SUMMARY | 2024-09-23 18:07 | XMS_ITS | Encounter Summary ---
Author Organization [employer] Address [address] [facility] [address] [place] [address] Care Team Providers Care Linemarker Name Role Phone Ebony Blanchard MD Primary Care Provider [phone] El Gilman PharmD Unavailable Encounter Details Date Type Department Care Team ([facility] st Contact Info) Description 06/07/2023 Abstract [facility] ADULT DENT[facility] [address] [place], [place] [phone] Clint Pérez, DMD [address] [place], [place] [phone] Social History Tobacco Use Types Packs/Day Years [...] Office Visit [facility]ULT [facility] [address] [place] [address] Clint Pérez DMD [address] [place] [address] 03/19/2025 1:00 PM EDT Office Visit [facility]ULT [facility] [address] [place] [address] Hugo Rooneyaris [address] [place] [address] documented as of this encounter Goals Goal [...] documented as of this encounter Care Teams Linemarker Relationship Specialty Start Date End Date Ebony Blanchard MD [address] [place] [address] PCP - General Family Medicine 06/18/18 El Gilman, PharmD [address] [place] [address] Pharmacist Internal Medicine 08/21/22 04/27/24 documented as of this encounter
[2024-10-14 14:44] VITALS: BMI 35.5
--- NOTE | 2024-10-15 09:41 | P.CONAN_ITS ---
Documented by User: Ailyn Penny NP 10/15/24 09:41 HPI - Anesthesia Eval Consult details Narrative: 64yo F for Upper Endoscopy and Colonoscopy PMFSH Active Problems Active Problems: All Active Problems Effusion, right knee (Acute) Hemorrhagic gastritis (Acute) Delayed gastric emptying (Acute) Constipation (Acute) Nausea (Acute) Abdominal pain (Acute) Abnormal weight loss (Acute) GERD (gastroesophageal reflux disease) (Acute) Abdominal bloating (Acute) Epigastric pain (Acute) Tubular adenoma of colon (Acute) Past Medical History Medical History GERD (gastroesophageal reflux disease) HTN (hypertension) Family History Family History Father Heart failure Diabetes Mother Heart failure Diabetes AD (Alzheimer's disease) Brother Pancreatic cancer Family history of problems with anesthesia: No Surgical History Surgical History Hx of reduction mammoplasty Hx of tubal ligation History of esophagogastroduodenoscopy (EGD) H/O colonoscopy History of Problems with Anesthesia: No Social History Social History Are you a primary hospice spiritual care coordinator to a significant other at home: No Do you presently have visiting nurse or other home services: No Alcohol intake: current Alcohol intake frequency: does not drink Patient Tobacco Use Status: Former Tobacco user Have you been hit, kicked, punched, or otherwise hurt by someone within the past year? If so, by whom?: No Are you DNR?: No Advance Directives: No Advance Directives Information Provided: Yes Poor oral hygiene: No Meds Allergies Allergy/AdvReac Type Severity Reaction Status Date / Time metoclopramide AdvReac Severe Hypertensio Verified 10/16/24 07:31 n lisinopril [LISINOPRIL] AdvReac Mild COUGH, dry Verified 10/16/24 07:31 cough Home Medications ?Medication ?Instructions ?Recorded ?Confirmed ?Last Taken ?Type atenolol 25 mg tablet 25 mg PO DAILY 05/11/20 10/16/24 10/16/24 History cholecalciferol (vitamin D3) 25 25 mcg PO DAILY 05/11/20 10/16/24 Unknown History mcg (1,000 unit) capsule (Vitamin D3) zolpidem 5 mg tablet 5 mg PO BEDTIME 05/11/20 10/16/24 Unknown History meclizine 25 mg tablet 25 mg PO DAILY PRN vertigo 04/14/21 10/16/24 Unknown History lidocaine 5 % topical patch 1 patch topical DAILY 02/16/22 10/16/24 Unknown History (Lidoderm) magnesium citrate 100 mg capsule 100 mg PO DAILY 12/07/22 10/16/24 Unknown History vitamin B complex (B 1 tab PO DAILY 12/07/22 10/16/24 Unknown History Complex-Vitamin B12 tablet) furosemide 40 mg tablet 40 mg PO DAILY 08/16/23 10/16/24 Unknown History ibuprofen 800 mg tablet 800 mg PO DAILY PRN Pain (Scale 02/14/24 10/16/24 Unknown History Score 1-3) Exam Height,Weight and Vital Signs: Height 5 ft 2 in Weight 87.997 kg Assessment and Plan Assessment Anesthesia Assessment: Chart Reviewed Final Anesthetic Review Family History of Problems with Anesthesia: No History of Problems with Anesthesia: No Documented by User: Radhika Maurice MD 10/16/24 07:53 [facility] Past Medical History Medical History GERD (gastroesophageal reflux disease) HTN (hypertension) Family History Family History Father Heart failure Diabetes Mother Heart failure Diabetes AD (Alzheimer's disease) Brother Pancreatic cancer Surgical History Surgical History Hx of reduction mammoplasty Hx of tubal ligation History of esophagogastroduodenoscopy (EGD) H/O colonoscopy Social History Social History Are you a primary hospice spiritual care coordinator to a significant other at home: No Do you presently have visiting nurse or other home services: No Alcohol intake: current Alcohol intake frequency: does not drink Patient Tobacco Use Status: Former Tobacco user Have you been hit, kicked, punched, or otherwise hurt by someone within the past year? If so, by whom?: No Are you DNR?: No Advance Directives: No Advance Directives Information Provided: Yes Poor oral hygiene: No Meds Allergies Allergy/AdvReac Type Severity Reaction Status Date / Time metoclopramide AdvReac Severe Hypertensio Verified 10/16/24 07:31 n lisinopril [LISINOPRIL] AdvReac Mild COUGH, dry Verified 10/16/24 07:31 cough Home Medications ?Medication ?Instructions ?Recorded ?Confirmed ?Last Taken ?Type atenolol 25 mg tablet 25 mg PO DAILY 05/11/20 10/16/24 10/16/24 History cholecalciferol (vitamin D3) 25 25 mcg PO DAILY 05/11/20 10/16/24 Unknown History mcg (1,000 unit) capsule (Vitamin D3) zolpidem 5 mg tablet 5 mg PO BEDTIME 05/11/20 10/16/24 Unknown History meclizine 25 mg tablet 25 mg PO DAILY PRN vertigo 04/14/21 10/16/24 Unknown History lidocaine 5 % topical patch 1 patch topical DAILY 02/16/22 10/16/24 Unknown Hist ory (Lidoderm) magnesium citrate 100 mg capsule 100 mg PO DAILY 12/07/22 10/16/24 Unknown History vitamin B complex (B 1 tab PO DAILY 12/07/22 10/16/24 Unknown History Complex-Vitamin B12 tablet) furosemide 40 mg tablet 40 mg PO DAILY 08/16/23 10/16/24 Unknown History ibuprofen 800 mg tablet 800 mg PO DAILY PRN Pain (Scale 02/14/24 10/16/24 Unknown History Score 1-3) Exam Airway Mallampati Class: II TM Dist: >3cm Neck ROM: Full Loose/Missing/Broken Teeth: No Heart: RRR Lungs: CTA Assessment and Plan Assessment Anesthesia Assessment: Anesthesia Plan Discussed Final Anesthetic Review NPO: Yes ASA Class: II Final Preanesthetic Review: Meds/Allgs Chart Reviewed, Consent Obtained/Reviewed and Anes Risks/Benef Reviewed Patient Risk: Low Procedure Risk: Intermediate
[2024-10-16 07:05] VITALS: BMI 35.8
[2024-10-16] MEDS: Lactated Ringers 1,000 ML 100 ML IVCONT (07:21)
[2024-10-16 07:29] VITALS: BP 140/65; PULSE 54; RESP 18; TEMP 36.8; O2SAT 96
--- NOTE | 2024-10-16 07:40 | P.HPSUR_ITS ---
Pre-Procedural Eval Section A - 24 Hr Update-Section A only Date of Service: 10/16/24 Section B - Complete if H&P > 30 days Chief Complaint: Unspecified abdominal pain Relevant Family History (Specify if Yes): No Relevant Social History: None Present Medications: see Short Stay Collaborative assessment Medical History: Significant History (GERD (gastroesophageal reflux disease) HTN (hypertension)) History of Previous Operations: Relevant previous surgery/procedure and date(s) (Hx of reduction mammoplasty Hx of tubal ligation History of esophagogastroduodenoscopy (EGD) H/O colonoscopy) Allergies: Allergies Allergy/AdvReac Type Severity Reaction Status Date / Time metoclopramide AdvReac Severe Hypertensio Verified 10/16/24 07:31 n lisinopril [LISINOPRIL] AdvReac Mild COUGH, dry Verified 10/16/24 07:31 cough Review of Systems Sugical H&P ROS: Negative: Constitution, Cardiovascular, Respiratory, Neurological, Psychiatric, Hem-Onc, Allergic/Immunologic, Gastrointestinal, Genitourinary, Musculoskeletal, Integumentary, Endocrine and Eye s/Ears/Nose/Throat Exam Surgical H&P Exam: Normal: HEENT, Normal: Heart, Normal: Lungs, Normal: Extremities, Normal: Abdomen, Normal: Skin and Normal: Neurological Plan Diagnosis/Plan: Unchanged I have reviewed the history and physical and performed a pertinent physical examination on my patient. No changes have occurred unless specified. Time Spent With Patient Time: Total time managing care of this patient today ____ minutes.
--- NOTE | 2024-10-16 08:52 | P.OPN-COLO_ITS ---
Colonoscopy Operative Note Operative Note Date of Service: 10/16/24 Narrative: Operative Information Procedure Description: EGD, Colonoscopy Indication: altered bowel habits Anesthesia: MAC FLEXIBLE TRANSORAL UPPER GASTROINTESTINAL ENDOSCOPY AND COLONOSCOPY PROCEDURE NOTE UPPER ENDOSCOPY Consent: Indications for the procedure and potential complications of bleeding, perforation, reaction to medications and missed diagnosis were discussed with the patient and informed consent was obtained. Instrument: Olympus GIF H 190 J mid size upper endoscope Monitoring: Vital signs and clinical assessment, continuous EKG monitoring, Pulse oximetry, Carbon Dioxide monitoring and blood pressure monitoring were done throughout the procedure. Procedure: The patient was placed in the left lateral decubitis position and pre-procedure medications were administered and a bite block was placed. The endoscope was inserted into the mouth and advanced under direct vision to the third part of duodenum. A careful inspection was made as the upper endoscope was withdrawn including a retroflexed examination of the proximal stomach; Findings and interventions are described below. Findings: Larynx:normal Esophagus: GE junction at 34 cm, diaphragm hiatus at 36 cm, consistent with 2 cm sliding hiatal hernia. Mild esophagitis at GEJ, bx taken from here and distal esophagus Stomach: patchy erythema with normal gastric movement noted. Biopsies were obtained. Grade 2 flap valve on retroflexed examination of the cardia. Duodenum: Normal bulb and descending duodenum, bx taken Intervention: Biopsies as noted above, COLONOSCOPY Instrument: Olympus variable stiffness pediatric scope 190L Colonoscopy Monitoring: Vital signs and clinical assessment, continuous EKG monitoring, Pulse oximetry, Carbon Dioxide monitoring and blood pressure monitoring were done throughout the procedure. Colon withdrawal time was [] minutes. Procedure: The patient was placed in the left lateral decubitis position and pre-procedure medications were administered. After a digital rectal examination of the ano-rectum, the video colonoscope was inserted into the rectum and advanced through the colon to the cecum/TI. The colonoscope was slowly withdrawn in a retrograde panoramic fashion and the colon mucosa was carefully examined including a retroflexed view of the rectum. Findings and interventions are described below. Procedure Difficulty:moderate Findings: Redundant colon, numerous wide mouthed tics thru out the colon, worse on right side Terminal Ileum-normal, random bx taken random colo bx taken Cecum: 4-6 mm sessile polyp removed with cold snare, 5-7 mm flat polyp removed with cold forceps Ascending Colon: normal, Transverse Colon -normal Descending Colon:normal, 4-5 mm sessile polyp removed with biopsy forceps Sigmoid Colon: normal Rectum: Retroflexion with small internal hemorrhoids, grade I Anorectum - normal Colon preparation: Wayne Bowel Preparation Scale Right colon; 2 Transverse colon: 2 Left colon; 2 (0 = Unprepared colon segment with mucosa not seen due to solid stool that cannot be cleared. 1 = Portion of mucosa of the colon segment seen, but other areas of the colon segment not well seen due to staining, residual stool and/or opaque liquid. 2 = Minor amount of residual staining, small fragments of stool and/or opaque liquid, but mucosa of colon segment seen well. 3 = Entire mucosa of colon segment seen well with no residual staining, small fragments of stool or opaque liquid) Impression and Post Procedure Diagnosis: Endoscopy Findings: gastritis esophagitis Colonoscopy Findings: diverticulosis colon polyps internal hemorrhoids Plan: Await Pathology results Repeat Colonoscopy in 3 years due to polyps or earlier if clinically indicated High fiber diet leaflet avoid straining at stool, epsom salts and sitz bath, anusol supps or cream bx taken for disaccharide levels as well Above findings were reviewed with the patient and relevant handouts were provided if indicated.
[2024-10-16 08:55] VITALS: BP 109/54; PULSE 58; RESP 18; TEMP 36.1; O2SAT 99
[2024-10-16 09:10] VITALS: BP 138/70; PULSE 57; RESP 18; TEMP 36.1; O2SAT 98
== END 2024-10-16 09:38 | disposition home or self-care (01) ==
PROVIDERS: PCP Family Medicine; Visit Provider Internal Medicine Gastroenterology
PROC: (CPT 45385; principal; 2024-10-16 09:20)
DX: R19.4 Change in bowel habit (principal); D12.0 Benign neoplasm of cecum; K57.30 Diverticulosis of large intestine without perforation or abscess without bleeding; K64.0 First degree hemorrhoids; Q43.8 Other specified congenital malformations of intestine; R10.9 Unspecified abdominal pain; K21.9 Gastro-esophageal reflux disease without esophagitis; K29.80 Duodenitis without bleeding; K29.70 Gastritis, unspecified, without bleeding; K20.80 Other esophagitis without bleeding; K44.9 Diaphragmatic hernia without obstruction or gangrene; I10 Essential (primary) hypertension; Z79.899 Other long term (current) drug therapy; Z88.8 Allergy status to other drugs, medicaments and biological substances; Z98.890 Other specified postprocedural states; Z87.891 Personal history of nicotine dependence
CPT/HCPCS: 45385; 45380; 43239; 36415; 82657; 88305; 88313; 88342; J2003; J2704

== ENCOUNTER → 2024-10-16 06:49 | Outpatient (BNV) | payer OTHER, SELFPAY | PROVIDERS: PCP Family Medicine; Visit Provider Internal Medicine Gastroenterology | DX: K29.70 Gastritis, unspecified, without bleeding (principal); K20.90 Esophagitis, unspecified without bleeding; D12.0 Benign neoplasm of cecum; D12.4 Benign neoplasm of descending colon; K64.9 Unspecified hemorrhoids; K57.90 Diverticulosis of intestine, part unspecified, without perforation or abscess without bleeding | CPT/HCPCS: 44361; 45380; 45385 ==

== ENCOUNTER 2025-02-09 09:33 | Outpatient (AMB) | payer OTHER, SELFPAY ==
--- NOTE | 2025-02-09 09:35 | MHC.OFFVIS ---
Vital Signs 02/09/25 09:52 Height 5 ft 2 in Weight 198 lb 6.656 oz BMI 36.3 BP 135/75 Blood Pressure Location Lt brachial Position Sitting Pulse 52 Intake Visit Reasons: 6 MO F/U Intake Note: Olivia presents in the office as a 6 month follow up. CC: she states that she eats healthy and her weight is an issue. she states that constipation is a recurrent thing for her she states that no matter what she eats or drinks she always has an inflamation feeling in her stomach. Pesticide Use Medical Coordinator Required: No Allergies metoclopramide Adverse Reaction (Severe, Verified 02/09/25 09:53) Hypertension lisinopril (LISINOPRIL) Adverse Reaction (Mild, Verified 02/09/25 09:53) COUGH, dry cough HPI HPI 6 MO F/U: Details: 64 yr old f here for f/u She had issues with nausea EGD: 2021 Impression/Findings: schatzki ring esophagitis hiatal hernia EGD/[place] 10/2024: Endoscopy Findings: gastritis esophagitis bx with duodenitis Colonoscopy Findings: diverticulosis colon polyps--TA internal hemorrhoids INTERIM: Doing pretty well occ reflux, controlled with PPI, no major nausea sx constipation is good with miralax but would like to try something else she does have bloating no rectal bleeding no depression TSH has been nml in the past EXAM: GENERAL: The patient is well developed and nontoxic. VITAL SIGNS:see workflow HEENT: Nonicteric sclerae, PERRLA, EOMI. Oropharynx clear. Moist mucous membranes. Conjunctivae appear well perfused. No thyroid mass. CHEST: Chest wall is nontender. HEART: Regular rate and rhythm without murmurs. LUNGS: Clear to auscultation bilaterally. ABDOMEN: Soft, positive bowel sounds, nontender, no organomegaly.no flank tenderness SKIN: No rash, no excessive bruising, petechiae, or purpura. NEUROLOGIC: Cranial nerves II-XII intact without motor/sensory deficit. Psych: normal affect A/P: 1/ abn bowel habit, LLQ cramps, from diverticulosis 2/ hx of esophagitis PLAN: 1/ trial of motegrity if not covered she will cont with miralax 2/ cont with PPI PFSH Medical History GERD (gastroesophageal reflux disease) HTN (hypertension) Surgical History Hx of reduction mammoplasty Hx of tubal ligation History of esophagogastroduodenoscopy (EGD) H/O colonoscopy Family History Father Heart failure Diabetes Mother Heart failure Diabetes AD (Alzheimer's disease) Brother Pancreatic cancer Social History Are you a primary insurance healthcare representative to a significant other at home: No Do you presently have visiting nurse or other home services: No Alcohol intake: current Alcohol intake frequency: does not drink Patient Tobacco Use Status: Former Tobacco user Physical Exam Vital Signs: Last Vital Signs Pulse 52 02/09/25 09:52 BP 135/75 02/09/25 09:52 BMI result Body Mass Index 36.3 Assessment & Plan Assessment & Plan (1) Constipation: Code(s): K59.00 - Constipation, unspecified Category: Medical Plan: as above Medications: New prucalopride (Motegrity) 1 mg PO DAILY 30 tabs 0RF Coding Level of Care Code Est Pt Level 3 (38353) Diagnoses Constipation K59.00
[2025-02-09 09:52] VITALS: BP 135/75; PULSE 52; BMI 36.3
--- OUTSIDE RECORDS SUMMARY | 2025-02-09 10:23 | XMS_ITS | Clinical Summary ---
Author Organization [facility] ity Address [address] [place] [address] Care Team Providers Care Embroidery Supervisor Name Role Phone Unavailable Primary Care Provider [...] Vaccine (1 - 2023-2 5 season) 2024 Depression Screening 06/18/2024 Influenza Vaccine (#1) 2025 RSV Immunization Adult Patie nts (1 - [...]
--- OUTSIDE RECORDS SUMMARY | 2025-02-09 10:23 | XMS_ITS | Encounter Summary ---
Author Organization [employer] Address [address] [facility] 7t [place] [address] Care Team Providers Care Sewer System Supervisor Name Role Phone Ebony Blanchard MD Primary Care Provider [phone] Reason for Visit * Reason Comments Med Refill Encounter Details Date Type Department Care Team ([facility] st Contact Info) Description 09/05/2024 Refill [facility] [address] [place], [place] [phone] Chery Baird MD [address] [place] [address] Essential hypertension Social History Tobacco Use Types [...] the past 12 months, has t he [employer], gas, oil or water company threatened to [...] Care Team (Late st Contact Info) Description 02/19/2025 8:00 AM EDT Office Visit [facility] ADULT DENTAL [address] [place] [address] Julian Bazan DDS [address] [place] [address] 02/26/2025 10:00 AM EDT Office Visit [facility] [address] [place] [address] Ebony Blanchard MD [address] [place] [address] 03/19/2025 1:00 PM EDT Office Visit [facility] ADULT DENT[facility] [address] [place] [address] Chapis Rooney [address] [place] [address] 04/02/2025 11:00 AM EDT Medication Management [facility] [address] [place] [address] El Gilman, PharmD [address] [place] [address], [place] [address] documented as of this encounter Goals Goal Patient Goal Type Associated Problems Recent Progress Patient-Stated? Author Blood Pressure < 150/90 Blood Pressure 134/70(2024 10:59 AM EDT) [place], RajeshD Note: Per JNC-8 Age 62 with no history of DM or CKD documented as of this encounter Visit Diagnoses Diagnosis Essential hypertension Unspecified essential hypertension documented in this encounter Additional Health Concerns Assessment Noted Time PHQ-9 Depression Total Score: 0 07/30/19 25 10:27 AM EST documented as of this encounter Care Teams Sewer System Supervisor Relationship Specialty Start Date End Date Ebony Blanchard MD [address] [place] [address] PCP - General Family Medicine 06/18/18 documented as of this encounter
== END 2025-02-09 10:28 | disposition home or self-care (01) ==
LOC: HO.HGI 09:34
PROVIDERS: PCP Family Medicine; Visit Provider Internal Medicine Gastroenterology
DX: K59.00 Constipation, unspecified (principal)
CPT/HCPCS: 99213

== ENCOUNTER → 2025-02-09 09:33 | Outpatient (BNVA) | payer OTHER, SELFPAY | PROVIDERS: PCP Family Medicine; Visit Provider Internal Medicine Gastroenterology | DX: R14.0 Abdominal distension (gaseous) (principal); K59.00 Constipation, unspecified | CPT/HCPCS: 99212 ==

== ENCOUNTER 2025-02-23 08:08 | Outpatient (REF) | payer OTHER, SELFPAY ==
--- OUTSIDE RECORDS SUMMARY | 2025-02-19 08:00 | XMS_ITS | Encounter Summary ---
Author Organization [employer] Address [address] [facility] [address] [place] [address] Care Team Providers Care Conveyor Tender [employer] Name Role Phone Ebony Blanchard MD Primary Care Provider [phone] Reason for Visit * Reason Comments Extraction Ext on tooth#5 Encounter Details Date Type Department Care Team ([facility] Contact Info) Description 02/19/2025 8:00 AM EDT Office Visit [facility]ULT D[facility]AL [address] [place], [place] [phone] Julian Bazan, DDS [address] [place] [address] Periodontal disease (Primary Dx) Social History Tobacco Use Types [...] housing situation today? I have evangelist caba 11/24/[address] you li ve. Do you have problems with any of the following? None of the above 11/24/2024 Food Insecurity Answer Date Recorded Within the past 12 months, y ou worried that your food would run out before you got money to buy more: Never True 11/24/2024 Within the past 12 months,th e food you bought just didn't last and you didn't have enough money to get more: Never True 02/2025 Transportation Answer Date Recorded In the past 12 months, has l ack of transportation kept you from medical appts, meetings, work or from getting things needed for daily living? Yes, it has kept me from non-medical meetings, work, or getting things that I need 11/24/2024 Utilities Answer Date Recorded In the past 12 months, has t he electric, gas, oil or water company threatened to shut off services in your home? No 11/24/2024 Depression Answer Date Recorded Patient Health Questionnaire-2 Score 0 07/30/2024 Internet Access Answer Date Recorded Internet Access Q1 Yes 11/24/2024 Internet Access Q2 Not on file 11/24/2024 Comments Unknown Sex and Gender Information Value Date Recorded Sex Assigned at Female 04/17/2022 10:20 AM EDT Legal Sex Female 10:20 AM EDT Gender Identity Female 04/17/2022 10:20 AM EDT Sexual Orientation Straight 07/23/2024 8: 51 AM EST documented as of this encounter Last Filed Vital Signs Vital Sign Reading Time Taken Comments Blood Pressure 136/74 02/19/2025 7:57 AM EDT Pulse 70 02/19/2025 7:57 AM EDT Temperature - - Respiratory Rate - - Oxygen Saturation - - Inhaled Oxygen Concentration - - Weight - - Height - - Body Mass Index - - documented in this encounter Progress Notes * Julian Bazan DDS - 02/19/2025 8:00 AM EDT Patient ID: Olivia Gee is a 64 y.o. female. Time Out: Timeout Date: 02/19/25, Timeout Time: 753 (ext on tooth#5) Location: [facility] Tooth: Maxilla and #5 Procedure: Extraction Verified the above with patient, commercial escrow assistant, and provider. Confirmed via patient's chart, intraorally and by radiographs. State Manager: not applicable Chief Complaint Patient presents with Extraction Ext on tooth#5 Medical Hx: Vitals: Blood pressure 136/74, pulse 70. Medical History[1] Medications: Encounter Medications[2] Consent Obtained: The risks, benefits, indications, potential complications, and alternatives were explained to the patient and informed consent was obtained with good understanding. Treatment Provided: Dental procedures in this visit D7140 - EXTRACTION, ERUPTED TOOTH OR EXPOSED ROOT (ELEVATION/FORCEPS REMOVAL) 5 (Completed) Service provider: Julian Bazan DDS Billing provider: Julian Bazan DDS [id number] - CASE PRESENTATION, DETAILED AND EXTENSIVE TREATMENT PLANNING (Completed) Service provider: Julian Bazan DDS Billing provider: Julian Bazan DDS Diagnosis: Periodontal disease Topical: 20% Benzocaine Anesthesia: 2% Lidocaine (Xylocaine) w/ 1:100,000 epinephrine Number of Cartridges: 1 Injection Type: Buccal infiltration, Palatal infiltration, and Intrapapillary injection Confirmed profound anesthesia. Pharyngeal curtain and bite block placed. Removed tooth with elevators and forceps. Apices intact. Surgical Extraction: Yes, #5 Socket curetted & irrigated with sterile water. Compressed alveolar bone. Sutures: None Needed All adjacent teeth intact. Hemostasis achieved. Complications: None. Pt. Tolerated procedure well. Pt states having analgesics at home. Written and verbal post-op instructions given. Patient discharged in stable condition; ambulatory, alert, and oriented. NV: F/U as needed / Referred back to Dr Pérez Tax Evaluator: Maite Strickland Dentist: Julian Bazan DDS [1] Past Medical History: Diagnosis Date Anxiety GERD (gastroesophageal reflux disease) Helicobacter pylori gastrointestinal tract infection 01/04/2016 Hypertension [2] Outpatient Encounter Medications as of 02/19/2025 Medication Sig Dispense Refill atenolol (Tenormin) 25 MG tablet TAKE 1 TABLET BY MOUTH IN THE MORNING 90 tablet 1 cetirizine (ZyrTEC) 10 MG tablet TAKE 1 TABLET BY MOUTH DAILY 90 tablet 3 furosemide (Lasix) 40 MG tablet TAKE 1 TABLET BY MOUTH EVERY DAY liver oil-zinc oxide (Desitin) 40 % ointment Apply topically if needed for irritation. 56 g 0 meclizine (Antivert) 25 MG tablet TAKE 1 TABLET BY MOUTH DAILY NEEDED FOR VERTIGO 30 tablet 1 omeprazole (PriLOSEC) [address] capsule Take 20 mg by mouth Once per day. polyethylene glycol, PEG, 3350 (Glycolax) 17 GM/SCOOP powder TAKE 17 GRAMS DAILY Simethicone Ultra Strength 180 MG capsule Take 180 mg by mouth 4 times daily. triamcinolone (Nasacort) 55 MCG/ACT nasal inhaler Administer 2 sprays into each nostril Once per day. 16.5 g 11 zolpidem (Ambien) 5 MG tablet TAKE 1 TABLET BY MOUTH EVERY NIGHT AT BEDTIME NEEDED FOR SLEEP 30 tablet 0 acetaminophen (Tylenol) 500 MG tablet TAKE 2 TABLETS BY MOUTH EVERY 8 HOURS NEEDED (Patient not taking: Reported on 02/19/2025) 90 tablet 3 allopurinol (Zyloprim) 100 MG tablet Take 1 tablet (100 mg) by mouth Once per day. (Patient not taking: Reported on 02/19/2025) 90 tablet 3 Artificial Tears 0.2-0.2-1 % solution USE 1 DROP BOTH EYES TWICE DAILY cholecalciferol (Vitamin D3) 25 MCG (1000 UT) tablet TAKE 1 TABLET BY MOUTH IN THE MORNING (Patientnot taking: Reported on 02/19/2025) 90 tablet 3 Diclofenac Sodium 1 % gel APPLY TOPICALLY TO THE AFFECTED AREA EVERY DAY NEEDED FOR PAIN (Patient not taking: Reported on 02/19/2025) 100 g 11 estradiol (Estrace) 0.1 MG/GM vaginal cream INSERT 1GM VAGINALLY 2 TIMES WEEKLY (Patient not taking: Reported on 02/19/2025) ibuprofen 800 MG tablet TAKE 1 TABLET(800 MG) BY MOUTH WITH BREAKFAST as needed for pain and/or fever (Patient not taking: Reported on 02/19/2025) 30 tablet 1 lidocaine (Lidoderm) 5 % patch Apply 1 patch topically Once per day. Remove & discard patch within 12 hours or as directed by MD. 30 patch 11 triamcinolone (Kenalog) 0.1 % cream Apply topically if needed in the morning and at bedtime (pain and swelling). (Patient not taking: Reported on 02/19/2025) 30 g 2 Tyrvaya 0.03 MG/ACT solution INSTILL 1 SPRAY IN EACH NOSTRIL TWICE A DAY , APPROXIMATELY 12 HOURS APART. (Patient not taking: Reported on 02/19/2025) No facility-administered encounter medications on file as of 02/19/2025. documented in this encounter Plan of Treatment Upcoming Encounters Date Type Department Care Team (Late st Contact Info) Description 02/26/2025 10:00 AM EDT Office Visit [facility] [address] [place] [phone] Ebony Blanchard MD [address] [place] [address] 03/09/2025 10:00 AM EDT Office Visit [facility] [address] [place] [phone] Clint Pérez DMD [address] [place] [address] 03/19/2025 1:00 PM EDT Office Visit [facility] [address] [place] [phone] NevinChapis [address] [place] [address] 04/02/2025 11:00 AM EDT Medication Management [facility] [address] [place] [address] El Gilman, RajeshD [address] [place] [phone] Scheduled Orders Name Type Priority Associated Diagnoses Orde r Schedule 5 5 ADD TOOTH TO EXISTING PARTIAL DENTURE Dental Routine [address] arting 02/19/2025 documented as of this encounter Goals Goal Patient Goal Type Associated Problems Recent Progress Patient-Stated? Author Blood Pressure < 150/90 Blood Pressure 136/74(2024 7:57 AM EDT) No El Gilman, PharmD Note: Per JNC-8 Age 62 with no history of DM or CKD documented as of this encounter Procedures Procedure Name Priority Date/Time Associated Diagnosis Comments 5 EXTRACTION, ERUPTED TOOTH OR EXPOSED ROOT (ELEVATION/FORCEPS REMOVAL) Routine 02/19/2025 8:00 AM EDT CASE PRESENTATION, DETAILED AND EXTENSIVE TREATMENT PLANNING Routine 02/19/2025 8:00 AM EDT documented in this encounter Visit Diagnoses Diagnosis Periodontal disease- Primary Unspecified gingival and periodontal disease documented in this encounter Additional Health Concerns Assessment Noted Time PHQ-9 Depression Total Score: 0 07/30/19 25 10:27 AM EST documented as of this encounter Care Teams Con[employer]or [employer] Relationship Specialty Start Date End Date Ebony Blanchard MD [address] [place] [address] PCP - General Family Medicine 06/18/18 documented as of this encounter
--- OUTSIDE RECORDS SUMMARY | 2025-02-23 08:50 | XMS_ITS | Encounter Summary ---
Author Organization [employer] [facility] Address [address] [facility] [address] [place] [address] Care Team Providers Care Yarn Washer Name Role Phone Ebony Blanchard MD Primary Care Provider [phone] El Gilman PharmD Unavailable [phone] Encounter Details Date Type Department Care Team (Latest Contact Info) Description 01/06/2022 Abstract [facility] CONVERSIONS Dental, Provider, DDS Social History [...] Description 02/26/2025 10:00 AM EDT Office Visit [facility] MED[facility] [address] [place] [address] Ebony Blanchard MD [address] [place] [address] 03/09/2025 10:00 AM EDT Office Visit [facility] ADULT DENT[facility] [address] [place] [address] Clint Pérez DMD [address] [place] [address] 03/19/2025 1:00 PM EDT Office Visit [facility] [address] [place], [place] [phone] NevinChapis [address] [place], [place] [phone] 04/02/2025 11:00 AM EDT Medication Management [facility] [address] [place], [place] [phone] El Gilman, PharmD [address] [place] [address] documented as of this encounter Visit Diagnoses Not on filedocumented in this encounter Care Teams Yarn Washer Relationship Specialty Start Date End Date Ebony Blanchard MD [address] [place] [address] [phone] PCP - General Family Medicine 06/18/18 El Gilman, PharmD [address] [place] [address] [phone] Pharmacist Internal Medicine 08/21/22 04/27/24 documented as of this encounter
--- OUTSIDE RECORDS SUMMARY | 2025-02-23 08:50 | XMS_ITS | Encounter Summary ---
Author Organization [employer] Address [address] [facility] [address] [place] [address] Care Team Providers Care Technical Information Specialist Name Role Phone Ebony Blanchard MD Primary Care Provider [phone] Reason for Visit * Reason Comments Med Refill Encounter Details Date Type Department Care Team ([facility] Contact Info) Description 09/05/2024 Refill [facility] [address] [place], [place] [phone] Chery Biard MD [address] [place], [place] [phone] Essential hypertension Social History Tobacco Use Types [...] Description 02/26/2025 10:00 AM EDT Office Visit [facility] [address] [place] [phone] Ebony Blanchard MD [address] [place] [phone] 03/09/2025 10:00 AM EDT Office Visit [facility]ULT D[facility] [address] [place] [phone] Clint Pérez, BARRY [address] [place] [phone] 03/19/2025 1:00 PM EDT Office Visit [facility] [address] [place] [phone] Chapis Rooney [address] [place] [address] 04/02/2025 11:00 AM EDT Medication Management [facility] [address] [place] [phone] El Gilman, PharmD [address] [place] [phone] documented as of this encounter Goals Goal Patient Goal Type Associated Problems Recent Progress Patient-Stated? Author Blood Pressure < 150/90 Blood Pressure 136/74(2024 7:57 AM EDT) [place], PharmD Note: Per JNC-8 Age 62 with no history of DM or CKD documented as of this encounter Visit Diagnoses Diagnosis Essential hypertension Unspecified essential hypertension documented in this encounter Additional Health Concerns Assessment Noted Time PHQ-9 Depression Total Score: 0 07/30/19 25 10:27 AM EST documented as of this encounter Care Teams Technical Information Specialist Relationship Specialty Start Date End Date Ebony Blanchard MD [address] [place] [address] PCP - General Family Medicine 06/18/18 documented as of this encounter
--- OUTSIDE RECORDS SUMMARY | 2025-02-23 08:50 | XMS_ITS | Clinical Summary ---
Author Organization [employer] Address [address] [facility] [address] [place] [address] Care Team Providers Care Tracer Bullet Section Supervisor Name Role Phone Ebony Blanchard MD Primary Care Provider [phone] Allergies Active Allergy Reactions Criticality Noted Date Comments Lisinopril Cough 07/12/2010 Losartan Cough 12/23/2019 Medications Artificial Tears 0.2-0.2-1 % solution USE 1 DROP BOTH EYES TWICE DAILY 023 Active furosemide (Lasix) 40 MG tablet TAKE 1 TABLET BY MOUTH EVERY DAY 023 Active triamcinolone (Kenalog) 0.1 % cream Apply topically if needed in the morning and at bedtime (pain and swelling). 30 g 2 024 Active Additional Information Patient not taking.Reported on 02/19/2025 Tyrvaya 0.03 MG/ACT solution INSTILL 1 SPRAY IN EACH NOSTRIL TWICE A DAY , APPROXIMATELY 12 HOURS APART. 024 Active cholecalciferol (Vitamin D3) 25 MCG (1000 UT) tablet TAKE 1 TABLET BY MOUTH IN THE MORNING 90 tablet 3 024 Active Additional Information Patient not taking.Reported on 02/19/2025 omeprazole (PriLOSEC) [address] capsule Take 20 mg by mouth Once per day. 024 Active triamcinolone (Nasacort) 55 MCG/ACT nasal inhaler Administer 2 sprays into each nostril Once per day. 16.5 g 11 024 2024 Active allopurinol (Zyloprim) 100 MG tablet Take 1 tablet (100 mg) by mouth Once per day. 90 tablet 3 025 2025 Active Additional Information Patient not taking.Reported on 02/19/2025 liver oil-zinc oxide (Desitin) 40 % ointment Apply topically if needed for irritation. 56 g Active atenolol (Tenormin) 25 MG tabletIndications :Essential hypertension TAKE 1 TABLET BY MOUTH IN THE MORNING 90 tablet 1 Active estradiol (Estrace) 0.1 MG/GM vaginal cream INSERT 1GM VAGINALLY 2 TIMES WEEKLY Active Simethicone Ultra Strength 180 MG capsule Take 180 mg by mouth 4 times daily. Active acetaminophen (Tylenol) 500 MG tablet TAKE 2 TABLETS BY MOUTH EVERY 8 HOURS NEEDED 90 tablet 3 Active Additional Information Patient not taking.Reported on 02/19/2025 lidocaine (Lidoderm) 5 % patchIndications: Primary osteoarthritis involving multiple joints,Chronic left shoulder pain Apply 1 patch topically Once per day. Remove & discard patch within 12 hours or as directed by MD. 30 patch 11 Active Diclofenac Sodium 1 % gel APPLY TOPICALLY TO THE AFFECTED AREA EVERY DAY NEEDED FOR PAIN 100 g Active Additional Information Patient not taking.Reported on 02/19/2025 cetirizine (ZyrTEC) 10 MG tablet TAKE 1 TABLET BY MOUTH DAILY 90 tablet 3 Active polyethylene glycol, PEG, 3350 (Glycolax) 17 GM/SCOOP powder TAKE 17 GRAMS DAILY Active ibuprofen 800 MG tabletIndications :Pain TAKE 1 TABLET(800 MG) BY MOUTH WITH BREAKFAST as needed for pain and/or fever 30 tablet 1 025 Active Additional Information Patient not taking.Reported on 02/19/2025 meclizine (Antivert) 25 MG tabletIndications :Vertigo TAKE 1 TABLET BY MOUTH DAILY NEEDED FOR VERTIGO 30 tablet 1 025 Active zolpidem (Ambien) 5 MG tabletIndications :Psychophysiologi joann insomnia TAKE 1 TABLET BY MOUTH EVERY NIGHT AT BEDTIME NEEDED FOR SLEEP 30 tablet 025 Active ibuprofen 800 MG tabletIndications :Pain TAKE 1 TABLET(800 MG) BY MOUTH WITH BREAKFAST 30 tablet 1 025 2024 Discontinued(R eorder (will not trigger notification to Pharmacy)) meclizine (Antivert) 25 MG tabletIndications :Vertigo TAKE 1 TABLET BY MOUTH DAILY NEEDED FOR VERTIGO 30 tablet 1 025 2024 Discontinued(R eorder (will not trigger notification to Pharmacy)) zolpidem (Ambien) 5 MG tabletIndications :Psychophysiologi joann insomnia TAKE 1 TABLET BY MOUTH EVERY NIGHT AT BEDTIME NEEDED FOR SLEEP 30 tablet 025 2024 Discontinued Active Problems Problem Noted Date Diagnosed Date Periodontal disease 02/19/2025 Cardiovascular risk factor 12/05/2024 Assessment & Plan (12/05/2024 9:25 AM EDT): - Risk factors: Hypertension - 10-year ASCVD risk 5% - Continue working on lifestyle modifications - Patient has been following with ginner helper - Consider coronary CT to assess whether she would benefit from statin or aspirin Tubular adenoma of colon 11/23/2024 Assessment & Plan (11/23/2024 4:39 PM EDT): - Colonoscopy on 10/16/2024, cecal polyp, tubular adenoma - GI provider: [facility], Dr. Castro - Recommended next colonoscopy in 3 years Hemorrhoids 11/23/2024 Generalized gingival recession, moderate 025 Carpal tunnel syndrome 07/30/2024 Assessment & Plan (07/30/2024 1:33 PM EST): - following with [facility] provider - received steroid injection on 06/09/24 Functional dyspepsia 11/19/2023 Assessment & Plan (07/30/2024 2:54 PM EST): - following with [facility] GI, last seen in Jul 2023 Assessment & Plan (11/19/2023 11:31 AM EDT): - following with [facility] GI, last seen in Jul 2023 Delayed gastric emptying 11/19/2023 Allergic rhinitis 11/19/2023 Assessment & Plan (11/24/2024 9:07 AM EDT): -Patient is wondering of Penicillin allergy but it is less likely. -Continue Cetrizine -Switch flonase to nasacort -Patient was referred to position classification specialist in November 2023. Will check referral status. Assessment & Plan (04/08/2024 11:55 AM EDT): -Patient is wondering of Penicillin allergy but it is less likely. -Continue Cetrizine -Switch flonase to nasacort -Patient was referred to position classification specialist in November 2023. Will check referral status. Assessment & Plan (11/19/2023 11:37 AM EDT): Patient is wondering of Penicillin allergy but it is less likely. We will refer for policy specialist for allergy testing and further treatment. Will start Cetrizine Rectocele 08/25/2023 Assessment & Plan (08/25/2023 6:59 AM EST): - upcoming surgery next week Constipation 08/25/2023 Assessment & Plan (11/24/2024 9:08 AM EDT): - following with [facility] GI, last seen in Jul 2023 - continue adequate fiber intake Assessment & Plan (11/19/2023 11:30 AM EDT): [...] 11/01/2022 Venous insufficiency 10/24/2022 Assessment & Plan (11/24/2024 9:07 AM EDT): - Following with [facility] cardiology, last seen on 02/02/23. - 10/05/22 Venous study, results showed: right GSV and SSV incompetent, left GSV incompetent, left SSV competent - Elevated legs, DASH diet - Follow-up with Vascular Specialist Assessment & Plan (03/13/2023 9:22 PM EDT): - Following with [facility] cardiology, last seen on 02/02/23. - 10/05/22 Venous study, results showed: right GSV and SSV incompetent, left GSV incompetent, left SSV competent - Elevated legs, DASH diet - Follow-up with Vascular Specialist Assessment & Plan (10/27/2022 10:32 AM EDT): - Following with [facility] cardiology on 09/28/22. 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 - Received steroid injection on 08/01/22. - Referred to PT. - Compress, elevation and heat - will Rx topical NSAID cream and Knee brace, per patient request Anxiety and depression 07/31/2022 Assessment & Plan (07/31/2022 12:36 PM EST): -Previously tried sertraline and hydroxyzine, but she self-discontinued -Seen by [facility] clinician in Apr 2019, Dx adjustment [...] Gout 07/04/2016 Hyperuricemia 07/04/2016 Assessment & Plan (11/24/2024 9:10 AM EDT): - patient has not had gout attack - urate-lowering medication is not indicated at this time Assessment & Plan (08/07/2024 10:27 AM EST): [...] Impaired fasting glucose 03/20/2012 Assessment & Plan (11/24/2024 9:07 AM EDT): -09/16/18 A1C 6.0% FBG 108 -04/20/21 A1C 5.6% -04/07/22 A1c 5.6% -02/22/23 A1c 5.5% - 07/30/24 A1c 5.7% -Cont working on lifestyle modifications -Continue annual screening due to risk factor Assessment & Plan (07/30/2024 2:55 PM EST): [...] (gastroesophageal reflux disease) 2 Assessment & Plan (11/24/2024 9:08 AM EDT): -followed by [facility], last seen on 08/16/23 - s/p EGD 02/02/22, nml - previously prescribed pantoprazole, pt is no longer taking. Instead, pt is using baking soda - Pt was Rx Reglan but discontinued d/t side-effects Assessment & Plan (07/30/2024 2:54 PM EST): -followed by [facility], last seen on 08/16/23 - s/p EGD 02/02/22, nml - previously prescribed pantoprazole, pt is no longer taking. Instead, pt is using baking soda - Pt was Rx Reglan but discontinued d/t side-effects Assessment & Plan (04/08/2024 11:53 AM EDT): -followed by [facility], last seen on 08/16/23 - s/p EGD 02/02/22, nml - previously prescribed pantoprazole, pt is no longer taking. Instead, pt is using baking soda - Pt was Rx Reglan but discontinued d/t side-effects Assessment & Plan (11/19/2023 11:32 AM EDT): -followed by [facility], last seen on 08/16/23 - s/p EGD 02/02/22, nml - previously prescribed pantoprazole, pt is no longer taking. Instead, pt is using baking soda - Pt was Rx Reglan but discontinued d/t side-effects Assessment & Plan (08/25/2023 7:07 AM EST): -followed by [facility], last seen on 08/16/23 - s/p EGD 02/02/22, nml - previously prescribed pantoprazole, pt is no longer taking. Instead, pt is using baking soda - Pt was Rx Reglan but discontinued d/t side-effects Assessment & Plan (02/27/2023 10:59 AM EDT): -followed by [facility] GI, last seen in May 2022 -s/p EGD 02/02/22, nml - previously prescribed pantoprazole, pt is no longer taking. Instead, pt is using baking soda -Pt was Rx Reglan but discontinued d/t side-effects Assessment & Plan (10/27/2022 10:33 AM EDT): -followed by [facility] GI, last seen in May 2022 -s/p EGD 02/02/22, nml - continue pantoprazole as prescribed -Pt was Rx Reglan but discontinued d/t side-effects Assessment & Plan (08/05/2022 6:36 PM EST): -followed by [facility] GI, last seen in May 2022 -s/p EGD 02/02/22, nml -Pt was Rx Reglan but discontinued d/t side-effects Insomnia 01/04/2012 Mixed stress and urge urinary incontinence 01/03 Assessment & Plan (11/24/2024 9:09 AM EDT): Followed by UroGYN for mixed [...] notes symptoms have improved. Assessment & Plan (07/30/2024 2:55 PM EST): [...] comorbidity 01/03/2010 Hypertension 10/29/2006 Assessment & Plan (11/24/2024 9:07 AM EDT): Goal BP < 150/90 per JNC-8, and < 130/80 per ACC/AHA guideline. -BP elevated today. -Comanaged with ginner helper and PharmD. -Encouraged to work on life [...] if any problem arises Assessment & Plan (07/30/2024 2:54 PM EST): Goal BP < 150/90 per JNC-8, and < 130/80 per ACC/AHA guideline. -BP elevated today. -Comanaged with ginner helper and PharmD. -Encouraged to work on life [...] ACC/AHA guideline. -BP elevated today. -Comanaged with ginner helper and PharmD. -Encouraged to work on life [...] Patient attributes it to anxiety. -Comanaged with ginner helper and PharmD. -Encouraged to work on life [...] Patient attributes it to anxiety. -Comanaged with ginner helper and PharmD. -Encouraged to work on life [...] pt received steroid injection recently -Comanaged with ginner helper and PharmD. -Encouraged to work on life [...] pt received steroid injection recently -Comanaged with ginner helper and PharmD. -Encouraged to work on life [...] Problem Noted Date Diagnosed Date Resolved Date Acute cystitis without hematuria 08/07/2024 11/23/2024 Assessment & Plan (08/07/2024 10:27 AM EST): Advised regarding increase water intake, cranberry juice and Tylenol as needed pain Bactrim DS x 5 days, follow-up urine culture Use zinc oxide ointment on vulvar area to protect from urine leaks, continue Kegel's exercises Follow-up with PCP Upper respiratory infection, viral 12/12/2023 11/23/2024 Assessment & Plan (12/12/2023 5:58 PM EDT): Pt here w viral respiratory symptoms . Pt has benign physical ENT/lung exam Here Flu ,COVID 19 and strep test are neg -cepacol - Tylenol ,NSAIDS has at home -hydration -alarm signs and symptoms discussed w pt Helicobacter pylori gastroin testinal tract infection 01/04/2016 10/27/2022 Encounters Date Type Department Care Team Description 02/19/2025 8:00 AM EDT Office Visit [facility] [address] [place] [address] Julian Bazan DDS Periodontal disease (Primary Dx) 02/01/2025 Refill [facility] [address] [place] [address] Ebony Blanchard MD Psychophysiological insomnia 01/26/2025 Refill [facility] [address] [place] [address] Ebony Blanchard MD Pain; Vertigo 01/08/2025 Telephone [facility] [address] [place] [address] Ebony Blanchard MD lab 01/08/2025 Travel 01/07/2025 Orders Only [facility] [address] [place] [address] Ebony Blanchard MD Vitamin D deficiency (Primary Dx); Impaired fasting glucose; Hypertension, unspecified type 01/01/2025 1:00 PM EDT Office Visit [facility] [address] [place] [address] Christal Lucas Periodontal disease (Primary Dx) 12/31/2024 Refill [facility] [address] [place] [address] Ebony Blanchard MD 12/30/2024 Telephone [facility] [address] [place] [address] Julian Bazan DDS emergency visit transportation 12/21/2024 Refill [facility] [address] [place] [address] Ebony Blanchard MD Psychophysiological insomnia 11/27/2024 Refill [facility] [address] [place] [address] May Ledezma MD Vertigo 11/26/2024 Telephone [facility] [address] [place] [phone] Ebony Blanchard MD 11/24/2024 10:15 AM EDT Office Visit [facility] [address] [place] [address] Ebony Blanchard MD Gastroesophageal reflux disease, unspecified whether esophagitis present (Primary Dx); Hypertension, unspecified type; Venous insufficiency; Tubular adenoma of colon; Constipation, unspecified constipation type; Hemorrhoids, unspecified hemorrhoid type; Mixed stress and urge urinary incontinence; Allergic rhinitis, unspecified seasonality, unspecified trigger; Vitamin D deficiency; Impaired fasting glucose; Anxiety and depression; Gout, unspecified cause, unspecified chronicity, unspecified site; Hyperuricemia; Psychophysiological insomnia; Primary osteoarthritis involving multiple joints; Chronic left shoulder pain; Cardiovascular risk factor 11/24/2024 Travel 11/24/2024 Refill [facility] [address] [place] [address] Tonja Whitfield ANP Pain from Last 3 Months Immunizations Immunization Administration Dates Next Due Hep B, Unspecified [...] is your housing situation today? I have evangelistneeru caba 11/24/[address] you [...] Pulse 70 02/19/2025 7:57 AM EDT Temperature 36.6 C (97.9 F) 11/24/2024 10:03 AM EDT Respiratory Rate 18 11/24/2024 10:03 AM EDT Oxygen Saturation 98% 11/24/2024 10:03 AM EDT Inhaled Oxygen Concentration - - Weight 93.2 kg (205 lb 6.4 oz) 11/24/2024 10:03 AM EDT Height 157.5 cm (5' 2 ) 11/24/2024 10:03 AM EDT Body Mass Index 37.57 11/24/2024 10:03 AM EDT Plan of Treatment Upcoming Encounters Date Type Department Care Team (Late st Contact Info) Description 02/26/2025 10:00 AM EDT Office Visit [facility] [address] [place] [phone] Ebony Blanchard MD [address] [place] [address] 03/09/2025 10:00 AM EDT Office Visit [facility] [address] [place] [address] Clint Pérez, BARRY [address] [place] [address] 03/19/2025 1:00 PM EDT Office Visit [facility] [address] [place] [address] Chapis Rooney [address] [place] [address] 04/02/2025 11:00 AM EDT Medication Management [facility] [address] [place] [phone] El Gilman, PharmD [address] [place] [address] Health Maintenance Due Date Last Done Comments CT Colonography 1960 FIT DNA/Cologuard 1960 FIT 1960 FOBT 1960 Sigmoidoscopy 1960 Pneumococcal Vaccine: 50+ Years (1 of 1 - PCV) 2012 RSV Patients and Patients Aged 60 years or older (1 - Risk 60-74 years 1-dose series) 2022 Pap Smear 05/02/2024 05/02/2021 COVID-19 Vaccine (4 - season) 2025 07/18/2021, 11/12/2020, 10/22/2020 Influenza Vaccine (#1) 2025 , 04/25/2023, 03/10/2022, Additional history exists Dental Oral Exam 03/16/2025 09/12/2024, , 08/09/2023, Additional history exists Dental Prophylaxis 03/16/2025 09/12/2024, 0 03/13/2024, 08/07/2023, Additional history exists Alcohol/Substance Use Screening 04/08/2025 04/08/2024 Diabetes: Hemoglobin A1C 07/28/2025 025, 02/22/2023, 04/07/2022, Additional history exists Depression Screening 07/30/2025 07/30/2024, 07/30/19 Dental X-Ray: Full Mouth 11/02/2025 023, 01/15/2019, 05/23/2012 Disability Screening 11/24/2025 11/24/2024 SDOH Screening 11/24/2025 11/24/2024 Dental X-Ray: Bitewings 01/02/2026 01/02/20 25, 09/12/2024, 04/17/2024, Additional history exists Tobacco Screening 02/19/2026 02/19/2025 Mammogram 03/14/2026 03/14/2024, 03/18, 04/04/2023, Additional history exists Cervical Cancer Screening 05/02/2026 HPV/Cotest 05/02/2026 05/02/2021, 04/12/2016 DTaP/Tdap/Td Vaccines (4 - Td or Tdap) 01/01/2027 01/01/2017, 06/24/2009, 01/27/2008 Lipid Panel 07/28/2029 07/28/2024, 12/2022, 04/07/2022, Additional history exists Colonoscopy 10/16/2029 10/16/2024, 05/19, 05/19/2020 Colorectal Cancer Screening 10/16/2029 Hepatitis B Vaccines Completed 07/21/2008, 02/28/2008, 01/28/2008 Zoster Vaccines Completed 09/12/2023, 07/18/2023 HIB Vaccines Aged Out No longer eligi [...] Procedure Name Priority Date/Time Associated Diagnosis Comments CASE PRESENTATION, DETAILED AND EXTENSIVE TREATMENT PLANNING Routine 02/19/2025 8:00 AM EDT 5 EXTRACTION, ERUPTED TOOTH OR EXPOSED ROOT (ELEVATION/FORCEPS REMOVAL) Routine 02/19/2025 8:00 AM EDT CASE PRESENTATION, DETAILED AND EXTENSIVE TREATMENT PLANNING Routine 01/01/2025 1:00 PM EDT BITEWING - SINGLE RADIOGRAPHIC IMAGE Routine 01/01/2025 1:00 PM EDT INTRAORAL - PERIAPICAL FIRST RADIOGRAPHIC IMAGE Routine 01/01/2025 1:00 PM EDT Periodontal disease LIMITED ORAL EVALUATION - PROBLEM FOCUSED Routine 01/01/2025 1:00 PM EDT Periodontal disease HM COLONOSCOPY Routine 10/16/2024 PROPHYLAXIS - ADULT Routine 09/12/2024 1 0:00 AM EDT Dental calculus Generalized gingival recession, moderate Missing teeth, acquired PERIODIC ORAL EVALUATION - ESTABLISHED PATIENT Routine 09/12/2024 10:00 AM EDT HEMOGLOBIN A1C Routine 07/28/2024 8:21 AM EST Screening for diabetes mellitus LIPID PANEL WITH REFLEX TO DIRECT LDL Routine 07/28/2024 8:21 AM EST Hypertension, unspecified type BI MAMMOGRAM SCREENING TOMOSYNTHESIS BILATERAL Routine 03/14/2024 10:10 AM EDT INTRAORAL - COMPLETE SERIES OF RADIOGRAPHIC IMAGES Routine 11/01/2022 9:00 AM EDT Idiopathic resorption of root of tooth Dental calculus Localized gingival recession Dental abscess THINPREP IMAGING PAP AND HPV MRNA E6/E7 WITH REFLEX TO HPV 16,18/45 Routine 05/02/2021 4:14 PM EST from Last 3 Months or Most Recently Relevant to Health Maintenance Results * (ABNORMAL) Hm Colonoscopy (10/16/2024) Colonoscopy Abnormal( A) Normal Comment:Tubular adenoma. 10/16/2024 us Historical Provider MD HEALTH MAINTENANCE Final Result * Lipid Panel with Reflex to Direct LDL (07/28/2024 8:21 AM EST) Triglycerides 125 <150 mg/dL [facility] Comment:Desirable Triglyceri de: less than 150 mg/dLBorderline High Triglyceride 150-199 mg/dLHigh Triglyceride: 200-499 mg/dLVery High Triglyceride: greater than or equal to 5OO mg/dL Cholesterol 160 <200 mg/dL [facility] Comment:Desirable Cholestero l: less than 200 mg/dLBorderline High Cholesterol: 200-239 mg/dLHigh Cholesterol: greater than 239 mg/dL LDL Cholesterol Calculated 82 <100 mg/dL [facility] Comment:Desirable LDL: less than 100 mg/dLNear Optimal/Above Optimal LDL: 110- 129 mg/dLBorderline High LDL: 130-159 mg/dLHigh LDL: 160-189 mg/dLVery High LDL: greater than or equal to 190 mg/dL HDL Cholesterol 53 >40 mg/dL [facility] Comment:Desirable HDL: great er than 40 mg/dL Note: This HDL assay may give artificially low results in patients with liver disease. Blood 07/28/2024 8:21 AM EST 07/28/2024 11:01 AM EST Ebony Blanchard MD LAB BLOOD ORDERABLES Final Resul t Performing Organization Address City/[facility] Co de Phone Number [facility] [address] [place] [phone] * Hemoglobin A1c (07/28/2024 8:21 AM EST) Hemoglobin A1c 5.7 <6.0 % [facility] Comment:Hemoglobin A1C Refer ence Range Adults: 4.8 - 6.0 % Non diabetic: < 6.0 % Goal: < 7.0 %Additional Action Suggested: > 8.0 %Note: Hemoglobin A1c results are invalid for patients with abnormal amounts of HbF. Blood transfusions may impact the HbA1c concentration in the patient sample. Estimated Average Glucose 117 mg/dL [facility] Comment:eAG = Estimated ave rage glucose which is %A1C expressed asaverage glucose, using the formula of the W9W-EeblsvzWkykozm Glucose study (ADAG), Diabetes Care, Vol.31,#8,Jan. 2007 Blood Venous blood specimen / Unknown 07/28/2024 8:21 AM EST 07/28/2024 11:01 AM EST Ebony Blanchard MD LAB BLOOD ORDERABLES Final Resul t Performing Organization Address [facility]/ZIP Co de Phone Number [facility] [address] [place] [phone] * BI Mammogram Screening Tomosynthesis Bilateral (03/14/2024 10:10 AM EDT) Anatomical Region Laterality Modality Breast Bilateral Mammography 03/14/2024 10:1 0 AM EDT Narrative 03/26/2024 9:27 AM EDT [address] [place] [address] Mammography Report Signed Patient: Olivia Yu MR#: [id number] : 1960 Acct:[id number] Age/Sex: 63 / F ADM Date: 03/14/24 Loc: HO.MAMMO Attending Dr: Ebony Blanchard MD Ordering Physician: Ebony Blanchard MD Results: 1Negative Date of Service: 03/14/24 Follow Up: 1 Year From Orig inal Mammogram Procedure(s): MM tomosynthesis screening BI Accession Number(s): [id number] cc: Ebony Blanchard MD EXAMINATION: MM SCREENING [...] OV> 03/26/24923 DD/ 1010 TD/TT: 03/14/24 1030 Farm Equipment Technician: Procedure Note Donotuseinterpreter, Image - 03/26/[address] [place] [address] Mammography Report Signed Patient: Olivia Yu MMR#: [id number] : 1960cct:[id number] Age/Sex: 63 / FADM Date: 03/14/24 Loc: MAMMO Attending Dr: Ebony Blanchard MD Ordering Physician: Ebony Blanchard MDResults: 1Negative Date of Service: 03/14/24Follow Up: 1 Year From Orig ina Mammogram Procedure(s): MM tomosynthesis screening BI Accession Number(s): [id number] cc: Ebony Blanchard MD EXAMINATION: MM SCREENING [...] OV> 03/26/24923 DD/ 1010 TD/TT: 03/14/24 1030 Farm Equipment Technician: Ebony Blanchard MD IM BI PROCEDURES Final Result * THINPREP TIS PAP AND HPV mRNA E6/E7 REFLEX HPV 16,18/45 (05/02/2021 4:14 PM EST) Clinical Information: None given [facility] COMMENT SEE COMMENT [facility] Comment: EXPLANATORY NOTE: The Pap is a screening test for cervical cancer. It is not a diagnostic test and is subject to false negative and false positive results. It is most reliable when a satisfactory sample, regularly obtained, is submitted with relevant clinical findings and history, and when the Pap result is evaluated along with historic and current clinical information. COMMENT: This Pap test has been evaluated with computer assisted technology. [facility] Mental Health Associate: SEE COMMENT [facility] Comment: BK,CT(ASCP) CT screening location: [address] HPV nRNA E6/E7 Not Detected Not Detected [facility] Comment: Methodology: Telephone Order Clerk Room Service-Mediated Amplification This assay detects E6/E7 viral messenger RNA (mRNA) from 14 high-risk HPV types (16,18,31,33,35,39,45,51,52,56,58,59,66,68). The analytical performance characteristics of this assay have been determined by [employer]. The modifications have not been cleared or approved by the FDA. This assay has been validated pursuant to the CLIA regulations and is used for clinical purposes. For additional information, please refer to http://education.TriggerMail/faq/XDW382j1 (This link if provided for information/ educational [...] [facility] 05/02/2021 4:14 PM EST us Ebony Blanchard MD LAB PATHOLOGY ORDERABLES Final R esult [facility] [address] from Last 3 Months or Most Recently Relevant to Health Maintenance Insurance [facility] ONE CARE < 65 DENTAL [facility] Care Teams Tracer Bullet Section Supervisor Relationship Specialty Start Date End Date Ebony Blanchard MD [address] [place] [address] PCP - General Family Medicine 06/18/18
--- OUTSIDE RECORDS SUMMARY | 2025-02-23 08:50 | XMS_ITS | Clinical Summary ---
Author Organization [employer] [facility] ity Address [address] [place] [address] Care Team Providers Care Manager Field Investigations Name Role Phone Unavailable Primary Care Provider [...] 2012 Zoster Vaccines (1 of 2) 2012 Depression Screening 06/18/2024 COVID-19 Vaccine (1 - 2023-2 5 season) 2025 Influenza Vaccine (#1) 2025 RSV Immunization Adult [...]
--- OUTSIDE RECORDS SUMMARY | 2025-02-23 08:50 | XMS_ITS | Encounter Summary ---
Author Organization [employer] [facility] Address [address] [facility] 7t [place] [address] Care Team Providers Care Stewardess Supervisor Name Role Phone Ebony Blanchard MD Primary Care Provider [phone] El Gilman PharmD Unavailable [phone] Encounter Details Date Type Department Care Team (Latest Contact Info) Description 09/08/2020 Abstract [facility] CONVERSIONS Dental, Provider, DDS Social [...] Description 02/26/2025 10:00 AM EDT Office Visit [facility] MEDICINE 230 [place] [address] Ebony Blanchard MD 230 [place] [address] 03/09/2025 10:00 AM EDT Office Visit [facility] ADULT DENTAL 230 [place] [address] Clint Pérez DMD 230 [place] [address] 03/19/2025 1:00 PM EDT Office Visit [facility] ADULT DENTAL 230 [place], [place] [phone] NevinChapis [address] [place], [place] [phone] 04/02/2025 11:00 AM EDT Medication Management [facility] MEDICINE [address] [place], [place] [phone] El Gilman, PharmD 230 [place] [address] documented as of this encounter Visit Diagnoses Not on filedocumented in this encounter Care Teams Stewardess Supervisor Relationship Specialty Start Date End Date Ebony Blanchard MD [address] [place] [address] [phone] PCP - General Family Medicine 06/18/18 El Gilamn, PharmD [address] [place] [address] [phone] Pharmacist Internal Medicine 08/21/22 04/27/24 documented as of this encounter
--- OUTSIDE RECORDS SUMMARY | 2025-02-23 08:50 | XMS_ITS | Encounter Summary ---
Author Organization [employer] Address 75 [facility] 7t [place] [address] Care Team Providers Care Holter Technician Name Role Phone Ebony Blanchard MD Primary Care Provider [phone] El Gilman PharmD Unavailable [phone] Encounter Details Date Type Department Care Team (Latest Contact Info) Description 10/09/2018 Abstract [facility] CONVERSIONS Dental, Provider, DDS Social History [...] Description 02/26/2025 10:00 AM EDT Office Visit [facility] MEDICINE [address] [place] [address] Ebony Blanchard MD 230 [place] [address] 03/09/2025 10:00 AM EDT Office Visit [facility] ADULT DENTAL [address] [place] [address] Clint Pérez DMD 230 [place] [address] 03/19/2025 1:00 PM EDT Office Visit [facility] ADULT DENTAL [address] [place], [place] [phone] Chapis Rooney [address] [place] [address] 04/02/2025 11:00 AM EDT Medication Management [facility] MEDICINE [address] [place], [place] [phone] El Gilman, PharmD 230 [place] [address] documented as of this encounter Visit Diagnoses Not on filedocumented in this encounter Care Teams Holter Technician Relationship Specialty Start Date End Date Ebony Blanchard MD [address] [place] [address] [phone] PCP - General Family Medicine 06/18/18 El Gilman, PharmD [address] [place] [address] [phone] Pharmacist Internal Medicine 08/21/22 04/27/24 documented as of this encounter
--- OUTSIDE RECORDS SUMMARY | 2025-02-23 08:51 | XMS_ITS | Encounter Summary ---
Author Organization [employer] Address 75 [facility] 7t [place] [address] Care Team Providers Care Associate Software Developer Name Role Phone Ebony Blanchard MD Primary Care Provider [phone] El Gilman PharmD Unavailable [phone] Reason for Referral * Consultation (Routine) - Closed Specialty Diagnoses / Procedures Referred By Contac t Referred To Contact Orthopaedic Surgery Diagnoses Chronic left shoulder pain Incomplete tear of left rotator cuff, unspecified whether traumatic Shoulder arthritis Ebony Blanchard MD 230 [place] [address] Phone: tel: fax: [facility] [address] [place] [address] [place] [address] Phone: tel: fax: Referral ID Status Reason Start Date Expiration Date V isits Requested Visits Authorized [id number] Closed Specialty Services Required 10/12/2023 10/11/2024 1 1 Encounter Details Date Type Department Care Team (Late st Contact Info) Description 10/12/2023 Orders Only [facility] MEDICINE 230 [place], [place] [phone] Ebony Blanchard MD 230 [place], [place] [phone] Chronic left shoulder pain (Primary Dx); Incomplete [...] Description 02/26/2025 10:00 AM EDT Office Visit [facility] MEDICINE 230 [place] [address] Ebony Blanchard MD 230 [place] [address] 03/09/2025 10:00 AM EDT Office Visit [facility] ADULT DENTAL 230 [place] [address] Clint Pérez, DMD 230 [place] [address] 03/19/2025 1:00 PM EDT Office Visit [facility] ADULT DENTAL 230 [place] [address] Chapis Rooney 230 [place] [address] 04/02/2025 11:00 AM EDT Medication Management [facility] MEDICINE 230 [place] [address] El Gilman, Roscoe 230 [place], [place] Scheduled Referrals Name Type Priority Associated Diagnoses [...] 136/74(2024 7:57 AM EDT) No El Gilman, Roscoe Note: [...] documented as of this encounter Care Teams Associate Software Developer Relationship Specialty Start Date End Date bEony Blanchard MD [address] [place] [address] PCP - General Family Medicine 06/18/18 El Gilman, PharmD [address] [place] [address] Pharmacist Internal Medicine 08/21/22 04/27/24 documented as of this encounter
--- OUTSIDE RECORDS SUMMARY | 2025-02-23 08:51 | XMS_ITS | Encounter Summary ---
Author Organization [employer] Address 75 [facility] 7t [place] [address] Care Team Providers Care Paper Carrier Name Role Phone Ebony Blanchard MD Primary Care Provider [phone] El Gilman PharmD Unavailable [phone] Reason for Visit * Reason Comments Med Refill Encounter Details Date Type Department Care Team ([facility] st Contact Info) Description 09/21/2023 Refill [facility] MEDICINE 230 [place], [place] [phone] Olivia Babcock MD 230 [place], [place] [phone] Essential hypertension Social History Tobacco Use Types [...] Description 02/26/2025 10:00 AM EDT Office Visit [facility] MEDICINE [address] [place] [address] Ebony Blanchard MD 230 [place] [address] 03/09/2025 10:00 AM EDT Office Visit [facility] ADULT DENTAL [address] [place] [address] Clint Pérez, BARRY 230 [place] [address] 03/19/2025 1:00 PM EDT Office Visit [facility] ADULT DENTAL 230 [place] [address] Chapis Rooney 230 [place] [address] 04/02/2025 11:00 AM EDT Medication Management [facility] MEDICINE [address] [place] [address] El Gilman, PharmD [address] [place] [address] documented as of this encounter Goals Goal [...] documented as of this encounter Care Teams Paper Carrier Relationship Specialty Start Date End Date Ebony Blanchard MD 230 [place] [address] PCP - General Family Medicine 06/18/18 El Gilman, PharmD 230 [place] [address] Pharmacist Internal Medicine 08/21/22 04/27/24 documented as of this encounter
--- OUTSIDE RECORDS SUMMARY | 2025-02-23 08:51 | XMS_ITS | Encounter Summary ---
Author Organization [employer] Address 75 [facility] 7t [place] [address] Care Team Providers Care Field Operations Supervisor Name Role Phone Ebony Blanchard MD Primary Care Provider [phone] Reason for Visit * Reason Onset Date Comments emergency visit transportation 12/30/2024 Encounter Details Date Type Department Care Team ([facility] st Contact Info) Description 12/30/[address] [facility] ADULT DENTAL 230 [place], [place] [phone] Julian Bazan, DDMick 230 [place], [place] [phone] emergency visit transportation Social History Tobacco Use Types Packs/Day Years [...] * Telephone Encounter - Mary Zimmer - 12/30/2024 10:30 AM EDT Ok to schedule per [place] due to emergency however patient relies on transportation from insurance and [facility] to do same day emerency visit. Insurance provider needs 2 days advvance for transportationserbertoes Patient schedule with [employer] documented in this encounter Plan of Treatment Upcoming Encounters Date Type Department Care Team (Late st Contact Info) Description 02/26/2025 10:00 AM EDT Office Visit [facility] MEDICINE 230 [place] [address] Ebony Blanchard MD 230 [place] [address] 03/09/2025 10:00 AM EDT Office Visit [facility] ADULT DENTAL [address] [place] [address] Clint Pérez, DMD 230 [place] [address] 03/19/2025 1:00 PM EDT Office Visit [facility] ADULT DENTAL [address] [place] [address] Chapis Rooney [address] [place] [address] 04/02/2025 11:00 AM EDT Medication Management [facility] MEDICINE [address] [place] [address] El Gilman, PharmKathy 230 [place] [address] documented as of this encounter Goals Goal [...] documented as of this encounter Care Teams Field Operations Supervisor Relationship Specialty Start Date End Date Ebony Blanchard MD 230 [place] [address] PCP - General Family Medicine 06/18/18 documented as of this encounter
--- OUTSIDE RECORDS SUMMARY | 2025-02-23 08:51 | XMS_ITS | Encounter Summary ---
Author Organization [employer] Address 75 [facility] 7t [place] [address] Care Team Providers Care Elastic Yarn Twister Name Role Phone Ebony Blanchard MD Primary Care Provider [phone] Reason for Referral * Consultation (Routine) - Authorized Specialty Diagnoses / Procedures Referred By Contac t Referred To Contact Pharmacy Diagnoses Hypertension, unspecified type Ebony Blanchard MD 230 [place] [address] Phone: tel: fax: Referral ID Status Reason Start Date Expiration Date Visits Requested Visits Authorized [id number] Authorized Consult and Treat 04/29/2024 04/29/2025 6 6 Encounter Details Date Type Department Care Team ([facility] st Contact Info) Description 04/29/2024 Orders Only [facility] MEDICINE [address] [place] [address] Ebony Blanchard MD 230 [place] [address] Hypertension, unspecified type (Primary Dx) Social History [...] Description 02/26/2025 10:00 AM EDT Office Visit [facility] MEDICINE 230 [place] [address] Ebony Blanchard MD 230 [place] [address] 03/09/2025 10:00 AM EDT Office Visit [facility] ADULT DENTAL 230 [place] [address] Clint Pérez DMD 230 [place] [address] 03/19/2025 1:00 PM EDT Office Visit [facility] ADULT DENTAL 230 [place], [place] [phone] Chapis Rooney 230 [place] [address] 04/02/2025 11:00 AM EDT Medication Management [facility] MEDICINE 230 [place], [place] [phone] El Gilman, PharmD 230 [place] [address] Scheduled Referrals Name Type Priority Associated Diagnoses [...] documented as of this encounter Care Teams Elastic Yarn Twister Relationship Specialty Start Date End Date Ebony Blanchard MD [address] [place] [address] PCP - General Family Medicine 06/18/18 documented as of this encounter
--- OUTSIDE RECORDS SUMMARY | 2025-02-23 08:51 | XMS_ITS | Encounter Summary ---
Author Organization [employer] Address 75 [facility] 7t [place] [address] Care Team Providers Care Coding Quality Analyst Name Role Phone Ebony Blanchard MD Primary Care Provider [phone] El Gilman PharmD Unavailable [phone] Encounter Details Date Type Department Care Team ([facility] st Contact Info) Description 03/30/2023 Abstract [facility] ADULT DENTAL 230 [place], [place] [phone] Julian Bazan DDS 230 [place], [place] [phone] Social History Tobacco Use Types Packs/Day Years [...] Description 02/26/2025 10:00 AM EDT Office Visit [facility] MEDICINE [address] [place] [address] Ebony Blanchard MD [address] [place] [address] 03/09/2025 10:00 AM EDT Office Visit [facility] ADULT DENTAL [address] [place] [address] Clint Pérez, BARRY 230 [place] [address] 03/19/2025 1:00 PM EDT Office Visit [facility] ADULT DENTAL [address] [place] [address] Chapis Rooney 230 [place] [address] 04/02/2025 11:00 AM EDT Medication Management [facility] MEDICINE [address] [place] [address] El Gilman, Roscoe [address] [place] [address] documented as of this encounter Goals Goal Patient Goal Type Associated Problems Recent Progress Patient-Stated? Author Blood Pressure < 150/90 Blood Pressure 136/74(2024 7:57 AM EDT) No El Gilman, PharmKathy Note: Per JNC-8 Age 62 with no history of DM or CKD documented as of this encounter Visit Diagnoses Not on filedocumented in this encounter Additional Health Concerns Assessment Noted Time PHQ-9 Depression Total Score: 0 07/31/19 23 10:25 AM EST documented as of this encounter Care Teams Coding Quality Analyst Relationship Specialty Start Date End Date Ebony Blanchard MD 230 [place] [address] PCP - General Family Medicine 06/18/18 El Gilman, RajeshD 230 [place] [address] Pharmacist Internal Medicine 08/21/22 04/27/24 documented as of this encounter
--- OUTSIDE RECORDS SUMMARY | 2025-02-23 08:51 | XMS_ITS | Encounter Summary ---
Author Organization [employer] Address 75 [facility] 7t [place] [address] Care Team Providers Care Motor Bus Driver Name Role Phone Ebony Blanchard MD Primary Care Provider [phone] El Gilman PharmD Unavailable [phone] Reason for Visit * Reason Comments Med Refill Encounter Details Date Type Department Care Team ([facility] st Contact Info) Description 03/25/2023 Refill [facility] MEDICINE 230 [place], [place] [phone] Ebony Blanchard MD 230 [place], [place] [phone] Social History Tobacco Use Types Packs/Day Years [...] 02/26/2025 10:00 AM EDT Office Visit [facility] MEDICINE [address] [place] [address] Ebony Blanchard MD 230 [place] [address] 03/09/2025 10:00 AM EDT Office Visit [facility] ADULT DENTAL [address] [place] [address] Clint Pérez DMD 230 [place] [address] 03/19/2025 1:00 PM EDT Office Visit [facility] ADULT DENTAL [address] [place] [address] Chapis Rooney 230 [place] [address] 04/02/2025 11:00 AM EDT Medication Management [facility] MEDICINE [address] [place] [address] El Gilman, PharmKathy [address] [place] [address] documented as of this encounter Goals Goal [...] documented as of this encounter Care Teams Motor Bus Driver Relationship Specialty Start Date End Date Ebony Blanchard MD 230 [place] [address] PCP - General Family Medicine 06/18/18 El Gilman, PharmD [address] [place] [address] Pharmacist Internal Medicine 08/21/22 04/27/24 documented as of this encounter
--- OUTSIDE RECORDS SUMMARY | 2025-02-23 08:51 | XMS_ITS | Encounter Summary ---
Author Organization [employer] Address 75 [facility] 7t [place] [address] Care Team Providers Care Color Repairer Name Role Phone Ebony Blanchard MD Primary Care Provider [phone] El Gilman PharmD Unavailable [phone] Reason for Visit * Reason Comments Med Refill Encounter Details Date Type Department Care Team ([facility] st Contact Info) Description 03/25/2023 Refill [facility] MEDICINE 230 [place], [place] [phone] Ebony Blanchard MD 230 [place], [place] [phone] Social History Tobacco Use Types Packs/Day Years [...] 10:00 AM EDT Office Visit [facility] MEDICINE [address] [place] [address] Ebony Blanchard MD 230 [place] [address] 03/09/2025 10:00 AM EDT Office Visit [facility] ADULT DENTAL [address] [place] [address] Clint Pérez DMD 230 [place] [address] 03/19/2025 1:00 PM EDT Office Visit [facility] ADULT DENTAL [address] [place] [address] Chapis Rooney 230 [place] [address] 04/02/2025 11:00 AM EDT Medication Management [facility] MEDICINE [address] [place] [address] El Gilman, PharmKathy [address] [place] [address] documented as of this encounter Goals Goal [...] documented as of this encounter Care Teams Color Repairer Relationship Specialty Start Date End Date Ebony Blanchard MD 230 [place] [address] PCP - General Family Medicine 06/18/18 El Gilman, PharmD [address] [place] [address] Pharmacist Internal Medicine 08/21/22 04/27/24 documented as of this encounter
--- OUTSIDE RECORDS SUMMARY | 2025-02-23 08:51 | XMS_ITS | Encounter Summary ---
Author Organization [employer] Address 75 [facility] 7t [place] [address] Care Team Providers Care X Ray Control Equipment Repairer Name Role Phone Ebony Blanchard MD Primary Care Provider [phone] El Gilman PharmD Unavailable [phone] Reason for Visit * Reason Onset Date Comments Med Refill 02/11/2024 Encounter Details Date Type Department Care Team ([facility] st Contact Info) Description 02/11/2024 Refill [facility] MEDICINE 230 [place], [place] [phone] Olivia Babcock MD 230 [place], [place] [phone] Essential hypertension Social History Tobacco Use Types [...] Description 02/26/2025 10:00 AM EDT Office Visit [facility] MEDICINE [address] [place] [address] Ebony Blanchard MD [address] [place] [address] 03/09/2025 10:00 AM EDT Office Visit [facility] ADULT DENTAL [address] [place] [address] Clint Pérez, BARRY 230 [place] [address] 03/19/2025 1:00 PM EDT Office Visit [facility] ADULT DENTAL [address] [place] [address] Chapis Rooney 230 [place] [address] 04/02/2025 11:00 AM EDT Medication Management [facility] [address] [place] [address] lE Gilman, PharmD [address] [place] [address] documented as of this encounter Goals Goal Patient Goal Type Associated Problems Recent Progress Patient-Stated? Author Blood Pressure < 150/90 Blood Pressure 136/74(2024 7:57 AM EDT) El Murcia, Roscoe Note: Per JNC-8 Age 62 with no history of DM or CKD documented as of this encounter Visit Diagnoses Diagnosis Essential hypertension Unspecified essential hypertension documented in this encounter Additional Health Concerns Assessment Noted Time PHQ-9 Depression Total Score: 0 08/23/19 24 10:50 AM EST documented as of this encounter Care Teams X Ray Control Equipment Repairer Relationship Specialty Start Date End Date Ebony Blanchard MD 230 [place] [address] PCP - General Family Medicine 06/18/18 El Gilman, PharmD [address] [place] [address] Pharmacist Internal Medicine 08/21/22 04/27/24 documented as of this encounter
--- OUTSIDE RECORDS SUMMARY | 2025-02-23 08:51 | XMS_ITS | Encounter Summary ---
Author Organization [employer] Address 75 [facility] 7t [place] [address] Care Team Providers Care Counsel Name Role Phone Ebony Blanchard MD Primary Care Provider [phone] El Gilman PharmD Unavailable [phone] Reason for Visit * Reason Onset Date Comments reschedule yazdanism 04/16/2023 Encounter Details Date Type Department Care Team ([facility] st Contact Info) Description 04/16/2023 Telephone [facility] ADULT DENTAL 230 [place], [place] [phone] Clint Pérez, DMD 230 [place], [place] [phone] reschedule yazdanism Social History Tobacco Use Types Packs/Day Years [...] AM EDT Patient would like to reschedule yazdanism appt with Dr Pérez for a mid to late morning preferrablya 10am. documented in this encounter Plan of Treatment Upcoming Encounters Date Type Department Care Team (Late st Contact Info) Description 02/26/2025 10:00 AM EDT Office Visit [facility] MEDICINE [address] [place] [address] Ebony Blanchard MD 230 [place] [address] 03/09/2025 10:00 AM EDT Office Visit [facility] ADULT DENTAL 230 [place] [address] Clint Pérez DMD 230 [place] [address] 03/19/2025 1:00 PM EDT Office Visit [facility] ADULT DENTAL 230 [place] [address] Chapis Rooney [address] [place] [address] 04/02/2025 11:00 AM EDT Medication Management [facility] [address] [place] [address] [place] [address] El Gilman, PharmD 230 [place] [address] documented as of this encounter Goals Goal [...] documented as of this encounter Care Teams Counsel Relationship Specialty Start Date End Date Ebony Blanchard MD [address] [place] [address] PCP - General Family Medicine 06/18/18 El Gilman, PharmD [address] [place] [address] Pharmacist Internal Medicine 08/21/22 04/27/24 documented as of this encounter
--- OUTSIDE RECORDS SUMMARY | 2025-02-23 08:51 | XMS_ITS | Encounter Summary ---
Author Organization [employer] Address 75 [facility] 7t [place] [address] Care Team Providers Care Acrobatic Dancer Name Role Phone Ebony Blanchard MD Primary Care Provider [phone] El Gilman PharmD Unavailable [phone] Reason for Visit * Reason Comments Med Refill Encounter Details Date Type Department Care Team ([facility] st Contact Info) Description 03/19/[address] [facility] MEDICINE 230 [place], [place] [phone] Olivia Babcock MD 230 [place], [place] [phone] Essential hypertension Social History Tobacco Use Types [...] housing situation today? I have evangelistneeru caba 11/19/[address] you [...] AM EDT Office Visit [facility] MEDICINE [address] [place] [address] Ebony Blanchard MD 230 [place] [address] 03/09/2025 10:00 AM EDT Office Visit [facility] ADULT DENTAL 230 [place] [address] Clint Pérez, BARRY 230 [place] [address] 03/19/2025 1:00 PM EDT Office Visit [facility] ADULT DENTAL [address] [place] [address] Chapis Rooney [address] [place] [address] 04/02/2025 11:00 AM EDT Medication Management [facility] MEDICINE [address] [place] [address] El Gilman, PharmD [address] [place] [address] documented as of this encounter Goals Goal [...] documented as of this encounter Care Teams Acrobatic Dancer Relationship Specialty Start Date End Date Ebony Blanchard MD 230 [place] [address] PCP - General Family Medicine 06/18/18 El Gilman, PharmD 230 [place] [address] Pharmacist Internal Medicine 08/21/22 04/27/24 documented as of this encounter
--- OUTSIDE RECORDS SUMMARY | 2025-02-23 08:51 | XMS_ITS | Encounter Summary ---
Author Organization [employer] Address 75 [facility] 7t [place] [address] Care Team Providers Care Mortgage Professional Name Role Phone Ebony Blanchard MD Primary Care Provider [phone] El Gilman PharmD Unavailable [phone] Encounter Details Date Type Department Care Team ([facility] st Contact Info) Description 07/16/2023 Abstract [facility] ADULT DENTAL [address] [place], [place] [phone] Clint Pérez, DMD [address] [place], [place] [phone] Social History Tobacco Use Types Packs/Day Years [...] Description 02/26/2025 10:00 AM EDT Office Visit [facility] MEDICINE [address] [place] [address] Ebony Blanchard MD 230 [place] [address] 03/09/2025 10:00 AM EDT Office Visit [facility] ADULT DENTAL [address] [place] [address] Clint Pérez, BARRY [address] [place] [address] 03/19/2025 1:00 PM EDT Office Visit [facility] ADULT DENTAL [address] [place] [address] Chapis Rooney [address] [place] [address] 04/02/2025 11:00 AM EDT Medication Management [facility] MEDICINE [address] [place] [address] El Gilman, Roscoe [address] [place] [address] documented as of this encounter Goals Goal [...] documented as of this encounter Care Teams Mortgage Professional Relationship Specialty Start Date End Date Ebony Blanchard MD 230 [place] [address] PCP - General Family Medicine 06/18/18 El Gilman, RajeshD 230 [place] [address] Pharmacist Internal Medicine 08/21/22 04/27/24 documented as of this encounter
--- OUTSIDE RECORDS SUMMARY | 2025-02-23 08:51 | XMS_ITS | Encounter Summary ---
Author Organization [employer] Address 75 [facility] 7t [place] [address] Care Team Providers Care Utility Hand Name Role Phone Ebony Blanchard MD Primary Care Provider [phone] El Gilman PharmD Unavailable [phone] Reason for Visit * Reason Onset Date Comments Prior Authorization 03/30/2023 Encounter Details Date Type Department Care Team ([facility] Contact Info) Description 03/30/2023 Telephone [facility] ADULT DENTAL [address] [place] [address] KanuHarvey, DDS [address] [place] [address] Prior Authorization Social History Tobacco Use Types [...] 02/26/2025 10:00 AM EDT Office Visit [facility] MEDICINE [address] [place] [address] Ebony Blanchard MD [address] [place] [address] 03/09/2025 10:00 AM EDT Office Visit [facility] ADULT DENTAL [address] [place] [address] Clint Pérez DMD [address] [place] [address] 03/19/2025 1:00 PM EDT Office Visit [facility] ADULT DENTAL [address] [place] [address] Chapis Rooney [address] [place] [address] 04/02/2025 11:00 AM EDT Medication Management [facility] MEDICINE [address] [place] [address] El Gilman, Roscoe [address] [place] [address] documented as of this encounter Goals Goal Patient Goal Type Associated Problems Recent Progress Patient-Stated? Author Blood Pressure < 150/90 Blood Pressure 136/74(2024 7:57 AM EDT) No El Gilman PharmD Note: Per JNC-8 Age 62 with no history of DM or CKD documented as of this encounter Visit Diagnoses Not on filedocumented in this encounter Additional Health Concerns Assessment Noted Time PHQ-9 Depression Total Score: 0 07/31/19 23 10:25 AM EST documented as of this encounter Care Teams Utility Hand Relationship Specialty Start Date End Date Ebony Blanchard MD [address] [place] [address] PCP - General Family Medicine 06/18/18 El Gilman, Roscoe [address] [place] [address] Pharmacist Internal Medicine 08/21/22 04/27/24 documented as of this encounter
--- OUTSIDE RECORDS SUMMARY | 2025-02-23 08:51 | XMS_ITS | Encounter Summary ---
Author Organization [employer] Address 75 [facility] 7t [place] [address] Care Team Providers Care Upholstery Cleaner Name Role Phone Ebony Blanchard MD Primary Care Provider [phone] El Gilman PharmD Unavailable [phone] Reason for Referral * Imaging (Routine) - Closed Specialty Diagnoses / Procedures Referred By Contac t Referred To Contact Radiology Diagnoses Status post bilateral breast reduction Breast pain, left Procedures BI US Breast Complete Bilateral Ebony Blanchard MD [address] [place] [address] Phone: tel: fax: [address] Phone: tel: fax: Referral ID Status Reason Start Date Expiration Date Visits Re quested Visits Authorized [id number] Closed 03/14/2023 03/13/2024 1 1 Encounter Details Date Type Department Care Team (Late st Contact Info) Description 03/14/2023 Orders Only [facility] MEDICINE [address] [place], [place] [phone] Ebony Blanchard MD [address] [place], [place] [phone] Status post bilateral breast reduction (Primary Dx); [...] Office Visit [facility] MEDICINE [address] [place] [address] Eobny Blanchard MD [address] [place] [address] 03/09/2025 10:00 AM EDT Office Visit [facility] ADULT DENTAL [address] [place] [address] Clint Pérez, BARRY [address] [place] [address] 03/19/2025 1:00 PM EDT Office Visit [facility] ADULT DENTAL [address] [place] [address] Chapis Rooney [address] [place] [address] 04/02/2025 11:00 AM EDT Medication Management [facility] MEDICINE [address] [place] [address] El Gilman, PharmD [address] [place] [address] Scheduled Orders Name Type Priority Associated Diagnoses Orde r Schedule BI US Breast Complete Bilateral Imaging Routine Status post bilateral breast reduction Breast pain, left Expected: 03/14/2023, Expires: 05/14/2024 documented as of this encounter Goals Goal Patient Goal Type Associated Problems Recent Progress Patient-Stated? Author Blood Pressure < 150/90 Blood Pressure 136/74(2024 7:57 AM EDT) No El Gilman, RajeshD Note: [...] PM EDT Narrative 04/04/2023 3:04 PM EDT [facility]'[address] [place] [address] Ultrasound Report Signed Patient: Olivia Yu MR#: [id number] : 1960 Acct:[id number] Age/Sex: 63 / F ADM Date: 04/04/23 Loc: HO.MAMMO Attending Dr: Ebony Blanchard MD Ordering Physician: Ebony Blanchard MD Date of Service: 04/04/23 Procedure(s): US breast LT limited mamm only Accession Number(s): [id number] cc: Ebony Blanchard MD EXAMINATION: MM DIAGNOSTIC [...] in OV> 04/04/23 1500 DD/ 1430 TD/TT: Household Assistant: Procedure Note Donotuseinterpreter, Image - 04/04/2023 [facility] [address] [place] [address] Ultrasound Report Signed Patient: Olivia Yu [facility]#: [id number] : 2Acct:[id number] Age/Sex: 63 / FADM Date: 04/04/23 Loc: HO.MAMMO Attending Dr: Ebony Blanchard MD Ordering Physician: Ebony Blanchard MD Date of Service: 04/04/23 Procedure(s): US breast LT limited mamm only Accession Number(s): [id number] cc: Ebony Blanchard MD EXAMINATION: MM DIAGNOSTIC [...] in OV> 04/04/23 1500 DD/ 1430 TD/TT: Household Assistant: us Ebony Blanchard MD IMG US PROCEDURES Final Result documented in this encounter Visit Diagnoses Diagnosis Status post bilateral breast reduction- Primary Other postprocedural status Breast pain, left documented in this encounter Additional Health Concerns Assessment Noted Time PHQ-9 Depression Total Score: 0 07/31/19 23 10:25 AM EST documented as of this encounter Care Teams Upholstery Cleaner Relationship Specialty Start Date End Date Ebony Blanchard MD [address] [place] [address] PCP - General Family Medicine 06/18/18 El Gilman, PharmD [address] [place] [address] [place] [address] Pharmacist Internal Medicine 08/21/22 04/27/24 documented as of this encounter
--- OUTSIDE RECORDS SUMMARY | 2025-02-23 08:51 | XMS_ITS | Encounter Summary ---
Author Organization [employer] Address 75 [facility] 7t [place] [address] Care Team Providers Care Uke Operator Name Role Phone Ebony Blanchard MD Primary Care Provider [phone] El Gilman PharmD Unavailable [phone] Encounter Details Date Type Department Care Team ([facility] st Contact Info) Description 06/07/2023 Abstract [facility] ADULT DENTAL [address] [place], [place] [phone] Clint Pérez, DMD [address] [place], [place] [phone] Social History Tobacco Use Types Packs/Day Years [...] Description 02/26/2025 10:00 AM EDT Office Visit [facility] MEDICINE [address] [place] [address] Ebony Blanchard MD [address] [place] [address] 03/09/2025 10:00 AM EDT Office Visit [facility] ADULT DENTAL [address] [place] [address] Clint Pérez, BARRY [address] [place] [address] 03/19/2025 1:00 PM EDT Office Visit [facility] ADULT DENTAL [address] [place] [address] Chapis Rooney [address] [place] [address] 04/02/2025 11:00 AM EDT Medication Management [facility] MEDICINE [address] [place] [address] El Gilman, Roscoe [address] [place] [address] documented as of this encounter Goals Goal [...] documented as of this encounter Care Teams Uke Operator Relationship Specialty Start Date End Date Ebony Blanchard MD [address] [place] [address] PCP - General Family Medicine 06/18/18 El Gilman, RajeshD [address] [place] [address] Pharmacist Internal Medicine 08/21/22 04/27/24 documented as of this encounter
--- OUTSIDE RECORDS SUMMARY | 2025-02-23 08:51 | XMS_ITS | Encounter Summary ---
Author Organization [employer] Address 75 [facility] 7t [place] [address] Care Team Providers Care Spinner Iron Name Role Phone Ebony Blanchard MD Primary Care Provider [phone] Reason for Visit * Reason Comments Med Refill Encounter Details Date Type Department Care Team ([facility] Contact Info) Description 04/30/2024 Refill [facility] MEDICINE [address] [place], [place] [phone] Ebony Blanchard MD [address] [place], [place] [phone] Psychophysiological insomnia Social History Tobacco Use Types [...] Description 02/26/2025 10:00 AM EDT Office Visit [facility] MEDICINE [address] [place] [address] Ebony Blanchard MD [address] [place] [address] 03/09/2025 10:00 AM EDT Office Visit [facility] ADULT DENTAL [address] [place] [address] Clint Pérez, BARRY [address] [place] [address] 03/19/2025 1:00 PM EDT Office Visit [facility] ADULT DENTAL [address] [place] [address] Chapis Rooney [address] [place] [address] 04/02/2025 11:00 AM EDT Medication Management [facility] MEDICINE [address] [place] [address] El Gilman, PharmD [address] [place] [address] documented as of this encounter Goals Goal [...] documented as of this encounter Care Teams Spinner Iron Relationship Specialty Start Date End Date Ebony Blanchard MD [address] [place] [address] PCP - General Family Medicine 06/18/18 documented as of this encounter
--- OUTSIDE RECORDS SUMMARY | 2025-02-23 08:51 | XMS_ITS | Encounter Summary ---
Author Organization [employer] Address 75 [facility] 7t [place] [address] Care Team Providers Care Cocoa Mill Operator Name Role Phone Ebony Blanchard MD Primary Care Provider [phone] Encounter Details Date Type Department Care Team ([facility] st Contact Info) Description 01/07/2025 Orders Only [facility] MEDICINE [address] [place], [place] [phone] Ebony Blanchard MD [address] [place], [place] [phone] Vitamin D deficiency (Primary Dx); Impaired fasting glucose; Hypertension, unspecified type Social History Tobacco Use Types Packs/Day Years [...] Description 02/26/2025 10:00 AM EDT Office Visit [facility] MEDICINE [address] [place] [address] Ebony Blanchard MD [address] [place] [address] 03/09/2025 10:00 AM EDT Office Visit [facility] ADULT DENTAL [address] [place] [address] Clint Pérez DMD [address] [place] [address] 03/19/2025 1:00 PM EDT Office Visit [facility] ADULT DENTAL [address] [place] [address] Chapis Rooney [address] [place] [address] 04/02/2025 11:00 AM EDT Medication Management [facility] MEDICINE [address] [place] [address] El Gilman, Roscoe [address] [place] [address] Scheduled Orders Name Type Priority Associated Diagnoses Orde r Schedule Hemoglobin A1c Lab Routine Impaired fasting glucose Expected: 01/07/2025 (Approximate), Expires: 01/07/2026 Glucose, Fasting Lab Routine Impaired fasting glucose Expected: 01/07/2025 (Approximate), Expires: 01/07/2026 documented as of this encounter Goals Goal Patient Goal Type Associated Problems Recent Progress Patient-Stated? Author Blood Pressure < 150/90 Blood Pressure 136/74(2024 7:57 AM EDT) No El Gilman, PharmKathy Note: Per JNC-8 Age 62 with no history of DM or CKD documented as of this encounter Visit Diagnoses Diagnosis Vitamin D deficiency- Primary Impaired fasting glucose Hypertension, unspecified type documented in this encounter Additional Health Concerns Assessment Noted Time PHQ-9 Depression Total Score: 0 07/30/19 25 10:27 AM EST documented as of this encounter Care Teams Cocoa Mill Operator Relationship Specialty Start Date End Date Ebony Blanchard MD [address] [place] [address] PCP - General Family Medicine 06/18/18 documented as of this encounter
--- OUTSIDE RECORDS SUMMARY | 2025-02-23 08:51 | XMS_ITS | Encounter Summary ---
Author Organization [employer] Address 75 [facility] 7t [place] [address] Care Team Providers Care Security Orderly Name Role Phone Ebony Blanchard MD Primary Care Provider [phone] El Gilman PharmD Unavailable [phone] Reason for Visit * Reason Comments Med Refill Encounter Details Date Type Department Care Team ([facility] st Contact Info) Description 12/20/2023 Refill [facility] MEDICINE [address] [place], [place] [phone] Ebony Blanchard MD [address] [place], [place] [phone] Essential hypertension Social History Tobacco Use Types [...] Description 02/26/2025 10:00 AM EDT Office Visit [facility] MEDICINE [address] [place] [address] Ebony Blanchard MD 230 [place] [address] 03/09/2025 10:00 AM EDT Office Visit [facility] ADULT DENTAL [address] [place] [address] Clint Pérez DMD [address] [place] [address] 03/19/2025 1:00 PM EDT Office Visit [facility] ADULT DENTAL [address] [place] [address] Chapis Rooney [address] [place] [address] 04/02/2025 11:00 AM EDT Medication Management [facility] [address] [place] [address] El Gilman, PharmD [address] [place] [address] documented as of this encounter Goals Goal [...] documented as of this encounter Care Teams Security Orderly Relationship Specialty Start Date End Date Ebony Blanchard MD [address] [place] [address] PCP - General Family Medicine 06/18/18 El Gilman, PharmD [address] [place] [address] Pharmacist Internal Medicine 08/21/22 04/27/24 documented as of this encounter
--- OUTSIDE RECORDS SUMMARY | 2025-02-23 08:51 | XMS_ITS | Encounter Summary ---
Author Organization [email or web address] Address 75 [facility] 7t [place] [address] Care Team Providers Care Humanities Professor Name Role Phone Ebony Blanchard MD Primary Care Provider [phone] El Gilman PharmD Unavailable [phone] Encounter Details Date Type Department Care Team ([facility] Contact Info) Description 06/07/2023 Abstract [facility] ADULT DENTAL [address] [place], [place] [phone] Harvey Curry, DDS [address] [place], [place] [phone] Social History Tobacco Use Types Packs/Day Years [...] Description 02/26/2025 10:00 AM EDT Office Visit [facility] MEDICINE [address] [place] [address] Ebony Blanchard MD [address] [place] [address] 03/09/2025 10:00 AM EDT Office Visit [facility] ADULT DENTAL [address] [place] [address] Clint Pérez, BARRY [address] [place] [address] 03/19/2025 1:00 PM EDT Office Visit [facility] ADULT DENTAL [address] [place] [address] Chapis Rooney 230 [place] [address] 04/02/2025 11:00 AM EDT Medication Management [facility] MEDICINE [address] [place] [address] El Gilman PharmD [address] [place] [address] documented as of this encounter Goals Goal [...] documented as of this encounter Care Teams Humanities Professor Relationship Specialty Start Date End Date Ebony Blanchard MD [address] [place] [address] PCP - General Family Medicine 06/18/18 El Gilman, Roscoe [address] [place] [address] Pharmacist Internal Medicine 08/21/22 04/27/24 documented as of this encounter
[2025-02-23 11:41] LABS: Hemoglobin A1C 143.7774 umol/L; Total Hemoglobin (HGBA1C) 3483.7044 umol/L
== END 2025-02-23 08:09 | disposition home or self-care (01) ==
LOC: HO.HHCL 08:08
PROVIDERS: PCP Family Medicine; Visit Provider Family Medicine
DX: R73.01 Impaired fasting glucose (principal)
CPT/HCPCS: 36415; 82947; 83036

== ENCOUNTER 2025-02-26 10:47 | Outpatient (REF) | payer OTHER, SELFPAY ==
--- NOTE | ~2025-02-26 | XR_ITS ---
EXAMINATION: XR CHEST CLINICAL INFORMATION: chest congestion, wheezing. Lung exam very small wheeze. COMPARISON: December 08, 2020 TECHNIQUE: 2 views of the chest were obtained. FINDINGS: No consolidation pleural effusion or pneumothorax. No hyperinflation. Cardiomediastinal silhouette size is normal. Calcified plaque thoracic aorta. Multilevel thoracic spondylosis. Degenerative changes in the right acromioclavicular joint. Patient's large body habitus/obesity.. XR/XR chest 2V IMPRESSION: No acute airspace disease. Multilevel spondylosis. Electronically signed by: Jamaal Vidales MD 02/26/2025 10:58 AM EDT
== END 2025-02-26 10:48 | disposition home or self-care (01) ==
LOC: HO.HHCX 10:47
PROVIDERS: Visit Provider Family Medicine
DX: R06.2 Wheezing (principal)
CPT/HCPCS: 71046

== ENCOUNTER → 2025-02-26 10:47 | Outpatient (BNV) | payer OTHER, SELFPAY | PROVIDERS: Visit Provider Radiology Diagnostic Radiology | DX: R06.2 Wheezing (principal) | CPT/HCPCS: 71046 ==

== ENCOUNTER 2025-03-17 09:37 | Outpatient (REF) | payer OTHER, SELFPAY ==
--- OUTSIDE RECORDS SUMMARY | 2025-03-13 14:30 | XMS_ITS | Encounter Summary ---
Author Organization [employer] Address 75 [facility] 7t [place] [address] Care Team Providers Care Green Building Architect Name Role Phone bEony Blanchard MD Primary Care Provider [phone] Reason for Visit * Reason Comments Dentures Encounter Details Date Type Department Care Team ([facility] Contact Info) Description 03/13/2025 2:30 PM EDT Office Visit [facility] ADULT DENTAL [address] [place], [place] [phone] Clint Pérez, DMD [address] [place] [address] Social History Tobacco Use Types Packs/Day Years [...] t he electric, gas, oil or water [employer] threatened to shut off services in your home? No 11/24/2024 Depression Answer Date Recorded Patient Health Questionnaire-2 Score 0 07/30/2024 Internet Access Answer Date Recorded Internet Access Q1 Yes 11/24/2024 Internet Access Q2 Not on file 11/24/2024 Comments No Sex and Gender Information Value Date Recorded Sex Assigned at Female 04/17/2022 10:20 AM EDT Legal Sex Female 10:20 AM EDT Gender Identity Female 04/17/2022 10:20 AM EDT Sexual Orientation Straight 07/23/2024 8: 51 AM EST documented as of this encounter Progress Notes * Clint Pérez DMD - 03/13/2025 2:30 PM EDT Delivery of lab adding tooth #5 on P/. Shorten and thin the UL clasp. Pt feels fine and likes the esthetic [place]: Imp of lower dryer feeder Reza documented in this encounter Plan of Treatment Upcoming Encounters Date Type Department Care Team (Late st Contact Info) Description 03/19/2025 12:45 PM EDT Office Visit [facility] ADULT DENTAL [address] [place], [place] [phone] Chapis Rooney [address] [place], [place] [phone] 04/02/2025 11:00 AM EDT Medication Management [facility] MEDICINE [address] [place], [place] [phone] El Gilman, PharmD [address] [place], [place] [phone] Scheduled Orders Name Type Priority Associated Diagnoses Orde r Schedule DENTURE IMPRESSION Dental Routine 1 Occu rrences starting 03/13/2025 documented as of this encounter Goals Goal Patient Goal Type Associated Problems Recent Progress Patient-Stated? Author Blood Pressure < 150/90 Blood Pressure 126/80(2024 9:38 AM EDT) El Murcia, PharmD Note: Per JNC-8 Age 62 with no history of DM or CKD documented as of this encounter Procedures Procedure Name Priority Date/Time Associated Diagnosis Comments CASE PRESENTATION, DETAILED AND EXTENSIVE TREATMENT PLANNING Routine 03/13/2025 2:30 PM EDT 5 ADD TOOTH TO EXISTING PARTIAL DENTURE Routine 03/13/2025 2:30 PM EDT documented in this encounter Visit Diagnoses Not on filedocumented in this encounter Additional Health Concerns Assessment Noted Time PHQ-9 Depression Total Score: 0 07/30/19 25 10:27 AM EST documented as of this encounter Care Teams Green Building Architect Relationship Specialty Start Date End Date Ebony Blanchard MD [address] [place] [address] PCP - General Family Medicine 06/18/18 documented as of this encounter
--- OUTSIDE RECORDS SUMMARY | 2025-03-17 10:27 | XMS_ITS | Encounter Summary ---
Author Organization [employer] Address 75 [facility] 7t [place] [address] Care Team Providers Care Marker Maker Name Role Phone Ebony Blanchard MD Primary Care Provider [phone] El Gilman PharmD Unavailable [phone] Encounter Details Date Type Department Care Team ([facility] st Contact Info) Description 07/16/2023 Abstract [facility] ADULT DENTAL [address] [place], [place] [phone] Clint Pérez, DMD [address] [place], [place] [phone] Social History Tobacco Use Types Packs/Day Years [...] Description 03/19/2025 12:45 PM EDT Office Visit [facility] ADULT DENTAL [address] [place] [address] Nevin, Chapis [address] [place] [address] 04/02/2025 11:00 AM EDT Medication Management [facility] MEDICINE [address] [place] [address] El Gilman, PharmD [address] [place] [address] documented as of this encounter Goals Goal Patient Goal Type Associated Problems Recent Progress Patient-Stated? Author Blood Pressure < 150/90 Blood Pressure 126/80(2024 9:38 AM EDT) No El iGlman, PharmD Note: Per JNC-8 Age 62 with no history of DM or CKD documented as of this encounter Visit Diagnoses Not on filedocumented in this encounter Additional Health Concerns Assessment Noted Time PHQ-9 Depression Total Score: 0 07/31/19 23 10:25 AM EST documented as of this encounter Care Teams Marker Maker Relationship Specialty Start Date End Date Ebony Blanchard MD [address] [place] [address] PCP - General Family Medicine 06/18/18 El Gilman, PharmD [address] [place] [address] Pharmacist Internal Medicine 08/21/22 04/27/24 documented as of this encounter
--- OUTSIDE RECORDS SUMMARY | 2025-03-17 10:27 | XMS_ITS | Clinical Summary ---
Author Organization [employer] Address [address] [place] [address] Care Team Providers Care Oil Rag Washer Name Role Phone Ebony Blanchard MD Primary Care Provider [phone] Allergies Active Allergy Reactions Criticality Noted Date Comments Lisinopril Cough 07/12/2010 Losartan Cough 12/23/2019 Medications Artificial Tears 0.2-0.2-1 % solution USE 1 DROP BOTH EYES TWICE DAILY 023 Active furosemide (Lasix) 40 MG tablet TAKE 1 TABLET BY MOUTH EVERY DAY 023 Active omeprazole (PriLOSEC) [address] capsule Take 20 mg by mouth Once per day. 024 Active triamcinolone (Nasacort) 55 MCG/ACT nasal inhaler Administer 2 sprays into each nostril Once per day. 16.5 g 11 024 2024 Active liver oil-zinc oxide (Desitin) 40 % ointment Apply topically if needed for irritation. 56 g 025 Active estradiol (Estrace) 0.1 MG/GM vaginal cream INSERT 1GM VAGINALLY 2 TIMES WEEKLY Active Simethicone Ultra Strength 180 MG capsule Take 180 mg by mouth 4 times daily. Active cetirizine (ZyrTEC) 10 MG tablet TAKE 1 TABLET BY MOUTH DAILY 90 tablet 3 025 Active polyethylene glycol, PEG, 3350 (Glycolax) 17 GM/SCOOP powder TAKE 17 GRAMS DAILY 025 Active meclizine (Antivert) 25 MG tabletIndications :Vertigo TAKE 1 TABLET BY MOUTH DAILY NEEDED FOR VERTIGO 30 tablet 1 Active zolpidem (Ambien) 5 MG tabletIndications :Psychophysiologi joann insomnia TAKE 1 TABLET BY MOUTH EVERY NIGHT AT BEDTIME NEEDED FOR SLEEP 30 tablet 025 Active atenolol (Tenormin) 25 MG tabletIndications :Essential hypertension TAKE 1 TABLET BY MOUTH EVERY MORNING 90 tablet 1 Active lidocaine (Lidoderm) 5 % patchIndications: Primary osteoarthritis involving multiple joints Apply 2 patches topically Once per day. Remove & discard patch within 12 hours or as directed by MD. 60 patch 11 Active ibuprofen 800 MG tablet Take 800 mg by mouth every 8 (eight) hours if needed for mild pain, moderate pain, fever or headaches. Active acetaminophen (Tylenol) 500 MG tablet Take 500 mg by mouth every 8 (eight) hours if needed for mild pain, moderate pain, headaches or fever. Active Diclofenac Sodium 1 % gel Apply topically. Active cholecalciferol (Vitamin D3) 25 MCG (1000 UT) tablet TAKE 1 TABLET BY MOUTH IN THE MORNING 90 tablet 3 Active triamcinolone (Kenalog) 0.1 % cream Apply topically if needed in the morning and at bedtime (pain and swelling). 30 g 2 024 2024 Discontinued(M ed list cleanup (will not trigger notification to Pharmacy)) Tyrvaya 0.03 MG/ACT solution INSTILL 1 SPRAY IN EACH NOSTRIL TWICE A DAY , APPROXIMATELY 12 HOURS APART. 024 2024 Discontinued(M ed list cleanup (will not trigger notification to Pharmacy)) cholecalciferol (Vitamin D3) 25 MCG (1000 UT) tablet TAKE 1 TABLET BY MOUTH IN THE MORNING 90 tablet 3 024 2024 Discontinued allopurinol (Zyloprim) 100 MG tablet Take 1 tablet (100 mg) by mouth Once per day. 90 tablet 3 025 2024 Discontinued(M ed list cleanup (will not trigger notification to Pharmacy)) atenolol (Tenormin) 25 MG tabletIndications :Essential hypertension TAKE 1 TABLET BY MOUTH IN THE MORNING 90 tablet 1 025 2024 Discontinued acetaminophen (Tylenol) 500 MG tablet TAKE 2 TABLETS BY MOUTH EVERY 8 HOURS NEEDED 90 tablet 3 025 2024 Discontinued(M ed list cleanup (will not trigger notification to Pharmacy)) lidocaine (Lidoderm) 5 % patchIndications: Primary osteoarthritis involving multiple joints,Chronic left shoulder pain Apply 1 patch topically Once per day. Remove & discard patch within 12 hours or as directed by MD. 30 patch 11 025 2024 Discontinued(R eorder (will not trigger notification to Pharmacy)) Diclofenac Sodium 1 % gel APPLY TOPICALLY TO THE AFFECTED AREA EVERY DAY NEEDED FOR PAIN 100 g 11 025 2024 Discontinued(M ed list cleanup (will not trigger notification to Pharmacy)) ibuprofen 800 MG tabletIndications :Pain TAKE 1 TABLET(800 MG) BY MOUTH WITH BREAKFAST as needed for pain and/or fever 30 tablet 1 025 2024 Discontinued(M ed list cleanup (will not trigger notification to Pharmacy)) Active Problems Problem Noted Date Diagnosed Date Periodontal disease 02/19/2025 Cardiovascular risk factor 12/05/2024 Assessment & Plan (02/26/2025 5:20 AM EDT): - Risk factors: Hypertension - 10-year ASCVD risk 5% - Continue working on lifestyle modifications - Patient has been following with software tools developer - Consider coronary CT to assess whether she would benefit from statin or aspirin Assessment & Plan (12/05/2024 9:25 AM EDT): - Risk factors: Hypertension - 10-year ASCVD risk 5% - Continue working on lifestyle modifications - Patient has been following with software tools developer - Consider coronary CT to assess whether she would benefit from statin or aspirin Tubular adenoma of colon 11/23/2024 Assessment & Plan (02/26/2025 5:23 AM EDT): - Colonoscopy on 10/16/2024, cecal polyp, tubular adenoma - GI provider: [facility], Dr. Castro - Recommended next colonoscopy in 3 years Assessment & Plan (11/23/2024 4:39 PM EDT): - Colonoscopy on 10/16/2024, cecal polyp, tubular adenoma - GI provider: [facility], Dr. Castro - Recommended next colonoscopy in 3 years Hemorrhoids 11/23/2024 Generalized gingival recession, moderate 025 Carpal tunnel syndrome 07/30/2024 Assessment & Plan (02/26/2025 10:56 AM EDT): - following with [facility] provider - received steroid injection on 06/09/24 - receiving steroid injection today Assessment & Plan (07/30/2024 1:33 PM EST): - following with [facility] provider - received steroid injection on 06/09/24 Functional dyspepsia 11/19/2023 Assessment & Plan (07/30/2024 2:54 PM EST): - following with [facility], last seen in Jul 2023 Assessment & Plan (11/19/2023 11:31 AM EDT): - following with [facility], last seen in Jul 2023 Delayed gastric emptying 11/19/2023 Allergic rhinitis 11/19/2023 Assessment & Plan (02/26/2025 5:21 AM EDT): -Patient is wondering of Penicillin allergy but it is less likely. -Continue Cetrizine - Continue nasacort -Patient was referred to packaging specialist in November 2023. Assessment & Plan (11/24/2024 9:07 AM EDT): -Patient is wondering of Penicillin allergy but it is less likely. -Continue Cetrizine -Switch flonase to nasacort -Patient was referred to packaging specialist in November 2023. Will check referral status. Assessment & Plan (04/08/2024 11:55 AM EDT): -Patient is wondering of Penicillin allergy but it is less likely. -Continue Cetrizine -Switch flonase to nasacort -Patient was referred to packaging specialist in November 2023. Will check referral status. Assessment & Plan (11/19/2023 11:37 AM EDT): Patient is wondering of Penicillin allergy but it is less likely. We will refer for sterilization specialist for allergy testing and further treatment. [...] (11/24/2024 9:07 AM EDT): - Following with [facility] cardiology, last seen on 02/02/23. - 10/05/22 Venous study, results showed: right GSV and SSV incompetent, left GSV incompetent, left SSV competent - Elevated legs, DASH diet - Follow-up with Vascular Specialist Assessment & Plan (03/13/2023 9:22 PM EDT): - Following with [facility] cardiology, last seen on 02/02/23. - 10/05/22 Venous study, results showed: right GSV and SSV incompetent, left GSV incompetent, left SSV competent - Elevated legs, DASH diet - Follow-up with Vascular Specialist Assessment & Plan (10/27/2022 10:32 AM EDT): - Following with [facility] cardiology on 09/28/22. - 10/05/22 Venous study, [...] D Supplementation Bradycardia 10/24/2022 Assessment & Plan (02/26/2025 11:01 AM EDT): Mild Minimally-Symptomatic - Advised to check pulse with BP regularly - Agreed to continue Atenolol at prescribed dose for now; if patients HR becomes < 50 or <55 with symptom,, consider lowering Atenolol dose or discontinuing Atenolol. 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 - Received steroid injection on 08/01/22. - Referred to PT. - Compress, elevation and heat - will Rx topical NSAID cream and Knee brace, per patient request Anxiety and depression 07/31/2022 Assessment & Plan (07/31/2022 12:36 PM EST): -Previously tried sertraline and hydroxyzine, but she self-discontinued -Seen by [facility] clinician in Apr 2019, Dx [...] involving multiple joints 09/05/2016 Assessment & Plan (02/26/2025 11:00 AM EDT): - Continue judicious use of APAP and NSAID - Continue diclofenac gel and lidocaine patch - Increase lidocaine patch to bid - patient is interested in acupuncture; recommended to ask her director medicare sales for the list of acupuncture clinic that accepts her insurance. Assessment & Plan (02/27/2023 11:00 AM EDT): Continue judicious use of Tylenol and Ibuprofen, as needed Hyperuricemia 07/04/2016 Assessment & Plan (02/26/2025 10:06 AM EDT): - patient has not had gout attack or Dx gout - urate-lowering medication was not indicated; however, patient requested allopurinol to be prescribed. It was started when she was seen in the walk-in clinic, but patient discontinued. Assessment & Plan (11/24/2024 9:10 AM EDT): [...] Impaired fasting glucose 03/20/2012 Assessment & Plan (02/26/2025 5:21 AM EDT): -09/16/18 A1C 6.0% FBG 108 -04/20/21 A1C 5.6% -04/07/22 A1c 5.6% -02/22/23 A1c 5.5% - 07/30/24 A1c 5.7% -Cont working on lifestyle modifications -Continue annual screening due to risk factor Assessment & Plan (11/24/2024 9:07 AM EDT): [...] (gastroesophageal reflux disease) 2 Assessment & Plan (02/26/2025 5:23 AM EDT): -followed by [facility], last seen in October 2024 - s/p EGD in October 2024 - previously prescribed pantoprazole, pt is no longer taking. Instead, pt is using baking soda - Pt was Rx Reglan but discontinued d/t side-effects Assessment & Plan (11/24/2024 9:08 AM EDT): -followed by [facility], last seen on 08/16/23 - s/p EGD 02/02/22, nml - previously prescribed pantoprazole, pt is no longer taking. Instead, pt is using baking soda - Pt was Rx Reglan but discontinued d/t side-effects Assessment & Plan (07/30/2024 2:54 PM EST): -followed by [facility], last seen on 08/16/23 - s/p EGD 02/02/22, nml - previously prescribed pantoprazole, pt is no longer taking. Instead, pt is using baking soda - Pt was Rx Reglan but discontinued d/t side-effects Assessment & Plan (04/08/2024 11:53 AM EDT): -followed by [facility], last seen on 08/16/23 - s/p EGD 02/02/22, nml - previously prescribed pantoprazole, pt is no longer taking. Instead, pt is using baking soda - Pt was Rx Reglan but discontinued d/t side-effects Assessment & Plan (11/19/2023 11:32 AM EDT): -followed by [facility], last seen on 08/16/23 - s/p EGD 02/02/22, nml - previously prescribed pantoprazole, pt is no longer taking. Instead, pt is using baking soda - Pt was Rx Reglan but discontinued d/t side-effects Assessment & Plan (08/25/2023 7:07 AM EST): -followed by [facility], last seen on 08/16/23 - s/p EGD 02/02/22, nml - previously prescribed pantoprazole, pt is no longer taking. Instead, pt is using baking soda - Pt was Rx Reglan but discontinued d/t side-effects Assessment & Plan (02/27/2023 10:59 AM EDT): -followed by [facility], last seen in May 2022 -s/p EGD 02/02/22, nml - previously prescribed pantoprazole, pt is no longer taking. Instead, pt is using baking soda -Pt was Rx Reglan but discontinued d/t side-effects Assessment & Plan (10/27/2022 10:33 AM EDT): -followed by [facility], last seen in May 2022 -s/p EGD 02/02/22, nml - continue pantoprazole as prescribed -Pt was Rx Reglan but discontinued d/t side-effects Assessment & Plan (08/05/2022 6:36 PM EST): -followed by [facility], last seen in May 2022 -s/p EGD 02/02/22, nml -Pt was Rx Reglan but discontinued d/t side-effects Insomnia 01/04/2012 Mixed stress and urge urinary incontinence 01/03 Assessment & Plan (02/26/2025 5:25 AM EDT): -Followed by [facility]N for mixed urinary incontinence, last seen in August 2024 -s/p; 11/03/21 Vaginal hysterectomy, b/l salpingectomy, robotic sacral colpopexy, midurethral sling, cystoscopy by Dr. Mackenzie for ureterovaginal prolapse, cystocele, rectocele. -12/14/21 Stress urinary incontinence after surgery. -s/p Midurethral Sling 01/03/22 -pt was recommend to try Kegel exercises -prescribing incontinence supplies - s/p 08/29/23 Colporrhaphy , pt notes symptoms have improved\ - Rx estrogen cream by [facility] Assessment & Plan (11/24/2024 9:09 AM EDT): [...] incontinence Severe obesity (BMI 35.0-39.9) with comorbidity ([facility]) 01/03/2010 Hypertension 10/29/2006 Assessment & Plan (02/26/2025 10:55 AM EDT): Goal BP < 130/80 per ACC/AHA guideline. -BP at goal (borderline) -Comanaged with software tools developer and PharmD. -Encouraged to work on life style modifications. -Continue current medications -Current medications: furosemide 40 mg daily; atenolol 25 mg daily Treatment Hx: HCTZ was discontinued due to hyperuricemia / gout. Losartan was self-discontinued due to cough -Advised to check BP at home everyday. If persistently elevated, advised to call us back. Assessment & Plan (11/24/2024 9:07 AM EDT): Goal BP < 150/90 per JNC-8, and < 130/80 per ACC/AHA guideline. -BP elevated today. -Comanaged with software tools developer and PharmD. -Encouraged to work on life [...] ACC/AHA guideline. -BP elevated today. -Comanaged with software tools developer and PharmD. -Encouraged to work on life [...] ACC/AHA guideline. -BP elevated today. -Comanaged with software tools developer and PharmD. -Encouraged to work on life [...] Patient attributes it to anxiety. -Comanaged with software tools developer and PharmD. -Encouraged to work on life [...] Patient attributes it to anxiety. -Comanaged with software tools developer and PharmD. -Encouraged to work on life [...] pt received steroid injection recently -Comanaged with software tools developer and PharmD. -Encouraged to work on life [...] pt received steroid injection recently -Comanaged with software tools developer and PharmD. -Encouraged to work on life [...] Encounters Date Type Department Care Team Description 03/13/2025 2:30 PM EDT Office Visit [facility] [address] [place] [id number] Clint Pérez, BARRY 03/09/2025 10:00 AM EDT Office Visit [facility] [address] [place] [id number] Clint éPrez, DMD 03/04/[address] [address] Ebony Blanchard MD 02/26/2025 10:00 AM EDT Office Visit [address] [address] Ebony Blanchard MD Hypertension, unspecified type (Primary Dx); Cardiovascular risk factor; Allergic rhinitis, unspecified seasonality, unspecified trigger; Impaired fasting glucose; Gastroesophageal reflux disease, unspecified whether esophagitis present; Tubular adenoma of colon; Mixed stress and urge urinary incontinence; Hyperuricemia; Bradycardia; Wheezing; Primary osteoarthritis involving multiple joints; Encounter for immunization; Neck pain; Bilateral carpal tunnel syndrome 02/26/2025 Results Follow-Up [address] [address] Ebony Blanchard MD XR Chest 2 Views 02/26/2025 Travel 02/25/[address] [address] Ebony Blanchard MD chart prep 02/25/2025 [address]ill [address] [place] [address] Ebony Blanchard MD Essential hypertension 02/19/2025 8:00 AM EDT Office Visit [facility] [address] [place] [address] Julian Bazan DDS Periodontal disease (Primary Dx) 02/01/2025 Refill [facility] [address] [place] [address] Ebony Blanchard MD Psychophysiological insomnia 01/26/2025 Refill [facility] [address] [place] [address] Ebony Blanchard MD Pain; Vertigo 01/08/2025 Telephone [facility] [address] [place] [address] Ebony Blanchard MD lab 01/08/2025 Travel 01/07/2025 Orders Only [facility] [address] [place] [address] Ebony Blanchard MD Vitamin D deficiency (Primary Dx); Impaired fasting glucose; Hypertension, unspecified type 01/01/2025 1:00 PM EDT Office Visit [facility] [address] [place] [address] Christal Lucas Periodontal disease (Primary Dx) 12/31/2024 Refill [facility] [address] [place] [address] Ebony Blanchard MD 12/30/2024 Telephone [facility] [address] [place] [address] Julian Bazan DDS emergency visit transportation 12/21/2024 Refill [facility] [address] [place] [address] Ebony Blanchard MD Psychophysiological insomnia from Last 3 Months Immunizations Immunization Administration Dates Next Due Hep B, Unspecified 07/21/2008,02/28/2008, 008 Influenza Injectable Quadriv alant Preservative Free IIV4 MDCK 04/25/2023 Influenza injectable quadriv alent IIV4 with preservative 04/01/2015 Influenza injectable quadriv alent preservative free 03/10/2022,05/02/2021,03/31/2019,2017,05/25/2017,06/05/2016,03/18/2014 Influenza, Split (incl. lorraine fied surface antigen) 03/14/2013,03/20/2012 Influenza, seasonal, injecta ble, preservative free 04/08/2024,05/16/2017 Pfizer Covid-19 Vaccine 12+ khurram-sucrose (Garcia Cap) 07/18/2021 Pneumococcal Conjugate PCV 20 02/26/2025 TD (adult), 2 Lf tetanus tox oid, [...] Sign Reading Time Taken Comments Blood Pressure 126/80 03/09/2025 9:38 AM EDT Pulse 69 03/09/2025 9:38 AM EDT Temperature 36 C (96.8 F) 02/26/2025 10:00 AM EDT Respiratory Rate 16 02/26/2025 10:00 AM EDT Oxygen Saturation 100% 02/26/2025 10:00 AM EDT Inhaled Oxygen Concentration - - Weight 91.6 kg (202 lb) 02/26/2025 10:00 AM EDT Height 157.5 cm (5' 2 ) 02/26/2025 10:00 AM EDT Body Mass Index 36.95 02/26/2025 10:00 AM EDT Plan of Treatment Upcoming Encounters Date Type Department Care Team (Late st Contact Info) Description 03/19/2025 12:45 PM EDT Office Visit [facility] [address] [place] [address] Nevin, Chapis [address] [place] [address] 04/02/2025 11:00 AM EDT Medication Management [facility] [address] [place] [address] El Gilman, PharmD [address] [place] [address] Health Maintenance Due Date Last Done Comments CT Colonography 1960 FIT DNA/Cologuard 1960 FIT 1960 FOBT 1960 Sigmoidoscopy 1960 RSV Patients and Patients Aged 60 years or older (1 - Risk 60-74 years 1-dose series) 2022 Pap Smear 05/02/2024 05/02/2021 COVID-19 Vaccine ( season) 2025 07/18/2021, 11/12/2020, 10/22/2020 Influenza Vaccine (#1) 2025 , 04/25/2023, 03/10/2022, Additional history exists Dental Oral Exam 03/16/2025 09/12/2024, , 08/09/2023, Additional history exists Dental Prophylaxis 03/16/2025 09/12/2024, 0 03/13/2024, 08/07/2023, Additional history exists Alcohol/Substance Use Screening 04/08/2025 04/08/2024 Depression Screening 07/30/2025 07/30/2024, 07/30/19 Dental X-Ray: Full Mouth 11/02/2025 023, 01/15/2019, 05/23/2012 Disability Screening 11/24/2025 11/24/2024 SDOH Screening 11/24/2025 11/24/2024 Dental X-Ray: Bitewings 01/02/2026 01/02/20 25, 09/12/2024, 04/17/2024, Additional history exists Diabetes: Hemoglobin A1C 02/23/2026 025, 07/28/2024, 02/22/2023, Additional history exists Tobacco Screening 03/13/2026 03/13/2025 Mammogram 03/14/2026 03/14/2024, 03/18, 04/04/2023, Additional history exists Cervical Cancer Screening 05/02/2026 HPV/Cotest 05/02/2026 05/02/2021, 04/12/2016 DTaP/Tdap/Td Vaccines (4 - Td or Tdap) 01/01/2027 01/01/2017, 06/24/2009, 01/27/2008 Lipid Panel 07/28/2029 07/28/2024, 09/0 12/2022, 04/07/2022, Additional history exists Colonoscopy 10/16/2029 10/16/2024, 05/19, 05/19/2020 Colorectal Cancer Screening 10/16/2029 Hepatitis B Vaccines Completed 07/21/2008, 02/28/2008, 01/28/2008 Zoster Vaccines Completed 09/12/2023, 07/18/2023 Pneumococcal Vaccine: 50+ Years Completed 02/26/2025 HIB Vaccines Aged Out No longer eligi [...] PARTIAL DENTURE Routine 03/13/2025 2:30 PM EDT DENTURE IMPRESSION Routine 03/09/2025 10 :00 AM EDT XR CHEST 2 VIEWS Routine 02/26/2025 10:5 3 AM EDT Wheezing AMB REFERRAL TO ORTHOPAEDIC SURGERY Routine 02/26/2025 Chronic left shoulder pain Incomplete tear of left rotator cuff, unspecified whether traumatic Shoulder arthritis GLUCOSE Routine 02/23/2025 8:17 AM EDT Impaired fasting glucose HEMOGLOBIN A1C Routine 02/23/2025 8:17 AM EDT Impaired fasting glucose CASE PRESENTATION, DETAILED AND EXTENSIVE TREATMENT PLANNING [...] ESTABLISHED PATIENT Routine 09/12/2024 10:00 AM EDT LIPID PANEL WITH REFLEX TO DIRECT LDL [...] Recently Relevant to Health Maintenance Results * XR Chest 2 Views (02/26/2025 10:53 AM EDT) Anatomical Region Laterality Modality Chest Radiographic Stefanie ging 02/26/2025 10:5 3 AM EDT Narrative 02/26/2025 11:01 AM EDT [address] [address] XRay Report Signed Patient: Olivia Yu MR#: [id number] : 1960 Acct:[id number] Age/Sex: 64 / F ADM Date: 02/26/25 Loc: [facility] Attending Dr: Ebony Blanchard MD Ordering Physician: Ebony Blanchard MD Date of Service: 02/26/25 Procedure(s): XR chest 2V Accession Number(s): [id number] cc: Ebony Blanchard MD Reason for Exam: chest congestion, wheezing. Lung exam very small wheeze. EXAMINATION: XR CHEST CLINICAL INFORMATION: chest congestion, wheezing. Lung exam very small wheeze. COMPARISON: December 08, 2020 TECHNIQUE: 2 views of the chest were obtained. FINDINGS: No consolidation pleural effusion or pneumothorax. No hyperinflation. Cardiomediastinal silhouette size is normal. Calcified plaque thoracic aorta. Multilevel thoracic spondylosis. Degenerative changes in the right acromioclavicular joint. Patient's large body habitus/obesity.. XR/XR chest 2V IMPRESSION: No acute airspace disease. Multilevel spondylosis. Electronically signed by: Jamaal Vidales MD 02/26/2025 10:58 AM EDT Dictated By: Jamaal Fontanez MD Signed By: <Electronically signed by Jamaal Easton MD in [place]> 02/26/25 1058 DD/ 1053 TD/TT: 02/26/25 1054 [facility] Rn: Procedure Note Donotuseinterpreter, Image - 02/26/2025 [facility] [address] [place] [address] XRay Report Signed Patient: Olivia Yu MMR#: [id number] : 1960cct:[id number] Age/Sex: 64 / FADM Date: 02/26/25 Loc: [facility] Attending Dr: Ebony Blanchard MD Ordering Physician: Ebony Blanchard MD Date of Service: 02/26/25 Procedure(s): XR chest 2V Accession Number(s): [id number] cc: Ebony Blanchard MD Reason for Exam: chest congestion, wheezing. Lung exam very smallwheeze. EXAMINATION: XR CHEST CLINICAL INFORMATION: chest congestion, wheezing. Lung exam very small wheeze. COMPARISON: December 08, 2020 TECHNIQUE: 2 views of the chest were obtained. FINDINGS: No consolidation pleural effusion or pneumothorax. No hyperinflation. Cardiomediastinal silhouette size is normal. Calcified plaque thoracic aorta. Multilevel thoracic spondylosis. Degenerative changes in the right acromioclavicular joint. Patient's large body habitus/obesity.. XR/XR chest 2V IMPRESSION: No acute airspace disease. Multilevel spondylosis. Electronically signed by: Jamaal Vidales MD 02/26/2025 10:58 AM EDT RP Dictated By: Jamaal Fontanez MD Signed By: <Electronically signed by Jamaal Easton MDin OV> 02/26/25 1058 DD/ 1053 TD/TT: 02/26/25 1054 Advanced [facility] Rn: Ebony Blanchard MD IMG XR PROCEDURES Final Result * Referral to Orthopaedic Surgery (02/26/2025) Ebony Blanchard MD OUTPATIENT REFERRAL ORDERABLES F inal Result * Hemoglobin A1c (02/23/2025 8:17 AM EDT) Hemoglobin A1c 5.9 <6.0 % [facility] Comment:Hemoglobin A1C Refer ence Range Adults: 4.8 - 6.0 % Non diabetic: < 6.0 % Goal: < 7.0 %Additional Action Suggested: > 8.0 %Note: Hemoglobin A1c results are invalid for patients with abnormal amounts of HbF. Blood transfusions may impact the HbA1c concentration in the patient sample. Estimated Average Glucose 123 mg/dL [facility] Comment:eAG = Estimated ave rage glucose which is %A1C expressed asaverage glucose, using the formula of the X8N-DlyitunItukpak Glucose study (ADAG), Diabetes Care, Vol.31,#8,2007 Blood Venous blood specimen / Unknown 02/23/2025 8:17 AM EDT 02/23/2025 11:16 AM EDT Ebony Blanchard MD LAB BLOOD ORDERABLES Final Resul t Performing Organization Address [facility]/ZIP Co de Phone Number [facility] [address] [place] [address] [phone] * (ABNORMAL) Glucose, Fasting (02/23/2025 8:17 AM EDT) Glucose Fasting 117(H) 60 - 99 mg/dL [facility] Comment:A fasting glucose fr om 100-125 mg/dl is considered impaired(pre-diabetes). Blood Venous blood specimen / Unknown 02/23/2025 8:17 AM EDT 02/23/2025 11:16 AM EDT Ebony Blanchard MD LAB BLOOD ORDERABLES Final Resul t Performing Organization Address [facility]/ZIP Co de Phone Number [facility] [address] [place] [phone] * (ABNORMAL) Hm Colonoscopy (10/16/2024) Colonoscopy Abnormal( A) Normal Comment:Tubular adenoma. 10/16/2024 Avtar Strickland MD HEALTH MAINTENANCE Final Result * Lipid Panel with Reflex to Direct LDL (07/28/2024 8:21 AM EST) Triglycerides 125 <150 mg/dL [facility] Comment:Desirable Triglyceri de: less than 150 mg/dLBorderline High Triglyceride 150-199 mg/dLHigh Triglyceride: 200-499 mg/dLVery High Triglyceride: greater than or equal to 5OO mg/dL Cholesterol 160 <200 mg/dL [facility] Comment:Desirable Cholestero l: less than 200 mg/dLBorderline High Cholesterol: 200-239 mg/dLHigh Cholesterol: greater than 239 mg/dL LDL Cholesterol Calculated 82 <100 mg/dL [facility] Comment:Desirable LDL: less than 100 mg/dLNear Optimal/Above Optimal LDL: 110- 129 mg/dLBorderline High LDL: 130-159 mg/dLHigh LDL: 160-189 mg/dLVery High LDL: greater than or equal to 190 mg/dL HDL Cholesterol 53 >40 mg/dL [facility] Comment:Desirable HDL: great er than 40 mg/dL Note: This HDL assay may give artificially low results in patients with liver disease. Blood 07/28/2024 8:21 AM EST 07/28/2024 11:01 AM EST us Ebony Blanchard MD LAB BLOOD ORDERABLES Final Resul t [facility] [address] [place] [phone] * BI Mammogram Screening Tomosynthesis Bilateral (03/14/2024 10:10 AM EDT) Anatomical Region Laterality Modality Breast Bilateral Mammography 03/14/2024 10:1 0 AM EDT Narrative 03/26/2024 9:27 AM EDT [facility]'s [address] [place] [address] Mammography Report Signed Patient: Olivia Yu MR#: [id number] : 1960 Acct:[id number] Age/Sex: 63 / F ADM Date: 03/14/24 Loc: JEREMY Attending Dr: Ebony Blanchard MD Ordering Physician: Ebony Blanchard MD Results: 1Negative Date of Service: 03/14/24 Follow Up: 1 Year From Orig ina Mammogram Procedure(s): MM tomosynthesis screening BI Accession Number(s): [id number] cc: Ebony Blanchard MD EXAMINATION: MM SCREENING [...] Lori Snider DO 03/26/2024 09:24 AM EDT RP Dictated By: Lori Snider DO Signed By: <Electronically signed by Lori Snider DO in OV> 03/26/24923 DD/ 1010 TD/TT: 03/14/24 1030 Advanced Practice Rn: Procedure Note Donotuseinterpreter, Image - 03/26/2024 [facility] [address] [place] [address] Mammography Report Signed Patient: Olivia Yu [facility]#: [id number] : [id number]:[id number] Age/Sex: 63 / FADM Date: 03/14/24 Loc: JEREMY Attending Dr: Ebony Blanchard MD Ordering Physician: Ebony Blanchard MDResults: 1Negative Date of Service: 03/14/24Follow Up: 1 Year From [facility] ina Mammogram Procedure(s): MM tomosynthesis screening BI Accession Number(s): [id number] cc: Ebony Blanchard MD EXAMINATION: MM SCREENING [...] OV> 03/26/24923 DD/ 1010 TD/TT: 03/14/24 1030 Advanced Practice Rn: Ebony Blanchard MD IMG BI PROCEDURES Final Result * THINPREP TIS PAP AND HPV mRNA E6/E7 REFLEX HPV 16,18/45 (05/02/2021 4:14 PM EST) Clinical Information: None given [facility] COMMENT SEE COMMENT [facility]OUND[facility] ON [...] has been evaluated with computer assisted technology. [facility] Account Strategist: SEE COMMENT [facility] Comment: BK,CT(ASCP) CT screening location: [address] HPV nRNA E6/E7 Not Detected Not Detected [facility] Comment: Methodology: Airplane Fueler-Mediated Amplification This assay detects E6/E7 viral messenger RNA (mRNA) from 14 high-risk HPV types (16,18,31,33,35,39,45,51,52,56,58,59,66,68). The analytical performance characteristics of this assay have been determined by [employer]. The modifications have not been cleared or approved by the FDA. This assay has been validated pursuant to the CLIA regulations and is used for clinical purposes. For additional information, please refer to http://education.Ziplocal.Calligo/faq/UZZ529k2 (This link if provided for information/ educational [...] R esult [facility] [address] from Last 3 Months or Most Recently Relevant to Health Maintenance Insurance [facility] < 67 [address] [place] [id number] [facility] Care Teams Oil Rag Washer Relationship Specialty Start Date End Date Ebony Blanchard MD [address] [place] [phone] PCP - General Family Medicine 06/18/18
--- OUTSIDE RECORDS SUMMARY | 2025-03-17 10:27 | XMS_ITS | Encounter Summary ---
Author Organization [employer] Address 75 [facility] 7t [place] [address] Care Team Providers Care Pipeline Integrity Engineer Name Role Phone Ebony Blanchard MD Primary Care Provider Encounter Details Date Type Department Care Team ([facility] Contact Info) Description 02/26/2025 Results Follow-Up [facility] MEDICINE [address] [place], [place] [phone] Ebony Blanchard MD [address] [place], [place] [phone] XR Chest 2 Views Social History Tobacco Use Types Packs/Day Years [...] the past 12 months, has t he [employer] gas, oil or water [employer] threatened to shut off services in your [...] [facility] ADULT DENTAL [address] [place] [address] Nevin, Chapis [address] [place] [address] 04/02/2025 11:00 AM EDT Medication Management [facility] MEDICINE [address] [place] [address] El Gilman, PharmD [address] [place] [address] documented as of this encounter Goals Goal Patient Goal Type Associated Problems Recent Progress Patient-Stated? Author Blood Pressure < 150/90 Blood Pressure 126/80(2024 9:38 AM EDT) No El Gilman, PharmD Note: Per JNC-8 Age 62 with no history of DM or CKD documented as of this encounter Visit Diagnoses Not on filedocumented in this encounter Additional Health Concerns Assessment Noted Time PHQ-9 Depression Total Score: 0 07/30/19 25 10:27 AM EST documented as of this encounter Care Teams Pipeline Integrity Engineer Relationship Specialty Start Date End Date Ebony Blanchard MD [address] [place] [address] PCP - General Family Medicine 06/18/18 documented as of this encounter
--- OUTSIDE RECORDS SUMMARY | 2025-03-17 10:27 | XMS_ITS | Encounter Summary ---
Author Organization [employer] Address 75 [facility] 7t [place] [address] Care Team Providers Care Fruit Room Hand Name Role Phone Ebony Blanchard MD Primary Care Provider [phone] Reason for Visit * Reason Onset Date Comments emergency visit transportation 12/30/2024 Encounter Details Date Type Department Care Team ([facility] st Contact Info) Description 12/30/2024 Telephone [facility] ADULT DENTAL [address] [place], [place] [phone] Julian Bazan, DDMick [address] [place], [place] [phone] emergency visit transportation Social History Tobacco Use [...] 10:30 AM EDT Ok to schedule per [place] due to emergency however patient relies on transportation [facility] and [facility] to do same day emerency visit. Insurance provider needs 2 days advvance for transportationserdarius ZHOU Patient schedule with [employer] Student documented in this encounter Plan of Treatment Upcoming Encounters Date Type Department Care Team (Late st Contact Info) Description 03/19/2025 12:45 PM EDT Office Visit [facility] ADULT DENTAL [address] [place] [address] Chapis Rooney [address] [place] [address] 04/02/2025 11:00 AM EDT Medication Management [facility] MEDICINE [address] [place] [address] El Gilman RajeshD [address] [place] [address] documented as of this encounter Goals Goal Patient Goal Type Associated Problems Recent Progress Patient-Stated? Author Blood Pressure < 150/90 Blood Pressure 126/80(2024 9:38 AM EDT) No El Gilman, Roscoe Note: Per JNC-8 Age 62 with no history of DM or CKD documented as of this encounter Visit Diagnoses Not on filedocumented in this encounter Additional Health Concerns Assessment Noted Time PHQ-9 Depression Total Score: 0 07/30/19 25 10:27 AM EST documented as of this encounter Care Teams Fruit Room Hand Relationship Specialty Start Date End Date Ebony Blanchard MD [address] [place] [address] PCP - General Family Medicine 06/18/18 documented as of this encounter
--- OUTSIDE RECORDS SUMMARY | 2025-03-17 10:27 | XMS_ITS | Encounter Summary ---
Author Organization [facility] Address 75 [facility] 7t [place] [address] Care Team Providers Care Bevel Gear Generator Operator Name Role Phone Ebony Blanchard MD Primary Care Provider [phone] El Gilman PharmD Unavailable [phone] Encounter Details Date Type Department Care Team (Latest Contact Info) Description 09/08/2020 Abstract [facility] CONVERSIONS Dental, Provider, DDS Social [...] Care Team ( st Contact Info) Description 03/19/2025 12:45 PM EDT Office Visit [facility] ADULT DENTAL [address] [place] [address] Hugo Rooneyaris [address] [place] [address] 04/02/2025 11:00 AM EDT Medication Management [facility] MEDICINE [address] [place] [address] El Gilman, PharmD [address] [place] [address] documented as of this encounter Visit Diagnoses Not on filedocumented in this encounter Care Teams Bevel Gear Generator Operator Relationship Specialty Start Date End Date Ebony Blanchard MD [address] [place] [address] PCP - General Family Medicine 06/18/18 El Gilman, RajeshD [address] [place] [address] Pharmacist Internal Medicine 08/21/22 04/27/24 documented as of this encounter
--- OUTSIDE RECORDS SUMMARY | 2025-03-17 10:27 | XMS_ITS | Encounter Summary ---
Author Organization [facility] Address 75 [facility] 7t [place] [address] Care Team Providers Care Gift Shop Clerk Name Role Phone Ebony Blanchard MD Primary Care Provider [phone] El Gilman PharmD Unavailable [phone] Encounter Details Date Type Department Care Team (Latest Contact Info) Description 10/09/2018 Abstract [facility] CONVERSIONS Dental, Provider, DDS Social History [...] Description 03/19/2025 12:45 PM EDT Office Visit [facility] ADULT DENTAL [address] [place] [address] hCapis Rooney [address] [place] [address] 04/02/2025 11:00 AM EDT Medication Management [facility] MEDICINE [address] [place] [address] El Gilman, PharmD [address] [place] [address] documented as of this encounter Visit Diagnoses Not on filedocumented in this encounter Care Teams Gift Shop Clerk Relationship Specialty Start Date End Date Ebony Blanchard MD [address] [place] [address] PCP - General Family Medicine 06/18/18 El Gilman, PharmD [address] [place] [address] Pharmacist Internal Medicine 08/21/22 04/27/24 documented as of this encounter
--- OUTSIDE RECORDS SUMMARY | 2025-03-17 10:27 | XMS_ITS | Encounter Summary ---
Author Organization [employer] Address 75 [facility] 7t [place] [address] Care Team Providers Care Marketing Information Analyst Name Role Phone Ebony Blanchard MD Primary Care Provider [phone] Reason for Referral * Consultation (Routine) - Authorized Specialty Diagnoses / Procedures Referred By Contac t Referred To Contact Pharmacy Diagnoses Hypertension, unspecified type Ebony Blanchard MD [address] [place] [address] Phone: tel: fax: Referral ID Status Reason Start Date Expiration Date Visits Requested Visits Authorized [id number] Authorized Consult and Treat 04/29/2024 04/29/2025 6 6 Encounter Details Date Type Department Care Team ([facility] st Contact Info) Description 04/29/2024 Orders Only [facility] MEDICINE [address] [place] [phone] Ebony Blanchard MD 230 [place] [address] Hypertension, unspecified type (Primary Dx) [...] Description 03/19/2025 12:45 PM EDT Office Visit [facility] ADULT DENTAL [address] [place] [address] Chapis Rooney [address] [place], [place] [phone] 04/02/2025 11:00 AM EDT Medication Management [facility] MEDICINE [address] [place] [address] El Gilman, PharmD 230 [place] [address] Scheduled Referrals Name Type Priority Associated Diagnoses [...] documented as of this encounter Care Teams Marketing Information Analyst Relationship Specialty Start Date End Date Ebony Blanchard MD 230 [place] [address] PCP - General Family Medicine 06/18/18 documented as of this encounter
--- OUTSIDE RECORDS SUMMARY | 2025-03-17 10:27 | XMS_ITS | Encounter Summary ---
Author Organization [employer] Address 75 [facility] 7t [place] [address] Care Team Providers Care Web Producer Name Role Phone Ebony Blanchard MD Primary Care Provider [phone] El Gilman PharmD Unavailable [phone] Reason for Visit * Reason Comments Med Refill Encounter Details Date Type Department Care Team ([facility] st Contact Info) Description 03/25/2023 Refill [facility] MEDICINE [address] [place], [place] [phone] Ebony Blanchard MD [address] [place], [place] [phone] Social History Tobacco Use Types Packs/Day Years [...] Description 03/19/2025 12:45 PM EDT Office Visit [facility] ADULT DENTAL [address] [place] [address] NevinHugoChapis 230 [place] [address] 04/02/2025 11:00 AM EDT Medication Management [facility] MEDICINE [address] [place] [address] El Gilman, PharmKathy [address] [place] [address] documented as of this encounter Goals Goal [...] documented as of this encounter Care Teams Web Producer Relationship Specialty Start Date End Date Ebony Blanchard MD [address] [place] [address] PCP - General Family Medicine 06/18/18 El Gilman, PharmD [address] [place] [address] Pharmacist Internal Medicine 08/21/22 04/27/24 documented as of this encounter
--- OUTSIDE RECORDS SUMMARY | 2025-03-17 10:27 | XMS_ITS | Clinical Summary ---
Author Organization [employer] [facility] ity Address [address] [place] [address] Care Team Providers Care Fur Glosser Name Role Phone Unavailable Primary Care Provider [...]
--- OUTSIDE RECORDS SUMMARY | 2025-03-17 10:27 | XMS_ITS | Encounter Summary ---
Author Organization [employer] Address 75 [facility] 7t [place] [address] Care Team Providers Care Rubber Heel And Sole Press Tender Name Role Phone Ebony Blanchard MD Primary Care Provider [phone] El Gilman PharmD Unavailable [phone] Reason for Visit * Reason Comments Med Refill Encounter Details Date Type Department Care Team ([facility] st Contact Info) Description 12/20/2023 Refill [facility] MEDICINE [address] [place], [place] [phone] Ebony Blanchard MD [address] [place], [place] [phone] Essential hypertension Social History Tobacco Use Types [...] Description 03/19/2025 12:45 PM EDT Office Visit [facility] ADULT DENTAL [address] [place] [address] Nevin, Chapis [address] [place] [address] 04/02/2025 11:00 AM EDT Medication Management [facility] MEDICINE [address] [place] [address] El Gilman, PharmD [address] [place] [address] documented as of this encounter Goals Goal [...] documented as of this encounter Care Teams Rubber Heel And Sole Press Tender Relationship Specialty Start Date End Date Ebony Blanchard MD [address] [place] [address] PCP - General Family Medicine 06/18/18 El Gilman, RajeshD [address] [place] [address] Pharmacist Internal Medicine 08/21/22 04/27/24 documented as of this encounter
--- OUTSIDE RECORDS SUMMARY | 2025-03-17 10:27 | XMS_ITS | Encounter Summary ---
Author Organization [employer] Address 75 [facility] 7t [place] [address] Care Team Providers Care Broth Setter Name Role Phone Ebony Blanchard MD Primary Care Provider [phone] El Gilman PharmD Unavailable [phone] Encounter Details Date Type Department Care Team ([facility] st Contact Info) Description 06/07/2023 Abstract [facility] ADULT DENTAL [address] [place], [place] [phone] Clint Pérez, DMD [address] [place], [place] [phone] Social History Tobacco Use Types Packs/Day Years [...] Description 03/19/2025 12:45 PM EDT Office Visit [facility] ADULT DENTAL [address] [place] [address] Nevin, Chapis [address] [place] [address] 04/02/2025 11:00 AM EDT Medication Management [facility] MEDICINE [address] [place] [address] El Gilman, PharmD 230 [place] [address] documented as of this encounter Goals Goal [...] documented as of this encounter Care Teams Broth Setter Relationship Specialty Start Date End Date Ebony Blanchard MD [address] [place] [address] PCP - General Family Medicine 06/18/18 El Gilman, PharmD 230 [place] [address] Pharmacist Internal Medicine 08/21/22 04/27/24 documented as of this encounter
--- OUTSIDE RECORDS SUMMARY | 2025-03-17 10:27 | XMS_ITS | Encounter Summary ---
Author Organization [employer] Address 75 [facility] 7t [place] [address] Care Team Providers Care Kinesiology Professor Name Role Phone Ebony Blanchard MD Primary Care Provider [phone] El Gilman PharmD Unavailable [phone] Reason for Visit * Reason Comments Med Refill Encounter Details Date Type Department Care Team ([facility] st Contact Info) Description 03/25/2023 Refill [facility] MEDICINE 230 [place], [place] [phone] Ebony Blanchard MD [address] [place], [place] [phone] Social History Tobacco Use Types Packs/Day Years [...] Description 03/19/2025 12:45 PM EDT Office Visit [facility] ADULT DENTAL [address] [place] [address] NevinHugoChapis [address] [place] [address] 04/02/2025 11:00 AM EDT Medication Management [facility] MEDICINE [address] [place] [address] El Gilman, PharmKathy [address] [place] [address] documented as of this encounter Goals Goal [...] documented as of this encounter Care Teams Kinesiology Professor Relationship Specialty Start Date End Date Ebony Blanchard MD [address] [place] [address] PCP - General Family Medicine 06/18/18 El Gilman, PharmD [address] [place] [address] Pharmacist Internal Medicine 08/21/22 04/27/24 documented as of this encounter
--- OUTSIDE RECORDS SUMMARY | 2025-03-17 10:27 | XMS_ITS | Encounter Summary ---
Author Organization [employer] Address 75 [facility] 7t [place] [address] Care Team Providers Care Transportation Services Representative Name Role Phone Ebony Blanchard MD Primary Care Provider [phone] Encounter Details Date Type Department Care Team ([facility] st Contact Info) Description 01/07/2025 Orders Only [facility] [address] [place], [place] [phone] Ebony Blanchard MD 230 [place], [place] [phone] Vitamin D deficiency (Primary Dx); Impaired fasting [...] Description 03/19/2025 12:45 PM EDT Office Visit [facility] ADULT DENTAL [address] [place] [address] Nevin, Chapis [address] [place] [address] 04/02/2025 11:00 AM EDT Medication Management [facility] MED[facility] [address] [place] [address] El Gilman, PharmD [address] [place] [address] documented as of this encounter Goals Goal Patient Goal Type Associated Problems Recent Progress Patient-Stated? Author Blood Pressure < 150/90 Blood Pressure 126/80(2024 9:38 AM EDT) No El Gilman, PharmD Note: Per JNC-8 Age 62 with no history of DM or CKD documented as of this encounter Procedures Procedure Name Priority Date/Time Associated Diagnosis Comments HEMOGLOBIN A1C Routine 02/23/2025 8:17 AM EDT Impaired fasting glucose GLUCOSE Routine 02/23/2025 8:17 AM EDT Impaired fasting glucose documented in this encounter Results * (ABNORMAL) Glucose, Fasting (02/23/2025 8:17 AM EDT) Glucose Fasting 117(H) 60 - 99 mg/dL [facility] Comment:A fasting glucose fr om 100-125 mg/dl is considered impaired(pre-diabetes). Blood Venous blood specimen / Unknown 02/23/2025 8:17 AM EDT 02/23/2025 11:16 AM EDT Ebony Blanchard MD LAB BLOOD ORDERABLES Final Resul t [facility] [address] [place] [phone] * Hemoglobin A1c (02/23/2025 8:17 AM EDT) Hemoglobin A1c 5.9 <6.0 % [facility] Comment:Hemoglobin A1C Refer ence Range Adults: 4.8 - 6.0 % Non diabetic: < 6.0 % Goal: < 7.0 %Additional Action Suggested: > 8.0 %Note: Hemoglobin A1c results are invalid for patients with abnormal amounts of HbF. Blood transfusions may impact the HbA1c concentration in the patient sample. Estimated Average Glucose 123 mg/dL [facility] Comment:eAG = Estimated ave rage glucose which is %A1C expressed asaverage glucose, using the formula of the B6H-FzimnouBmvcrvv Glucose study (ADAG), Diabetes Care, Vol.31,#8,Jan. 2007 Blood Venous blood specimen / Unknown 02/23/2025 8:17 AM EDT 02/23/2025 11:16 AM EDT Ebony Blanchard MD LAB BLOOD ORDERABLES Final Resul t [facility] [address] [place] [address] [phone] documented in this encounter Visit Diagnoses Diagnosis Vitamin D deficiency- Primary Impaired fasting glucose Hypertension, unspecified type documented in this encounter Additional Health Concerns Assessment Noted Time PHQ-9 Depression Total Score: 0 07/30/19 25 10:27 AM EST documented as of this encounter Care Teams Transportation Services Representative Relationship Specialty Start Date End Date Ebony Blanchard MD [address] [place] [address] PCP - General Family Medicine 06/18/18 documented as of this encounter
--- OUTSIDE RECORDS SUMMARY | 2025-03-17 10:27 | XMS_ITS | Encounter Summary ---
Author Organization [employer] Address 75 [facility] 7t [place] [address] Care Team Providers Care Planisher Name Role Phone Ebony Blanchard MD Primary Care Provider [phone] El Gilman PharmD Unavailable [phone] Reason for Visit * Reason Comments Med Refill Encounter Details Date Type Department Care Team ([facility] st Contact Info) Description 09/21/2023 Refill [facility] MEDICINE [address] [place], [place] [phone] Olivia Babcock MD [address] [place], [place] [phone] Essential hypertension Social History Tobacco Use Types [...] Description 03/19/2025 12:45 PM EDT Office Visit [facility] ADULT DENTAL [address] [place] [address] Nevin, Chapis [address] [place] [address] 04/02/2025 11:00 AM EDT Medication Management [facility] MEDICINE [address] [place] [address] El Gilman, PharmD [address] [place] [address] documented as of this encounter Goals Goal [...] documented as of this encounter Care Teams Planisher Relationship Specialty Start Date End Date Ebony Blanchard MD [address] [place] [address] PCP - General Family Medicine 06/18/18 El Gilman, RajeshD [address] [place] [address] Pharmacist Internal Medicine 08/21/22 04/27/24 documented as of this encounter
--- OUTSIDE RECORDS SUMMARY | 2025-03-17 10:27 | XMS_ITS | Encounter Summary ---
Author Organization [employer] Address 75 [facility] 7t [place] [address] Care Team Providers Care Program Director Group Work Name Role Phone Ebony Blanchard MD Primary Care Provider [phone] El Gilman PharmD Unavailable [phone] Encounter Details Date Type Department Care Team ([facility] Contact Info) Description 06/07/2023 Abstract [facility] ADULT DENTAL [address] [place], [place] [phone] Harvey Curry, DDS [address] [place], [place] [phone] Social History Tobacco Use Types Packs/Day Years [...] Description 03/19/2025 12:45 PM EDT Office Visit [facility] ADULT DENTAL [address] [place] [address] Nevin, Chapis [address] [place] [address] 04/02/2025 11:00 AM EDT Medication Management [facility] MEDICINE [address] [place] [address] El Gilman, PharmD [address] [place] [address] documented as of this encounter Goals Goal [...] documented as of this encounter Care Teams Program Director Group Work Relationship Specialty Start Date End Date Ebony Blanchard MD [address] [place] [address] PCP - General Family Medicine 06/18/18 El Gilman, PharmD [address] [place] [address] Pharmacist Internal Medicine 08/21/22 04/27/24 documented as of this encounter
--- OUTSIDE RECORDS SUMMARY | 2025-03-17 10:27 | XMS_ITS | Encounter Summary ---
Author Organization [employer] Address 75 [facility] 7t [place] [address] Care Team Providers Care Lot Boss Name Role Phone Ebony Blanchard MD Primary Care Provider [phone] El Gilman PharmD Unavailable [phone] Reason for Visit * Reason Onset Date Comments Med Refill 02/11/2024 Encounter Details Date Type Department Care Team ([facility] st Contact Info) Description 02/11/2024 Refill [facility] MEDICINE [address] [place], [place] [phone] Olivia Babcock MD [address] [place], [place] [phone] Essential hypertension Social History Tobacco Use Types [...] Description 03/19/2025 12:45 PM EDT Office Visit [facility] ADULT DENTAL [address] [place] [address] Nevin, Chapis [address] [place] [address] 04/02/2025 11:00 AM EDT Medication Management [facility] MEDICINE [address] [place] [address] El Gilman, PharmD [address] [place] [address] documented as of this encounter Goals Goal [...] documented as of this encounter Care Teams Lot Boss Relationship Specialty Start Date End Date Ebony Balnchard MD [address] [place] [address] PCP - General Family Medicine 06/18/18 El Gilman, RajeshD [address] [place] [address] Pharmacist Internal Medicine 08/21/22 04/27/24 documented as of this encounter
--- OUTSIDE RECORDS SUMMARY | 2025-03-17 10:27 | XMS_ITS | Encounter Summary ---
Author Organization [employer] Address [address] [facility] 7t [place] [address] Care Team Providers Care Executive Steward Name Role Phone Ebony Blanchard MD Primary Care Provider [phone] El Gilman PharmD Unavailable [phone] Reason for Referral * Imaging (Routine) - Closed Specialty Diagnoses / Procedures Referred By Contac t Referred To Contact Radiology Diagnoses Status post bilateral breast reduction Breast pain, left Procedures BI US Breast Complete Bilateral Ebony Blanchard MD [address] [place] [address] Phone: tel: fax: [address] Phone: tel: fax: Referral ID Status Reason Start Date Expiration Date Visits Re quested Visits Authorized [id number] Closed 03/14/2023 03/13/2024 1 1 Encounter Details Date Type Department Care Team (Late st Contact Info) Description 03/14/2023 Orders Only [facility] [address] [place], [place] [phone] Ebony Blanchard MD [address] [place], [place] [phone] Status post bilateral breast reduction (Primary Dx); [...] 03/19/2025 12:45 PM EDT Office Visit [facility] ADULT DENTAL [address] [place] [address] Nevin, Chapis [address] [place] [address] 04/02/2025 11:00 AM EDT Medication Management [facility] [address] [place] [address] El Gilman, PharmD [address] [place] [address] Scheduled Orders Name Type Priority Associated Diagnoses [...] PM EDT Narrative 04/04/2023 3:04 PM EDT [place] [address] [place], [place] [address] Ultrasound Report Signed Patient: Olivia Yu MR#: [id number] : 1960 Acct:[id number] Age/Sex: 63 / F ADM Date: 04/04/23 Loc: HO.MAMMO Attending Dr: Ebony Blanchard MD Ordering Physician: Ebony Blanchard MD Date of Service: 04/04/23 Procedure(s): US breast LT limited mamm only Accession Number(s): [id number] cc: Ebony Blanchard MD EXAMINATION: MM DIAGNOSTIC [...] in OV> 04/04/23 1500 DD/ 1430 TD/TT: Wwe Wrestler: Procedure Note Donotuseinterpreter, Image - 04/04/2023 [facility]'s [address] [place] [address] Ultrasound Report Signed Patient: Olivia Yu MMR#: [id number] : 2Acct:[id number] Age/Sex: 63 / FADM Date: 04/04/23 Loc: JEREMY Attending Dr: Ebony Blanchard MD Ordering Physician: Ebony Blanchard MD Date of Service: 04/04/23 Procedure(s): US breast LT limited mamm only Accession Number(s): [id number] cc: Ebony Blanchard MD EXAMINATION: MM DIAGNOSTIC [...] in OV> 04/04/23 1500 DD/ 1430 TD/TT: Wwe Wrestler: us Ebony Blanchard MD IMG US PROCEDURES Final Result documented in this encounter Visit Diagnoses Diagnosis Status post bilateral breast reduction- Primary Other postprocedural status Breast pain, left documented in this encounter Additional Health Concerns Assessment Noted Time PHQ-9 Depression Total Score: 0 07/31/19 23 10:25 AM EST documented as of this encounter Care Teams Executive Steward Relationship Specialty Start Date End Date Ebony Blanchard MD [address] [place] [address] PCP - General Family Medicine 06/18/18 El Gilman, Roscoe [address] [place] [address] Pharmacist Internal Medicine 08/21/22 04/27/24 documented as of this encounter
--- OUTSIDE RECORDS SUMMARY | 2025-03-17 10:27 | XMS_ITS | Encounter Summary ---
Author Organization [employer] Address 75 [facility] 7t [place] [address] Care Team Providers Care Transmitter Engineer In Charge Name Role Phone Ebony Blanchard MD Primary Care Provider [phone] El Gilman PharmD Unavailable [phone] Reason for Visit * Reason Onset Date Comments Prior Authorization 03/30/2023 Encounter Details Date Type Department Care Team ([facility] Contact Info) Description 03/30/2023 Telephone [facility] ADULT DENTAL [address] [place] [address] KanuHarvey, DDS [address] [place] [address] Prior Authorization Social History Tobacco Use Types [...] Description 03/19/2025 12:45 PM EDT Office Visit [facility] ADULT DENTAL [address] [place] [address] Chapis Rooney [address] [place] [address] 04/02/2025 11:00 AM EDT Medication Management [facility] MEDICINE [address] [place] [address] El Gilman, PharmD [address] [place] [address] documented as of this encounter Goals Goal [...] documented as of this encounter Care Teams Transmitter Engineer In Charge Relationship Specialty Start Date End Date Ebony Blanchard MD [address] [place] [address] PCP - General Family Medicine 06/18/18 El Gilman, PharmD [address] [place] [address] Pharmacist Internal Medicine 08/21/22 04/27/24 documented as of this encounter
--- OUTSIDE RECORDS SUMMARY | 2025-03-17 10:27 | XMS_ITS | Encounter Summary ---
Author Organization [employer] Address 75 [facility] 7t [place] [address] Care Team Providers Care Resident Service Coordinator Name Role Phone Ebony Blanchard MD Primary Care Provider [phone] Reason for Visit * Reason Comments Med Refill Encounter Details Date Type Department Care Team ([facility] Contact Info) Description 04/30/2024 Refill [facility] MEDICINE [address] [place], [place] [phone] Ebony Blanchard MD [address] [place], [place] [phone] Psychophysiological insomnia Social History Tobacco Use Types [...] Description 03/19/2025 12:45 PM EDT Office Visit [facility] ADULT DENTAL [address] [place] [address] Nevin, Chapis [address] [place] [address] 04/02/2025 11:00 AM EDT Medication Management [facility] MEDICINE [address] [place] [address] El Gilman, PharmD [address] [place] [address] documented as of this encounter Goals Goal [...] documented as of this encounter Care Teams Resident Service Coordinator Relationship Specialty Start Date End Date Ebony Blanchard MD [address] [place] [address] PCP - General Family Medicine 06/18/18 documented as of this encounter
--- OUTSIDE RECORDS SUMMARY | 2025-03-17 10:27 | XMS_ITS | Encounter Summary ---
Author Organization [employer] Address 75 [facility] 7t [place] [address] Care Team Providers Care Trauma Nurse Name Role Phone Ebony Blanchard MD Primary Care Provider [phone] El Gilman PharmD Unavailable [phone] Encounter Details Date Type Department Care Team ([facility] st Contact Info) Description 03/30/2023 Abstract [facility] ADULT DENTAL [address] [place], [place] [phone] Julian Bazan DDS [address] [place], [place] [phone] Social History Tobacco Use Types Packs/Day Years [...] Description 03/19/2025 12:45 PM EDT Office Visit [facility] ADULT DENTAL [address] [place] [address] Nevin, Chapis [address] [place] [address] 04/02/2025 11:00 AM EDT Medication Management [facility] MEDICINE [address] [place] [address] El Gilman, PharmD [address] [place] [address] documented as of this encounter Goals Goal [...] documented as of this encounter Care Teams Trauma Nurse Relationship Specialty Start Date End Date Ebony Blanchard MD [address] [place] [address] PCP - General Family Medicine 06/18/18 El Gilman, PharmD [address] [place] [address] Pharmacist Internal Medicine 08/21/22 04/27/24 documented as of this encounter
--- OUTSIDE RECORDS SUMMARY | 2025-03-17 10:27 | XMS_ITS | Encounter Summary ---
Author Organization [employer] Address 75 [facility] 7t [place] [address] Care Team Providers Care Night Shift Supervisor Name Role Phone Ebony Blanchard MD Primary Care Provider [phone] Reason for Visit * Reason Comments Med Refill Encounter Details Date Type Department Care Team ([facility] Contact Info) Description 09/05/2024 Refill [facility] MEDICINE [address] [place], [place] [phone] Chery Baird MD [address] [place], [place] [phone] Essential hypertension Social History Tobacco Use Types [...] Description 03/19/2025 12:45 PM EDT Office Visit [facility] ADULT DENTAL [address] [place] [address] Nevin, Chapis [address] [place] [address] 04/02/2025 11:00 AM EDT Medication Management [facility] MEDICINE [address] [place] [address] El Gilman PharmD [address] [place] [address] documented as of this encounter Goals Goal [...] documented as of this encounter Care Teams Night Shift Supervisor Relationship Specialty Start Date End Date Ebony Blanchard MD [address] [place] [address] PCP - General Family Medicine 06/18/18 documented as of this encounter
--- OUTSIDE RECORDS SUMMARY | 2025-03-17 10:27 | XMS_ITS | Encounter Summary ---
Author Organization [employer] Address [address] [facility] 7t [place] [address] Care Team Providers Care Equipment Cleaner And Tester Name Role Phone Ebony Blanchard MD Primary Care Provider [phone] El Gilman PharmD Unavailable [phone] Reason for Referral * Consultation (Routine) - Closed Specialty Diagnoses / Procedures Referred By Contac t Referred To Contact Orthopaedic Surgery Diagnoses Chronic left shoulder pain Incomplete tear of left rotator cuff, unspecified whether traumatic Shoulder arthritis Ebony Blanchard MD [address] [place] [address] Phone: tel: fax: [facility] [address] [place] [address] [place] [address] Phone: tel: fax: Referral ID Status Reason Start Date Expiration Date V isits Requested Visits Authorized [id number] Closed Specialty Services Required 10/12/2023 10/11/2024 1 1 Encounter Details Date Type Department Care Team (Late st Contact Info) Description 10/12/2023 Orders Only [facility] MEDICINE [address] [place], [place] [phone] Ebony Blanchard MD [address] [place], [place] [phone] Chronic left shoulder pain (Primary Dx); Incomplete [...] Description 03/19/2025 12:45 PM EDT Office Visit [facility] ADULT DENTAL [address] [place] [address] Chapis Rooney [address] [place] [address] 04/02/2025 11:00 AM EDT Medication Management [facility] MEDICINE [address] [place] [address] El Gilman, Roscoe [address] [place] [address] documented as of this encounter Goals Goal Patient Goal Type Associated Problems Recent Progress Patient-Stated? Author Blood Pressure < 150/90 Blood Pressure 126/80(2024 9:38 AM EDT) No El Gilman PharmD Note: Per JNC-8 Age 62 with no history of DM or CKD documented as of this encounter Procedures Procedure Name Priority Date/Time Associated Diagnosis Comments AMB REFERRAL TO ORTHOPAEDIC SURGERY Routine 02/26/2025 Chronic left shoulder pain Incomplete tear of left rotator cuff, unspecified whether traumatic Shoulder arthritis documented in this encounter Results * Referral to Orthopaedic Surgery (02/26/2025) Ebony Blanchard MD OUTPATIENT REFERRAL ORDERABLES F inal Result documented in this encounter Visit Diagnoses Diagnosis Chronic left shoulder pain- Primary Pain in joint, shoulder region Incomplete tear of left rotator cuff, unspecified whether traumatic Shoulder arthritis Unspecified arthropathy, shoulder region documented in this encounter Additional Health Concerns Assessment Noted Time PHQ-9 Depression Total Score: 0 08/23/19 24 10:50 AM EST documented as of this encounter Care Teams Equipment Cleaner And Tester Relationship Specialty Start Date End Date Ebony Blanchard MD [address] [place] [address] PCP - General Family Medicine 06/18/18 El Gilman, RajeshD [address] [place] [address] Pharmacist Internal Medicine 08/21/22 04/27/24 documented as of this encounter
--- OUTSIDE RECORDS SUMMARY | 2025-03-17 10:27 | XMS_ITS | Encounter Summary ---
Author Organization [employer] Address 75 [facility] 7t [place] [address] Care Team Providers Care Fire Equipment Inspector Name Role Phone Ebony Blanchard MD Primary Care Provider [phone] El Gilman PharmD Unavailable [phone] Reason for Visit * Reason Comments Med Refill Encounter Details Date Type Department Care Team ([facility] st Contact Info) Description 03/19/2024 Refill [facility] MEDICINE [address] [place], [place] [phone] Olivia Babcock MD [address] [place], [place] [phone] Essential hypertension Social History Tobacco Use Types [...] Description 03/19/2025 12:45 PM EDT Office Visit [facility] ADULT DENTAL [address] [place] [address] Nevin, Chapis [address] [place] [address] 04/02/2025 11:00 AM EDT Medication Management [facility] MEDICINE [address] [place] [address] El Gilman, PharmD [address] [place] [address] documented as of this encounter Goals Goal [...] documented as of this encounter Care Teams Fire Equipment Inspector Relationship Specialty Start Date End Date Ebony Blanchard MD [address] [place] [address] PCP - General Family Medicine 06/18/18 El Gilman, RajeshD [address] [place] [address] Pharmacist Internal Medicine 08/21/22 04/27/24 documented as of this encounter
--- OUTSIDE RECORDS SUMMARY | 2025-03-17 10:27 | XMS_ITS | Encounter Summary ---
Author Organization [employer] Address 75 [facility] 7t [place] [address] Care Team Providers Care Airport Maintenance Laborer Name Role Phone Ebony Blanchard MD Primary Care Provider [phone] El Gilman PharmD Unavailable [phone] Reason for Visit * Reason Onset Date Comments reschedule judaism 04/16/2023 Encounter Details Date Type Department Care Team ([facility] st Contact Info) Description 04/16/2023 Telephone [facility] ADULT DENTAL [address] [place], [place] [phone] Clint Pérez, DMD [address] [place], [place] [phone] reschedule judaism Social History Tobacco Use Types Packs/Day Years [...] AM EDT Patient would like to reschedule judaism appt with Dr Pérez for a mid to late morning preferrablya 10am. documented in this encounter Plan of Treatment Upcoming Encounters Date Type Department Care Team (Late st Contact Info) Description 03/19/2025 12:45 PM EDT Office Visit [facility] ADULT DENTAL [address] [place] [address] Nevin, Chapis [address] [place] [address] 04/02/2025 11:00 AM EDT Medication Management [facility] MEDICINE [address] [place] [address] El Gilman, PharmD [address] [place] [address] documented as of this encounter Goals Goal [...] documented as of this encounter Care Teams Airport Maintenance Laborer Relationship Specialty Start Date End Date Ebony Blanchard MD [address] [place] [address] PCP - General Family Medicine 06/18/18 El Gilman, Roscoe [address] [place] [address] Pharmacist Internal Medicine 08/21/22 04/27/24 documented as of this encounter
--- OUTSIDE RECORDS SUMMARY | 2025-03-17 10:27 | XMS_ITS | Encounter Summary ---
Author Organization [employer] [facility] Address [address] [facility] 7t [place] [address] Care Team Providers Care Telecommunications Technician Name Role Phone Ebony Blanchard MD Primary Care Provider [phone] El Gilman PharmD Unavailable [phone] Encounter Details Date Type Department Care Team (Latest Contact Info) Description 01/06/2022 Abstract [facility] CONVERSIONS Dental, Provider, DDS Social [...] Description 03/19/2025 12:45 PM EDT Office Visit [facility] ADULT DENTAL [address] [place] [address] Hugo Rooneyaris [address] [place] [address] 04/02/2025 11:00 AM EDT Medication Management [facility] MEDICINE [address] [place] [address] El Gilman, PharmD [address] [place] [address] documented as of this encounter Visit Diagnoses Not on filedocumented in this encounter Care Teams Telecommunications Technician Relationship Specialty Start Date End Date Ebony Blanchard MD [address] [place] [address] PCP - General Family Medicine 06/18/18 El Gilman, RajeshD [address] [place] [address] Pharmacist Internal Medicine 08/21/22 04/27/24 documented as of this encounter
== END 2025-03-17 09:38 | disposition home or self-care (01) ==
LOC: HO.MAMMO 09:37
PROVIDERS: PCP Family Medicine; Visit Provider Family Medicine
DX: Z12.31 Encounter for screening mammogram for malignant neoplasm of breast (principal)
CPT/HCPCS: 77063; 77067

== ENCOUNTER → 2025-03-17 10:00 | Outpatient (BNV) | payer OTHER, SELFPAY | PROVIDERS: PCP Family Medicine; Visit Provider Internal Medicine | DX: Z12.31 Encounter for screening mammogram for malignant neoplasm of breast (principal) | CPT/HCPCS: 77063; 77067 ==

== ENCOUNTER 2025-05-19 08:30 | Outpatient (REF) | payer OTHER, SELFPAY ==
--- NOTE | 2025-05-19 | PFT_ITS ---
Indication: Wheezing Spirometry FEV1 to FVC 77%; FEV1 2.26 L; FVC 2.95 L. bronchodilators were not used due to the fact that the patient gets palpitations. Lung Volumes Total lung capacity 94% predicted; expiratory reserve volume 42% predicted Diffusion Capacity DLCO 105% predicted Comparisons None Interpretation No obstructive nor restrictive ventilatory defects identified. Bronchodilators were not used. Lung volumes are normal except for decrease in the expiratory reserve volume likely secondary to an elevated BMI. Diffusing capacity is within normal limits. If asthma is new differential methacholine challenge may be helpful in assessing for hyperreactive airways. Clinical correlation warranted. MTDD
--- OUTSIDE RECORDS SUMMARY | 2025-05-19 08:35 | XMS_ITS | Encounter Summary ---
Author Organization [employer] Address 75 [facility] 7t [place] [address] Care Team Providers Care Gettering Filament Machine Operator Name Role Phone Ebony Blanchard MD Primary Care Provider [phone] Reason for Visit * Reason Comments Med Refill Encounter Details Date Type Department Care Team ([facility] st Contact Info) Description 09/05/[address] [facility] MEDICINE [address] [place], [place] [phone] Chery Baird MD [address] [place] [address] Essential hypertension Social History Tobacco Use Types [...] the past 12 months, has t he [employer], gas, oil or water company threatened to [...] Care Team (Late st Contact Info) Description 06/05/2025 2:30 PM EST Office Visit [facility] ADULT DENTAL [address] [place] [address] Clint Pérez DMD [address] [place] [address] 06/16/2025 11:30 AM EST Office Visit [facility] MEDICINE [address] [place] [address] Ebony Blanchard MD [address] [place] [address] 09/22/2025 10:15 AM EDT Office Visit [facility] ADULT DENTAL [address] [place] [address] Chapis Rooney [address] [place] [address] documented as of this encounter Goals Goal Patient Goal Type Associated Problems Recent Progress Patient-Stated? Author Blood Pressure < 150/90 Blood Pressure 122/71(2024 11:22 AM EDT) El Murcia, PharmD Note: Per JNC-8 Age 62 with no history of DM or CKD documented as of this encounter Visit Diagnoses Diagnosis Essential hypertension Unspecified essential hypertension documented in this encounter Additional Health Concerns Assessment Noted Time PHQ-9 Depression Total Score: 0 07/30/19 25 10:27 AM EST documented as of this encounter Care Teams Gettering Filament Machine Operator Relationship Specialty Start Date End Date Ebony Blanchard MD [address] [place] [address] PCP - General Family Medicine 06/18/18 documented as of this encounter
--- OUTSIDE RECORDS SUMMARY | 2025-05-19 08:35 | XMS_ITS | Clinical Summary ---
Author Organization [facility] [facility] ity Address [address] [place] [address] Care Team Providers Care Four Roll Calender Operator Name Role Phone Unavailable Primary Care [...] Depression Screening 06/18/2024 COVID-19 Vaccine (1 - 2024-2 6 season) 2025 Influenza Vaccine (#1) 2025 RSV [...]
--- OUTSIDE RECORDS SUMMARY | 2025-05-19 08:35 | XMS_ITS | Encounter Summary ---
Author Organization [employer] Address [address] [place] [address] 7 [place] [address] Care Team Providers Care Forester Aide Name Role Phone Ebony Blanchard MD Primary Care Provider [phone] El Gilman PharmD Unavailable [phone] Encounter Details Date Type Department Care Team (Latest Contact Info) Description 01/06/2022 Abstract [facility] CONVERSIONS Dental, Provider, DDS Social History [...] Care Team ( st Contact Info) Description 06/05/2025 2:30 PM EST Office Visit [facility] ADULT DENTAL [address] [place] [address] Clint Pérez DMD [address] [place] [address] 06/16/2025 11:30 AM EST Office Visit [facility] MEDICINE [address] [place] [address] Ebony Blanchard MD [address] [place] [address] 09/22/2025 10:15 AM EDT Office Visit [facility] ADULT DENTAL [address] [place] [address] Chapis Rooney [address] [place], [place] [phone] documented as of this encounter Visit Diagnoses Not on filedocumented in this encounter Care Teams Forester Aide Relationship Specialty Start Date End Date Ebony Blanchard MD [address] [place] [address] PCP - General Family Medicine 06/18/18 El Gilman, Roscoe [address] [place] [address] Pharmacist Internal Medicine 08/21/22 04/27/24 documented as of this encounter
--- OUTSIDE RECORDS SUMMARY | 2025-05-19 08:36 | XMS_ITS | Encounter Summary ---
Author Organization [employer] Address [address] [place] [address] 7t [place] [address] Care Team Providers Care Last Inserter Name Role Phone Ebony Blanchard MD Primary Care Provider [phone] El Gilman PharmD Unavailable [phone] Encounter Details Date Type Department Care Team (Latest Contact Info) Description 09/08/2020 Abstract [facility] CONVERSIONS Dental, Provider, DDS Social History [...] Description 06/05/2025 2:30 PM EST Office Visit [facility] ADULT DENTAL [address] [place] [address] Clint Pérez DMD [address] [place] [address] 06/16/2025 11:30 AM EST Office Visit [facility] MEDICINE [address] [place] [address] Ebony Blanchard MD [address] [place] [address] 09/22/2025 10:15 AM EDT Office Visit [facility] ADULT DENTAL [address] [place] [address] Chapis Rooney [address] [place], [place] [phone] documented as of this encounter Visit Diagnoses Not on filedocumented in this encounter Care Teams Last Inserter Relationship Specialty Start Date End Date Ebony Blanchard MD [address] [place] [address] PCP - General Family Medicine 06/18/18 El Gilman, Roscoe [address] [place] [address] Pharmacist Internal Medicine 08/21/22 04/27/24 documented as of this encounter
--- OUTSIDE RECORDS SUMMARY | 2025-05-19 08:36 | XMS_ITS | Encounter Summary ---
Author Organization [employer] Address [address] [facility] 7 [place] [address] Care Team Providers Care Filter Helper Name Role Phone Ebony Blanchard MD Primary Care Provider [phone] El Gilman PharmD Unavailable [phone] Reason for Visit * Reason Comments Med Refill Encounter Details Date Type Department Care Team ([facility] st Contact Info) Description 09/21/2023 Refill [facility] MEDICINE [address] [place], [place] [phone] Olivia Babcock MD [address] [place], [place] [phone] Essential hypertension Social History Tobacco Use Types [...] Description 06/05/2025 2:30 PM EST Office Visit [facility] ADULT DENTAL [address] [place] [address] Clint Pérez, BARRY [address] [place] [address] 06/16/2025 11:30 AM EST Office Visit [facility] MEDICINE [address] [place] [address] Ebony Blanchard MD [address] [place] [address] 09/22/2025 10:15 AM EDT Office Visit [facility] ADULT DENTAL [address] [place] [address] Chapis Rooney [address] [place] [address] documented as of this encounter Goals Goal [...] documented as of this encounter Care Teams Filter Helper Relationship Specialty Start Date End Date Ebony Blanchard MD [address] [place] [address] PCP - General Family Medicine 06/18/18 El Gilman, Roscoe [address] [place] [address] Pharmacist Internal Medicine 08/21/22 04/27/24 documented as of this encounter
--- OUTSIDE RECORDS SUMMARY | 2025-05-19 08:36 | XMS_ITS | Encounter Summary ---
Author Organization [employer] Address 75 [facility] 7t [place] [address] Care Team Providers Care Ciaio Counter Molder Name Role Phone Ebony Blanchard MD Primary Care Provider [phone] El Gilman PharmD Unavailable [phone] Reason for Visit * Reason Comments Med Refill Encounter Details Date Type Department Care Team (Late st Contact Info) Description 03/25/2023 Refill [facility] MEDICINE 230 [place], [place] [phone] Ebony Blanchard MD [address] [place], [place] [phone] Social History Tobacco Use Types Packs/Day Years [...] 10:20 AM EDT Sexual Orientation Straight 07/23/2024 8 :51 AM EST documented as of this encounter Plan of Treatment Upcoming Encounters Date Type Department Care Team (Late st Contact Info) Description 06/05/2025 2:30 PM EST Office Visit [facility] ADULT DENTAL [address] [place] [address] Clint Pérez DMD 230 [place] [address] 06/16/2025 11:30 AM EST Office Visit [facility] MEDICINE [address] [place] [address] Ebony Blanchard MD [address] [place] [address] 09/22/2025 10:15 AM EDT Office Visit [facility] ADULT DENTAL [address] [place] [address] Chapis Rooney [address] [place] [address] documented as of this encounter Goals Goal [...] Time PHQ-9 Depression Total Score: 0 07/31/19 10:25 AM EST documented as of this encounter Care Teams Ciaio Counter Molder Relationship Specialty Start Date End Date Ebony Blanchard MD [address] [place] [address] PCP - General Family Medicine 06/18/18 El Gilman, Roscoe [address] [place] [address] Pharmacist Internal Medicine 08/21/22 04/27/24 documented as of this encounter
--- OUTSIDE RECORDS SUMMARY | 2025-05-19 08:36 | XMS_ITS | Encounter Summary ---
Author Organization [employer] Address 75 [facility] 7t [place] [address] Care Team Providers Care Wool Sampler Name Role Phone Ebony Blanchard MD Primary Care Provider [phone] El Gilman PharmD Unavailable [phone] Encounter Details Date Type Department Care Team (Late st Contact Info) Description 06/07/2023 Abstract [facility] ADULT DENTAL [address] [place], [place] [phone] Clint Pérez, BARRY [address] [place], [place] [phone] Social History Tobacco Use Types Packs/Day Years [...] Description 06/05/2025 2:30 PM EST Office Visit [facility] ADULT DENTAL [address] [place] [address] Clint Pérez DMD 230 [place] [address] 06/16/2025 11:30 AM EST Office Visit [facility] MEDICINE [address] [place] [address] Ebony Blanchard MD [address] [place] [address] 09/22/2025 10:15 AM EDT Office Visit [facility] ADULT DENTAL [address] [place] [address] Chapis Rooney [address] [place] [address] documented as of this encounter Goals Goal [...] documented as of this encounter Care Teams Wool Sampler Relationship Specialty Start Date End Date Ebony Blanchard MD [address] [place], [place] [phone] PCP - General Family Medicine 06/18/18 El Gilman, RajeshD [address] [place] [address] Pharmacist Internal Medicine 08/21/22 04/27/24 documented as of this encounter
--- OUTSIDE RECORDS SUMMARY | 2025-05-19 08:36 | XMS_ITS | Encounter Summary ---
Author Organization [employer] Address 75 [facility] 7t [place] [address] Care Team Providers Care Benefits Counselor Name Role Phone Ebony Blanchard MD Primary Care Provider [phone] Reason for Visit * Reason Onset Date Comments Appointment Request 03/30/2025 Encounter Details Date Type Department Care Team ([facility] Contact Info) Description 03/30/2025 Telephone [facility] MEDICINE [address] [place], [place] [phone] Ebony Blanchard MD [address] [place], [place] [phone] Appointment Request Social History Tobacco Use Types Packs/Day Years [...] encounter Miscellaneous Notes * Telephone Encounter - Vilma Wilhelm - 03/30/2025 2:11 PM EDT Tc from pt requesting for apt scheduled on 04/02 be changed to tele Contact pt at [phone] (indonesian) documented in this encounter Plan of Treatment Upcoming Encounters Date Type Department Care Team (Late st Contact Info) Description 06/05/2025 2:30 PM EST Office Visit [facility] ADULT DENTAL [address] [place] [address] Clint Pérez, DMD [address] [place] [address] 06/16/2025 11:30 AM EST Office Visit [facility] MEDICINE [address] [place] [address] Ebony Blanchard MD [address] [place] [address] 09/22/2025 10:15 AM EDT Office Visit [facility] ADULT DENTAL [address] [place] [address] Chapis Rooney [address] [place] [address] documented as of this encounter Goals Goal [...] documented as of this encounter Care Teams Benefits Counselor Relationship Specialty Start Date End Date Ebony Blanchard MD [address] [place] [address] PCP - General Family Medicine 06/18/18 documented as of this encounter
--- OUTSIDE RECORDS SUMMARY | 2025-05-19 08:36 | XMS_ITS | Encounter Summary ---
Author Organization [employer] Address [address] [place] [address] 7 [place] [address] Care Team Providers Care Social And Human Services Assistant Name Role Phone Ebony Blanchard MD Primary Care Provider [phone] El Gilman PharmD Unavailable [phone] Reason for Referral * Consultation (Routine) - Closed Specialty Diagnoses / Procedures Referred By Contac t Referred To Contact Orthopaedic Surgery Diagnoses Chronic left shoulder pain Incomplete tear of left rotator cuff, unspecified whether traumatic Shoulder arthritis Ebony Blanchard MD [address] [place] [address] Phone: tel: fax: [facility] [address] [place] [address] Phone: tel: fax: Referral ID Status Reason Start Date Expiration Date V isits Requested Visits Authorized [id number] Closed Specialty Services Required 10/12/2023 10/11/2024 1 1 Encounter Details Date Type Department Care Team (Late st Contact Info) Description 10/12/2023 Orders Only [facility] MEDICINE [address] [place], [place] [phone] Ebony Blanchard MD [address] [place], [place] [phone] Chronic left shoulder pain (Primary Dx); Incomplete [...] housing situation today? I have evangelistneeru caba 04/02/[address] you [...] [facility] ADULT DENTAL [address] [place] [address] Clint Pérez, BARRY [address] [place] [address] 06/16/2025 11:30 AM EST Office Visit [facility] MEDICINE [address] [place] [address] Ebony Blanchard MD [address] [place] [address] 09/22/2025 10:15 AM EDT Office Visit [facility] ADULT DENTAL [address] [place] [address] Chapis Rooney [address] [place] [address] documented as of this encounter Goals Goal Patient Goal Type Associated Problems Recent Progress Patient-Stated? Author Blood Pressure < 150/90 Blood Pressure 122/71(2024 11:22 AM EDT) No El Gilman, PharmD Note: [...] documented as of this encounter Care Teams Social And Human Services Assistant Relationship Specialty Start Date End Date Ebony Blanchard MD [address] [place] [address] PCP - General Family Medicine 06/18/18 El Gilman, PharmD [address] [place] [address] Pharmacist Internal Medicine 08/21/22 04/27/24 documented as of this encounter
--- OUTSIDE RECORDS SUMMARY | 2025-05-19 08:36 | XMS_ITS | Encounter Summary ---
Author Organization [employer] Address 75 [facility] 7t [place] [address] Care Team Providers Care Faculty Criminal Justice Name Role Phone Ebony Blanchard MD Primary Care Provider [phone] El Gilman PharmD Unavailable [phone] Reason for Visit * Reason Comments Med Refill Encounter Details Date Type Department Care Team (Late st Contact Info) Description 12/20/2023 Refill [facility] MEDICINE [address] [place], [place] [phone] Ebony Blanchard MD [address] [place], [place] [phone] Essential hypertension Social History Tobacco Use Types [...] Description 06/05/2025 2:30 PM EST Office Visit [facility] ADULT DENTAL [address] [place] [address] Clint Pérez, BARRY [address] [place] [address] 06/16/2025 11:30 AM EST Office Visit [facility] MEDICINE [address] [place] [address] Ebony Blanchard MD [address] [place] [address] 09/22/2025 10:15 AM EDT Office Visit [facility] ADULT DENTAL [address] [place] [address] Chapis Rooney [address] [place] [address] documented as of this encounter Goals Goal [...] documented as of this encounter Care Teams Faculty Criminal Justice Relationship Specialty Start Date End Date Ebony Blanchard MD [address] [place] [address] PCP - General Family Medicine 06/18/18 El Gilman, Roscoe [address] [place] [address] Pharmacist Internal Medicine 08/21/22 04/27/24 documented as of this encounter
--- OUTSIDE RECORDS SUMMARY | 2025-05-19 08:36 | XMS_ITS | Encounter Summary ---
Author Organization [employer] Address 75 [facility] 7t [place] [address] Care Team Providers Care Aircraft Rigging And Controls Mechanic Name Role Phone Ebony Blanchard MD Primary Care Provider [phone] El Gilman PharmD Unavailable [phone] Encounter Details Date Type Department Care Team (Late st Contact Info) Description 07/16/2023 Abstract [facility] ADULT DENTAL [address] [place], [place] [phone] Clint Pérez, BARRY [address] [place], [place] [phone] Social History Tobacco Use Types Packs/Day Years [...] Description 06/05/2025 2:30 PM EST Office Visit [facility] ADULT DENTAL [address] [place] [address] Clint Pérez DMD [address] [place] [address] 06/16/2025 11:30 AM EST Office Visit [facility] MEDICINE [address] [place] [address] Ebony Blanchard MD 230 [place] [address] 09/22/2025 10:15 AM EDT Office Visit [facility] ADULT DENTAL [address] [place] [address] Chapis Rooney [address] [place] [address] documented as of this encounter Goals Goal [...] documented as of this encounter Care Teams Aircraft Rigging And Controls Mechanic Relationship Specialty Start Date End Date Ebony Blanchard MD [address] [place], [place] [phone] PCP - General Family Medicine 06/18/18 El Gilman, RajeshD [address] [place] [address] Pharmacist Internal Medicine 08/21/22 04/27/24 documented as of this encounter
--- OUTSIDE RECORDS SUMMARY | 2025-05-19 08:36 | XMS_ITS | Encounter Summary ---
Author Organization [employer] Address 75 [facility] 7t [place] [address] Care Team Providers Care Multifold Operator Name Role Phone Ebony Blanchard MD Primary Care Provider [phone] Reason for Visit * Reason Onset Date Comments emergency visit transportation 12/30/2024 Encounter Details Date Type Department Care Team ([facility] st Contact Info) Description 12/30/2024 Telephone [facility] ADULT DENTAL [address] [place], [place] [phone] Julian Bazan DDS [address] [place] [address] emergency visit transportation Social History Tobacco Use [...] 10:30 AM EDT Ok to schedule per [place] due to emergency however patient relies on transportation from insurance and [facility] to do same day emerency visit. Insurance provider needs 2 days advvance for transportationserbertoes Patient schedule with [employer] documented in this encounter Plan of Treatment Upcoming Encounters Date Type Department Care Team (Late st Contact Info) Description 06/05/2025 2:30 PM EST Office Visit [facility] ADULT DENTAL [address] [place] [address] Clint Pérez, DMD [address] [place] [address] 06/16/2025 11:30 AM EST Office Visit [facility] MEDICINE [address] [place] [address] Ebony Blanchard MD [address] [place] [address] 09/22/2025 10:15 AM EDT Office Visit [facility] ADULT DENTAL [address] [place] [address] Chapis Rooney [address] [place] [address] documented as of this encounter Goals Goal [...] documented as of this encounter Care Teams Multifold Operator Relationship Specialty Start Date End Date Ebony Blanchard MD [address] [place] [address] PCP - General Family Medicine 06/18/18 documented as of this encounter
--- OUTSIDE RECORDS SUMMARY | 2025-05-19 08:36 | XMS_ITS | Encounter Summary ---
Author Organization [employer] Address 75 [facility] 7 [place] [address] Care Team Providers Care Continuity Person Name Role Phone Ebony Blanchard MD Primary Care Provider [phone] El Gilman PharmD Unavailable [phone] Reason for Visit * Reason Onset Date Comments Med Refill 02/11/2024 Encounter Details Date Type Department Care Team (Late st Contact Info) Description 02/11/2024 Refill [facility] MEDICINE [address] [place], [place] [phone] Olivia Babcock MD [address] [place], [place] [phone] Essential hypertension Social History Tobacco Use Types [...] Description 06/05/2025 2:30 PM EST Office Visit [facility] ADULT DENTAL [address] [place] [address] Clint Pérez, BARRY [address] [place] [address] 06/16/2025 11:30 AM EST Office Visit [facility] MEDICINE [address] [place] [address] Ebony Blanchard MD [address] [place] [address] 09/22/2025 10:15 AM EDT Office Visit [facility] ADULT DENTAL [address] [place] [address] Chapis Rooney [address] [place] [address] documented as of this encounter Goals Goal [...] documented as of this encounter Care Teams Continuity Person Relationship Specialty Start Date End Date Ebony Blanchard MD [address] [place] [address] PCP - General Family Medicine 06/18/18 El Gilman, RajeshD [address] [place] [address] Pharmacist Internal Medicine 08/21/22 04/27/24 documented as of this encounter
--- OUTSIDE RECORDS SUMMARY | 2025-05-19 08:36 | XMS_ITS | Encounter Summary ---
Author Organization [employer] Address [address] [place] [address] 7 [place] [address] Care Team Providers Care Box Spring Maker Name Role Phone Ebony Blanchard MD Primary Care Provider Reason for Referral * Consultation (Routine) - Closed Specialty Diagnoses / Procedures Referred By Contac t Referred To Contact Otolaryngology Diagnoses Throat pain Odynophagia Ebony Blanchard MD [address] [place] [address] Phone: tel: fax: [facility] [address] Phone: tel: fax: Referral ID Status Reason Start Date Expiration Date V isits Requested Visits Authorized [id number] Closed Specialty Services Required 04/17/2025 04/17/2026 1 1 Encounter Details Date Type Department Care Team (Late st Contact Info) Description 04/17/2025 Orders Only [facility] MEDICINE [address] [place], [place] [phone] Ebony Blanchard MD [address] [place], [place] [phone] Throat pain (Primary Dx); Odynophagia Social History Tobacco Use Types Packs/Day Years [...] 2:30 PM EST Office Visit [facility] ADULT DENTAL [address] [place] [address] Clint Pérez, DMD [address] [place] [address] 06/16/2025 11:30 AM EST Office Visit [facility] MEDICINE [address] [place] [address] Ebony Blanchard MD [address] [place] [address] 09/22/2025 10:15 AM EDT Office Visit [facility] ADULT DENTAL [address] [place] [address] Hugo Rooneyaris [address] [place] [address] Pending Results Name Type Priority Associated Diagnoses Date /Time Referral to ENT Outpatient Referral Routine Throat pain Odynophagia 04/17/2025 Scheduled Referrals Name Type Priority Associated Diagnoses Orde r Schedule Referral to ENT Outpatient Referral Routine Throat pain Odynophagia Expected: 04/17/2025 (Approximate), Expires: 04/17/2026 documented as of this encounter Goals Goal Patient Goal Type Associated Problems Recent Progress Patient-Stated? Author Blood Pressure < 150/90 Blood Pressure 122/71(2024 11:22 AM EDT) El [place], PharmD Note: Per JNC-8 Age 62 with no history of DM or CKD documented as of this encounter Visit Diagnoses Diagnosis Throat pain- Primary Odynophagia Dysphagia, unspecified documented in this encounter Additional Health Concerns Assessment Noted Time PHQ-9 Depression Total Score: 0 07/30/19 25 10:27 AM EST documented as of this encounter Care Teams Box Spring Maker Relationship Specialty Start Date End Date Ebony Blanchard MD [address] [place] [address] PCP - General Family Medicine 06/18/18 documented as of this encounter
--- OUTSIDE RECORDS SUMMARY | 2025-05-19 08:36 | XMS_ITS | Encounter Summary ---
Author Organization [employer] Address 75 [facility] 7t [place] [address] Care Team Providers Care Residency Director Name Role Phone Ebony Blanchard MD Primary Care Provider [phone] lE Gilman PharmD Unavailable [phone] Reason for Visit * Reason Onset Date Comments reschedule worship 04/16/2023 Encounter Details Date Type Department Care Team (Late st Contact Info) Description 04/16/2023 Telephone [facility] ADULT DENTAL [address] [place], [place] [phone] Clint Pérez, DMD [address] [place], [place] [phone] reschedule worship Social History Tobacco Use Types Packs/Day Years [...] AM EDT Patient would like to reschedule worship appt with Dr Pérez for a mid to late morning preferrablya 10am. documented in this encounter Plan of Treatment Upcoming Encounters Date Type Department Care Team (Late st Contact Info) Description 06/05/2025 2:30 PM EST Office Visit [facility] ADULT DENTAL [address] [place] [address] Clint Pérez DMD [address] [place] [address] 06/16/2025 11:30 AM EST Office Visit [facility] MEDICINE [address] [place] [address] Ebony Blanchard MD [address] [place] [address] 09/22/2025 10:15 AM EDT Office Visit [facility] ADULT DENTAL [address] [place] [address] Chapis Rooney [address] [place] [address] documented as of this encounter Goals Goal Patient Goal Type Associated Problems Recent Progress Patient-Stated? Author Blood Pressure < 150/90 Blood Pressure 122/71(2024 11:22 AM EDT) No El Gilman, PharmKathy Note: Per JNC-8 Age 62 with no history of DM or CKD documented as of this encounter Visit Diagnoses Not on filedocumented in this encounter Additional Health Concerns Assessment Noted Time PHQ-9 Depression Total Score: 0 07/31/19 23 10:25 AM EST documented as of this encounter Care Teams Residency Director Relationship Specialty Start Date End Date Ebony Blanchard MD [address] [place] [address] PCP - General Family Medicine 06/18/18 El Gilman, PharmD [address] [place] [address] Pharmacist Internal Medicine 08/21/22 04/27/24 documented as of this encounter
--- OUTSIDE RECORDS SUMMARY | 2025-05-19 08:36 | XMS_ITS | Encounter Summary ---
Author Organization [employer] Address [address] [place] [address] [address] [place] [address] Care Team Providers Care Bird Keeper Name Role Phone Ebony Blanchard MD Primary Care Provider [phone] El Gilman PharmD Unavailable [phone] Reason for Referral * Imaging (Routine) - Closed Specialty Diagnoses / Procedures Referred By Contac t Referred To Contact Radiology Diagnoses Status post bilateral breast reduction Breast pain, left Procedures BI US Breast Complete Bilateral Ebony Blanchard MD [address] [place] [address] Phone: tel: fax: [address] [address] Phone: tel: fax: Referral ID Status Reason Start Date Expiration Date Visits Re quested Visits Authorized [id number] Closed 03/14/2023 03/13/2024 1 1 Encounter Details Date Type Department Care Team (Late st Contact Info) Description 03/14/2023 Orders Only [facility] MEDICINE [address] [place], [place] [phone] Ebony Blanchard MD [address] [place], [place] [phone] Status post bilateral breast reduction (Primary Dx); [...] Description 06/05/2025 2:30 PM EST Office Visit [facility] ADULT DENTAL [address] [place] [address] Clint Pérez DMD [address] [place] [address] 06/16/2025 11:30 AM EST Office Visit [facility] MEDICINE [address] [place] [address] Ebony Blanchard MD [address] [place] [address] 09/22/2025 10:15 AM EDT Office Visit [facility] ADULT DENTAL [address] [place] [address] Chapis Rooney [address] [place] [address] Scheduled Orders Name Type Priority Associated Diagnoses Orde r Schedule BI US Breast Complete Bilateral Imaging Routine Status post bilateral breast reduction Breast pain, left Expected: 03/14/2023, Expires: 05/14/2024 documented as of this encounter Goals Goal Patient Goal Type Associated Problems Recent Progress Patient-Stated? Author Blood Pressure < 150/90 Blood Pressure 122/71(2024 11:22 AM EDT) [place], RajeshD Note: Per [...] PM EDT Narrative 04/04/2023 3:04 PM EDT [facility] [address] [place], [place] [address] Ultrasound Report Signed Patient: Olivia Yu MR#: [id number] : 1960 Acct:[id number] Age/Sex: 63 / F ADM Date: 04/04/23 Loc: [facility] Attending Dr: Ebony Blanchard MD Ordering Physician: Ebony Blanchard MD Date of Service: 04/04/23 Procedure(s): US breast LT limited mamm only Accession Number(s): [id number] cc: Ebony Blanchard MD EXAMINATION: MM DIAGNOSTIC [...] in OV> 04/04/23 1500 DD/ 1430 TD/TT: Impregnator Helper: Procedure Note Donotuseinterpreter, Image - [facility]/04/[facility] [address] [place] [address] Ultrasound Report Signed Patient: Olivia Yu MMR#: [id number] : 2Acct:[id number] Age/Sex: 63 / FADM Date: 04/04/23 Loc: MAMMO Attending Dr: Ebony Blanchard MD Ordering Physician: Ebony Blanchard MD Date of Service: 04/04/23 Procedure(s): US breast LT limited mamm only Accession Number(s): [id number] cc: Ebony Blanchard MD EXAMINATION: MM DIAGNOSTIC [...] in OV> 04/04/23 1500 DD/ 1430 TD/TT: Impregnator Helper: us Ebony Blanchard MD IMG US PROCEDURES Final Result documented in this encounter Visit Diagnoses Diagnosis Status post bilateral breast reduction- Primary Other postprocedural status Breast pain, left documented in this encounter Additional Health Concerns Assessment Noted Time PHQ-9 Depression Total Score: 0 07/31/19 23 10:25 AM EST documented as of this encounter Care Teams Bird Keeper Relationship Specialty Start Date End Date Ebony Blanchard MD [address] [place] [address] PCP - General Family Medicine 06/18/18 El Gilman, RajeshD [address] [place] [address] Pharmacist Internal Medicine 08/21/22 04/27/24 documented as of this encounter
--- OUTSIDE RECORDS SUMMARY | 2025-05-19 08:36 | XMS_ITS | Encounter Summary ---
Author Organization [employer] Address [address] [place] [address] 7 [place] [address] Care Team Providers Care Terminal Block Assembler Name Role Phone Ebony Blanchard MD Primary Care Provider [phone] Reason for Referral * Consultation (Routine) - Closed Specialty Diagnoses / Procedures Referred By Contac t Referred To Contact Pharmacy Diagnoses Hypertension, unspecified type Ebony Blanchard MD [address] [place] [address] Phone: tel: fax: Referral ID Status Reason Start Date Expiration Date V isits Requested Visits Authorized [id number] Closed Consult and Treat 04/29/2024 04/29/2025 6 6 Encounter Details Date Type Department Care Team (Late st Contact Info) Description 04/29/2024 Orders Only [facility] MEDICINE [address] [place] [address] [phone] Ebony Blanchard MD [address] [place], [place] [phone] Hypertension, unspecified type (Primary Dx) Social History [...] 2:30 PM EST Office Visit [facility] ADULT DENTAL [address] [place] [address] Clint Pérez DMD [address] [place] [address] 06/16/2025 11:30 AM EST Office Visit [facility] MEDICINE [address] [place] [address] Ebony Blanchard MD [address] [place] [address] 09/22/2025 10:15 AM EDT Office Visit [facility] ADULT DENTAL [address] [place] [address] Chapis Rooney [address] [place] [address] Scheduled Referrals Name Type Priority Associated Diagnoses [...] documented as of this encounter Care Teams Terminal Block Assembler Relationship Specialty Start Date End Date Ebony Blanchard MD [address] [place] [address] PCP - General Family Medicine 06/18/18 documented as of this encounter
--- OUTSIDE RECORDS SUMMARY | 2025-05-19 08:36 | XMS_ITS | Encounter Summary ---
Author Organization [employer] Address [address] [facility] 7t [place] [address] Care Team Providers Care Skirt Maker Name Role Phone Ebony Blanchard MD Primary Care Provider [phone] Encounter Details Date Type Department Care Team ([facility] Contact Info) Description 01/07/2025 Orders Only [facility] MEDICINE [address] [place], [place] [phone] Ebony Blanchard MD [address] [place], [place] [phone] Vitamin D deficiency (Primary Dx); Impaired fasting [...] Description 06/05/2025 2:30 PM EST Office Visit [facility] ADULT DENTAL [address] [place] [phone] Clint Pérez DMD [address] [place] [address] 06/16/2025 11:30 AM EST Office Visit [facility] MEDICINE [address] [place] [address] Ebony Blanchard MD [address] [place] [address] 09/22/2025 10:15 AM EDT Office Visit [facility] ADULT DENTAL [address] [place] [phone] Chapis Rooney [address] [place] [address] documented as of this encounter Goals Goal [...] Glucose Fasting 117(H) 60 - 99 mg/dL [facility] Comment:A fasting glucose fr om 100-125 mg/dl is considered impaired(pre-diabetes). Blood Venous blood specimen / Unknown 02/23/2025 8:17 AM EDT 02/23/2025 11:16 AM EDT us Ebony Blanchard MD LAB BLOOD ORDERABLES Final Resul t [facility] [address] [place] [phone] * Hemoglobin A1c (02/23/2025 8:17 AM EDT) Hemoglobin A1c 5.9 <6.0 % [facility] Comment:Hemoglobin A1C Refer ence Range Adults: 4.8 - 6.0 % Non diabetic: < 6.0 % Goal: < 7.0 %Additional Action Suggested: > 8.0 %Note: Hemoglobin A1c results are invalid for patients with abnormal amounts of HbF. Blood transfusions may impact the HbA1c concentration in the patient sample. Estimated Average Glucose 123 mg/dL [facility] Comment:eAG = Estimated ave rage glucose which is %A1C expressed asaverage glucose, using the formula of the M4E-GgqkrrlFdfzsnq Glucose study (ADAG), Diabetes Care, Vol.31,#8,Jan. 2007 Blood Venous blood specimen / Unknown 02/23/2025 8:17 AM EDT 02/23/2025 11:16 AM EDT us Ebony Blanchard MD LAB BLOOD ORDERABLES Final Resul t [facility] [address] [place] [phone] documented in this encounter Visit Diagnoses Diagnosis Vitamin D deficiency- Primary Impaired fasting glucose Hypertension, unspecified type documented in this encounter Additional Health Concerns Assessment Noted Time PHQ-9 Depression Total Score: 0 07/30/19 25 10:27 AM EST documented as of this encounter Care Teams Skirt Maker Relationship Specialty Start Date End Date Ebony Blanchard MD [address] [place] [phone] PCP - General Family Medicine 06/18/18 documented as of this encounter
--- OUTSIDE RECORDS SUMMARY | 2025-05-19 08:36 | XMS_ITS | Encounter Summary ---
Author Organization [employer] Address [address] [facility] 7t [place] [address] Care Team Providers Care Tobacco Hanger Name Role Phone Ebony Blanchard MD Primary Care Provider [phone] El Gilman PharmD Unavailable [phone] Encounter Details Date Type Department Care Team ([facility] st Contact Info) Description 06/07/2023 Abstract [facility] ADULT DENTAL [address] [place], [place] [phone] KandruJesusl, DDS [address] [place], [place] [phone] Social History Tobacco Use Types Packs/Day Years [...] 06/05/2025 2:30 PM EST Office Visit [facility] ADULT DENTAL [address] [place] [phone] Clint Pérez DMD [address] [place] [address] 06/16/2025 11:30 AM EST Office Visit [facility] MEDICINE [address] [place] [phone] Ebony Blanchard MD [address] [place] [address] 09/22/2025 10:15 AM EDT Office Visit [facility] ADULT DENTAL [address] [place] [address] Chapis Rooney [address] [place] [address] documented as of this encounter Goals Goal [...] documented as of this encounter Care Teams Tobacco Hanger Relationship Specialty Start Date End Date Ebony Blanchard MD [address] [place] [address] PCP - General Family Medicine 06/18/18 El Gilman, Roscoe [address] [place] [address] Pharmacist Internal Medicine 08/21/22 04/27/24 documented as of this encounter
--- OUTSIDE RECORDS SUMMARY | 2025-05-19 08:36 | XMS_ITS | Encounter Summary ---
Author Organization [employer] Address [address] [facility] 7t [place] [address] Care Team Providers Care Operations Recruiter Name Role Phone Ebony Blanchard MD Primary Care Provider [phone] El Gilman PharmD Unavailable [phone] Reason for Visit * Reason Comments Med Refill Encounter Details Date Type Department Care Team (Late st Contact Info) Description 03/25/2023 Refill [facility] MEDICINE [address] [place], [place] [phone] Ebony Blanchard MD [address] [place], [place] [phone] Social History Tobacco Use Types Packs/Day Years [...] Description 06/05/2025 2:30 PM EST Office Visit [facility] ADULT DENTAL [address] [place] [address] Clint Pérez DMD [address] [place] [address] 06/16/2025 11:30 AM EST Office Visit [facility] MEDICINE [address] [place] [address] Ebony Blanchard MD [address] [place] [address] 09/22/2025 10:15 AM EDT Office Visit [facility] ADULT DENTAL [address] [place] [address] Chapis Rooney [address] [place] [address] documented as of this encounter Goals Goal [...] documented as of this encounter Care Teams Operations Recruiter Relationship Specialty Start Date End Date Ebony Blanchard MD [address] [place] [address] PCP - General Family Medicine 06/18/18 El Gilman, Roscoe [address] [place] [address] Pharmacist Internal Medicine 08/21/22 04/27/24 documented as of this encounter
--- OUTSIDE RECORDS SUMMARY | 2025-05-19 08:36 | XMS_ITS | Clinical Summary ---
Author Organization [employer] Address [address] [place] [address] Care Team Providers Care Tennis Director Name Role Phone Ebony Blanchard MD Primary Care Provider [phone] Allergies Active Allergy Reactions Criticality Noted Date Comments Lisinopril Cough Low 07/12/2010 Other Reaction(s): COUGH, dry cough Losartan Cough 12/23/2019 Metoclopramide High 10/16/2024 Other Reaction(s): Hypertension Medications furosemide (Lasix) 40 MG tablet TAKE 1 TABLET BY MOUTH EVERY DAY 01/04/20 23 Active omeprazole (PriLOSEC) [address] capsule Take 20 mg by mouth Once per day. 02/14/20 24 Active liver oil-zinc oxide (Desitin) 40 % ointment Apply topically if needed for irritation. 56 g 08/07/19 25 Active estradiol (Estrace) 0.1 MG/GM vaginal cream INSERT 1GM VAGINALLY 2 TIMES WEEKLY Active Simethicone Ultra Strength 180 MG capsule Take 180 mg by mouth 4 times daily. Active cetirizine (ZyrTEC) 10 MG tablet TAKE 1 TABLET BY MOUTH DAILY 90 tablet 3 01/01/20 25 Active polyethylene glycol, PEG, 3350 (Glycolax) 17 GM/SCOOP powder TAKE 17 GRAMS DAILY 10/03/19 25 Active atenolol (Tenormin) 25 MG tabletIndications :Essential hypertension TAKE 1 TABLET BY MOUTH EVERY MORNING 90 tablet 1 02/26/20 25 Active lidocaine (Lidoderm) 5 % patchIndications: Primary osteoarthritis involving multiple joints Apply 2 patches topically Once per day. Remove & discard patch within 12 hours or as directed by . 60 patch 11 02/27/20 25 Active acetaminophen (Tylenol) 500 MG tablet Take 500 mg by mouth every 8 (eight) hours if needed for mild pain, moderate pain, headaches or fever. Active Diclofenac Sodium 1 % gel Apply topically. Active cholecalciferol (Vitamin D3) 25 MCG (1000 UT) tablet TAKE 1 TABLET BY MOUTH IN THE MORNING 90 tablet 3 03/04/20 25 Active meclizine (Antivert) 25 MG tabletIndications :Vertigo TAKE 1 TABLET BY MOUTH DAILY NEEDED FOR VERTIGO 30 tablet 1 03/23/20 25 Active polyvinyl alcohol (Liquifilm Tears) 1.4 % ophthalmic solution INSTILL 1 DROP INTO BOTH EYES 2-4 TIMES DAILY 03/26/20 25 Active ibuprofen 800 MG tablet TAKE 1 TABLET(800 MG) BY MOUTH WITH BREAKFAST NEEDED FOR PAIN OR FEVER 30 tablet 04/23/20 25 Active zolpidem (Ambien) 5 MG tabletIndications :Psychophysiologi joann insomnia TAKE 1 TABLET BY MOUTH EVERY NIGHT AT BEDTIME NEEDED FOR SLEEP 30 tablet 5 05/01/20 25 Active ibuprofen 800 MG tablet TAKE 1 TABLET(800 MG) BY MOUTH WITH BREAKFAST NEEDED FOR PAIN OR FEVER 30 tablet 03/23/20 25 025 Discontinued zolpidem (Ambien) 5 MG tabletIndications :Psychophysiologi joann insomnia TAKE 1 TABLET BY MOUTH EVERY NIGHT AT BEDTIME NEEDED FOR SLEEP 30 tablet 03/24/20 25 025 Discontinued Active Problems Problem Noted Date Diagnosed Date Abdominal bloating 05/04/2025 Abdominal pain 05/04/2025 Abnormal weight loss 05/04/2025 Arthritis of knee 05/04/2025 Chest wall muscle strain 05/04/2025 Effusion, right knee 05/04/2025 Epigastric pain 05/04/2025 Overview (05/04/2025): Resolved after switching her to pantoprazole 40 mg twice a day Nausea 05/04/2025 Periodontal disease 02/19/2025 Cardiovascular risk factor 12/05/2024 Assessment & Plan (02/26/2025 5:20 AM EDT): - Risk factors: Hypertension - 10-year ASCVD risk 5% - Continue working on lifestyle modifications - Patient has been following with telephone recorder - Consider coronary CT to assess whether she would benefit from statin or aspirin Assessment & Plan (12/05/2024 9:25 AM EDT): - Risk factors: Hypertension - 10-year ASCVD risk 5% - Continue working on lifestyle modifications - Patient has been following with telephone recorder - Consider coronary CT to assess whether she would benefit from statin or aspirin Tubular adenoma of colon 11/23/2024 Assessment & Plan (02/26/2025 5:23 AM EDT): - Colonoscopy on 10/16/2024, cecal polyp, tubular adenoma - GI provider: Dr. Matthew Ruiz - Recommended next colonoscopy in 3 years Assessment & Plan (11/23/2024 4:39 PM EDT): - Colonoscopy on 10/16/2024, cecal polyp, tubular adenoma - GI provider: Dr. Matthew Ruiz - Recommended next colonoscopy in 3 years Hemorrhagic gastritis 11/23/2024 Generalized gingival recession, moderate 025 Carpal tunnel syndrome 07/30/2024 Assessment & Plan (02/26/2025 10:56 AM EDT): - following with [facility] provider - received steroid injection on 06/09/24 - receiving steroid injection today Assessment & Plan (07/30/2024 1:33 PM EST): - following with [facility] provider - received steroid injection on 06/09/24 Functional dyspepsia 11/19/2023 Assessment & Plan (07/30/2024 2:54 PM EST): - following with [facility] GI, last seen in Jul 2023 Assessment & Plan (11/19/2023 11:31 AM EDT): - following with [facility] GI, last seen in Jul 2023 Delayed gastric emptying 11/19/2023 Allergic rhinitis 11/19/2023 Assessment & Plan (02/26/2025 5:21 AM EDT): -Patient is wondering of Penicillin allergy but it is less likely. -Continue Cetrizine - Continue nasacort -Patient was referred to electrical system specialist in November 2023. Assessment & Plan (11/24/2024 9:07 AM EDT): -Patient is wondering of Penicillin allergy but it is less likely. -Continue Cetrizine -Switch flonase to nasacort -Patient was referred to electrical system specialist in November 2023. Will check referral status. Assessment & Plan (04/08/2024 11:55 AM EDT): -Patient is wondering of Penicillin allergy but it is less likely. -Continue Cetrizine -Switch flonase to nasacort -Patient was referred to electrical system specialist in November 2023. Will check referral status. Assessment & Plan (11/19/2023 11:37 AM EDT): Patient is wondering of Penicillin allergy but it is less likely. We will refer for medical accounts receivable specialist for allergy testing and further treatment. [...] (11/24/2024 9:07 AM EDT): - Following with [facility] cardiology, last seen on 02/02/23. - 10/05/22 Venous study, results showed: right GSV and SSV incompetent, left GSV incompetent, left SSV competent - Elevated legs, DASH diet - Follow-up with Vascular Specialist Assessment & Plan (03/13/2023 9:22 PM EDT): - Following with [facility] cardiology, last seen on 02/02/23. - 10/05/22 Venous study, results showed: right GSV and SSV incompetent, left GSV incompetent, left SSV competent - Elevated legs, DASH diet - Follow-up with Vascular Specialist Assessment & Plan (10/27/2022 10:32 AM EDT): - Following with [facility] cardiology on 09/28/22. 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 - Received steroid injection on 08/01/22. - Referred to PT. - Compress, elevation and heat - will Rx topical NSAID cream and Knee brace, per patient request Anxiety and depression 07/31/2022 Assessment & Plan (07/31/2022 12:36 PM EST): -Previously tried sertraline and hydroxyzine, but she self-discontinued -Seen by [facility] clinician in Apr 2019, Dx adjustment [...] interested in acupuncture; recommended to ask her wound care rn for the list of acupuncture clinic that [...] Plan (02/26/2025 5:23 AM EDT): -followed by [facility] GI, last seen in October 2024 - s/p EGD in October 2024 - previously prescribed pantoprazole, pt is no longer taking. Instead, pt is using baking soda - Pt was Rx Reglan but discontinued d/t side-effects Assessment & Plan (11/24/2024 9:08 AM EDT): -followed by [facility] GI, last seen on 08/16/23 - s/p EGD 02/02/22, nml - previously prescribed pantoprazole, pt is no longer taking. Instead, pt is using baking soda - Pt was Rx Reglan but discontinued d/t side-effects Assessment & Plan (07/30/2024 2:54 PM EST): -followed by [facility], last seen on 08/16/23 - s/p EGD 02/02/22, nml - previously prescribed pantoprazole, pt is no longer taking. Instead, pt is using baking soda - Pt was Rx Reglan but discontinued d/t side-effects Assessment & Plan (04/08/2024 11:53 AM EDT): -followed by [facility], last seen on 08/16/23 - s/p EGD 02/02/22, nml - previously prescribed pantoprazole, pt is no longer taking. Instead, pt is using baking soda - Pt was Rx Reglan but discontinued d/t side-effects Assessment & Plan (11/19/2023 11:32 AM EDT): -followed by [facility], last seen on 08/16/23 - s/p EGD 02/02/22, nml - previously prescribed pantoprazole, pt is no longer taking. Instead, pt is using baking soda - Pt was Rx Reglan but discontinued d/t side-effects Assessment & Plan (08/25/2023 7:07 AM EST): -followed by [facility], last seen on 08/16/23 - s/p EGD 02/02/22, nml - previously prescribed pantoprazole, pt is no longer taking. Instead, pt is using baking soda - Pt was Rx Reglan but discontinued d/t side-effects Assessment & Plan (02/27/2023 10:59 AM EDT): -followed by [facility], last seen in May 2022 -s/p EGD 02/02/22, nml - previously prescribed pantoprazole, pt is no longer taking. Instead, pt is using baking soda -Pt was Rx Reglan but discontinued d/t side-effects Assessment & Plan (10/27/2022 10:33 AM EDT): -followed by [facility] GI, last seen in May 2022 -s/p EGD 02/02/22, nml - continue pantoprazole as prescribed -Pt was Rx Reglan but discontinued d/t side-effects Assessment & Plan (08/05/2022 6:36 PM EST): -followed by [facility] GI, last seen in May 2022 -s/p [...] Plan (11/19/2023 11:37 AM EDT): Followed by [facility] for mixed urinary incontinence. Last seen on [...] Plan (02/27/2023 11:00 AM EDT): Followed by [facility] for mixed urinary incontinence. -Pt is still [...] incontinence Severe obesity (BMI 35.0-39.9) with comorbidity ([facility]) 01/03/2010 Hypertension 10/29/2006 Assessment & Plan (02/26/2025 10:55 AM EDT): Goal BP < 130/80 per ACC/AHA guideline. -BP at goal (borderline) -Comanaged with telephone recorder and PharmD. -Encouraged to work on life [...] ACC/AHA guideline. -BP elevated today. -Comanaged with telephone recorder and PharmD. -Encouraged to work on life [...] ACC/AHA guideline. -BP elevated today. -Comanaged with telephone recorder and PharmD. -Encouraged to work on life [...] ACC/AHA guideline. -BP elevated today. -Comanaged with telephone recorder and PharmD. -Encouraged to work on life [...] Patient attributes it to anxiety. -Comanaged with telephone recorder and PharmD. -Encouraged to work on life [...] Patient attributes it to anxiety. -Comanaged with telephone recorder and PharmD. -Encouraged to work on life [...] pt received steroid injection recently -Comanaged with telephone recorder and PharmD. -Encouraged to work on life [...] pt received steroid injection recently -Comanaged with telephone recorder and PharmD. -Encouraged to work on life [...] Encounters Date Type Department Care Team Description 05/04/2025 9:00 AM EST Office Visit [facility] [address] [place], [place] [phone] Clint Pérez DMD 04/30/2025 Refill [facility] [address] [place] [address] Ebony Blanchard MD Psychophysiological insomnia 04/23/2025 Refill [facility] [address] [place], [place] [phone] Ebony Blanchard MD 04/17/2025 Orders Only [facility] [address] [facility] [place] [address] Ebony Blanchard MD Throat pain (Primary Dx); Odynophagia 04/16/2025 9:30 AM EDT Office Visit [facility] [address] [facility] [place] [address] Clint Pérez, BARRY 04/16/[address] [place] [address] Ebony Blanchard MD Appointment Request 04/02/2025 11:00 AM EDT Telemedicine [address] [place] [address] El Gilman, PharmD Hypertension, unspecified type (Primary Dx) 03/30/[address] [place] [address] Ebony Blanchard MD Appointment Request 03/25/2025 Telephone [facility] [address] [facility] [place] [address] Clint Pérez, DMD 03/24/2025 Refill [facility] [address] [place] [address], [place] [address] Ebony Blanchard MD Psychophysiological insomnia 03/21/2025 Refill [facility] [address] [place], [place] [phone] Ebony Blanchard MD Vertigo 03/19/2025 12:45 PM EDT Office Visit [facility] [address] [facility] [place] [address] NevinHugoChapis Dental calculus (Primary Dx); Generalized gingival recession, moderate; Localized gingival recession 03/17/2025 Orders Only [address] [place] [address] Ebony Blanchard MD 03/13/2025 2:30 PM EDT Office Visit [facility] [address] [facility] [place] [address] Clint Pérez DMD 03/09/2025 10:00 AM EDT Office Visit [facility] [address] [facility] [place] [address] Clint Pérez DMD 03/04/2025 Refill [facility] [address] [place] [address] Ebony Blanchard MD 02/26/2025 10:00 AM EDT Office Visit [facility] [address] [place] [address] Ebony Blanchard MD Hypertension, unspecified type (Primary Dx); Cardiovascular risk factor; Allergic rhinitis, unspecified seasonality, unspecified trigger; Impaired fasting glucose; Gastroesophageal reflux disease, unspecified whether esophagitis present; Tubular adenoma of colon; Mixed stress and urge urinary incontinence; Hyperuricemia; Bradycardia; Wheezing; Primary osteoarthritis involving multiple joints; Encounter for immunization; Neck pain; Bilateral carpal tunnel syndrome 02/26/2025 Results Follow-Up [address] [address] Ebony Blanchard MD XR Chest 2 Views 02/26/2025 Travel 02/25/[address] [address] Ebony Blanchard MD chart prep 02/25/2025 Refill [facility] [address] [place] [address] Ebony Blanchard MD Essential hypertension 02/19/2025 8:00 AM EDT Office Visit [facility] [address] [place] [address] Julian Bazan, BRIAN Periodontal disease (Primary Dx) from Last 3 Months Immunizations Immunization Administration [...] housing situation today? I have evangelist gertrudis 11/24/[address] you li [...] Sign Reading Time Taken Comments Blood Pressure 122/71 04/02/2025 11:22 AM EDT [facility] [facility] (televisit) Pulse 66 04/02/2025 11:22 AM EDT Temperature 36 C (96.8 F) 02/26/2025 10:00 AM EDT Respiratory Rate 16 02/26/2025 10:0 0 AM EDT Oxygen Saturation 100% 02/26/2025 10: 00 AM EDT Inhaled Oxygen Concentration - - Weight 91.6 kg (202 lb) 02/26/2025 10:0 0 AM EDT Height 157.5 cm (5' 2 ) 02/26/2025 10:0 0 AM EDT Body Mass Index 36.95 02/26/2025 10:00 AM EDT Plan of Treatment Upcoming Encounters Date Type Department Care Team (Late st Contact Info) Description 06/05/2025 2:30 PM EST Office Visit [facility] [address] [place] [address] Clint Pérez DMD [address] [place] [address] 06/16/2025 11:30 AM EST Office Visit [facility] [address] [place] [address] Ebony Blanchard MD [address] [place] [address] 09/22/2025 10:15 AM EDT Office Visit [facility] [address] [place] [address] Chapis Rooney [address] [place] [address] Health Maintenance Due Date Last Done Comments CT Colonography 1960 FIT DNA/Cologuard 1960 FIT 1960 FOBT 1960 Sigmoidoscopy 1960 Alcohol/Substance Use Screening 1974 Pap Smear 05/02/2024 05/02/2021 COVID-19 Vaccine ( season) 2025 07/18/2021, 11/12/2020, 10/22/2020 Depression Screening 07/30/2025 07/30/2024, 07/30/19 25 Dental Oral Exam 09/18/2025 03/19/2025, , 04/17/2024, Additional history exists Dental Prophylaxis 09/18/2025 03/19/2025, 0 09/12/2024, 03/13/2024, Additional history exists Dental X-Ray: Full Mouth 11/02/2025 023, 01/15/2019, 05/23/2012 Disability Screening 11/24/2025 11/24/2024 SDOH Screening 11/24/2025 11/24/2024 Dental X-Ray: Bitewings 01/02/2026 01/02/20 25, 09/12/2024, 04/17/2024, Additional history exists Diabetes: Hemoglobin A1C 02/23/2026 025, 07/28/2024, 02/22/2023, Additional history exists Cervical Cancer Screening 05/02/2026 HPV/Cotest 05/02/2026 05/02/2021, 04/12/2016 Tobacco Screening 05/04/2026 05/04/2025 DTaP/Tdap/Td Vaccines (4 - Td or Tdap) 01/01/2027 01/01/2017, 06/24/2009, 01/27/2008 Mammogram 03/17/2027 03/17/2025, 02/17, 04/04/2023, Additional history exists Lipid Panel 07/28/2029 07/28/2024, 09/0 12/2022, 04/07/2022, Additional history exists Colonoscopy 10/16/2029 10/16/2024, 05/19, 05/19/2020 Colorectal Cancer Screening 10/16/2029 RSV Patients and Patients Aged 60 years or older (1 - 1-dose 75+ series) 2037 Hepatitis B Vaccines Completed 07/21/2008, 02/28/2008, 01/28/2008 Zoster Vaccines Completed 09/12/2023, 07/18/2023 Pneumococcal Vaccine: 50+ Years Completed 02/26/2025 Influenza Vaccine Completed 04/17/2025, , 04/25/2023, Additional history exists HIB Vaccines Aged Out [...] PRESENTATION, DETAILED AND EXTENSIVE TREATMENT PLANNING Routine 05/04/2025 9:00 AM EST Adarsh OCCLUSAL GUARD - SOFT APPLIANCE, FULL ARCH Routine 05/04/2025 9:00 AM EST DENTURE IMPRESSION Routine 04/16/2025 9: 30 AM EDT PERIODIC ORAL EVALUATION - ESTABLISHED PATIENT Routine 03/19/2025 12:45 PM EDT CASE PRESENTATION, DETAILED AND EXTENSIVE TREATMENT PLANNING Routine 03/19/2025 12:45 PM EDT Dental calculus Generalized gingival recession, moderate Localized gingival recession ORAL HYGIENE INSTRUCTIONS Routine 03/19/2025 12:45 PM EDT Dental calculus Generalized gingival recession, moderate Localized gingival recession TOPICAL APPLICATION OF FLUORIDE VARNISH Routine 03/19/2025 12:45 PM EDT Dental calculus Generalized gingival recession, moderate Localized gingival recession PROPHYLAXIS - ADULT Routine 03/19/2025 1 2:45 PM EDT Dental calculus 5 INTRAORAL - PERIAPICAL FIRST RADIOGRAPHIC IMAGE Routine 03/19/2025 12:45 PM EDT Dental calculus Generalized gingival recession, moderate Localized gingival recession BI MAMMOGRAM SCREENING TOMOSYNTHESIS BILATERAL Routine 03/17/2025 9:40 AM EDT CASE PRESENTATION, DETAILED AND EXTENSIVE [...] (ELEVATION/FORCEPS REMOVAL) Routine 02/19/2025 8:00 AM EDT BITEWING - SINGLE RADIOGRAPHIC IMAGE Routine 01/01/2025 1:00 PM EDT HM COLONOSCOPY Routine 10/16/2024 LIPID PANEL WITH REFLEX TO DIRECT LDL Routine 07/28/2024 8:21 AM EST Hypertension, unspecified type INTRAORAL - COMPLETE SERIES OF RADIOGRAPHIC IMAGES Routine 11/01/2022 9:00 AM EDT Idiopathic resorption of root of tooth Dental calculus Localized gingival recession Dental abscess THINPREP IMAGING PAP AND HPV MRNA E6/E7 WITH REFLEX TO HPV 16,18/45 Routine 05/02/2021 4:14 PM EST from Last 3 Months or Most Recently Relevant to Health Maintenance Results * BI Mammogram Screening Tomosynthesis Bilateral (03/17/2025 9:40 AM EDT) Anatomical Region Laterality Modality Breast Bilateral Mammography 03/17/2025 9:40 AM EDT Narrative 03/20/2025 5:03 PM EDT [facility] [address] [place] [address] Mammography Report Signed Patient: Olivia Yu MR#: [id number] : 1960 Acct:[id number] Age/Sex: 64 / F ADM Date: 03/17/25 Loc: HO.MAMMO Attending Dr: Ebony Blanchard MD Ordering Physician: Ebony Blanchard MD Results: 2Benign Date of Service: 03/17/25 Follow Up: 1 Year From [facility] Mammogram Procedure(s): MM tomosynthesis screening BI Accession Number(s): [id number] cc: Ebony Blanchard MD Reason For Exam: SCREENING EXAMINATION: MM SCREENING DIGITAL BREAST TOMOSYNTHESIS, BILATERAL CLINICAL INFORMATION: Screening. Asymptomatic. COMPARISON: Mammography: Comparison is made with available priors TECHNIQUE: Digital breast mammography with tomosynthesis is performed in both the craniocaudal and mediolateral oblique views along with computer-aided detection (CAD). FINDINGS: There are scattered areas of fibroglandular density. Bilateral reduction mammoplasty. There are no significant masses, abnormal calcifications, or other abnormalities. MM/MM tomosynthesis screening BI IMPRESSION: No mammographic evidence of malignancy. ASSESSMENT: BI-RADS Category 2: Benign RECOMMENDATION: Routine annual mammography screening. 1 year F/U This examination should not preclude the clinical evaluation of a suspicious palpable abnormality. This patient's information was entered into a reminder system with a target due date for their next mammogram. Electronically signed by: Lori Snider DO 03/20/2025 05:00 PM EDT Dictated By: Lori Snider DO Signed By: <Electronically signed by Lori Snider DO in OV> 03/20/25 1700 DD/ 0940 TD/TT: 03/17/25 1000 Slip Feeder: Procedure Note Donotuseinterpreter, Image - 03/20/2025 [facility] [address] [place] [address] Mammography Report Signed Patient: Olivia Yu MMR#: [id number] : 2Acct:[id number] Age/Sex: 64 / FADM Date: 03/17/25 Loc: HO.MAMMO Attending Dr: Ebony Blanchard MD Ordering Physician: Ebony Blanchard MDResults: 2Benign Date of Service: 03/17/25Follow Up: 1 Year From Orig inal Mammogram Procedure(s): MM tomosynthesis screening BI Accession Number(s): [id number] cc: Ebony Blanchard MD Reason For Exam: SCREENING EXAMINATION: MM SCREENING DIGITAL BREAST TOMOSYNTHESIS, BILATERAL CLINICAL INFORMATION: Screening. Asymptomatic. COMPARISON: Mammography: Comparison is made with available priors TECHNIQUE: Digital breast mammography with tomosynthesis is performed in both the craniocaudal and mediolateral oblique views along with computer-aided detection (CAD). FINDINGS: There are scattered areas of fibroglandular density. Bilateral reduction mammoplasty. There are no significant masses, abnormal calcifications, or other abnormalities. MM/MM tomosynthesis screening BI IMPRESSION: No mammographic evidence of malignancy. ASSESSMENT: BI-RADS Category 2: Benign RECOMMENDATION: Routine annual mammography screening. 1 year F/U This examination should not preclude the clinical evaluation of a suspicious palpable abnormality. This patient's information was entered into a reminder system with a target due date for their next mammogram. Electronically signed by: Lori Snider DO 03/20/2025 05:00 PM EDT Dictated By: Lori Snider DO Signed By: <Electronically signed by Lori Snider DO in OV> 03/20/25 1700 DD/ 0940 TD/TT: 03/17/25 1000 Slip Feeder: Ebony Blanchard MD IMG BI PROCEDURES Final Result * XR Chest 2 Views (02/26/2025 10:53 AM EDT) Anatomical Region Laterality Modality Chest Radiographic Stefanie ging 02/26/2025 10:5 3 AM EDT Narrative 02/26/2025 11:01 AM EDT [address] [address] XRay Report Signed Patient: Olivia Yu MR#: [id number] : 1960 Acct:[id number] Age/Sex: 64 / F ADM Date: 02/26/25 Loc: HO.HHCX Attending Dr: Ebony Blanchard MD Ordering Physician: Ebony Blanchard MD Date of Service: 02/26/25 Procedure(s): XR chest 2V Accession Number(s): [id number] cc: Ebony Blanchard MD Reason for Exam: [...] 02/26/25 1058 DD/ 1053 TD/TT: 02/26/25 1054 Slip Feeder: Procedure Note Donotuseinterpreter, Image - 02/26/[address] [address] XRay Report Signed Patient: Olivia Yu MMR#: [id number] : 1960cct:[id number] Age/Sex: 64 / FADM Date: 02/26/25 Loc: HO.HHCX Attending Dr: Ebony Blanchard MD Ordering Physician: Ebony Blanchard MD Date of Service: 02/26/25 Procedure(s): XR chest 2V Accession Number(s): [id number] cc: Ebony Blanchard MD Reason for Exam: [...] 02/26/25 1058 DD/ 1053 TD/TT: 02/26/25 1054 Slip Feeder: Ebony Blanchard MD IMG XR PROCEDURES Final Result * Referral to Orthopaedic Surgery (02/26/2025) Ebony Blanchard MD OUTPATIENT REFERRAL ORDERABLES F inal Result * Hemoglobin A1c (02/23/2025 8:17 AM EDT) Hemoglobin A1c 5.9 <6.0 % [facility] Comment:Hemoglobin A1C Refer ence Range Adults: 4.8 - 6.0 % Non diabetic: < 6.0 % Goal: < 7.0 %Additional Action Suggested: > 8.0 %Note: Hemoglobin A1c results are invalid for patients with abnormal amounts of HbF. Blood transfusions may impact the HbA1c concentration in the patient sample. Estimated Average Glucose 123 mg/dL [facility] Comment:eAG = Estimated ave rage glucose which is %A1C expressed asaverage glucose, using the formula of the I8T-BrfkedkWesyrjg Glucose study (ADAG), Diabetes Care, Vol.31,#8,2007 Blood Venous blood specimen / Unknown 02/23/2025 8:17 AM EDT 02/23/2025 11:16 AM EDT Ebony Blanchard MD LAB BLOOD ORDERABLES Final Resul t Performing Organization Address [facility] Co de Phone Number [facility] [address] [place] [phone] * (ABNORMAL) Glucose, Fasting (02/23/2025 8:17 AM EDT) Glucose Fasting 117(H) 60 - 99 mg/dL [facility] Comment:A fasting glucose fr om 100-125 mg/dl is considered impaired(pre-diabetes). Blood Venous blood specimen / Unknown 02/23/2025 8:17 AM EDT 02/23/2025 11:16 AM EDT Ebony Blanchard MD LAB BLOOD ORDERABLES Final Resul t Performing Organization Address [facility] Co de Phone Number [facility] [address] [place] [phone] * (ABNORMAL) Hm Colonoscopy (10/16/2024) Colonoscopy Abnormal( A) Normal Comment:Tubular adenoma. 10/16/2024 Avtar Strickland MD HEALTH MAINTENANCE Final Result * Lipid Panel with Reflex to Direct LDL (07/28/2024 8:21 AM EST) Triglycerides 125 <150 mg/dL [facility] Comment:Desirable Triglyceri de: less than 150 mg/dLBorderline High Triglyceride 150-199 mg/dLHigh Triglyceride: 200-499 mg/dLVery High Triglyceride: greater than or equal to 5OO mg/dL Cholesterol 160 <200 mg/dL [facility] Comment:Desirable Cholestero l: less than 200 mg/dLBorderline High Cholesterol: 200-239 mg/dLHigh Cholesterol: greater than 239 mg/dL LDL Cholesterol Calculated 82 <100 mg/dL [facility] Comment:Desirable LDL: less than 100 mg/dLNear Optimal/Above Optimal LDL: 110- 129 mg/dLBorderline High LDL: 130-159 mg/dLHigh LDL: 160-189 mg/dLVery High LDL: greater than or equal to 190 mg/dL HDL Cholesterol 53 >40 mg/dL [facility] Comment:Desirable HDL: great er than 40 mg/dL Note: This HDL assay may give artificially low results in patients with liver disease. Blood 07/28/2024 8:21 AM EST 07/28/2024 11:01 AM EST us Ebony Blanchard MD LAB BLOOD ORDERABLES Final Resul t [facility] [address] [place] [phone] * THINPREP TIS PAP AND HPV mRNA E6/E7 REFLEX HPV 16,18/45 (05/02/2021 4:14 PM EST) Clinical Information: None given [facility] COMMENT SEE COMMENT [facility] ON [...] along with historic and current clinical information. Comment: This Pap test has been evaluated with computer assisted technology. [facility] Tax Manager Cpa: SEE COMMENT [facility] Comment: BK,CT(ASCP) CT screening location: [address] HPV nRNA E6/E7 Not Detected Not Detected [facility] Comment: Methodology: Hand Fabric Cutter-Mediated Amplification This assay detects E6/E7 viral messenger RNA (mRNA) from 14 high-risk HPV types (16,18,31,33,35,39,45,51,52,56,58,59,66,68). The analytical performance characteristics of this assay have been determined by [employer]. The modifications have not been cleared or approved by the FDA. This assay has been validated pursuant to the CLIA regulations and is used for clinical purposes. For additional information, please refer to http://education.[facility]/faq/BNG464f6 (This link if provided for information/ educational [...] R esult [facility] [address] from Last 3 Months or Most Recently Relevant to Health Maintenance Insurance [facility] ONE CARE < 67 [address] [place] [id number] DENTAL - [facility] Care Teams Tennis Director Relationship Specialty Start Date End Date Ebony Blanchard MD [address] [place] [phone] PCP - General Family Medicine 06/18/18
--- OUTSIDE RECORDS SUMMARY | 2025-05-19 08:36 | XMS_ITS | Encounter Summary ---
Author Organization [employer] Address [address] [place] [address] 7 [place] [address] Care Team Providers Care Seismic Plotter Name Role Phone Ebony Blanchard MD Primary Care Provider [phone] El Gilman PharmD Unavailable [phone] Encounter Details Date Type Department Care Team (Latest Contact Info) Description 10/09/2018 Abstract [facility] CONVERSIONS Dental, Provider, DDS Social History Tobacco [...] Description 06/05/2025 2:30 PM EST Office Visit [facility] ADULT DENTAL [address] [place] [address] Clint Pérez DMD [address] [place] [address] 06/16/2025 11:30 AM EST Office Visit [facility] MEDICINE [address] [place] [address] Ebony Blanchard MD [address] [place] [address] 09/22/2025 10:15 AM EDT Office Visit [facility] ADULT DENTAL [address] [place] [address] Chapis Rooney [address] [place], [place] [phone] documented as of this encounter Visit Diagnoses Not on filedocumented in this encounter Care Teams Seismic Plotter Relationship Specialty Start Date End Date Ebony Blanchard MD [address] [place] [address] PCP - General Family Medicine 06/18/18 El Gilman, Roscoe [address] [place] [address] Pharmacist Internal Medicine 08/21/22 04/27/24 documented as of this encounter
--- OUTSIDE RECORDS SUMMARY | 2025-05-19 08:36 | XMS_ITS | Encounter Summary ---
Author Organization [employer] Address [address] [facility] 7t [place] [address] Care Team Providers Care Field Service Specialist Name Role Phone Ebony Blanchard MD Primary Care Provider [phone] El Gilman PharmD Unavailable [phone] Reason for Visit * Reason Onset Date Comments Prior Authorization 03/30/2023 Encounter Details Date Type Department Care Team ([facility] Contact Info) Description 03/30/2023 Telephone [facility] ADULT DENTAL [address] [place], [place] [phone] Harvey Curry, DDS [address] [place], [place] [phone] Prior Authorization Social History Tobacco Use Types [...] Description 06/05/2025 2:30 PM EST Office Visit [facility] ADULT [facility] [address] [place] [address] Clint Pérez DMD [address] [place] [address] 06/16/2025 11:30 AM EST Office Visit [facility] MEDICINE [address] [place] [address] Ebony Blanchard MD [address] [place] [address] 09/22/2025 10:15 AM EDT Office Visit [facility] ADULT D[facility] [address] [place] [address] Chapis Rooney [address] [place] [address] documented as of this encounter Goals Goal [...] as of this encounter Care Teams Field Service Specialist Relationship Specialty Start Date End Date Ebony Blanchard MD [address] [place] [address] PCP - General Family Medicine 06/18/18 El Gilman, PharmD [address] [place] [phone] Pharmacist Internal Medicine 08/21/22 04/27/24 documented as of this encounter
--- OUTSIDE RECORDS SUMMARY | 2025-05-19 08:36 | XMS_ITS | Encounter Summary ---
Author Organization [email or web address] Address [address] [facility] 7t [place] [address] Care Team Providers Care Ent Surgeon Name Role Phone Ebony Blanchard MD Primary Care Provider [phone] El Gilman PharmD Unavailable [phone] Encounter Details Date Type Department Care Team (Late st Contact Info) Description 03/30/2023 Abstract [facility] ADULT DENTAL [address] [place], [place] [phone] Julian Bazan DDS [address] [place] [address] Social History Tobacco Use Types Packs/Day Years [...] 2:30 PM EST Office Visit [facility] ADULT DENTAL [address] [place] [phone] Clint Pérez DMD [address] [place] [address] 06/16/2025 11:30 AM EST Office Visit [facility] MEDICINE [address] [place] [phone] Ebony Blanchard MD [address] [place] [address] 09/22/2025 10:15 AM EDT Office Visit [facility] ADULT DENTAL [address] [place] [address] Chapis Rooney [address] [place] [address] documented as of this encounter Goals Goal [...] documented as of this encounter Care Teams Ent Surgeon Relationship Specialty Start Date End Date Ebony Blanchard MD [address] [place] [address] PCP - General Family Medicine 06/18/18 El Gilman, RajeshD [address] [place] [address] Pharmacist Internal Medicine 08/21/22 04/27/24 documented as of this encounter
--- OUTSIDE RECORDS SUMMARY | 2025-05-19 08:36 | XMS_ITS | Encounter Summary ---
Author Organization [employer] Address [address] [facility] 7t [place] [address] Care Team Providers Care Digital Project Coordinator Name Role Phone Ebony Blanchard MD Primary Care Provider [phone] Reason for Visit * Reason Comments Med Refill Encounter Details Date Type Department Care Team ([facility] st Contact Info) Description 04/30/2024 Refill [facility] MEDICINE [address] [place], [place] [phone] Ebony Blanchard MD [address] [place], [place] [phone] Psychophysiological insomnia Social History Tobacco Use Types [...] Description 06/05/2025 2:30 PM EST Office Visit [facility] ADULT DENTAL [address] [place] [phone] Clint Pérez DMD [address] [place] [address] 06/16/2025 11:30 AM EST Office Visit [facility] MEDICINE [address] [place] [phone] Ebony Blanchard MD [address] [place] [address] 09/22/2025 10:15 AM EDT Office Visit [facility] ADULT DENTAL [address] [place] [phone] Chapis Rooney [address] [place] [address] documented as of this encounter Goals Goal [...] documented as of this encounter Care Teams Digital Project Coordinator Relationship Specialty Start Date End Date Ebony Blanchard MD [address] [place] [address] PCP - General Family Medicine 06/18/18 documented as of this encounter
--- OUTSIDE RECORDS SUMMARY | 2025-05-19 08:36 | XMS_ITS | Encounter Summary ---
Author Organization [employer] Address [address] [facility] 7 [place] [address] Care Team Providers Care Tea Taster Name Role Phone Ebony Blanchard MD Primary Care Provider [phone] El Gilman PharmD Unavailable [phone] Reason for Visit * Reason Comments Med Refill Encounter Details Date Type Department Care Team ([facility] st Contact Info) Description 03/19/2024 Refill [facility] MEDICINE [address] [place], [place] [phone] Olivia Babcock MD [address] [place], [place] [phone] Essential hypertension Social History Tobacco Use Types [...] Description 06/05/2025 2:30 PM EST Office Visit [facility] ADULT DENTAL [address] [place] [phone] Clint Pérez, BARRY [address] [place] [address] 06/16/2025 11:30 AM EST Office Visit [facility] MEDICINE [address] [place] [phone] Ebony Blanchard MD [address] [place] [address] 09/22/2025 10:15 AM EDT Office Visit [facility] ADULT DENTAL [address] [place] [phone] Chapis Rooney [address] [place] [address] documented as of this encounter Goals Goal [...] documented as of this encounter Care Teams Tea Taster Relationship Specialty Start Date End Date Ebony Blanchard MD [address] [place] [address] PCP - General Family Medicine 06/18/18 El Gilman, Roscoe [address] [place] [address] Pharmacist Internal Medicine 08/21/22 04/27/24 documented as of this encounter
== END 2025-05-19 08:31 | disposition home or self-care (01) ==
LOC: HO.RESP 08:30
PROVIDERS: PCP Family Medicine; Visit Provider Family Medicine
DX: R06.2 Wheezing (principal); R09.89 Other specified symptoms and signs involving the circulatory and respiratory systems
CPT/HCPCS: 94010; 94727; 94729

== ENCOUNTER → 2025-05-19 08:41 | Outpatient (BNV) | payer OTHER, SELFPAY | PROVIDERS: PCP Family Medicine; Visit Provider Hospitalist | DX: R06.2 Wheezing (principal) | CPT/HCPCS: 94060; 94727; 94729 ==